=== PATIENT | female | born 1965 | race Caucasian/White ===

== ENCOUNTER 2016-10-05 15:28 | Inpatient (IN) | payer BC ==
[~2016-10-05] VITALS: Ht 162.6 cm; Wt 127.6 kg
[~2016-10-05 15:28] MED LIST: ALBUAER2 INH; ASPEC81 PO; CIPR-255 PO; CLON0.5T3 PO; CMD5 PO; CYM/30 PO; DEXTLIQ81 PO; FURO20TA PO; GABA-113 PO; LISI40TA PO; LMC25 PO; NRV5 PO; PRLSR20 PO; PROM25TA PO; TRAM-10 PO
[2016-10-05] MEDS ORDERED: ONDANSETRON 4MG OD TAB PO STA (15:53)
[2016-10-05] MEDS ORDERED: MoRPHine SULFATE 10 MG/ML CARP/VIAL IM STA (15:53)
--- NOTE | 2016-10-05 16:00 | EMERGENCY ROOM VISIT NOTE ---
History First contact with patient: 15:39 Chief Complaint: CHEST PAIN Stated Complaint: CHEST PAIN - MIGRAIN - SHORT OF BREATH Nursing Triage Summary: Pt presents with substernal cp. Pain and sob last night when walking a short distance. "It's not heartburn. It feels bad. I had a PE last year at this time. I also have a migraine. It's different, all the meds I usually take for them aren't helping." History of Present Illness The patient is a 51 year old female who presents to the Emergency Room via private vehicle accompanied by male with complaints of "chest pain, migraine, short of breath". The patient states that 2 days ago she began with chest pain in the substernal region, that is worse with movement. She states that she also began a headache which is throughout the head, she notes is constant and is worse today. She feels the headache is severe. She does have history of chronic migraines, but states this is different. She states that she did take her blood pressure medications, and her prescribed headache medications without relief. In addition to this headache, she notes that her lips feel numb, and the right side of her body also feels numb. She notes pain in the right upper arm, in the upper body. She states she has had this sensation before and believes it was related to the migraine. She also feels that the pelvic region is burning. She states she does have a history of fibromyalgia, and interstitial cystitis. She states that she had this numbness sensation one other time, and was told it was secondary to her migraines. At this time she feels the chest pain is worsening, and points to the substernal region as the location of the pain. She also feels short of breath. She has a history of pulmonary embolism, which was diagnosed last year she has been taking Coumadin for this. She denies any history of myocardial infarction or heart history. Review of Systems A complete 10-point Review of Systems was discussed with the patient, with pertinent positives and negatives listed in the History of Present Illness. All remaining Review of Systems questions can be considered negative unless otherwise specified. Past Medical/Surgical History Medical Problems: (1) Allergic rhinitis (2) Chest pain in adult (3) Endometriosis (4) Fibromyalgia (5) HTN (hypertension) (6) IBS (irritable bowel syndrome) (7) Interstitial cystitis (8) Migraine (9) Pulmonary embolism (10) Renal calculi Surgical Problems: (1) History of hysterectomy (2) S/P cholecystectomy (3) S/P tubal ligation Family History Cancer Diabetes mellitus Gallbladder disease Heart disease Hypertension Kidney disease Kidney stones Social History Smoking Status: Never Smoker Alcohol Use: none Drug Use: none Marital Status: Occupation Status: employed Current/Historical Medications Scheduled Aspirin (Aspir-81), 1 TAB PO DAILY Clonazepam (Klonopin), 0.5 MG PO HS Duloxetine Hcl (Cymbalta), 60 MG PO DAILY Furosemide (Lasix), 1 TAB PO BID Gabapentin (Neurontin), 300 MG PO UD Lamotrigine (Lamotrigine), 1 TAB PO BID Lisinopril (Prinivil), 40 MG PO DAILY Omeprazole (Prilosec), 40 MG PO BID Potassium Chloride (Potassium Chloride Er), 1 CAP PO DAILY Warfarin Sod (Coumadin), 5 MG PO DAILY Scheduled PRN Albuterol Hfa (Ventolin Hfa), 2 PUFFS INH Q6H PRN for SOB/Wheezing Clonazepam (Klonopin), 0.25 TAB PO QAM PRN for Anxiety Meclizine HCl (Meclizine HCl), 1 TAB PO TID PRN for dizziness Promethazine Hcl (Phenergan), 25 MG PO Q6H PRN for Nausea Tramadol (Ultram), 50 MG PO Q6 PRN for Pain Allergies Coded Allergies: Penicillins (Verified Allergy, Severe, SWELLING, 10/05/16) Sulfa Drugs (Verified Adverse Reaction, Mild, N/V, 10/05/16) Physical Exam Vital Signs Date Time Temp Pulse Resp B/P Pulse Ox O2 Delivery O2 Flow Rate FiO2 10/05/16 19:15 90 18 125/80 94 Room Air 10/05/16 19:11 87 10/05/16 16:30 95 Room Air 10/05/16 16:26 94 Room Air 10/05/16 16:02 98 10/05/16 15:34 36.9 101 18 160/86 95 Room Air Physical Exam VITAL SIGNS - Vital signs and nursing notes were reviewed. Patient is afebrile , hypertensive at 160/86, 70 tachycardic at a rate of 101 bpm, and is saturating well on room air 95%. GENERAL -51-year-old female appearing her stated age who is in no acute distress. Communicates well with provider and answers questions appropriately. SKIN - Without rashes. No petechial rashes. HEAD - NC/AT. EYES - PERRL with EOMI bilaterally. Sclera anicteric. Palpebral conjunctiva pink and moist with no injection noted. EARS - No deformities of external structures noted on gross examination bilaterally. No pain elicited with palpation of the tragus bilaterally. External auditory canals without discharge or otorrhea. Tympanic membranes pearly hernandez without retraction or bulging. No fluid or purulent material visualized behind the TM. Handle of malleus, umbo, cone of light, pars tensa/ flaccid all easily visualized. NOSE - Midline and without cyanosis. No epistaxis or purulent drainage noted. Septum midline without deviation or septal hematoma noted. MOUTH/OROPHARYNX - Without perioral cyanosis. Buccal mucosa pink and moist and without leukoplakia. Tongue midline with equal elevation of palate bilaterally. No tonsillar hypertrophy, erythema, or exudates noted. Fair dentition noted. NECK - Neck with FROM. Supple to palpation. No lymphadenopathy noted. No nuchal rigidity. LUNGS - Chest wall symmetric without accessory muscle use, intercostals retractions, or central cyanosis. Normal vesicular breath sounds CTA B/L. No wheezes, rales, or rhonchi appreciated. CARDIAC - RRR with S1/S2. No murmur, rubs, or gallops appreciated. ABDOMEN - Abdominal contour without pulsations or visible masses. BS normoactive all four quadrants. There is generalized abdominal tenderness of which the patient notes is chronic. No palpable masses, hepatosplenomegaly, or ascites noted. EXTREMITIES - No clubbing or peripheral cyanosis. No pretibial edema present. + 5/5 strength noted in UE/LE bilaterally. NEUROLOGIC - Cranial nerves II through XII grossly intact. Sensory intact to light touch throughout. No neurologic deficits appreciated upon exam. PSYCH - A&Ox3 and cooperates fully with examiner. Pt is very pleasant and interacts well with examiner. Medical Decision & Procedures ER Provider Diagnostic Interpretation: HEAD CT NONCONTRAST CT DOSE: HISTORY: Headache. Stroke TECHNIQUE: Multiaxial CT images of the head were performed without the use of intravenous contrast. Automated exposure control was utilized for this study. Comparison: Head CT 10/12/2015. Findings: The paranasal sinuses and mastoid air cells are clear. The calvarium and skull base are intact. There is no mass, hematoma, midline shift, acute infarct. White matter hypodensity is nonspecific but suggestive of microvascular ischemic change. The ventricles and sulci demonstrate mild age-related involutional changes. Stable slightly hyperdense appearance to the left MCA. Impression: No significant change compared to the prior study. No acute intracranial abnormality. Electronically signed by: Randy Alvarez M.D. 10/05/2016 6:25 PM SINGLE VIEW CHEST CLINICAL HISTORY: Dyspnea. Substernal chest pain. FINDINGS: An AP, portable, upright chest radiograph is compared to study dated 12/27/2015 and correlated with chest CT dated 10/12/2015. The examination is degraded by portable technique, large body habitus, and apical lordotic positioning. The heart is top normal for projection. The lungs and pleural spaces are clear. No pneumothorax is seen. The bony thorax is grossly intact. IMPRESSION: No active disease in the chest. Electronically signed by: Mark Harrison M.D. 10/05/2016 4:45 PM Dictated Date/Time: 10/05/2016 4:44 PM CHEST CTA for PULMONARY ARTERIES CT DOSE: 1640.82 mGy.cm HISTORY: Atypical chest pain. Dyspnea. TECHNIQUE: Multiaxial CT images of the chest were performed following the intravenous administration of contrast to evaluate the pulmonary arteries. Maximal intensity projection images were also obtained. COMPARISON STUDY: Chest CTA 10/12/2015. FINDINGS: Normal caliber thoracic aorta with no evidence for dissection. No pleural or pericardial effusions. Heterogeneous opacification of a single right upper lobe segmental pulmonary artery best seen on images 186 through 189 is likely due to the streak artifact from the adjacent SVC. There are no definite filling defects to suggest pulmonary embolus. Specifically, the right lower lobe pulmonary emboli seen on the prior study have resolved in the interval. No pneumothorax. The central airways are patent. Mild dependent changes seen at the lung bases. No focal lung consolidations to suggest pneumonia. Small peripheral groundglass density within the lingula on image 147 area this is of doubtful clinical significance. Cholecystectomy. Hepatic steatosis. The spleen and adrenal glands are unremarkable. No mediastinal or hilar lymphadenopathy. Subcentimeter right thyroid nodules. IMPRESSION: No evidence for pulmonary embolus. Electronically signed by: Randy Alvarez M.D. 10/05/2016 6:21 PM Dictated Date/Time: 10/05/2016 6:12 PM Laboratory Results 10/05/16 16:05 Red Blood Count 4.87, Mean Corpuscular Volume 92.2, Mean Corpuscular Hemoglobin 31.0, Mean Corpuscular Hemoglobin Concent 33.6, Mean Platelet Volume 10.9, Neutrophils (%) (Auto) 62.0, Lymphocytes (%) (Auto) 30.7, Monocytes (%) (Auto) 3.9, Eosinophils (%) (Auto) 2.8, Basophils (%) (Auto) 0.3, Neutrophils # (Auto) 5.33, Lymphocytes # (Auto) 2.65, Monocytes # (Auto) 0.34, Eosinophils # (Auto) 0.24, Basophils # (Auto) 0.03 10/05/16 16:05 Test 10/05/16 16:05 10/05/16 16:16 10/05/16 19:03 10/05/16 19:45 White Blood Count 8.62 K/uL (4.8-10.8) Red Blood Count 4.87 M/uL (4.2-5.4) Hemoglobin 15.1 g/dL (12.0-16.0) Hematocrit 44.9 % (37-47) Mean Corpuscular Volume 92.2 fL (80-100) Mean Corpuscular Hemoglobin 31.0 pg (25-34) Mean Corpuscular Hemoglobin Concent 33.6 g/dl (32-36) Platelet Count 221 K/uL (130-400) Mean Platelet Volume 10.9 fL (7.4-10.4) Neutrophils (%) (Auto) 62.0 % Lymphocytes (%) (Auto) 30.7 % Monocytes (%) (Auto) 3.9 % Eosinophils (%) (Auto) 2.8 % Basophils (%) (Auto) 0.3 % Neutrophils # (Auto) 5.33 K/uL (1.4-6.5) Lymphocytes # (Auto) 2.65 K/uL (1.2-3.4) Monocytes # (Auto) 0.34 K/uL (0.11-0.59) Eosinophils # (Auto) 0.24 K/uL (0-0.5) Basophils # (Auto) 0.03 K/uL (0-0.2) RDW Standard Deviation 46.3 fL (36.4-46.3) RDW Coefficient of Variation 13.8 % (11.5-14.5) Immature Granulocyte % (Auto) 0.3 % Immature Granulocyte # (Auto) 0.03 K/uL (0.00-0.02) Prothrombin Time 18.2 SECONDS (9.0-12.0) Prothromb Time International Ratio 1.7 (0.9-1.1) Activated Partial Thromboplast Time 37.4 SECONDS (21.0-31.0) Partial Thromboplastin Ratio 1.4 Anion Gap 8.0 mmol/L (3-11) Est Creatinine Clear Calc Drug Dose 61.3 ml/min Estimated GFR () 49.6 Estimated GFR (Non- 42.8 BUN/Creatinine Ratio 9.6 (10-20) Calcium Level 8.7 mg/dl (8.5-10.1) Total Bilirubin 0.8 mg/dl (0.2-1) Aspartate Amino Transf (AST/SGOT) 16 U/L (15-37) Alanine Aminotransferase (ALT/SGPT) 23 U/L (12-78) Alkaline Phosphatase 103 U/L (45-117) Total Creatine Kinase 65 U/L (26-192) Creatine Kinase MB 0.5 ng/ml (0.5-3.6) Creatine Kinase MB Ratio 0.8 (0-3.0) Total Protein 7.5 gm/dl (6.4-8.2) Albumin 3.3 gm/dl (3.4-5.0) Globulin 4.2 gm/dl (2.5-4.0) Albumin/Globulin Ratio 0.8 (0.9-2) Lipase 130 U/L (73-393) Chemistry Specimen Hemolysis UN-Ehr-M-Type Natriuretic Peptide 36 pg/ml (0-900) Bedside Troponin I 0.000 ng/ml (0-0.045) Urine Color YELLOW Urine Appearance CLEAR (CLEAR) Urine pH 5.0 (4.5-7.5) Urine Specific [place] > 1.045 (1.000-1.030) Urine Protein NEG (NEG) Urine Glucose (UA) NEG (NEG) Urine Ketones NEG (NEG) Urine Occult Blood NEG (NEG) Urine Nitrite NEG (NEG) Urine Bilirubin NEG (NEG) Urine Urobilinogen NEG (NEG) Urine Leukocyte Esterase MODERATE (NEG) Urine WBC (Auto) 10-30 /hpf (0-5) Urine RBC (Auto) 0-4 /hpf (0-4) Urine Hyaline Casts (Auto) 1-5 /lpf (0-5) Urine Epithelial Cells (Auto) >30 /lpf (0-5) Urine Bacteria (Auto) 1+ (NEG) Urine Opiates Screen POS (NEG) Urine Methadone, Qualitative NEG (NEG) Urine Barbiturates NEG (NEG) Urine Phencyclidine (PCP) Level NEG (NEG) Ur Amphetamine/Methamphetamine NEG (NEG) MDMA (Ecstasy) Screen NEG (NEG) Urine Benzodiazepines Screen POS (NEG) Urine Cocaine Metabolite NEG (NEG) Urine Marijuana (THC) NEG (NEG) Medications Administered Medications (Trade) Dose Ordered Sig/Joe Route Start Time Stop Time Status Last Admin Dose Admin Sodium Chloride (Nss 1000ml) 1,000 ml @ 50 mls/hr Q20H IV 10/05/16 16:00 10/05/16 21:55 DC 10/05/16 16:22 50 MLS/HR Morphine Sulfate (MoRPHine SULFATE INJ) 4 mg NOW STAT IV 10/05/16 16:02 10/05/16 16:04 DC 10/05/16 16:11 4 MG Ondansetron HCl (Zofran Inj) 4 mg NOW STAT IV 10/05/16 16:02 10/05/16 16:04 DC 10/05/16 16:11 4 MG Hydromorphone HCl (Dilaudid Inj) 0.5 mg NOW STAT IV 10/05/16 16:17 10/05/16 16:19 DC 10/05/16 16:25 0.5 MG Nitroglycerin (Nitroglycerin 2% Oint) 1 inch NOW STAT EXT 10/05/16 18:47 10/05/16 18:49 DC 10/05/16 19:16 1 INCH Diphenhydramine HCl (Benadryl Inj) 50 mg NOW STAT IV 10/05/16 18:47 10/05/16 18:49 DC 10/05/16 19:15 50 MG Prochlorperazine Edisylate (Compazine Inj) 10 mg NOW STAT IV 10/05/16 18:47 10/05/16 18:49 DC 10/05/16 19:15 10 MG Medical Decision Patient was seen and evaluated as above. After obtaining a thorough history and physical examination IV access was established, and the above workup was initiated. Emergent concern was over myocardial infarction. Initial point care troponin was negative, EKG performed does reveal normal sinus rhythm, nonspecific T-wave abnormality with a rate of 100 bpm, and when compared with EKG of 12/27/2015 there is now a nonspecific change in the ST segment in the inferior leads. At this time I do not suspect any ST segment elevation myocardial infarction. The patient also noted that the right side of her body felt numb therefore a stat CT of the head was performed. This did not reveal any acute process, however old ischemia was noted. The patient was initially given morphine for her pain, and noted this did not provide relief therefore was given Dilaudid. There was no relief of her chest pain or headache. She was given nitroglycerin with relief for chest pain. She was then given Benadryl and Compazine for the headache. She was reevaluated and noted to be feeling much better. Her NIH stroke scale was 0, and I was not able to appreciate any neurologic deficits on exam. I do not suspect any acute stroke at this time. Because the patient had relief of her pain with the nitroglycerin , does have subtle changes on EKG I do believe that further intervention the inpatient management is appropriate. Her CBC reveals no leukocytosis or anemia. INR is 1.7. This is subtherapeutic. Creatinine elevated at 1.4, random glucose elevated at 186. Point care troponin negative 2. Lipase within normal limits. CT scans did not reveal on her emboli. Given the patient 's chest pain I do believe that further intervention is necessary as noted above. I did discuss the case with my attending, and the hospitalist. I do believe that staying in the hospital for further management will be beneficial. I discussed the case at [address] Ward. Please refer to further documentation regarding her stay. Her urine does reveal questionable UTI however at this time I do believe that waiting for the culture is appropriate. In the evaluation and treatment of this patient the following differential diagnoses were entertained: Acute myocardial infarction, PE, subtherapeutic INR , fibromyalgia, anxiety, migraine, TIA, CVA, UTI, among others. Impression Primary Impression: Chest pain in adult Additional Impression: Migraine Departure Information Dispostion Admitted as an inpatient Condition FAIR Referrals Abraham Ryan M.D. (PCP) Patient Instructions [facility] Problem Qualifiers
[2016-10-05] MEDS ORDERED: ONDANSETRON INJ 2 MG/ML 2 ML VIAL IV STA (16:02)
[2016-10-05] MEDS ORDERED: MoRPHine SULFATE 4 MG/ML 1 ML CARP\\VIAL IV STA (16:02)
[2016-10-05] MEDS: SODIUM CHLORIDE 0.9% 1000ML 1,000 ML IV SCH ×2 (16:12→16:22)
[2016-10-05] MEDS ORDERED: HYDROmorphone INJ 0.5 MG/0.5 ML SYR IV STA (16:17)
[2016-10-05 16:34] LABS: BASO % 0.3 %; BASO ABS # 0.03 K/uL (0-0.2); COMPLETE YES; EOS % 2.8 %; HEMATOCRIT 44.9 % (37-47); IG% 0.3 %; LYMPH % 30.7 %; LYMPH ABS # 2.65 K/uL (1.2-3.4); MEAN CELL VOLUME 92.2 fL (80-100); MEAN CORPUSCULAR HGB CONC 33.6 g/dl (32-36); MEAN PLATELET VOLUME 10.9 fL (7.4-10.4); MONO % 3.9 %; PLATELET COUNT 221 K/uL (130-400); RED BLOOD COUNT 4.87 M/uL (4.2-5.4); WHITE BLOOD COUNT 8.62 K/uL (4.8-10.8)
[2016-10-05 16:41] LABS: INR 1.7 (0.9-1.1); PARTIAL THROMBOPLASTIN RATIO 1.4; PROTHROMBIN TIME (PATIENT) 18.2 SECONDS (9.0-12.0)
--- NOTE | 2016-10-05 16:46 | DIAGNOSTIC IMAGING REPORT ---
SINGLE VIEW CHEST CLINICAL HISTORY: Dyspnea. Substernal chest pain. FINDINGS: An AP, portable, upright chest radiograph is compared to study dated 12/27/2015 and correlated with chest CT dated 10/12/2015. The examination is degraded by portable technique, large body habitus, and apical lordotic positioning. The heart is top normal for projection. The lungs and pleural spaces are clear. No pneumothorax is seen. The bony thorax is grossly intact. IMPRESSION: No active disease in the chest. Electronically signed by: Mark Harrison M.D. 10/05/2016 4:45 PM Dictated Date/Time: 10/05/2016 4:44 PM
[2016-10-05 17:17] LABS: ALB/GLOB RATIO 0.8 (0.9-2); BUN/CREATININE RATIO 9.6 (10-20); CALCIUM 8.7 mg/dl (8.5-10.1); CKMB/CK RATIO 0.8 (0-3.0); CREATININE 1.4 mg/dl (0.60-1.20); POTASSIUM 3.5 mmol/L (3.5-5.1)
[2016-10-05] MEDS ORDERED: OMEP40CA41 PO (17:25)
[2016-10-05] MEDS ORDERED: VNTHFA/IN INH (17:25)
[2016-10-05] MEDS ORDERED: DULO60CA44 PO (17:25)
[2016-10-05] MEDS ORDERED: ASPI-232 PO (17:25)
[2016-10-05] MEDS ORDERED: PROM12.57 PO (17:25)
[2016-10-05] MEDS ORDERED: OPTIRAY 320 IV PRN (18:15)
--- NOTE | 2016-10-05 18:23 | DIAGNOSTIC IMAGING REPORT ---
CHEST CTA for PULMONARY ARTERIES CT DOSE: 1640.82 mGy.cm HISTORY: Atypical chest pain. Dyspnea. TECHNIQUE: Multiaxial CT images of the chest were performed following the intravenous administration of contrast to evaluate the pulmonary arteries. Maximal intensity projection images were also obtained. COMPARISON STUDY: Chest CTA 10/12/2015. FINDINGS: Normal caliber thoracic aorta with no evidence for dissection. No pleural or pericardial effusions. Heterogeneous opacification of a single right upper lobe segmental pulmonary artery best seen on images 186 through 189 is likely due to the streak artifact from the adjacent SVC. There are no definite filling defects to suggest pulmonary embolus. Specifically, the right lower lobe pulmonary emboli seen on the prior study have resolved in the interval. No pneumothorax. The central airways are patent. Mild dependent changes seen at the lung bases. No focal lung consolidations to suggest pneumonia. Small peripheral groundglass density within the lingula on image 147 area this is of doubtful clinical significance. Cholecystectomy. Hepatic steatosis. The spleen and adrenal glands are unremarkable. No mediastinal or hilar lymphadenopathy. Subcentimeter right thyroid nodules. IMPRESSION: No evidence for pulmonary embolus. Electronically signed by: Randy Alvarez M.D. 10/05/2016 6:21 PM Dictated Date/Time: 10/05/2016 6:12 PM
--- NOTE | 2016-10-05 18:26 | DIAGNOSTIC IMAGING REPORT ---
HEAD CT NONCONTRAST CT DOSE: HISTORY: Headache. Stroke TECHNIQUE: Multiaxial CT images of the head were performed without the use of intravenous contrast. Automated exposure control was utilized for this study. Comparison: Head CT 10/12/2015. Findings: The paranasal sinuses and mastoid air cells are clear. The calvarium and skull base are intact. There is no mass, hematoma, midline shift, acute infarct. White matter hypodensity is nonspecific but suggestive of microvascular ischemic change. The ventricles and sulci demonstrate mild age-related involutional changes. Stable slightly hyperdense appearance to the left MCA. Impression: No significant change compared to the prior study. No acute intracranial abnormality. Electronically signed by: Randy Alvarez M.D. 10/05/2016 6:25 PM Dictated Date/Time: 10/05/2016 6:21 PM
[2016-10-05] MEDS ORDERED: DiphenhydrAMINE HCL 50 MG/ML VIAL IV STA (18:47)
[2016-10-05] MEDS ORDERED: NITROGLYCERIN OINT 2% 1GM PACKET EXT STA (18:47)
[2016-10-05] MEDS ORDERED: PROCHLORPERAZINE 5 MG/ML 2 ML VIAL IV STA (18:47)
[2016-10-05] MEDS ORDERED: NITROGLYCERIN OINT 2% 1GM PACKET ONE (19:09)
[2016-10-05 20:05] LABS: URINE APPEARANCE CLEAR (CLEAR); URINE BILIRUBIN NEG (NEG); URINE COLOR YELLOW; URINE EPITHELIAL CELL AUTO >30 /lpf (0-5); URINE NITRITE NEG (NEG); URINE SPECIFIC GRAVITY > 1.045 (1.000-1.030); UROBILINOGEN NEG (NEG); ZZUR CULT IF INDIC CLEAN CATCH YES
[2016-10-05 20:09] LABS: MANUAL MICROSCOPIC REQUIRED? NO; REVIEW REQ? NO
[2016-10-05 20:31] LABS: BENZODIAZEPINE, URINE POS (NEG); COCAINE,URINE NEG (NEG); PHENCYCLIDINE, URINE NEG (NEG)
[2016-10-05] MEDS ORDERED: PROM25TA9 PO (20:42)
[2016-10-05] MEDS ORDERED: POTA1CAP2 PO (20:42)
[2016-10-05] MEDS ORDERED: ANT25 PO (20:42)
[2016-10-05] MEDS ORDERED: CLONAZEPAM 0.5 MG TAB PO PRN (20:45)
[2016-10-05] MEDS ORDERED: ALBUTEROL HFA 8 GM INHALER INH PRN (20:45)
[2016-10-05] MEDS ORDERED: ENOXAPARIN 1 MG/KG SQ SCH (20:45)
--- NOTE | 2016-10-05 21:22 | History and Physical ---
History & Physical Date & Time of Service: Oct 05, 2016 at 21:10 Chief Complaint: Chest Pain - Migrain - Short Of Breath Primary Care Physician: Abraham Ryan M.D. History of Present Illness Source: patient, spouse, clinic records, hospital records Patient is a 51 y/o female with a h/o fibromyalgia, migraines and HTN who presents for evaluation of chest pain, migraine and SOB. Patient notes intermittent episodes of substernal chest pain since the weekend. The pain does not radiate. It is associated with SOB. Today she developed a headache as well and so presented to the ED. Patient's notes that patient has been under significant stress for the past couple of weeks. In the ED, patient was given Nitro paste, Benadryl IV, Compazine IV, Dilaudid IV , Morphine IV and Zofran. She is sleepy, but notes complete resolution of headache and chest pain. Past Medical/Surgical History Medical Problems: (1) Allergic rhinitis Status: Chronic (2) Endometriosis Status: Chronic (3) Fibromyalgia Status: Chronic (4) HTN (hypertension) Status: Chronic (5) Interstitial cystitis Status: Chronic (6) Migraine Status: Chronic (7) Renal calculi Status: Chronic Surgical Problems: (1) History of hysterectomy Status: Chronic (2) S/P cholecystectomy Status: Chronic (3) S/P tubal ligation Status: Chronic Family History Cancer Diabetes mellitus Gallbladder disease Heart disease Hypertension Kidney disease Kidney stones Social History Smoking Status: Never Smoker Drug Use: none Marital Status: Housing status: lives with family Occupational Status: employed Immunizations History of Influenza Vaccine: Yes Influenza Vaccine Date: Mar 23, 2014 History of Tetanus Vaccine?: Yes Tetanus Immunization Date: Feb 13, 2008 History of Pneumococcal: No History of Hepatitis B Vaccine: Yes Multi-Drug Resistant Organisms History of MDRO: Yes Type of MDRO: MRSA Allergies Coded Allergies: Penicillins (Verified Allergy, Severe, SWELLING, 10/05/16) Sulfa Drugs (Verified Adverse Reaction, Mild, N/V, 10/05/16) Home Medications Scheduled Aspirin (Aspir-81), 1 TAB PO DAILY Clonazepam (Klonopin), 0.5 MG PO HS Duloxetine Hcl (Cymbalta), 60 MG PO DAILY Furosemide (Lasix), 1 TAB PO BID Gabapentin (Neurontin), 300 MG PO UD Lamotrigine (Lamotrigine), 1 TAB PO BID Lisinopril (Prinivil), 40 MG PO DAILY Omeprazole (Prilosec), 40 MG PO BID Potassium Chloride (Potassium Chloride Er), 1 CAP PO DAILY Warfarin Sod (Coumadin), 5 MG PO DAILY Scheduled PRN Albuterol Hfa (Ventolin Hfa), 2 PUFFS INH Q6H PRN for SOB/Wheezing Clonazepam (Klonopin), 0.25 TAB PO QAM PRN for Anxiety Meclizine HCl (Meclizine HCl), 1 TAB PO TID PRN for dizziness Promethazine Hcl (Phenergan), 25 MG PO Q6H PRN for Nausea Tramadol (Ultram), 50 MG PO Q6 PRN for Pain Review of Systems Constitutional- denies fevers or chills Eyes- denies sudden vision changes ENT- +sore throat; denies congestion Pulmonary- +SOB; denies cough Cardiac- +chest pain; denies palpitations GI- denies abdominal pain, nausea, vomiting, diarrhea - denies dysuria, hematuria Musculoskeletal- denies joint pain or swelling Dermatologic- denies rash or bruises Neuro- +chronic tingling of hands and feet; denies weakness Psych- +depression and anxiety . Physical Exam Vital Signs Date Time Temp Pulse Resp B/P Pulse Ox O2 Delivery O2 Flow Rate FiO2 10/05/16 21:09 89 16 107/61 88 Room Air 10/05/16 19:15 90 18 125/80 94 Room Air 10/05/16 19:11 87 10/05/16 16:30 95 Room Air 10/05/16 16:26 94 Room Air 10/05/16 16:02 98 10/05/16 15:34 36.9 101 18 160/86 95 Room Air General- drowsy; NAD Eyes- EOMI; no scleral icterus Neck- no stridor; trachea midline Lungs- CTA bilaterally; no wheezes/crackles Heart- RRR; no m/r/g Abdomen- soft; NTND; nBS Back- no gross abnormalities Extremities- no c/c/e; no deformity Neuro- no focal deficits Skin- no appreciable rash or bruise . Diagnostics Laboratory Results Results Past 24 Hours Test 10/05/16 16:00 10/05/16 16:05 10/05/16 16:16 10/05/16 19:03 Range/Units Creatine Kinase MB Ratio 0.8 0-3.0 White Blood Count 8.62 4.8-10.8 K/uL Red Blood Count 4.87 4.2-5.4 M/uL Hemoglobin 15.1 12.0-16.0 g/dL Hematocrit 44.9 37-47 % Mean Corpuscular Volume 92.2 80-100 fL Mean Corpuscular Hemoglobin 31.0 25-34 pg Mean Corpuscular Hemoglobin Concent 33.6 32-36 g/dl Platelet Count 221 130-400 K/uL Mean Platelet Volume 10.9 7.4-10.4 fL Neutrophils (%) (Auto) 62.0 % Lymphocytes (%) (Auto) 30.7 % Monocytes (%) (Auto) 3.9 % Eosinophils (%) (Auto) 2.8 % Basophils (%) (Auto) 0.3 % Neutrophils # (Auto) 5.33 1.4-6.5 K/uL Lymphocytes # (Auto) 2.65 1.2-3.4 K/uL Monocytes # (Auto) 0.34 0.11-0.59 K/uL Eosinophils # (Auto) 0.24 0-0.5 K/uL Basophils # (Auto) 0.03 0-0.2 K/uL RDW Standard Deviation 46.3 36.4-46.3 fL RDW Coefficient of Variation 13.8 11.5-14.5 % Immature Granulocyte % (Auto) 0.3 % Immature Granulocyte # (Auto) 0.03 0.00-0.02 K/uL Prothrombin Time 18.2 9.0-12.0 SECONDS Prothromb Time International Ratio 1.7 0.9-1.1 Activated Partial Thromboplast Time 37.4 21.0-31.0 SECONDS Partial Thromboplastin Ratio 1.4 Sodium Level 140 136-145 mmol/L Potassium Level 3.5 3.5-5.1 mmol/L Chloride Level 103 98-107 mmol/L Carbon Dioxide Level 29 21-32 mmol/L Anion Gap 8.0 3-11 mmol/L Blood Urea Nitrogen 13 7-18 mg/dl Creatinine 1.40 0.60-1.20 mg/dl Est Creatinine Clear Calc Drug Dose 61.3 ml/min Estimated GFR () 49.6 Estimated GFR (Non- 42.8 BUN/Creatinine Ratio 9.6 10-20 Random Glucose 186 70-99 mg/dl Calcium Level 8.7 8.5-10.1 mg/dl Total Bilirubin 0.8 0.2-1 mg/dl Aspartate Amino Transf (AST/SGOT) 16 15-37 U/L Alanine Aminotransferase (ALT/SGPT) 23 12-78 U/L Alkaline Phosphatase 103 45-117 U/L Total Creatine Kinase 65 26-192 U/L Creatine Kinase MB 0.5 0.5-3.6 ng/ml Total Protein 7.5 6.4-8.2 gm/dl Albumin 3.3 3.4-5.0 gm/dl Globulin 4.2 2.5-4.0 gm/dl Albumin/Globulin Ratio 0.8 0.9-2 Lipase 130 73-393 U/L Chemistry Specimen Hemolysis Bedside Troponin I 0.000 0.000 0-0.045 ng/ml [id number] Natriuretic Peptide 36 0-900 pg/ml Test 10/05/16 19:45 Range/Units Urine Color YELLOW Urine Appearance CLEAR CLEAR Urine pH 5.0 4.5-7.5 Urine Specific [place] > 1.045 1.000-1.030 Urine Protein NEG NEG Urine Glucose (UA) NEG NEG Urine Ketones NEG NEG Urine Occult Blood NEG NEG Urine Nitrite NEG NEG Urine Bilirubin NEG NEG Urine Urobilinogen NEG NEG Urine Leukocyte Esterase MODERATE NEG Urine WBC (Auto) 10-30 0-5 /hpf Urine RBC (Auto) 0-4 0-4 /hpf Urine Hyaline Casts (Auto) 1-5 0-5 /lpf Urine Epithelial Cells (Auto) >30 0-5 /lpf Urine Bacteria (Auto) 1+ NEG Urine Opiates Screen POS NEG Urine Methadone, Qualitative NEG NEG Urine Barbiturates NEG NEG Urine Phencyclidine (PCP) Level NEG NEG Ur Amphetamine/Methamphetamine NEG NEG MDMA (Ecstasy) Screen NEG NEG Urine Benzodiazepines Screen POS NEG Urine Cocaine Metabolite NEG NEG Urine Marijuana (THC) NEG NEG Microbiology Results 10/05/16 Urine Culture, Received Pending Diagnostic Radiology CT chest No evidence for pulmonary embolus. CT head No significant change compared to the prior study. No acute intracranial abnormality. EKG No acute ischemic changes Impression Assessment and Plan Patient is a 51 y/o female with a h/o fibromyalgia who presents with ~1 week h/ o intermittent chest pain. Atypical chest pain - lower clinical suspicion for cardiac etiology - patient's notes increased stressors over the past 1-2 weeks - ACS r/o - patient had a normal stress echo in 2006 Migraine - resolved with cocktail that patient received in ED - continue lamotrigine HTN - continue lisinopril and furosemide Fibromyalgia - continue duloxetine, gabapentin, clonazepam and tramadol h/o PE - INR subtherapeutic - bridge with enoxaparin - continue warfarin - CT chest negative for PE Anticipate possible discharge home tomorrow. VTE Prophylaxis VTE Risk Assessment Done? Y/N: Yes Risk Level: Moderate
[2016-10-05 21:56] VITALS: BP 110/63; PULSE 85; TEMP 36.6; O2SAT 95; Ht 162.6 cm; Wt 127.6 kg
[2016-10-05] MEDS: CLONAZEPAM 0.5 MG TAB PO SCH (22:33)
[2016-10-05] MEDS: ENOXAPARIN 150 MG/1ML SYR SQ SCH (22:34)
[2016-10-05] MEDS: PANTOprazole SOD 40 MG TAB PO SCH (22:35)
[2016-10-05] MEDS: GABAPENTIN 300 MG CAP PO SCH (22:36)
[2016-10-05] MEDS ORDERED: WARFARIN SOD 5 MG TAB PO SCH (23:00)
[2016-10-06] VITALS (8 sets, daily range): BP systolic 96–141; BP diastolic 61–92; PULSE 85–98; TEMP 36.4–36.8; O2SAT 87–97
[2016-10-06 03:04] LABS: MEAN CELL VOLUME 91.1 fL (80-100); MEAN CORPUSCULAR HEMOGLOBIN 30.2 pg (25-34); MEAN CORPUSCULAR HGB CONC 33.1 g/dl (32-36); MEAN PLATELET VOLUME 10.1 fL (7.4-10.4); PLATELET COUNT 226 K/uL (130-400); RED BLOOD COUNT 4.61 M/uL (4.2-5.4); WHITE BLOOD COUNT 8.98 K/uL (4.8-10.8)
[2016-10-06 03:12] LABS: INR 1.8 (0.9-1.1); PROTHROMBIN TIME (PATIENT) 19.4 SECONDS (9.0-12.0)
[2016-10-06 03:23] LABS: BLOOD UREA NITROGEN 18 mg/dl (7-18); CALCIUM 8.4 mg/dl (8.5-10.1); CARBON DIOXIDE 30 mmol/L (21-32); CHLORIDE 104 mmol/L (98-107); GLUCOSE 136 mg/dl (70-99); POTASSIUM 3.9 mmol/L (3.5-5.1); SODIUM 143 mmol/L (136-145)
[2016-10-06] MEDS: LISINOPRIL 40 MG TAB PO SCH (07:52)
[2016-10-06] MEDS: GABAPENTIN 300 MG CAP PO SCH ×3 (07:52→20:38)
[2016-10-06] MEDS: DULOXETINE HCL 60 MG CAP PO SCH (07:53)
[2016-10-06] MEDS: POTASSIUM CHLORIDE 10 MEQ TABCR PO SCH (07:53)
[2016-10-06] MEDS: PANTOprazole SOD 40 MG TAB PO SCH ×2 (07:53→20:37)
[2016-10-06] MEDS: FUROSEMIDE 20 MG TAB PO SCH (07:53)
[2016-10-06] MEDS: ASPIRIN 81 MG ECTAB PO SCH (07:53)
[2016-10-06] MEDS: ENOXAPARIN 150 MG/1ML SYR SQ SCH ×2 (07:54→22:19)
[2016-10-06] MEDS: SODIUM CHLORIDE 0.9% 1000ML 1,000 ML IV SCH ×2 (10:03→22:02)
[2016-10-06] MEDS: WARFARIN SOD 6 MG TAB PO SCH (17:05)
--- NOTE | 2016-10-06 17:41 | Progress Note ---
Internal Med Progress Note Date of Service: Oct 06, 2016. Provider Documentation: SUBJECTIVE: chest pain on and off no sob drowsy from medications afebrile hemodynamics stable OBJECTIVE: Vital Signs-as noted below Exam: General-alert and oriented. Not in distress ENT-normal hearing Neck-no neck masses Lungs-cta b/l no wheezing no crackles Heart-s1 and s2 heard, regular rate and rhythm no murmurs Abdomen-soft bowel sounds present non tender no distension Extremities-no edema no erythema Neuro-alert and awake moves extremities Lab data as noted below. ASSESSMENT & PLAN: Patient is a 51 y/o female with a h/o fibromyalgia who presents with ~1 week h/ o intermittent chest pain. Atypical chest pain increased stress at home ekg and serial ce unremarkable f/u echo Migraine resolved with cocktail that patient received in ED will continue lamotrigine HTN on lisinopril and furosemide which are on hold for arf clonidine prn ARF holding lisinopril and Lasix gentle fluids f/u labs in am Fibromyalgia on duloxetine, gabapentin, clonazepam and tramadol h/o PE INR subtherapeutic CT chest negative for PE bridging with Lovenox increased Coumadin dose to 6mg daily DVT PROPHYLAXIS Lovenox and Coumadin DISPOSITION monitor in tele to be determined Vital Signs: Date Time Temp Pulse Resp B/P Pulse Ox O2 Delivery O2 Flow Rate FiO2 10/06/16 16:00 Room Air 10/06/16 15:05 36.8 94 17 141/92 95 Room Air 10/06/16 12:00 Nasal Cannula 2.0 10/06/16 11:52 36.4 98 15 125/83 97 Nasal Cannula 2.0 10/06/16 11:40 87 Room Air 10/06/16 08:00 Nasal Cannula 2.0 10/06/16 07:48 36.8 86 14 120/69 92 Nasal Cannula 2.0 10/06/16 04:00 94 Nasal Cannula 2.0 10/06/16 03:50 36.7 85 16 97/67 95 Nasal Cannula 2.0 10/06/16 00:00 93 Nasal Cannula 2.0 10/06/16 00:00 36.7 91 15 96/61 93 Nasal Cannula 2.0 10/05/16 21:56 36.6 85 14 110/63 95 Nasal Cannula 2.0 10/05/16 21:38 36.9 89 16 107/61 93 10/05/16 21:10 93 Nasal Cannula 2.0 10/05/16 21:09 89 16 107/61 88 Room Air 10/05/16 19:15 90 18 125/80 94 Room Air 10/05/16 19:11 87 Lab Results: Results Past 24 Hours Test 10/05/16 19:03 10/05/16 19:45 10/06/16 02:50 Range/Units Bedside Troponin I 0.000 0-0.045 ng/ml Urine Color YELLOW Urine Appearance CLEAR CLEAR Urine pH 5.0 4.5-7.5 Urine Specific [place] > 1.045 1.000-1.030 Urine Protein NEG NEG Urine Glucose (UA) NEG NEG Urine Ketones NEG NEG Urine Occult Blood NEG NEG Urine Nitrite NEG NEG Urine Bilirubin NEG NEG Urine Urobilinogen NEG NEG Urine Leukocyte Esterase MODERATE NEG Urine WBC (Auto) 10-30 0-5 /hpf Urine RBC (Auto) 0-4 0-4 /hpf Urine Hyaline Casts (Auto) 1-5 0-5 /lpf Urine Epithelial Cells (Auto) >30 0-5 /lpf Urine Bacteria (Auto) 1+ NEG Urine Opiates Screen POS NEG Urine Methadone, Qualitative NEG NEG Urine Barbiturates NEG NEG Urine Phencyclidine (PCP) Level NEG NEG Ur Amphetamine/Methamphetamine NEG NEG MDMA (Ecstasy) Screen NEG NEG Urine Benzodiazepines Screen POS NEG Urine Cocaine Metabolite NEG NEG Urine Marijuana (THC) NEG NEG White Blood Count 8.98 4.8-10.8 K/uL Red Blood Count 4.61 4.2-5.4 M/uL Hemoglobin 13.9 12.0-16.0 g/dL Hematocrit 42.0 37-47 % Mean Corpuscular Volume 91.1 80-100 fL Mean Corpuscular Hemoglobin 30.2 25-34 pg Mean Corpuscular Hemoglobin Concent 33.1 32-36 g/dl RDW Standard Deviation 47.2 36.4-46.3 fL RDW Coefficient of Variation 14.1 11.5-14.5 % Platelet Count 226 130-400 K/uL Mean Platelet Volume 10.1 7.4-10.4 fL Prothrombin Time 19.4 9.0-12.0 SECONDS Prothromb Time International Ratio 1.8 0.9-1.1 Sodium Level 143 136-145 mmol/L Potassium Level 3.9 3.5-5.1 mmol/L Chloride Level 104 98-107 mmol/L Carbon Dioxide Level 30 21-32 mmol/L Anion Gap 9.0 3-11 mmol/L Blood Urea Nitrogen 18 7-18 mg/dl Creatinine 1.80 0.60-1.20 mg/dl Est Creatinine Clear Calc Drug Dose 47.7 ml/min Estimated GFR () 36.6 Estimated GFR (Non- 31.6 BUN/Creatinine Ratio 10.0 10-20 Random Glucose 136 70-99 mg/dl Calcium Level 8.4 8.5-10.1 mg/dl Troponin I < 0.015 0-0.045 ng/ml Hepatitis C Antibody Screen NEG NEG Microbiology Results 10/05/16 Urine Culture - Preliminary, Resulted PIN-POINT GROWTH PRESENT, REINCUBATING.
[2016-10-06] MEDS ORDERED: CLONIDINE HCL 0.1 MG TAB PO PRN (17:45)
[2016-10-06] MEDS: TRAMADOL HCL 50 MG TAB PO PRN (17:57)
[2016-10-06] MEDS: CLONAZEPAM 0.5 MG TAB PO SCH (20:37)
[2016-10-07] VITALS (11 sets, daily range): BP systolic 148–176; BP diastolic 77–106; PULSE 82–99; TEMP 36.6–37; O2SAT 93–97
[2016-10-07] MEDS: ONDANSETRON INJ 2 MG/ML 2 ML VIAL IV PRN ×2 (04:07→08:49)
[2016-10-07 06:37] LABS: INR 2.5 (0.9-1.1); PROTHROMBIN TIME (PATIENT) 27.6 SECONDS (9.0-12.0)
[2016-10-07] MEDS: GABAPENTIN 300 MG CAP PO SCH ×3 (07:54→21:10)
[2016-10-07] MEDS: PANTOprazole SOD 40 MG TAB PO SCH ×2 (07:55→21:09)
[2016-10-07] MEDS: ASPIRIN 81 MG ECTAB PO SCH (07:55)
[2016-10-07] MEDS: DULOXETINE HCL 60 MG CAP PO SCH (07:55)
[2016-10-07 07:56] LABS: BUN/CREATININE RATIO 11.9 (10-20); CALCIUM 8.6 mg/dl (8.5-10.1); CREATININE 1.1 mg/dl (0.60-1.20); POTASSIUM 4.1 mmol/L (3.5-5.1)
[2016-10-07] MEDS: POTASSIUM CHLORIDE 10 MEQ TABCR PO SCH (07:56)
--- NOTE | 2016-10-07 08:45 | ECHOCARDIOGRAM REPORT ---
*NOTICE TO RECEIVING REPUBLICAN AGENCY This information is strictly Confidential and protected under [place] law. [place] law prohibits you from making any further disclosure of this information unless further disclosure is expressly permitted by the written consent of the person to whom it pertains or is authorized by law. A general authorization for the release of medical or other information is not sufficient for this purpose. Hospital accepts no responsibility if the information is made available to any other person, INCLUDING THE PATIENT. Interpretation Summary * Name: ZOE BUCKLEY Study Date: 10/06/2016 02:31 PM BP: 125/83 mmHg * Patient Location: .MSICU\S\E112\S\1 HR: 98 * : 1965 (M/d/yyyy) Gender: Female Height: 64 in * Age: 51 yrs Ethnicity: CA Weight: 279 lb * Ordering Physician: Fitz Mendoza * Referring Physician: Abraham Ryan * Performed By: Alicia Nguyen [facility] * * Reason For Study: Chest Pain * BSA: 2.3 m2 * -- Conclusions -- * The left ventricle is normal in size. * Ejection Fraction = 65-70%. * The left ventricular wall motion is normal. * The right ventricular systolic function is normal. * The left atrial size is normal. * Right atrial size is normal. * No significant valular pathology. Procedure Details * A complete two-dimensional transthoracic echocardiogram was performed (2D, M-mode, Doppler and color flow Doppler). * There were technical limitations due to patient's body habitus and supine positioning for imagining Left Ventricle * The left ventricle is normal in size. * There is normal left ventricular wall thickness. * Ejection Fraction = 65-70%. * The left ventricular wall motion is normal. Right Ventricle * The right ventricle is normal in size and function. * There is normal right ventricular wall thickness. * The right ventricular systolic function is normal. Atria * The left atrial size is normal. * Right atrial size is normal. * The interatrial septum is intact with no evidence for an atrial septal defect. Mitral Valve * The mitral valve is normal in structure and function. * There is no mitral valve stenosis. * There is no mitral regurgitation noted. Tricuspid Valve * The tricuspid valve is normal in structure and function. * There is trace tricuspid regurgitation. Aortic Valve * The aortic valve is normal in structure and function. * No aortic regurgitation is present. Pulmonic Valve * The pulmonic valve is normal in structure and function. * There is no pulmonic valvular regurgitation. Great Vessels * The aortic root is normal size. * No obvious dissection could be visualized. * The pulmonary artery is normal size. Pericardium/Pleural * There is no pericardial effusion. MMode 2D Measurements and Calculations IVSd 10 cm IVSs 1.3 cm LVIDd 4.3 cm LVIDs 2.5 cm LVPWd 1.0 cm LVPWs 1.2 cm IVS/LVPW 0.96 FS 42.7 % EDV(Teich) 82.4 ml ESV(Teich) 21.4 ml EF(Teich) 74.0 % EDV(cubed) 78.7 ml ESV(cubed) 14.8 ml EF(cubed) 81.1 % % IVS thick 31.4 % % LVPW thick 18.2 % LV mass(C)d 145.1 grams LV mass(C)dI 64.4 grams/m\S\2 LV mass(C)s 91.8 grams LV mass(C)sI 40.7 grams/m\S\2 CO(Teich) 5.2 l/min CI(Teich) 2.3 l/min/m\S\2 SV(Teich) 61.0 ml SI(Teich) 27.1 ml/m\S\2 CO(cubed) 5.4 l/min CI(cubed) 2.4 l/min/m\S\2 SV(cubed) 63.9 ml SI(cubed) 28.3 ml/m\S\2 Ao root diam 3.3 cm Ao root area 8.3 cm\S\2 ACS 1.7 cm LA dimension 3.3 cm LA/Ao 1.0 LVAd ap4 30.2 cm\S\2 LVLd ap4 9.0 cm EDV(MOD-sp4) 84.0 ml LVAs ap4 14.2 cm\S\2 LVLs ap4 7.4 cm ESV(MOD-sp4) 23.0 ml EF(MOD-sp4) 72.6 % LVAd ap2 26.9 cm\S\2 LVLd ap2 8.8 cm EDV(MOD-sp2) 70.0 ml LVAs ap2 13.9 cm\S\2 LVLs ap2 6.9 cm ESV(MOD-sp2) 25.0 ml EF(MOD-sp2) 64.3 % CO(MOD-sp4) 5.2 l/min CI(MOD-sp4) 2.3 l/min/m\S\2 SV(MOD-sp4) 61.0 ml SI(MOD-sp4) 27.1 ml/m\S\2 CO(MOD-sp2) 3.8 l/min CI(MOD-sp2) 1.7 l/min/m\S\2 SV(MOD-sp2) 45.0 ml SI(MOD-sp2) 20.0 ml/m\S\2 Doppler Measurements and Calculations MV E max pieter 84.8 cm/sec MV A max pieter 82.9 cm/sec MV E/A 1.0 MV P1/2t max pieter 117.3 cm/sec MV P1/2t 46.6 msec MVA(P1/2t) 4.7 cm\S\2 MV dec slope 737.0 cm/sec\S\2 MV dec time 0.24 sec Ao V2 max 158.1 cm/sec Ao max PG 10.0 mmHg Ao max PG (full) 5.7 mmHg LV V1 max PG 4.3 mmHg LV V1 max 103.5 cm/sec PA V2 max 90.2 cm/sec PA max PG 3.3 mmHg
[2016-10-07] MEDS: TRAMADOL HCL 50 MG TAB PO PRN ×3 (09:55→22:09)
[2016-10-07] MEDS: ENOXAPARIN 150 MG/1ML SYR SQ SCH (09:56)
[2016-10-07] MEDS ORDERED: MoRPHine SULFATE 4 MG/ML 1 ML CARP\\VIAL IV PRN (10:15)
--- NOTE | 2016-10-07 11:03 | DIAGNOSTIC IMAGING REPORT ---
LUMBAR SPINE CT CT DOSE: 2137.58 mGy.cm HISTORY: Pain severe back pain TECHNIQUE: Multiaxial CT images of the lumbar spine were performed and reformatted in the sagittal and coronal plane without the use of contrast. COMPARISON: None. FINDINGS: No fractures. No subluxation. Paraspinal soft tissues are unremarkable. Transaxial images show no evidence for disc herniation or spinal stenosis. Neuroforamina are patent bilaterally. Mild degenerative changes of the posterior facets are noted. IMPRESSION: 1. Mild degenerative changes of posterior facets. 2. Otherwise negative CT of the lumbar spine. Electronically signed by: Feng Millan M.D. 10/07/2016 11:02 AM Dictated Date/Time: 10/07/2016 10:59 AM
[2016-10-07] MEDS: PROMETHAZINE HCL INJ 12.5 MG in SODIUM CHLORIDE 0.9% 50ML 50 ML IV PRN (11:38)
[2016-10-07] MEDS: OXYCODONE/ACETAMINOPHEN 5-325 TAB PO PRN (11:46)
--- NOTE | 2016-10-07 14:14 | Progress Note ---
Internal Med Progress Note Date of Service: Oct 07, 2016. Provider Documentation: SUBJECTIVE: complains of severe back pain radiating down her right leg in tears because of pain says has some sob afebrile ambulating ok in room OBJECTIVE: Vital Signs-as noted below Exam: General-alert and oriented. Not in distress ENT-normal hearing Neck-no neck masses Lungs-cta b/l no wheezing no crackles Heart-s1 and s2 heard, regular rate and rhythm no murmurs Abdomen-soft bowel sounds present non tender no distension Extremities-no edema no erythema Neuro-alert and awake moves extremities Lab data as noted below. ASSESSMENT & PLAN: Patient is a 51 y/o female with a h/o fibromyalgia who presents with ~1 week h/ o intermittent chest pain. Atypical chest pain increased stress at home ekg and serial ce unremarkable echo unremarkable Migraine resolved with cocktail that patient received in ED will continue lamotrigine HTN on lisinopril and furosemide which are on hold for arf restarted lisnopril clonidine prn ARF holding lisinopril and Lasix gentle fluids resolved stopped fluids back pain pain meds prn ct lumbar spine unremarkable will monitor pt/ot Fibromyalgia on duloxetine, gabapentin, clonazepam and tramadol h/o PE INR subtherapeutic CT chest negative for PE bridging with Lovenox increased Coumadin dose to 6mg daily inr 2.5 today stopped Lovenox DVT PROPHYLAXIS Coumadin DISPOSITION monitor in tele to be determined Vital Signs: Date Time Temp Pulse Resp B/P Pulse Ox O2 Delivery O2 Flow Rate FiO2 10/07/16 11:36 36.6 92 16 176/100 96 165/106 10/07/16 07:54 36.7 88 20 150/77 95 Room Air 10/07/16 04:00 Room Air 10/07/16 03:24 36.6 82 18 148/86 95 Room Air 10/07/16 00:06 36.7 88 20 155/88 96 Room Air 10/07/16 00:00 Room Air 10/06/16 20:00 Room Air 10/06/16 17:57 36.6 92 20 123/84 95 10/06/16 16:00 Room Air 10/06/16 15:05 36.8 94 17 141/92 95 Room Air Lab Results: Results Past 24 Hours Test 10/07/16 06:05 Range/Units Prothrombin Time 27.6 9.0-12.0 SECONDS Prothromb Time International Ratio 2.5 0.9-1.1 Sodium Level 145 136-145 mmol/L Potassium Level 4.1 3.5-5.1 mmol/L Chloride Level 108 98-107 mmol/L Carbon Dioxide Level 32 21-32 mmol/L Anion Gap 5.0 3-11 mmol/L Blood Urea Nitrogen 13 7-18 mg/dl Creatinine 1.10 0.60-1.20 mg/dl Est Creatinine Clear Calc Drug Dose 78.3 ml/min Estimated GFR () 66.4 Estimated GFR (Non- 57.3 BUN/Creatinine Ratio 11.9 10-20 Random Glucose 116 70-99 mg/dl Calcium Level 8.6 8.5-10.1 mg/dl
[2016-10-07] MEDS ORDERED: LACTULOSE SYRUP 30 GM/45 ML UDP PO ONE (15:00)
[2016-10-07] MEDS: CIPROFLOXACIN 500 MG TAB PO SCH ×2 (15:48→21:08)
[2016-10-07] MEDS: WARFARIN SOD 6 MG TAB PO SCH (16:33)
[2016-10-07] MEDS ORDERED: LISINOPRIL 20 MG TAB PO ONE (17:00)
[2016-10-07] MEDS ORDERED: FUROSEMIDE INJ 20 MG in SYRINGE 0 ML IV ONE (17:00)
[2016-10-07] MEDS: CLONAZEPAM 0.5 MG TAB PO SCH (21:07)
[2016-10-08 06:08] LABS: HEMATOCRIT 40.5 % (37-47); MEAN CELL VOLUME 93.3 fL (80-100); MEAN CORPUSCULAR HEMOGLOBIN 30.2 pg (25-34); MEAN CORPUSCULAR HGB CONC 32.3 g/dl (32-36); MEAN PLATELET VOLUME 10.1 fL (7.4-10.4); PLATELET COUNT 197 K/uL (130-400); RED BLOOD COUNT 4.34 M/uL (4.2-5.4); WHITE BLOOD COUNT 6.77 K/uL (4.8-10.8)
[2016-10-08 06:18] LABS: INR 3.2 (0.9-1.1); PROTHROMBIN TIME (PATIENT) 35.5 SECONDS (9.0-12.0)
[2016-10-08 06:45] LABS: CREATININE 1.1 mg/dl (0.60-1.20)
[2016-10-08 07:21] VITALS: BP 132/81; PULSE 87; TEMP 36.6; O2SAT 94
[2016-10-08] MEDS: ONDANSETRON INJ 2 MG/ML 2 ML VIAL IV PRN ×2 (08:03→14:09)
[2016-10-08] MEDS: DULOXETINE HCL 60 MG CAP PO SCH (08:16)
[2016-10-08] MEDS: CIPROFLOXACIN 500 MG TAB PO SCH ×2 (08:16→20:01)
[2016-10-08] MEDS: POTASSIUM CHLORIDE 10 MEQ TABCR PO SCH (08:17)
[2016-10-08] MEDS: ASPIRIN 81 MG ECTAB PO SCH (08:17)
[2016-10-08] MEDS: PANTOprazole SOD 40 MG TAB PO SCH ×2 (08:18→20:01)
[2016-10-08] MEDS: LISINOPRIL 40 MG TAB PO SCH (08:18)
[2016-10-08] MEDS: GABAPENTIN 300 MG CAP PO SCH ×3 (08:19→20:02)
[2016-10-08] MEDS: TRAMADOL HCL 50 MG TAB PO PRN ×2 (08:19→16:18)
[2016-10-08] MEDS: OXYCODONE/ACETAMINOPHEN 5-325 TAB PO PRN (11:20)
[2016-10-08] MEDS ORDERED: LACTULOSE SYRUP 20 GM/30 ML UDC PO STA (13:14)
[2016-10-08] MEDS ORDERED: FUROSEMIDE INJ 20 MG in SYRINGE 0 ML IV ONE (13:30)
[2016-10-08 15:28] VITALS: BP 131/86; PULSE 91; TEMP 36.3; O2SAT 92
[2016-10-08] MEDS: WARFARIN SOD 6 MG TAB PO SCH (16:08)
--- NOTE | 2016-10-08 19:14 | Progress Note ---
Internal Med Progress Note Date of Service: Oct 08, 2016. Provider Documentation: SUBJECTIVE: has some chest pain on and off soreness in legs afebrile no sob constipated OBJECTIVE: Vital Signs-as noted below Exam: General-alert and oriented. Not in distress ENT-normal hearing Neck-no neck masses Lungs-cta b/l no wheezing no crackles Heart-s1 and s2 heard, regular rate and rhythm no murmurs Abdomen-soft bowel sounds present non tender no distension Extremities-no edema no erythema Neuro-alert and awake moves extremities Lab data as noted below. ASSESSMENT & PLAN: Patient is a 51 y/o female with a h/o fibromyalgia who presents with ~1 week h/ o intermittent chest pain. Atypical chest pain increased stress at home ekg and serial ce unremarkable echo unremarkable plan for stress test in am Migraine resolved with cocktail that patient received in ED will continue lamotrigine HTN on lisinopril and furosemide which are on hold for arf restarted lisnopril and lasix clonidine prn ARF holding lisinopril and Lasix gentle fluids resolved stopped fluids back pain pain meds prn ct lumbar spine unremarkable will monitor pt/ot Fibromyalgia on duloxetine, gabapentin, clonazepam and tramadol h/o PE INR subtherapeutic CT chest negative for PE bridging with Lovenox increased Coumadin dose to 6mg daily stopped Lovenox inr 3.2 today DVT PROPHYLAXIS Coumadin DISPOSITION possible d/c in am Vital Signs: Date Time Temp Pulse Resp B/P Pulse Ox O2 Delivery O2 Flow Rate FiO2 10/08/16 16:00 Room Air 10/08/16 15:28 36.3 91 20 131/86 92 Room Air 10/08/16 08:00 Room Air 10/08/16 07:21 36.6 87 22 132/81 94 Room Air 10/08/16 00:00 Room Air 10/07/16 23:46 36.9 96 18 150/88 93 Room Air 10/07/16 20:00 Room Air Lab Results: Results Past 24 Hours Test 10/07/16 20:09 10/08/16 05:41 10/08/16 07:21 10/08/16 11:45 Range/Units Bedside Glucose 139 102 119 70-90 mg/dl White Blood Count 6.77 4.8-10.8 K/uL Red Blood Count 4.34 4.2-5.4 M/uL Hemoglobin 13.1 12.0-16.0 g/dL Hematocrit 40.5 37-47 % Mean Corpuscular Volume 93.3 80-100 fL Mean Corpuscular Hemoglobin 30.2 25-34 pg Mean Corpuscular Hemoglobin Concent 32.3 32-36 g/dl RDW Standard Deviation 47.1 36.4-46.3 fL RDW Coefficient of Variation 13.8 11.5-14.5 % Platelet Count 197 130-400 K/uL Mean Platelet Volume 10.1 7.4-10.4 fL Prothrombin Time 35.5 9.0-12.0 SECONDS Prothromb Time International Ratio 3.2 0.9-1.1 Creatinine 1.10 0.60-1.20 mg/dl Est Creatinine Clear Calc Drug Dose 78.3 ml/min Estimated GFR () 66.4 Estimated GFR (Non- 57.3
[2016-10-08] MEDS: CLONAZEPAM 0.5 MG TAB PO SCH (20:01)
[2016-10-08 23:43] VITALS: BP 138/83; PULSE 100; TEMP 36.7; O2SAT 93
[2016-10-09] MEDS: TRAMADOL HCL 50 MG TAB PO PRN ×3 (01:35→15:39)
[2016-10-09] MEDS: ONDANSETRON INJ 2 MG/ML 2 ML VIAL IV PRN ×3 (01:35→21:16)
[2016-10-09 05:59] LABS: INR 3.6 (0.9-1.1); PROTHROMBIN TIME (PATIENT) 40.3 SECONDS (9.0-12.0)
[2016-10-09 07:13] VITALS: BP 106/64; PULSE 79; TEMP 36.6; O2SAT 91
[2016-10-09] MEDS: LISINOPRIL 40 MG TAB PO SCH ×2 (07:37→16:47)
[2016-10-09] MEDS: GABAPENTIN 300 MG CAP PO SCH ×3 (07:39→21:15)
[2016-10-09] MEDS: PANTOprazole SOD 40 MG TAB PO SCH ×2 (07:39→19:54)
[2016-10-09] MEDS: FUROSEMIDE 20 MG TAB PO SCH ×2 (07:40→17:03)
[2016-10-09] MEDS: DULOXETINE HCL 60 MG CAP PO SCH (07:40)
[2016-10-09] MEDS: CIPROFLOXACIN 500 MG TAB PO SCH (07:40)
[2016-10-09] MEDS: POTASSIUM CHLORIDE 10 MEQ TABCR PO SCH (07:40)
[2016-10-09] MEDS: ASPIRIN 81 MG ECTAB PO SCH (07:40)
[2016-10-09 08:00] VITALS: O2SAT 92
[2016-10-09 09:16] LABS: COD UR NEGATIVE NG/ML (CUTOFF=50); HYDROCOD UR NEGATIVE NG/ML (CUTOFF=50); HYDROMOR UR 225 NG/ML (CUTOFF=50); HYDROXYETHYLFLURAZEPAM CONF NEGATIVE NG/ML (CUTOFF=50); HYDROXYMIDAZOLAM NEGATIVE NG/ML (CUTOFF=50); HYDROXYTRIAZOLAM CONF NEGATIVE NG/ML (CUTOFF=50); MORPHINE UR 1890 NG/ML (CUTOFF=50); NORHYDROCODONE CONF UR NEGATIVE NG/ML (CUTOFF=50); OXYMORPH UR NEGATIVE NG/ML (CUTOFF=50); TEMAZEPAM CONF 155 NG/ML (CUTOFF=50)
[2016-10-09 09:30] LABS: ISTAT CREATININE 1.1 mg/dl (0.6-1.3); ISTAT IONIZED CALCIUM 1.12 mmol/l (1.12-1.32)
[2016-10-09] MEDS ORDERED: SOAP SUDS ENEMA PR ONE (12:15)
[2016-10-09] MEDS ORDERED: SUMATRIPTAN SUCC TAB 100 MG TAB PO ONE (12:15)
[2016-10-09] MEDS: PROMETHAZINE HCL INJ 12.5 MG in SODIUM CHLORIDE 0.9% 50ML 50 ML IV PRN (12:34)
--- NOTE | 2016-10-09 12:45 | Progress Note ---
Internal Med Progress Note Date of Service: Oct 09, 2016. Provider Documentation: SUBJECTIVE: complaints of headache abdominal discomfort leg soreness afebrile hemodynamics stable 'ok for stress test today ok to go home if stress test negative and followup with family doctor OBJECTIVE: Vital Signs-as noted below Exam: General-alert and oriented. Not in distress ENT-normal hearing Neck-no neck masses Lungs-cta b/l no wheezing no crackles Heart-s1 and s2 heard, regular rate and rhythm no murmurs Abdomen-soft bowel sounds present no distension Extremities-no edema no erythema Neuro-alert and awake moves extremities Lab data as noted below. ASSESSMENT & PLAN: Patient is a 51 y/o female with a h/o fibromyalgia who presents with ~1 week h/ o intermittent chest pain. Atypical chest pain increased stress at home ekg and serial ce unremarkable echo unremarkable plan for stress test today and if negative will d/c home to followup with pcp Migraine resolved with cocktail that patient received in ED will continue lamotrigine dose of Imitrex today HTN on lisinopril and furosemide which are on hold for arf restarted lisnopril and lasix stable clonidine prn ARF holding lisinopril and Lasix gentle fluids resolved stopped fluids back pain pain meds prn ct lumbar spine unremarkable will monitor pt/ot f/u with pcp Fibromyalgia on duloxetine, gabapentin, clonazepam and tramadol h/o PE INR subtherapeutic CT chest negative for PE bridging with Lovenox increased Coumadin dose to 6mg daily stopped Lovenox inr 3.6 today will hold Coumadin today and resume from tomorrow constipation received stool softners enema today DVT PROPHYLAXIS Coumadin DISPOSITION possible d/c today Vital Signs: Date Time Temp Pulse Resp B/P Pulse Ox O2 Delivery O2 Flow Rate FiO2 10/09/16 08:00 92 Room Air 10/09/16 07:13 36.6 79 20 106/64 91 Room Air 10/09/16 00:00 Room Air 10/08/16 23:43 36.7 100 20 138/83 93 Room Air 10/08/16 16:00 Room Air 10/08/16 15:28 36.3 91 20 131/86 92 Room Air Lab Results: Results Past 24 Hours Test 10/09/16 05:27 Range/Units Prothrombin Time 40.3 9.0-12.0 SECONDS Prothromb Time International Ratio 3.6 0.9-1.1
--- NOTE | 2016-10-09 13:08 | Discharge Instructions ---
Discharge Instructions Date of Service Oct 09, 2016. Admission Reason for Admission: Chest Pain In Adult Discharge Discharge Diagnosis / Problem: chest pain Discharge Goals Goal(s): Decrease discomfort, Improve function Activity Recommendations Activity Limitations: resume your previous activity . Instructions / Follow-Up Instructions / Follow-Up FOLLOWUP WITH FAMILY DOCTOR Abraham Chavez ON September AT 11:10AM. HOLD COUMADIN TODAY AND RESUME FROM TOMORROW USUAL HOME DOSE. FOLLOWUP WITH COUMADIN CLINIC FOR COUMADIN DOSING. Current Hospital Diet Patient's current hospital diet: AHA Diet (Heart Healthy) Discharge Diet Recommended Diet: AHA Diet (Heart Healthy) Pending Studies Studies pending at discharge: no Medical Emergencies . Who to Call and When: Medical Emergencies: If at any time you feel your situation is an emergency, please call 911 immediately. . Non-Emergent Contact Non-Emergency issues call your: Primary Care Provider . . "Provider Documentation" section prepared by Fitz Mendoza. VTE Core Measure Inpt VTE Proph given/why not?: Warfarin (Coumadin)
[2016-10-09] MEDS ORDERED: METOPROLOL TARTRATE 1 MG/ML VIAL ONE (15:24)
[2016-10-09] MEDS ORDERED: DOBUTamine HCL 12.5 MG/ML 20 ML VIAL ONE (15:24)
[2016-10-09] MEDS ORDERED: ATROPINE SULFATE 0.1 MG/ML 5ML SYR ONE (15:24)
[2016-10-09] MEDS ORDERED: WARFARIN SOD 5 MG TAB PO SCH (16:00)
[2016-10-09] MEDS: METOCLOPRAMIDE HCL INJ 5 MG/ML 2 ML VIAL IV PRN (16:45)
[2016-10-09] MEDS: CLONAZEPAM 0.5 MG TAB PO SCH (21:15)
[2016-10-09] MEDS: OXYCODONE/ACETAMINOPHEN 5-325 TAB PO PRN (21:16)
[2016-10-10 00:29] VITALS: BP 130/80; PULSE 91; TEMP 36.6; O2SAT 96
[2016-10-10] MEDS: PROMETHAZINE HCL INJ 12.5 MG in SODIUM CHLORIDE 0.9% 50ML 50 ML IV PRN ×2 (00:38→09:59)
[2016-10-10] MEDS: METOCLOPRAMIDE HCL INJ 5 MG/ML 2 ML VIAL IV PRN (00:39)
[2016-10-10] MEDS: TRAMADOL HCL 50 MG TAB PO PRN (00:39)
[2016-10-10] MEDS ORDERED: NITROGLYCERIN 0.4 MG SL PER TAB CHARGE SL STA (00:55)
[2016-10-10] MEDS ORDERED: NITROGLYCERIN 0.4 MG SL PER TAB CHARGE SL PRN (01:00)
[2016-10-10 01:22] LABS: BASO % 0.2 %; BASO ABS # 0.02 K/uL (0-0.2); COMPLETE YES; EOS % 4.8 %; HEMATOCRIT 42.5 % (37-47); IG% 0.2 %; LYMPH % 28.6 %; LYMPH ABS # 2.36 K/uL (1.2-3.4); MEAN CELL VOLUME 95.5 fL (80-100); MEAN CORPUSCULAR HEMOGLOBIN 31.2 pg (25-34); MEAN CORPUSCULAR HGB CONC 32.7 g/dl (32-36); MEAN PLATELET VOLUME 10.6 fL (7.4-10.4); MONO % 5.8 %; NEUT % 60.4 %; PLATELET COUNT 223 K/uL (130-400); RED BLOOD COUNT 4.45 M/uL (4.2-5.4); WHITE BLOOD COUNT 8.25 K/uL (4.8-10.8)
[2016-10-10 01:29] LABS: INR 3.3 (0.9-1.1); PROTHROMBIN TIME (PATIENT) 37.2 SECONDS (9.0-12.0)
[2016-10-10 01:39] LABS: BLOOD UREA NITROGEN 12 mg/dl (7-18); CALCIUM 8.4 mg/dl (8.5-10.1); CARBON DIOXIDE 32 mmol/L (21-32); CHLORIDE 105 mmol/L (98-107); GLUCOSE 119 mg/dl (70-99); MAGNESIUM 2.3 mg/dl (1.8-2.4); POTASSIUM 4.4 mmol/L (3.5-5.1); SODIUM 142 mmol/L (136-145)
[2016-10-10 07:22] VITALS: BP 115/76; PULSE 83; TEMP 36.5; O2SAT 98
[2016-10-10] MEDS: GABAPENTIN 300 MG CAP PO SCH ×2 (07:34→13:50)
[2016-10-10] MEDS: ASPIRIN 81 MG ECTAB PO SCH (07:34)
[2016-10-10] MEDS: PANTOprazole SOD 40 MG TAB PO SCH (07:35)
[2016-10-10] MEDS: DULOXETINE HCL 60 MG CAP PO SCH (07:35)
[2016-10-10] MEDS: POTASSIUM CHLORIDE 10 MEQ TABCR PO SCH (07:36)
[2016-10-10] MEDS: FUROSEMIDE 20 MG TAB PO SCH ×2 (07:36→16:44)
[2016-10-10] MEDS: ONDANSETRON INJ 2 MG/ML 2 ML VIAL IV PRN ×2 (09:52→16:37)
[2016-10-10] MEDS ORDERED: PERFLUTREN LIPID MICROSPHERE (DEFINITY) IV ONE (10:58)
[2016-10-10] MEDS ORDERED: MILK AND MOLASSES ENEMA PR ONE (13:00)
[2016-10-10] MEDS ORDERED: NURSING VERBAL MED ORDER ONE (13:15)
[2016-10-10] MEDS ORDERED: POLYETHYLENE (MIRALAX) 17 GM PACK PO ONE (13:30)
--- NOTE | 2016-10-10 14:55 | DIAGNOSTIC IMAGING REPORT ---
ULTRASOUND BILATERAL LOWER EXTREMITY VENOUS CLINICAL HISTORY: Bilateral calf pain. Lower extremity swelling. COMPARISON STUDY: Bilateral lower extremity venous ultrasound dated 10/12/2015. TECHNIQUE: Real-time, grayscale, and color Doppler sonography of the deep veins of the right and left lower extremity was performed from the inguinal crease to the calf. Compression and augmentation were utilized. FINDINGS: There is no sonographic evidence of deep venous thrombosis identified in the right or left lower extremity. The common femoral, superficial femoral, and popliteal veins are patent and normally compressible bilaterally. The greater saphenous vein and the profunda femoris vein at the junction with the common femoral vein are clear on the right. Superficial venous thrombus is seen within the left greater saphenous vein adjacent to a venous valve. The left profunda femoris vein is clear at the junction with the common femoral vein. The visualized calf veins are patent bilaterally. IMPRESSION: 1. There is no sonographic evidence of deep venous thrombosis identified in the right or left lower extremity. 2. There is superficial venous thrombus identified within the left greater saphenous vein. Electronically signed by: Mark Harrison M.D. 10/10/2016 2:53 PM Dictated Date/Time: 10/10/2016 2:52 PM
[2016-10-10 15:27] VITALS: BP 140/80; PULSE 99; TEMP 36.6; O2SAT 95
[2016-10-10] MEDS ORDERED: SUMATRIPTAN SUCC TAB 100 MG TAB PO STA (16:13)
--- NOTE | 2016-10-10 21:24 | Discharge Summary ---
Discharge Summary Date of Service Oct 10, 2016. Discharge Summary Admission Date: Oct 05, 2016 at 20:36 Discharge Date: Oct 10, 2016 Discharge Disposition: Home Principal Diagnosis: Atypical Chest pain Migraines Superficial thrombophlebitis-L greater saphenous vein Lifelong coumadin therapy Procedures: Echocardiogram Vaccinations: None. Consultations: None. Medication Reconciliation Continued Medications: Albuterol Hfa (Ventolin Hfa) 200 Puffs/29696 Mcg Aers 2 PUFFS INH Q6H PRN for SOB/Wheezing, INHALER Aspirin (Aspir-81) 81 Mg Tab 1 TAB PO DAILY, TAB Clonazepam (Klonopin) 0.5 Mg Tab 0.5 MG PO HS Clonazepam (Klonopin) 0.5 Mg Tab 0.25 TAB PO QAM PRN for Anxiety, TAB Duloxetine Hcl (Cymbalta) 60 Mg Cap 60 MG PO DAILY, CAP Furosemide (Lasix) 20 Mg Tab 1 TAB PO BID Gabapentin (Neurontin) 300 Mg Cap 300 MG PO UD, CAP 1tab in am, 1tab in afternoon and 3tab at bedtime Lamotrigine (Lamotrigine) 25 Mg Tab 1 TAB PO BID Lisinopril (Prinivil) 40 Mg Tab 40 MG PO DAILY, TAB Meclizine HCl (Meclizine HCl) 25 Mg Tab 1 TAB PO TID PRN for dizziness Omeprazole (Prilosec) 40 Mg Cap 40 MG PO BID, CAP Potassium Chloride (Potassium Chloride Er) 10 Meq Cap 1 CAP PO DAILY, CAP Promethazine Hcl (Phenergan) 25 Mg Tab 25 MG PO Q6H PRN for Nausea, TAB Tramadol (Ultram) 50 Mg Tab 50 MG PO Q6 PRN for Pain Warfarin Sod (Coumadin) 5 Mg Tab 5 MG PO DAILY for 30 Days, #30 TABS 5 Refills Admission Information HPI (per Admitting provider): Patient is a 51 y/o female with a h/o fibromyalgia, migraines and HTN who presents for evaluation of chest pain, migraine and SOB. Patient notes intermittent episodes of substernal chest pain since the weekend. The pain does not radiate. It is associated with SOB. Today she developed a headache as well and so presented to the ED. Patient's notes that patient has been under significant stress for the past couple of weeks. In the ED, patient was given Nitro paste, Benadryl IV, Compazine IV, Dilaudid IV , Morphine IV and Zofran. She is sleepy, but notes complete resolution of headache and chest pain. Physical Exam (per Admitting): General- drowsy; NAD Eyes- EOMI; no scleral icterus Neck- no stridor; trachea midline Lungs- CTA bilaterally; no wheezes/crackles Heart- RRR; no m/r/g Abdomen- soft; NTND; nBS Back- no gross abnormalities Extremities- no c/c/e; no deformity Neuro- no focal deficits Skin- no appreciable rash or bruise . Hospital Course Patient is a 51 y/o female with a h/o fibromyalgia who presents with ~1 week h/ o intermittent chest pain. Atypical chest pain increased stress at home ekg and serial ce unremarkable echo unremarkable plan for stress test today and if negative will d/c home to followup with pcp Migraine resolved with cocktail that patient received in ED will continue lamotrigine dose of Imitrex today HTN on lisinopril and furosemide which are on hold for arf restarted lisnopril and lasix stable clonidine prn ARF holding lisinopril and Lasix gentle fluids resolved stopped fluids back pain pain meds prn ct lumbar spine unremarkable will monitor pt/ot f/u with pcp Fibromyalgia on duloxetine, gabapentin, clonazepam and tramadol h/o PE INR subtherapeutic CT chest negative for PE bridging with Lovenox increased Coumadin dose to 6mg daily stopped Lovenox inr 3.6 today will hold Coumadin today and resume from tomorrow constipation received stool softners enema today On day of discharge the patient was afebrile and hemodynamically stable and oxygenating well on room air. She was unable to tolerate the stress test because of her migraine which was treated with sumatriptan. There was no reported chest pain. Physical exam was unremarkable. She was discharged in stable condition with close follow-up by PCP in order to schedule outpatient stress test. Total time spent on discharge = 60 minutes This includes examination of the patient, discharge planning, medication reconciliation, and communication with other providers. Discharge Instructions Discharge Instructions Date of Service Oct 09, 2016. Admission Reason for Admission: Chest Pain In Adult Discharge Discharge Diagnosis / Problem: chest pain Discharge Goals Goal(s): Decrease discomfort, Improve function Activity Recommendations Activity Limitations: resume your previous activity . Instructions / Follow-Up Instructions / Follow-Up FOLLOWUP WITH FAMILY DOCTOR Abraham Chavez ON September AT 11:10AM. HOLD COUMADIN TODAY AND RESUME FROM TOMORROW USUAL HOME DOSE. FOLLOWUP WITH COUMADIN CLINIC FOR COUMADIN DOSING. Current Hospital Diet Patient's current hospital diet: AHA Diet (Heart Healthy) Discharge Diet Recommended Diet: AHA Diet (Heart Healthy) Pending Studies Studies pending at discharge: no Medical Emergencies . Who to Call and When: Medical Emergencies: If at any time you feel your situation is an emergency, please call 911 immediately. . Non-Emergent Contact Non-Emergency issues call your: Primary Care Provider . . "Provider Documentation" section prepared by Fitz Mendoza. VTE Core Measure Inpt VTE Proph given/why not?: Warfarin (Coumadin) <Electronically signed by Fitz Mendoza MD> Signed: 10/09/16 1308 Signed: The status of this report is Signed * If report status is Draft, the document has not been finalized by the responsible provider. Addendum: 10/10/16 9400 Addendum: Tiffanie Mcgovern DO on 10/10/16 @ 16:20 Discharge Inst - Addendum Addendum Notes: In addition to the instructions above, I recommend warm compresses to your left leg at the site of pain as you have a superficial blood clot there. I also recommend frequent ambulation (get up and walk around) as much as you can tolerate to keep any blod from pooling. NSAIDs such as Ibuprofen are relatively contraindicated while you are on the coumadin, however, you can work with your PCP for additional pain control as needed. It was a pleasure taking care of you! Call if you have any questions or problems. You can reach a [facility] hospitalist on duty at [facility] 24 hours a day by calling [phone]. Take care of yourself. Tiffanie Mcgovern DO [facility] Hospitalist Addendum Provider: Addendum Notes were documented by provider Tiffanie Mcgovern. (Tiffanie Mcgovern DO) Additional Copies To Abraham Ryan M.D.
== END 2016-10-10 17:13 | disposition home or self-care (01) | DRG 313 ==
LOC: ENRESERVDT → ENRESERVTM → C.EDB 15:31 → C.MSICU 20:36 → UNDOADMIN 20:36 → C.2T 10-06 17:20 → C.4E 10-07 15:33
PROVIDERS: ADMIT Internal Medicine; ATTEND Internal Medicine
DX: R07.89 Other chest pain (principal); N17.9 Acute kidney failure, unspecified; M79.7 Fibromyalgia; I10 Essential (primary) hypertension; G43.909 Migraine, unspecified, not intractable, without status migrainosus; I80.02 Phlebitis and thrombophlebitis of superficial vessels of left lower extremity; R06.02 Shortness of breath; M54.9 Dorsalgia, unspecified; K59.00 Constipation, unspecified; J30.89 Other allergic rhinitis; N30.10 Interstitial cystitis (chronic) without hematuria; K58.9 Irritable bowel syndrome, unspecified; Z79.82 Long term (current) use of aspirin; Z86.711 Personal history of pulmonary embolism; Z79.01 Long term (current) use of anticoagulants; Z79.899 Other long term (current) drug therapy; Z79.891 Long term (current) use of opiate analgesic

== ENCOUNTER 2016-11-09 21:42 | Observation (INO) | payer BC ==
[~2016-11-09] VITALS: Ht 162.6 cm; Wt 123.4 kg
[~2016-11-09 21:42] MED LIST changes: -ALBUAER2 INH; +ANT25 PO; -ASPEC81 PO; +ASPI-232 PO; -CIPR-255 PO; -CYM/30 PO; -DEXTLIQ81 PO; +DULO60CA44 PO; -NRV5 PO; +OMEP40CA41 PO; +POTA1CAP2 PO; -PRLSR20 PO; -PROM25TA PO; +PROM25TA9 PO; +VNTHFA/IN INH
--- NOTE | 2016-11-09 23:05 | DIAGNOSTIC IMAGING REPORT ---
CHEST ONE VIEW PORTABLE HISTORY: Atypical CHEST PAIN COMPARISON: Chest 10/05/2016. FINDINGS: The lungs are clear. Cardiac silhouette is normal in size. No pleural effusions. No pneumothorax. IMPRESSION: No acute process. Electronically signed by: Randy Alvarez M.D. 11/09/2016 11:02 PM Dictated Date/Time: 11/09/2016 11:01 PM
[2016-11-09] MEDS ORDERED: MoRPHine SULFATE 4 MG/ML 1 ML CARP\\VIAL IV STA (23:16)
[2016-11-09] MEDS ORDERED: ONDANSETRON INJ 2 MG/ML 2 ML VIAL IV STA (23:16)
[2016-11-09] MEDS ORDERED: SODIUM CHLORIDE 0.9% 1000ML 1,000 ML IV STA (23:16)
[2016-11-09 23:17] LABS: BASO % 0.2 %; BASO ABS # 0.02 K/uL (0-0.2); COMPLETE YES; EOS % 1.2 %; HEMATOCRIT 49.6 % (37-47); IG% 0.3 %; LYMPH % 15.7 %; LYMPH ABS # 1.82 K/uL (1.2-3.4); MEAN CELL VOLUME 93.2 fL (80-100); MEAN CORPUSCULAR HGB CONC 34.3 g/dl (32-36); MEAN PLATELET VOLUME 11.1 fL (7.4-10.4); MONO % 5.4 %; NEUT % 77.2 %; PLATELET COUNT 296 K/uL (130-400); RED BLOOD COUNT 5.32 M/uL (4.2-5.4); WHITE BLOOD COUNT 11.59 K/uL (4.8-10.8)
[2016-11-09 23:28] LABS: ALT/SGPT 26 U/L (12-78); AST/SGOT 16 U/L (15-37); BLOOD UREA NITROGEN 23 mg/dl (7-18); BUN/CREATININE RATIO 19.2 (10-20); CALCIUM 9.2 mg/dl (8.5-10.1); CARBON DIOXIDE 26 mmol/L (21-32); CHLORIDE 104 mmol/L (98-107); GLUCOSE 146 mg/dl (70-99); POTASSIUM 3.9 mmol/L (3.5-5.1); SODIUM 140 mmol/L (136-145)
[2016-11-09 23:34] LABS: ALKALINE PHOSPHATASE 140 U/L (45-117); CKMB/CK RATIO 1.2 (0-3.0)
[2016-11-09 23:52] LABS: INR 3.7 (0.9-1.1); PARTIAL THROMBOPLASTIN RATIO 1.9; PROTHROMBIN TIME (PATIENT) 41.6 SECONDS (9.0-12.0)
[2016-11-09] MEDS ORDERED: HYDROmorphone INJ 1 MG/ML SYR IV STA (23:59)
[2016-11-09] MEDS ORDERED: PROMETHAZINE HCL INJ 12.5 MG in SODIUM CHLORIDE 0.9% 50ML 50 ML IV STA (23:59)
[2016-11-10] MEDS ORDERED: HYDROmorphone INJ 0.5 MG/0.5 ML SYR ONE (00:22)
[2016-11-10] MEDS ORDERED: WARF5TAB90 PO ×2 (00:56→00:58)
[2016-11-10] MEDS ORDERED: CARV3.122 PO (00:59)
[2016-11-10] MEDS ORDERED: CLONAZEPAM 0.5 MG TAB PO PRN (01:30)
[2016-11-10 01:36] LABS: MAGNESIUM 2.1 mg/dl (1.8-2.4)
--- NOTE | 2016-11-10 01:57 | EMERGENCY ROOM VISIT NOTE ---
History Report prepared by Bon: Carole Medel Under the Supervision of: Dr. Gustavo Sultana M.D. First contact with patient: 23:10 Chief Complaint: CHEST PAIN Stated Complaint: CHEST AND ABD PAIN Nursing Triage Summary: chest pain began around 5pm while sitting at desk at work. states pain different than earlier in month when she had PE's. History of Present Illness The patient is a 51 year old female who presents to the Emergency Room with complaints of constant chest/abdominal pain for the past 6 hours. The patient developed sharp pain in the left side of her chest today while sitting at her desk at work. Her pain radiates into her back. She states that intermittently over the past couple of days she has had chest pain and shortness of breath. She is currently also experiencing neck pain and right leg pain. The patient rates her pain as a 10/10 in severity. Since arriving in the ED tonight the patient has developed nausea, vomiting, and diarrhea. She states that the nausea and vomiting are secondary to pain. The patient has a history of blood clots and is on Coumadin. She denies any sick contacts. She was taking antibiotics 2 weeks ago. Source of History: patient Onset: 6 hours ago Position: chest (left) Symptom Intensity: 10/10 Quality: sharp Timing: constant Associated Symptoms: + SOB, + abdominal pain, + back pain, + diarrhea, + nausea, + neck pain, + vomiting Note: The patient notes right leg pain. Review of Systems See HPI for pertinent positives & negatives. A total of 10 systems reviewed and were otherwise negative. Past Medical & Surgical Medical Problems: (1) Allergic rhinitis (2) Chest pain in adult (3) Endometriosis (4) Fibromyalgia (5) HTN (hypertension) (6) IBS (irritable bowel syndrome) (7) Interstitial cystitis (8) Migraine (9) Pulmonary embolism (10) Renal calculi Surgical Problems: (1) History of hysterectomy (2) S/P cholecystectomy (3) S/P tubal ligation Family History Cancer Diabetes mellitus Gallbladder disease Heart disease Hypertension Kidney disease Kidney stones Social History Smoking Status: Never Smoker Alcohol Use: none Drug Use: none Marital Status: Occupation Status: employed Current/Historical Medications Scheduled Aspirin (Aspir-81), 1 TAB PO DAILY Carvedilol (Coreg), 3.125 MG PO BID Clonazepam (Klonopin), 0.5 MG PO HS Duloxetine Hcl (Cymbalta), 60 MG PO DAILY Furosemide (Lasix), 1 TAB PO BID Gabapentin (Neurontin), 300 MG PO UD Lamotrigine (Lamotrigine), 1 TAB PO BID Lisinopril (Prinivil), 40 MG PO DAILY Omeprazole (Prilosec), 40 MG PO BID Potassium Chloride (Potassium Chloride Er), 1 CAP PO DAILY Warfarin Sodium (Coumadin), 5 MG PO 6XWK Warfarin Sodium (Coumadin), 2.5 MG PO TUES Scheduled PRN Albuterol Hfa (Ventolin Hfa), 2 PUFFS INH Q6H PRN for SOB/Wheezing Clonazepam (Klonopin), 0.25 TAB PO QAM PRN for Anxiety Meclizine HCl (Meclizine HCl), 1 TAB PO TID PRN for dizziness Promethazine Hcl (Phenergan), 25 MG PO Q6H PRN for Nausea Tramadol (Ultram), 50 MG PO Q6 PRN for Pain Allergies Coded Allergies: Penicillins (Verified Allergy, Severe, SWELLING, 10/05/16) Sulfa Antibiotics (Verified Adverse Reaction, Mild, N/V, 10/09/16) Physical Exam Vital Signs Date Time Temp Pulse Resp B/P Pulse Ox O2 Delivery O2 Flow Rate FiO2 11/10/16 00:44 99 25 97 Room Air 11/09/16 22:42 99 25 11/09/16 22:37 100 19 11/09/16 22:32 101 27 11/09/16 22:27 104 19 11/09/16 22:26 97 Room Air 11/09/16 22:22 102 25 11/09/16 22:17 100 22 11/09/16 22:13 102 11/09/16 22:08 96 Room Air 11/09/16 22:08 96 Room Air 11/09/16 21:54 103 19 147/83 97 Room Air Physical Exam Constitutional: Vital signs reviewed. Eyes: Pupils are equal round reactive to light. Conjunctiva are noninjected. ENT: Pharynx is clear without erythema or exudate. Mucous membranes are dry. Neck supple without meningeal signs. Respiratory: Clear to auscultation bilaterally. Breath sounds are equal bilaterally. Cardiovascular: Regular rate and rhythm. No rubs or gallops. GI: Soft, nondistended. Epigastric tenderness, no guarding. Bowel sounds are present. Musculoskeletal: No peripheral edema. No lower extremity tenderness. Integumentary: No cyanosis. Neurological: The patient is awake and alert. No focal deficits. Psychiatric: Normal affect. Medical Decision & Procedures ER Provider Diagnostic Interpretation: Radiology results as stated below per my review and the radiologist's interpretation: CHEST ONE VIEW PORTABLE HISTORY: Atypical CHEST PAIN COMPARISON: Chest 10/05/2016. FINDINGS: The lungs are clear. Cardiac silhouette is normal in size. No pleural effusions. No pneumothorax. IMPRESSION: No acute process. Electronically signed by: Randy Alvarez M.D. 11/09/2016 11:02 PM Dictated Date/Time: 11/09/2016 11:[address] ABDOMEN & PELVIS: Comparison: CT abdomen and pelvis dated 04/30/2014 Visualized lower thorax demonstrates dependent atelectasis. Decreased attenuation of the liver suggesting hepatic steatosis. The gallbladder is surgically absent. The spleen, pancreas, adrenal glands are unremarkable. Non-obstructing calculus within the left kidney. Otherwise, the kidneys, ureters and urinary bladder are unremarkable. The uterus is surgically absent. No adnexal masses. The appendix is within normal limits. The stomach, small bowel, and colon are unremarkable. No free fluid. No free air. No acute osseous abnormality. Radiologist: Tushar Grimaldo MD Laboratory Results 11/09/16 22:10 Red Blood Count 5.32, Mean Corpuscular Volume 93.2, Mean Corpuscular Hemoglobin 32.0, Mean Corpuscular Hemoglobin Concent 34.3, Mean Platelet Volume 11.1, Neutrophils (%) (Auto) 77.2, Lymphocytes (%) (Auto) 15.7, Monocytes (%) (Auto) 5.4, Eosinophils (%) (Auto) 1.2, Basophils (%) (Auto) 0.2, Neutrophils # (Auto) 8.94, Lymphocytes # (Auto) 1.82, Monocytes # (Auto) 0.63, Eosinophils # (Auto) 0.14, Basophils # (Auto) 0.02 11/09/16 22:10 Test 11/09/16 22:10 White Blood Count 11.59 K/uL (4.8-10.8) Red Blood Count 5.32 M/uL (4.2-5.4) Hemoglobin 17.0 g/dL (12.0-16.0) Hematocrit 49.6 % (37-47) Mean Corpuscular Volume 93.2 fL (80-100) Mean Corpuscular Hemoglobin 32.0 pg (25-34) Mean Corpuscular Hemoglobin Concent 34.3 g/dl (32-36) Platelet Count 296 K/uL (130-400) Mean Platelet Volume 11.1 fL (7.4-10.4) Neutrophils (%) (Auto) 77.2 % Lymphocytes (%) (Auto) 15.7 % Monocytes (%) (Auto) 5.4 % Eosinophils (%) (Auto) 1.2 % Basophils (%) (Auto) 0.2 % Neutrophils # (Auto) 8.94 K/uL (1.4-6.5) Lymphocytes # (Auto) 1.82 K/uL (1.2-3.4) Monocytes # (Auto) 0.63 K/uL (0.11-0.59) Eosinophils # (Auto) 0.14 K/uL (0-0.5) Basophils # (Auto) 0.02 K/uL (0-0.2) RDW Standard Deviation 46.2 fL (36.4-46.3) RDW Coefficient of Variation 13.5 % (11.5-14.5) Immature Granulocyte % (Auto) 0.3 % Immature Granulocyte # (Auto) 0.04 K/uL (0.00-0.02) Prothrombin Time 41.6 SECONDS (9.0-12.0) Prothromb Time International Ratio 3.7 (0.9-1.1) Activated Partial Thromboplast Time 49.8 SECONDS (21.0-31.0) Partial Thromboplastin Ratio 1.9 Anion Gap 10.0 mmol/L (3-11) Estimated GFR () 59.8 Estimated GFR (Non- 51.6 BUN/Creatinine Ratio 19.2 (10-20) Calcium Level 9.2 mg/dl (8.5-10.1) Magnesium Level 2.1 mg/dl (1.8-2.4) Total Bilirubin 0.7 mg/dl (0.2-1) Direct Bilirubin 0.1 mg/dl (0-0.2) Aspartate Amino Transf (AST/SGOT) 16 U/L (15-37) Alanine Aminotransferase (ALT/SGPT) 26 U/L (12-78) Alkaline Phosphatase 140 U/L (45-117) Total Creatine Kinase 65 U/L (26-192) Creatine Kinase MB 0.8 ng/ml (0.5-3.6) Creatine Kinase MB Ratio 1.2 (0-3.0) Troponin I < 0.015 ng/ml (0-0.045) Total Protein 8.6 gm/dl (6.4-8.2) Albumin 3.8 gm/dl (3.4-5.0) Lipase 342 U/L (73-393) Laboratory results as reviewed by me. Medications Administered Medications (Trade) Dose Ordered Sig/[facility] Route Start Time Stop Time Status Last Admin Dose Admin Morphine Sulfate (MoRPHine SULFATE INJ) 4 mg NOW STAT IV 11/09/16 23:16 11/09/16 23:17 DC 11/09/16 23:20 4 MG Ondansetron HCl 4 mg 4 mg NOW STAT IV 11/09/16 23:16 11/09/16 23:17 DC 11/09/16 23:20 4 MG Sodium Chloride 1,000 ml @ 999 mls/hr Q1H1M STAT IV 11/09/16 23:16 11/10/16 00:16 DC 11/09/16 23:20 999 MLS/HR Promethazine HCl/ Sodium Chloride (Phenergan Inj/ Nss 50ml) 50.5 ml @ 204 mls/hr NOW STAT IV 11/09/16 23:59 11/10/16 00:13 DC 11/10/16 00:30 204 MLS/HR Hydromorphone HCl (Dilaudid Inj) 0.5 mg STK-MED ONCE .ROUTE 11/10/16 00:22 11/10/16 00:23 DC 11/10/16 00:29 0.5 MG ECG Indication: chest pain Rate (beats per minute): 101 Rhythm: sinus tachycardia Findings: no acute ischemic change, no ectopy ED Course 2310: The patient was evaluated in room C12B. A complete history and physical exam was performed. 6: NSS 1000 ml @ 999 mls/hr IV, Zofran 4 mg IV, Morphine sulfate 4 mg IV 2358: I reassessed the patient and she is not feeling any better. 2359: Dilaudid 0.5 mg IV 0018: I talked about the results with the patient and planned for CT scan. 0115: I reassessed the patient at this time. She is still having pain and nausea. I discussed the results and treatment plan with the patient. I answered all pertaining questions that she had. She expressed understanding and verbalized agreement. 0119: I spoke with Dr. Alexander. We discussed the patient's results and treatment plan. The patient will be evaluated by the [facility] for further management. Medical Decision This is a 51-year-old female who presents with chest pain, abdominal pain, vomiting and diarrhea. Differential diagnosis includes gastritis, foodborne illness, C. difficile infection, pancreatitis, pulmonary embolism, AK. I did perform a limited focused review of portions of the patient's old chart on the electronic medical record. The patient was admitted on October 10 for chest pain and migraines. She is on life-long Coumadin and superficial thrombophlebitis in the left greater saphenous vein. I did evaluate the patient as noted above. The patient is vomiting and having diarrhea here. IV access was established. The patient was placed on a continuous hospital monitor. I did treat her with IV morphine and Zofran. She had continued pain and vomiting and was given IV Phenergan and Dilaudid. I did personally review the patient's 12-lead EKG and chest x-ray as described above. I did review the patient's blood work as noted in the electronic medical record. Her INR is 3.7. It seems unlikely that she would have a pulmonary embolism with an INR that high. I did order a CT of the abdomen and pelvis. I did review the images myself as well as the radiology report as described above. This did not show any acute process. On reassessment she is still very nauseated and not feeling well. I therefore discussed the case with the hospitalist and field case manager for further evaluation. Consults Time Called: 115 Consulting Physician: Dr. Alexander Returned Call: [phone] Alexander. We discussed the patient's results and treatment plan. The patient will be evaluated by the [facility] for further management. Impression Primary Impression: Upper abdominal pain Additional Impressions: Intractable vomiting Diarrhea Chest pain, precordial Anticoagulated on Coumadin Scribe Attestation The scribe's documentation has been prepared under my direct and personally reviewed by me in its entirety. I confirm that the note above accurately reflects all work, treatment, procedures, and medical decision making performed by me. Departure Information Dispostion Being Evaluated By Hospitalist Abraham Mckee M.D. (PCP) Patient Instructions [facility] Problem Qualifiers Additional Impressions: Intractable vomiting Vomiting type: unspecified Nausea presence: with nausea Qualified Codes: R11.2 - Nausea with vomiting, unspecified Diarrhea Diarrhea type: unspecified type Qualified Codes: R19.7 - Diarrhea, unspecified
[2016-11-10] MEDS ORDERED: KETOROLAC TROMETHAMINE 30 MG/ML VIAL IV STA (02:49)
[2016-11-10] MEDS ORDERED: GABAPENTIN 300 MG CAP PO ONE (02:49)
[2016-11-10] MEDS ORDERED: PROMETHAZINE HCL INJ 12.5 MG in SODIUM CHLORIDE 0.9% 50ML 50 ML IV PRN (03:00)
[2016-11-10] MEDS ORDERED: MoRPHine SULFATE 2 MG/ML CARP IV PRN ×3 (03:00→03:30)
[2016-11-10] MEDS ORDERED: ACETAMINOPHEN 325 MG TAB PO PRN (03:00)
[2016-11-10] MEDS ORDERED: TRAMADOL HCL 50 MG TAB PO PRN (03:00)
[2016-11-10] MEDS ORDERED: KETOROLAC TROMETHAMINE 30 MG/ML VIAL IV PRN (03:00)
[2016-11-10] MEDS ORDERED: ONDANSETRON INJ 2 MG/ML 2 ML VIAL IV PRN (03:00)
[2016-11-10] MEDS ORDERED: NITROGLYCERIN 0.4 MG SL PER TAB CHARGE SL PRN (03:00)
[2016-11-10] MEDS ORDERED: LIDODERM (LIDOCAINE) PATCH 5% TD STA (03:04)
[2016-11-10] MEDS ORDERED: OXYCODONE/ACETAMINOPHEN 5-325 TAB PO PRN (03:15)
[2016-11-10 03:50] VITALS: BP 143/94; PULSE 95; TEMP 36.9; O2SAT 93; Ht 162.6 cm; Wt 123.4 kg
[2016-11-10] MEDS ORDERED: LACTATED RINGER'S 1000ML 1,000 ML IV ONE (04:00)
--- NOTE | 2016-11-10 05:11 | HISTORY & PHYSICAL EXAMINATION ---
DATE OF ADMISSION: 11/10/2016 PRIMARY CARE DOCTOR: Dr. Ryan. CHIEF COMPLAINT: Abdominal pain, chest pain, shortness of breath. Hx obtained from px and records. HISTORY OF PRESENT ILLNESS: Medical history significant for fibromyalgia, history of a PE on anticoagulation , hypertension, endometriosis, migraine, chronic interstitial cystitis as per records. History of MRSA. Recent confinement last month for atypical chest pain. Attributed to increased stress at home. Px had a migraine attack as well. 2-D echo at that time showed EF 65%-70%, normal LV wall motion. Patient subsequently sent home. Yesterday, patient had upper abdominal pain, sharp, going to her L chest and some shortness of breath, pleuritic. PX also noted some neck pain going down to both arms, shoulder pain as well as low back, R LE pain worse w/ motion. Patient also headache and photophobia sx similar to migraine attack. Px subsequently had emesis and diarrhea sx at the ER. No recent antibiotics. Admits to a lot of stress the last few weeks from work and home. MEDICAL HISTORY: As above. SURGERIES: Urologic procedures, cholecystectomy, total abdominal hysterectomy. HOME MEDICATIONS: Include Percocet, Ultram, Coreg, furosemide, clonazepam, Coumadin, gabapentin, aspirin, promethazine, triamcinolone, meclizine, lamotrigine, omeprazole, potassium chloride, albuterol. ALLERGIES: PENICILLIN, SULFA. 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 REVIEW OF SYSTEMS: As per HPI, all other ROS negative. PHYSICAL EXAMINATION: VITAL SIGNS: Blood pressure was noted to be 147/83, pulse rate 99, RR 20, temperature to be obtained, O2 sats 98 on room air. GENERAL: Uncomfortable, obese, no respiratory distress. SKIN: Normal color. HEENT: [place] palpebral conjunctivae. Dry mucosa. NECK: Short neck. some limitation in neck motion LUNGS: Decreased breath sounds. Anterior chest wall tenderness HEART: Regular rate and rhythm. ABDOMEN: nonspecific tenderness to light palpation. BACK tenderness L low back, santiago SLR EXTREMITIES: Minimal LE edema. No tenderness. NEUROLOGIC: No gross focality except for back exam. LABS: Hemoglobin was 17, WBC 11 platelets 296. Sodium 140, potassium 4, chloride 104, CO2 of 26, creatinine 1, glucose 146. Alkaline phosphatase 140. Lipase was 342. INR was 3.6, troponin was normal. EKG showed sinus tachycardia, negative ischemia. Chest x-ray showed no acute process. CT head, no acute pathology. CT cervical spine, no acute pathology. CT of the abdomen and pelvis initial read hepatic steatosis, surgical absent gallbladder, uterus absent stool C. diff was negative. ASSESSMENT: 1. Atypical chest pain secondary to gastroenteritis anxiety/depression/personal stressors contributory to chest pain and multiple body aches hx fibromyalgia. 2. hypertension, slightly elevated 3. hx of pulmonary embolism on anticoagulation. INR is supratherapeutic. 4. back pain, sciatica sx 5. RLE pain ro dvt PLAN: Observation PCU. Analgesia, judicious narcotic use. Psych consult RE anxiety, depression. RLE venous dopplers ro dvt Lidoderm patch trial for back pain PT, OT eval. DVT prophylaxis, Coumadin INR 2-3 Full code. MTDD
--- NOTE | 2016-11-10 06:39 | DIAGNOSTIC IMAGING REPORT ---
ULTRASOUND RIGHT VENOUS DOPP LOWER EXT UNILAT CLINICAL HISTORY: Right leg pain COMPARISON STUDY: 10/10/2016 FINDINGS: Real-time and color flow Doppler imaging were performed. Flow was seen within the femoral, popliteal and calf veins with no intraluminal thrombus demonstrated. The saphenous vein is patent. IMPRESSION: No evidence of right lower extremity DVT. Electronically signed by: Bib Sandoval M.D. 11/10/2016 6:37 AM Dictated Date/Time: 11/10/2016 6:37 AM
--- NOTE | 2016-11-10 06:41 | DIAGNOSTIC IMAGING REPORT ---
CT HEAD WITHOUT CONTRAST (CT) CLINICAL HISTORY: Severe headache COMPARISON STUDY: 10/05/2016 TECHNIQUE: Axial CT of the brain is performed from the vertex to the skull base. IV contrast was not administered for this examination. CT DOSE: 537.48 mGy.cm FINDINGS: No intra or extra-axial mass lesions are visualized. There is no CT evidence of acute cortical infarction. There is no evidence of midline shift. There is no acute hemorrhage. No calvarial fractures are visualized. There are minimal white matter hypodensities likely on a small vessel basis. There is no evidence of pathologic ventricular dilatation. There is no evidence of acute sinusitis IMPRESSION: No acute intracranial findings Electronically signed by: Bib Sandoval M.D. 11/10/2016 6:39 AM Dictated Date/Time: 11/10/2016 6:38 AM
[2016-11-10] MEDS ORDERED: IV FLUIDS COMPLETED PRN (06:45)
--- NOTE | 2016-11-10 06:52 | DIAGNOSTIC IMAGING REPORT ---
CT SCAN OF THE ABDOMEN AND PELVIS WITHOUT CONTRAST CLINICAL HISTORY: Epigastric pain, nausea, vomiting. COMPARISON STUDY: 04/30/2014 TECHNIQUE: CT scan of the abdomen and pelvis was performed from the lung bases to the proximal femurs. Images are reviewed in the axial, sagittal, and coronal planes. IV contrast was not administered for this examination. CT DOSE: 1679.13 mGy.cm FINDINGS: Lower chest: There are bibasal atelectatic changes. Liver: There is hepatic steatosis. No focal masses are visualized. Gallbladder: Surgically absent Spleen: Normal in size and attenuation. Pancreas: Unremarkable. Adrenal glands: Unremarkable. Kidneys: There is a nonobstructing 3 mm lower pole left renal calculus. There is no hydronephrosis. No ureteral or bladder calculi are visualized. Bowel: There are no transition zones indicate bowel obstruction. The appendix appears normal. There is no acute diverticulitis. Peritoneum: There is no intraperitoneal free air or abdominal ascites. Vasculature: The abdominal aorta is normal in course and caliber. Adenopathy: None. Pelvic viscera: The uterus appears surgically absent. Skeletal structures: There is a 33 mm mass within the subcutaneous fat of the left anterior abdominal wall. This is nonspecific but could relate to fat necrosis from an injection site. Clinical correlation is advocated IMPRESSION: 1. Nonobstructing left renal calculus 2. No evidence of bowel obstruction. No evidence of free air 3. Normal appendix. No evidence of acute diverticulitis 4. Surgically absent gallbladder and uterus 5. 33 mm mass in the subcutaneous fat left anterior abdominal wall. This may represent fat necrosis from an injection site. Clinical correlation is advocated Electronically signed by: Bib Sandoval M.D. 11/10/2016 6:50 AM Dictated Date/Time: 11/10/2016 6:46 AM
[2016-11-10 06:57] LABS: BASO % 0.1 %; BASO ABS # 0.01 K/uL (0-0.2); COMPLETE YES; EOS % 0.3 %; HEMATOCRIT 49.8 % (37-47); IG% 0.2 %; LYMPH % 4.1 %; LYMPH ABS # 0.37 K/uL (1.2-3.4); MEAN CELL VOLUME 95.2 fL (80-100); MEAN CORPUSCULAR HEMOGLOBIN 32.7 pg (25-34); MEAN CORPUSCULAR HGB CONC 34.3 g/dl (32-36); MEAN PLATELET VOLUME 10.7 fL (7.4-10.4); MONO % 4.6 %; NEUT % 90.7 %; PLATELET COUNT 200 K/uL (130-400); RED BLOOD COUNT 5.23 M/uL (4.2-5.4); WHITE BLOOD COUNT 8.97 K/uL (4.8-10.8)
--- NOTE | 2016-11-10 07:12 | DIAGNOSTIC IMAGING REPORT ---
CT SCAN OF THE CERVICAL SPINE CLINICAL HISTORY: Neck pain. COMPARISON STUDY: MRI of cervical spine dated 10/12/2014. TECHNIQUE: CT scan of the cervical spine is performed from the skull base to the upper thoracic spine. Images are reviewed in the axial, sagittal, and coronal planes. IV contrast was not administered for this examination. The examination is degraded by large body habitus and streak artifact. CT DOSE: 340.77 mGy.cm FINDINGS: Skeletal structures: The skeletal structures are well mineralized. There is no evidence of fracture or subluxation involving the cervical spine. Vertebral body height and alignment are maintained. There is straightening of the cervical lordosis with mild reversal centered at C4-C5. The odontoid process and lateral masses are intact. The atlantoaxial articulation is preserved. The spinous processes appear intact. Tiny anterior osteophytes are seen in the lower cervical region. Intervertebral discs: Mild degenerative disc space narrowing is seen at C5-C6 and C6-C7. Central canal: A posterior disc osteophyte complex at C6-C7 may contribute to mild acquired compromise of the central canal. Soft tissues: The prevertebral and paraspinous soft tissues are within normal limits. Calvarium: The visualized calvarium at the skull base appears intact. Brain parenchyma: Partially visualized brain parenchyma the skull base is within normal limits. Sinuses and mastoids: The visualized paranasal sinuses are clear. The mastoid air cells are well pneumatized. Lung apices: Clear as visualized. IMPRESSION: There is no evidence of fracture or subluxation involving the cervical spine. Electronically signed by: Mark Harrison M.D. 11/10/2016 7:10 AM Dictated Date/Time: 11/10/2016 7:08 AM
[2016-11-10 07:13] LABS: INR 3.7 (0.9-1.1); PROTHROMBIN TIME (PATIENT) 41.5 SECONDS (9.0-12.0)
[2016-11-10 07:38] LABS: BLOOD UREA NITROGEN 30 mg/dl (7-18); CALCIUM 8.4 mg/dl (8.5-10.1); CARBON DIOXIDE 30 mmol/L (21-32); CHLORIDE 107 mmol/L (98-107); GLUCOSE 137 mg/dl (70-99); POTASSIUM 4.2 mmol/L (3.5-5.1); SODIUM 143 mmol/L (136-145)
[2016-11-10 07:42] VITALS: BP 120/78; PULSE 90; TEMP 36.9; O2SAT 93
[2016-11-10 08:00] VITALS: O2SAT 94
[2016-11-10] MEDS ORDERED: CARVEDILOL 3.125 MG TAB PO SCH (09:00)
[2016-11-10] MEDS ORDERED: PANTOprazole SOD 40 MG TAB PO SCH (09:00)
[2016-11-10] MEDS ORDERED: ASPIRIN 81 MG ECTAB PO SCH (09:00)
[2016-11-10] MEDS ORDERED: DULOXETINE HCL 60 MG CAP PO SCH (09:00)
[2016-11-10] MEDS ORDERED: LISINOPRIL 40 MG TAB PO SCH (09:00)
[2016-11-10 11:37] VITALS: BP 169/80; PULSE 109; TEMP 36.9; O2SAT 96
--- NOTE | 2016-11-10 12:16 | Psychiatric Consultation ---
Consultation Date of Consultation Nov 10, 2016. Identifying Data Georgina Jackman is a 51-year-old female who currently lives in [place] with her . Georgina Jackman was placed on obs from ED given c/o migraine and back pain. Consult is by Dr. Ward for ?anxiety and depression. Chief Complaint "Dr. Ryan is wonderful". History of Present Illness Ms. Jackman states that she has received medications for anxiety/some depression related to stressors for years under the direction of her PCP. She was quite tired having just received a phenergan infusion so had to be redirected a few times but overall was cooperative with the interview/clear when awake. 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 She has conflict with coworkers at work, says they gossip and basic distrust but she denied christophe paranoia. She states that she does worry about her chronic health issues, particularly her interstitial cystitis which is quite uncomfortable stating she was told by the specialist that she will have to deal with feeling "like I have my period the rest of my life". Her appetite varies as currently c/o N and physical complaints can impact sleep at times prior to admission. She denies ever feeling hopeless or helpless to the point of wanting to end her life. Past Psychiatric History Current OP Treatment: no current treatment Prior OP Treatment: no prior treatment Prior Psych Hospitalizations: none Suicide Attempts: No Past Medication Trials Prozac, perhaps others Past Medical/Surgical History (1) Anticoagulated on Coumadin (2) Allergic rhinitis (3) Fibromyalgia (4) HTN (hypertension) (5) Endometriosis (6) Renal calculi (7) Interstitial cystitis (8) Migraine (9) Pulmonary embolism (10) IBS (irritable bowel syndrome) (11) S/P cholecystectomy (12) History of hysterectomy (13) S/P tubal ligation Allergies Allergies: Coded Allergies: Penicillins (Verified Allergy, Severe, SWELLING, 10/05/16) Sulfa Antibiotics (Verified Adverse Reaction, Mild, N/V, 10/09/16) Home Medications Scheduled Aspirin (Aspir-81), 1 TAB PO DAILY Carvedilol (Coreg), 3.125 MG PO BID Clonazepam (Klonopin), 0.5 MG PO HS Duloxetine Hcl (Cymbalta), 60 MG PO DAILY Furosemide (Lasix), 1 TAB PO BID Gabapentin (Neurontin), 300 MG PO UD Lamotrigine (Lamotrigine), 1 TAB PO BID Lisinopril (Prinivil), 40 MG PO DAILY Omeprazole (Prilosec), 40 MG PO BID Potassium Chloride (Potassium Chloride Er), 1 CAP PO DAILY Warfarin Sodium (Coumadin), 5 MG PO 6XWK Warfarin Sodium (Coumadin), 2.5 MG PO TUES Scheduled PRN Albuterol Hfa (Ventolin Hfa), 2 PUFFS INH Q6H PRN for SOB/Wheezing Clonazepam (Klonopin), 0.25 TAB PO QAM PRN for Anxiety Meclizine HCl (Meclizine HCl), 1 TAB PO TID PRN for dizziness Promethazine Hcl (Phenergan), 25 MG PO Q6H PRN for Nausea Tramadol (Ultram), 50 MG PO Q6 PRN for Pain Family History Cancer Diabetes mellitus Gallbladder disease Heart disease Hypertension Kidney disease Kidney stones Alcohol Use Alcohol Use In Past 12 Months: No Smoking Use Smoking Status: Never Smoker Substance History denies Personal History Lives in: [place] 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 Examination Vital Signs Vital Signs Past 12 Hours Date Time Temp Pulse Resp B/P Pulse Ox O2 Delivery O2 Flow Rate FiO2 11/10/16 11:37 36.9 109 22 169/80 96 Room Air 11/10/16 08:00 94 Room Air 11/10/16 07:42 36.9 90 22 120/78 93 Room Air 11/10/16 03:50 36.9 95 18 143/94 93 Room Air 11/10/16 03:17 94 16 96 Room Air 11/10/16 03:12 95 18 11/10/16 03:07 98 24 11/10/16 03:02 96 19 11/10/16 02:57 95 17 11/10/16 02:52 93 18 11/10/16 02:47 95 19 11/10/16 02:42 94 19 11/10/16 02:37 98 17 11/10/16 02:32 101 22 11/10/16 02:27 93 14 11/10/16 02:22 94 14 11/10/16 02:02 96 19 11/10/16 01:57 97 16 11/10/16 01:52 96 17 11/10/16 01:47 97 16 11/10/16 01:42 96 17 11/10/16 01:37 96 15 11/10/16 01:32 100 22 11/10/16 01:27 96 19 11/10/16 01:22 96 19 11/10/16 01:17 99 18 11/10/16 01:12 96 17 11/10/16 01:07 98 17 11/10/16 01:02 97 16 11/10/16 00:57 95 16 11/10/16 00:52 97 27 11/10/16 00:44 99 25 97 Room Air Laboratory Results Last 24 Hours Test 11/09/16 22:10 11/10/16 06:40 White Blood Count 11.59 K/uL 8.97 K/uL Red Blood Count 5.32 M/uL 5.23 M/uL Hemoglobin 17.0 g/dL 17.1 g/dL Hematocrit 49.6 % 49.8 % Mean Corpuscular Volume 93.2 fL 95.2 fL Mean Corpuscular Hemoglobin 32.0 pg 32.7 pg Mean Corpuscular Hemoglobin Concent 34.3 g/dl 34.3 g/dl Platelet Count 296 K/uL 200 K/uL Mean Platelet Volume 11.1 fL 10.7 fL Neutrophils (%) (Auto) 77.2 % 90.7 % Lymphocytes (%) (Auto) 15.7 % 4.1 % Monocytes (%) (Auto) 5.4 % 4.6 % Eosinophils (%) (Auto) 1.2 % 0.3 % Basophils (%) (Auto) 0.2 % 0.1 % Neutrophils # (Auto) 8.94 K/uL 8.13 K/uL Lymphocytes # (Auto) 1.82 K/uL 0.37 K/uL Monocytes # (Auto) 0.63 K/uL 0.41 K/uL Eosinophils # (Auto) 0.14 K/uL 0.03 K/uL Basophils # (Auto) 0.02 K/uL 0.01 K/uL RDW Standard Deviation 46.2 fL 48.5 fL RDW Coefficient of Variation 13.5 % 13.7 % Immature Granulocyte % (Auto) 0.3 % 0.2 % Immature Granulocyte # (Auto) 0.04 K/uL 0.02 K/uL Prothrombin Time 41.6 SECONDS 41.5 SECONDS Prothromb Time International Ratio 3.7 3.7 Activated Partial Thromboplast Time 49.8 SECONDS Partial Thromboplastin Ratio 1.9 Sodium Level 140 mmol/L 143 mmol/L Potassium Level 3.9 mmol/L 4.2 mmol/L Chloride Level 104 mmol/L 107 mmol/L Carbon Dioxide Level 26 mmol/L 30 mmol/L Anion Gap 10.0 mmol/L 6.0 mmol/L Blood Urea Nitrogen 23 mg/dl 30 mg/dl Creatinine 1.20 mg/dl 1.20 mg/dl Estimated GFR () 59.8 59.8 Estimated GFR (Non- 51.6 51.6 BUN/Creatinine Ratio 19.2 25.0 Random Glucose 146 mg/dl 137 mg/dl Calcium Level 9.2 mg/dl 8.4 mg/dl Magnesium Level 2.1 mg/dl Total Bilirubin 0.7 mg/dl Direct Bilirubin 0.1 mg/dl Aspartate Amino Transf (AST/SGOT) 16 U/L Alanine Aminotransferase (ALT/SGPT) 26 U/L Alkaline Phosphatase 140 U/L Total Creatine Kinase 65 U/L Creatine Kinase MB 0.8 ng/ml Creatine Kinase MB Ratio 1.2 Troponin I < 0.015 ng/ml < 0.015 ng/ml Total Protein 8.6 gm/dl Albumin 3.8 gm/dl Lipase 342 U/L Est Creatinine Clear Calc Drug Dose 70.4 ml/min Mental Examination During interview pt is: other (very tired, ended interview before full social history) Appearance: disheveled Eye contact is: poor Motor behavior is: no abnormal motor movements Speech: other (soft, slowed) Affect: blunted Mood is: other ("fine") Thought process: circumstantial Thought content: reality based without delusions Suicidal thought are: denied Homicidal thoughts are: denied Hallucinations: denies auditory, denies visual Cognition: language grossly intact, other (decreased attention) Impression / Recommendations Impression 51 yo female with history of unspecified anxiety and depression under the care of Dr. Ryan. States that she takes her psych meds for medical indications --Klonopin for restless legs, Cymbalta for fibromyalgia, Lamictal for migraines. She denies a history of bipolar disorder or seizures. Recommendations I personally won't d/c Klonopin if in deed for restless legs but in general advise against combining benzos and opiates due to risk of dependence and respiratory depression. 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 no indication for inpatient psychiatric admission she desires follow up re: psychoactive meds with current prescriber. She is amenable to a therapy referral and liaison to stop back when more awake to complete DAVID, confirm weapons and any other aspects of social history patient would like addressed/to share.
[2016-11-10] MEDS ORDERED: GABAPENTIN 300 MG CAP PO SCH (14:00)
[2016-11-10] MEDS ORDERED: DICYCLOMINE HCL 10 MG CAP PO ONE (15:15)
[2016-11-10] MEDS ORDERED: DICY10CA12 PO (15:19)
--- NOTE | 2016-11-10 15:22 | Discharge Instructions ---
Discharge Instructions Date of Service Nov 10, 2016. Admission Reason for Admission: Chest Pain In Adult Discharge Discharge Diagnosis / Problem: Diffuse pain Discharge Goals Goal(s): Decrease discomfort Activity Recommendations Activity Limitations: resume your previous activity . Instructions / Follow-Up Instructions / Follow-Up Please follow up with Family Medicine Dr. Ryan on November 14 at 1:05pm. Current Hospital Diet Patient's current hospital diet: Clear Liquid Diet Discharge Diet Recommended Diet: AHA Diet (Heart Healthy) Pending Studies Studies pending at discharge: no Medical Emergencies . Who to Call and When: Medical Emergencies: If at any time you feel your situation is an emergency, please call 911 immediately. . Non-Emergent Contact Non-Emergency issues call your: Primary Care Provider . . "Provider Documentation" section prepared by Lara Mejia. . VTE Core Measure Inpt VTE Proph given/why not?: Warfarin (Coumadin)
[2016-11-10 15:48] VITALS: BP 149/80; PULSE 107; O2SAT 97
[2016-11-10 16:12] VITALS: BP 149/80; PULSE 107; TEMP 36.9; O2SAT 97
--- NOTE | 2016-11-10 16:18 | Progress Note ---
Progress Note Date of Service Nov 10, 2016. Progress Note Please excuse Ms. Jackman from work duties from 11/09/16 through 11/10/16 due to hospitalization. Ms. Jackman is able to return to work as of 11/13/16.
--- NOTE | 2016-11-10 18:18 | Discharge Summary ---
Discharge Summary Date of Service Nov 10, 2016. Discharge Summary Admission Date: Nov 10, 2016 at 02:48 Discharge Date: Nov 10, 2016 Discharge Disposition: Home Principal Diagnosis: Diffuse pain, likely psychosomatic Procedures: CXR No acute process. CT a/p 1. Nonobstructing left renal calculus 2. No evidence of bowel obstruction. No evidence of free air 3. Normal appendix. No evidence of acute diverticulitis 4. Surgically absent gallbladder and uterus 5. 33 mm mass in the subcutaneous fat left anterior abdominal wall. This may represent fat necrosis from an injection site. Clinical correlation is advocated CT head No acute intracranial findings. CT c-spine There is no evidence of fracture or subluxation involving the cervical spine. RLE Venous Doppler No evidence of right lower extremity DVT. Consultations: Psychiatry Medication Reconciliation New Medications: Dicyclomine Hcl (Dicyclomine Hcl) 10 Mg Cap 1 CAP PO Q6H PRN for abdominal pain for 10 Days, #40 CAP Continued Medications: Albuterol Hfa (Ventolin Hfa) 200 Puffs/08236 Mcg Aers 2 PUFFS INH Q6H PRN for SOB/Wheezing, INHALER Aspirin (Aspir-81) 81 Mg Tab 1 TAB PO DAILY, TAB Carvedilol (Coreg) 3.125 Mg Tab 3.125 MG PO BID, TAB Clonazepam (Klonopin) 0.5 Mg Tab 0.5 MG PO HS Clonazepam (Klonopin) 0.5 Mg Tab 0.25 TAB PO QAM PRN for Anxiety, TAB Duloxetine Hcl (Cymbalta) 60 Mg Cap 60 MG PO DAILY, CAP Furosemide (Lasix) 20 Mg Tab 1 TAB PO BID Gabapentin (Neurontin) 300 Mg Cap 300 MG PO UD, CAP 1tab in am, 1tab in afternoon and 3tab at bedtime Lamotrigine (Lamotrigine) 25 Mg Tab 1 TAB PO BID Lisinopril (Prinivil) 40 Mg Tab 40 MG PO DAILY, TAB Meclizine HCl (Meclizine HCl) 25 Mg Tab 1 TAB PO TID PRN for dizziness Omeprazole (Prilosec) 40 Mg Cap 40 MG PO BID, CAP Potassium Chloride (Potassium Chloride Er) 10 Meq Cap 1 CAP PO DAILY, CAP Promethazine Hcl (Phenergan) 25 Mg Tab 25 MG PO Q6H PRN for Nausea, TAB Tramadol (Ultram) 50 Mg Tab 50 MG PO Q6 PRN for Pain Warfarin Sodium (Coumadin) 5 Mg Tab 5 MG PO 6XWK, TAB TAKE 5 MG EVERY SUNDAY/SUNDAY/SUNDAY/SUNDAY/SUNDAY/SUNDAY. Warfarin Sodium (Coumadin) 5 Mg Tab 2.5 MG PO TUESDAYS, TAB TAKE 1/2 TABLET EVERY SUNDAY Admission Information HPI (per Admitting provider): Medical history significant for fibromyalgia, history of a PE on anticoagulation , hypertension, endometriosis, migraine, chronic interstitial cystitis as per records. History of MRSA. Recent confinement last month for atypical chest pain. Attributed to increased stress at home. Px had a migraine attack as well. 2-D echo at that time showed EF 65%-70%, normal LV wall motion. Patient subsequently sent home. Yesterday, patient had upper abdominal pain, sharp, going to her L chest and some shortness of breath, pleuritic. PX also noted some neck pain going down to both arms, shoulder pain as well as low back, R LE pain worse w/ motion. Patient also headache and photophobia sx similar to migraine attack. Px subsequently had emesis and diarrhea sx at the ER. No recent antibiotics. Admits to a lot of stress the last few weeks from work and home. Physical Exam (per Admitting): VITAL SIGNS: Blood pressure was noted to be 147/83, pulse rate 99, RR 20, temperature to be obtained, O2 sats 98 on room air. GENERAL: Uncomfortable, obese, no respiratory distress. SKIN: Normal color. HEENT: [place] palpebral conjunctivae. Dry mucosa. NECK: Short neck. some limitation in neck motion LUNGS: Decreased breath sounds. Anterior chest wall tenderness HEART: Regular rate and rhythm. ABDOMEN: nonspecific tenderness to light palpation. BACK tenderness L low back, santiago SLR EXTREMITIES: Minimal LE edema. No tenderness. NEUROLOGIC: No gross focality except for back exam. Hospital Course Patient was admitted for observation of diffuse pain. Vitals were stable. Labs and imaging were unremarkable. Patient spent the day sleeping off the narcotics and anti-emetics she received in the ED. Patient was given a dose of Bentyl for abdominal pain and was discharged home with this medication. No changes were made to patient's home medications. Despite complaining of abdominal pain, patient consumed 2 dinner trays prior to discharge. Patient's multiple complaints were felt most likely to be psychosomatic in origin. Psychiatry was consulted and recommended outpatient follow up. Patient deemed stable for discharge home with Family Medicine follow up. PE on discharge: General- sleeping but arousable Eyes- EOMI; no scleral icterus Neck- no stridor; trachea midline Lungs- CTA bilaterally; no wheezes/crackles Heart- RRR; no m/r/g Abdomen- soft; nontender to palpation with stethoscope during auscultation; nBS Back- no gross abnormalities Extremities- no c/c/e; no deformity Neuro- no focal deficits Skin- no appreciable rash . Total time spent on discharge = This includes examination of the patient, discharge planning, medication reconciliation, and communication with other providers. Discharge Instructions Discharge Instructions Date of Service Nov 10, 2016. Admission Reason for Admission: Chest Pain In Adult Discharge Discharge Diagnosis / Problem: Diffuse pain Discharge Goals Goal(s): Decrease discomfort Activity Recommendations Activity Limitations: resume your previous activity . Instructions / Follow-Up Instructions / Follow-Up Please follow up with Family Medicine Dr. Ryan on November 14 at 1:05pm. Current Hospital Diet Patient's current hospital diet: Clear Liquid Diet Discharge Diet Recommended Diet: AHA Diet (Heart Healthy) Pending Studies Studies pending at discharge: no Medical Emergencies . Who to Call and When: Medical Emergencies: If at any time you feel your situation is an emergency, please call 911 immediately. . Non-Emergent Contact Non-Emergency issues call your: Primary Care Provider . . "Provider Documentation" section prepared by Lara Mejia. . VTE Core Measure Inpt VTE Proph given/why not?: Warfarin (Coumadin) Additional Copies To Abraham Ryan M.D.
[2016-11-10] MEDS ORDERED: CLONAZEPAM 0.5 MG TAB PO SCH (21:00)
[2016-11-11] MEDS ORDERED: LIDODERM (LIDOCAINE) PATCH 5% TD SCH (09:00)
== END 2016-11-10 17:25 | disposition home or self-care (01) ==
LOC: ENRESERVTM → ENRESERVDT → C.EDB 21:42 → C.2T 11-10 02:48
PROVIDERS: ADMIT Internal Medicine; ATTEND Internal Medicine
DX: R07.9 Chest pain, unspecified (principal); I10 Essential (primary) hypertension; Z86.711 Personal history of pulmonary embolism; Z90.710 Acquired absence of both cervix and uterus; Z90.49 Acquired absence of other specified parts of digestive tract; Z98.51 Tubal ligation status; Z80.9 Family history of malignant neoplasm, unspecified; Z83.3 Family history of diabetes mellitus; Z82.49 Family history of ischemic heart disease and other diseases of the circulatory system; Z84.1 Family history of disorders of kidney and ureter; Z79.82 Long term (current) use of aspirin; Z79.01 Long term (current) use of anticoagulants; Z79.899 Other long term (current) drug therapy; Z88.0 Allergy status to penicillin; Z88.2 Allergy status to sulfonamides

== ENCOUNTER 2019-02-22 13:41 | Inpatient (IN) ==
[2019-02-22 14:33] LABS: Basophils # (auto) 0.02 K/uL (0-0.2); Basophils % (auto) 0.3 %; Eosinophils # (auto) 0.19 K/uL (0-0.5); Eosinophils % (auto) 2.7 %; Hematocrit (blood only) 43.7 % (37-47); Hemoglobin 14.5 g/dL (12.0-16.0); Immature Granulocytes # (auto) 0.03 K/uL (0.00-0.02); Immature Granulocytes % (auto) 0.4 %; Lymphocytes # (auto) 1.95 K/uL (1.2-3.4); Lymphocytes % (auto) 27.7 %; Mean Corpuscular Hemoglobin 31.2 pg (25-34); Mean Corpuscular Hgb Conc 33.2 g/dL (32-36); Mean Platelet Volume 10.4 fL (7.4-10.4); Monocytes # (auto) 0.47 K/uL (0.11-0.59); Monocytes % (auto) 6.7 %; Neutrophils # (auto) 4.39 K/uL (1.4-6.5); Neutrophils % (auto) 62.2 %; Platelet Count 197 K/uL (130-400); RDW Coefficient of Variation 13.5 % (11.5-14.5); RDW Standard Deviation 46.2 fL (36.4-46.3); Red Blood Count 4.65 M/uL (4.2-5.4); White Blood Count 7.05 K/uL (4.8-10.8)
--- NOTE | 2019-02-22 14:49 | CT Scan Report ---
HEAD CT NONCONTRAST CT DOSE: 537.48 mGy.cm HISTORY: Stroke symptoms. Stroke evaluation TECHNIQUE: Multiaxial CT images of the head were performed without the use of intravenous contrast. A utomated exposure control was utilized for this study. A dose lowering technique was utilized adheri ng to the principles of ALARA. Comparison: Head CT 02/21/2019. Findings: The paranasal sinuses and mastoid air cells are clear. The calvarium and skull base are int act. The ventricles and sulci are within normal limits. There is no mass, hematoma, midline shift, or acute infarct. Impression: No acute intracranial abnormality. Electronically signed by: Randy Alvarez M.D. 02/22/2019 2:48 PM
--- NOTE | 2019-02-22 14:52 | XRay Report ---
XR chest 1V portable HISTORY: Stroke symptoms. COMPARISON: Chest 02/21/2019. FINDINGS: The lungs are clear. Cardiac silhouette is normal in size. No pleural effusions. No pneumot horax. IMPRESSION: No acute process. Electronically signed by: Randy Alvarez M.D. 02/22/2019 2:51 PM
[2019-02-22] MEDS ORDERED: clonazePAM 0.5 MG TAB PO STA (15:10)
[2019-02-22 15:18] LABS: INR 1.5 (0.9-1.1); Partial Thromboplastin Ratio 1.2; Partial Thromboplastin Time 32.5 Seconds (21.0-31.0); Prothrombin Time 15.1 Seconds (9.0-12.0)
[2019-02-22 15:31] LABS: Alanine Aminotransferase 21 U/L (12-78); Albumin Level 3.1 gm/dl (3.4-5.0); Aspartate Aminotransferase 16 U/L (15-37); BUN Creatinine Ratio 11.9 (10-20); Blood Urea Nitrogen 12 mg/dl (7-18); Calcium 8.4 mg/dl (8.5-10.1); Carbon Dioxide 26 mmol/L (21-32); Chloride 114 mmol/L (98-107); Est GFR (African American) 73.8; Est GFR (Non-African American) 63.7; Glucose 97 mg/dl (70-99); Magnesium 2.2 mg/dl (1.8-2.4); Potassium 3.9 mmol/L (3.5-5.1); Sodium 144 mmol/L (136-145)
[2019-02-22 15:41] LABS: Albumin Globulin Ratio 0.8 (0.9-2); Alkaline Phosphatase 96 U/L (45-117); Bilirubin,Total 0.5 mg/dl (0.2-1); Globulin 3.7 gm/dl (2.5-4.0); Total Protein 6.8 gm/dl (6.4-8.2); Troponin I < 0.015 ng/ml (0-0.045)
--- NOTE | 2019-02-22 16:39 | History & Physical Report ---
Date of Service February 22, 2019 Assessment & Plan (1) Stroke-like symptom: Acute stroke symptoms which began approximately 5-6 days ago with paresthesias and malaise, returned two days ago prompting an ER visit, subsequent discharge and return for increased vertigo, persistent parethesias and RUE weakness, and difficulty speaking. She has a h/o complicated migraines and has had right sided paresthesias in the past related to headaches, which she has daily and which is ongoing recently. MRI pending. With third nerve palsy differential includes but not limited to stroke, brain lesion, complicated migraine, microvascular disease. Intracranial aneurysm was ruled out with negative CTA of head and neck. A1C in am. Tylenol 1000mg now for headache. Hold coumadin for now until imaging returns. Plavix was started per recommendation by Neurology, however, she is also taking fluoxetine. This drug decreases the effectiveness of Plavix. She is not in the right mind frame to discuss switching antidepressant therapy, so will defer this to primary team picking up in the morning. For now will add additional antiplatelet coverage with aspirin. 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 (3) Gait abnormality: Plan as above. PT/OT to assess her in am. (4) Chest pain: Constant chest pain. Uncertain ACS but risk factors for CAD are present including obesity and hypertension as well as early family history of CAD. Initial EKG reveals sinus rhythm without evidence of acute ischemia and troponin is negative. Trend troponin overnight. Cardiology consult. (5) Hypertension: Permissive hypertension to 220/120 allowed in setting of possible acute stroke. There are no signs of encephalopathy. Papilledema could not be ascertained despite attempted exam. BP came down to 172/94 without medical treatment. Cont to monitor closely overnight. Lisinopril held. (6) History of pulmonary embolism: Subtherapeutic INR, however, holding coumadin in setting of possible intracranial process where hemorrhagic conversion is a possibility. Await further imaging studies and clinical improvement. Although subtherapeutic, she is also being given ASA and Plavix, so would not give her Lovenox for DVT prophylaxis at this time because of increased bleeding risk. (7) DVT prophylaxis: SCDs Full Code Dispo-to telemetry Tiffanie Mcgovern DO [facility] History of Present Illness Chief Complaint: Strokelike symptoms Primary Care Provider: Abraham Ryan MD 54-year-old female presented to the ER today with her for persistent stroke-like symptoms. Specifically she is experiencing right arm and leg numbness, double vision, headache that is posterior and wraps around the front of her head and chest pain that is constant. She feels lightheaded and is unable to walk. She denies any nausea, vomiting, stool changes. She reports some slurred speech and tongue numbness since taking a GI cocktail 2 days ago. 2 days ago, she was in the ER for similar symptoms including headache, dizziness, weakness that started late that evening. She presented to the ER overnight. 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 She reports feeling like her blood pressure was high and she left the show, took her evening meds including gabapentin, Prozac, Klonopin, warfarin. This did not improve her symptoms and she reached for lisinopril and took it with food. She reports noncompliance with most medicati ons including lisinopril. She has a history of migraines and is been told she has a complicated migraine in the past as she has had right-sided numbness that is associated with headaches. She reports a history of TIA but is uncertain of this. She takes lamotrigine as an abortive pill for her headaches which occur daily. She denies taking Imitrex, Fioricet or other abortives. She does take Tylenol on occasion. She avoids NSAIDs as she is on Coumadin for history of PE in the past. She reported some shortness of breath 2 days ago but this has subsided. She reports a history that is chronic for chest pain and states she had a work-up including stress test approximate 3 to 4 years ago that was negative. She sees Cristobal Christianson from [facility] and Dr. Magdaleno from [facility]. PCP is Dr. Abraham Schreiber. She otherwise denies any fevers, chills, coughing. Allergies Allergy/AdvReac Type Severity Reaction Status Date / Time Penicillins Allergy Severe SWELLING Verified 02/22/19 14:24 Sulfa (Sulfonamide AdvReac Mild N/V Verified 02/22/19 14:24 Antibiotics) Home Medications Home Medications Medication Instructions Recorded Confirmed Type clonazepam 0.5 mg PO HS 02/21/19 02/22/19 History fluoxetine 40 mg PO HS 02/21/19 02/22/19 History gabapentin 600 mg PO HS 02/21/19 02/22/19 History lisinopril 40 mg PO DAILY 02/21/19 02/22/19 History promethazine 25 mg PO Q6H PRN #12 tab 02/21/19 02/22/19 Rx tramadol 50 mg PO Q6 PRN 02/21/19 02/22/19 History warfarin 2.5 mg PO TU@1600 02/21/19 02/22/19 History warfarin 5 mg PO 6XWK 02/21/19 02/22/19 History lamotrigine 25 mg PO BID PRN 02/22/19 02/22/19 History omeprazole 40 mg PO DAILY PRN 02/22/19 02/22/19 History Past Med/Surg History Medical History Fibromyalgia (Chronic) HTN (hypertension) (Chronic) Renal calculi (Chronic) Interstitial cystitis (Chronic) Migraine (Chronic) Pulmonary embolism (Resolved) IBS (irritable bowel syndrome) (Chronic) Chest pain in adult (Acute) Anticoagulated on Coumadin History of pulmonary embolism Migraine Morbid obesity with BMI of 40.0-44.9, adult Surgical History S/P cholecystectomy (Chronic) History of hysterectomy (Chronic) S/P tubal ligation (Chronic) Family History Other Diabetes Heart disease Hypertension Social History Preferred Language: Yi Communication Ability: Effective Beliefs That Will Affect Care: None marital status: Current Living Situation: Spouse Feels Safe at Home: Yes Safety Concerns: Feels Safe At This Time Smoking Status: Never smoker Hx Alcohol Use: Yes Alcohol type: wine Hx Substance Use: No Review of Systems Review of Systems: All systems reviewed & are unremarkable except as noted in HPI & below Physical Exam Physical Exam: CONSTITUTIONAL: obese, vitals as above, generally ill- appearing, eyes closed as if avoiding the light. Became dizzy with sitting up in bed and with extaocular movements. EYES: left eye cannot adduct beyond the midline (third nerve palsy), lateral gaze present in the right eye, other EOM appear to be intact (CNIV and ). Horizontal nystagmus noted when looking to the right in the right eye. PERRL, normal conjunctivae, no scleral icterus, no fundoscopic abnormality-however, this was difficult to ascertain as pupils were constricted and area of visualization was minimal. Unable to assess for papilledema for this reason. Could not make out clear vasculature in the fundus. ENT: external ear and nose normal, oropharynx clear, mucous membranes are dry RESPIRATORY: clear to auscultation bilaterally, no crackles, rales or wheezes, normal respiratory effort CARDIOVASCULAR: regular rate and rhythm, S1 and 2 heard without murmurs, gallops or rubs, no JVD, no peripheral edema GASTROINTESTINAL: normal bowel sounds, soft, nontender, nondistended MUSCULOSKELETAL: strength 3/5 on right upper extremity including tool carrier strength, 5/5 RLE and on left side, head is normocephalic and atraumatic SKIN: warm and dry NEUROLOGIC: patellar DTR 2+ bilat, brachioradialis reflex 2+ bilaterally. No facial palsy, no dysarthria. R sided hemiparesthesia, normal cognition, normal speech, no tremor PSYCHIATRIC: alert cooperative and oriented to person, place and time. Results & Data Vital Signs (Past 12 Hours) Vital Signs Temp Pulse Pulse Resp BP BP Pulse Ox 02/22/19 15:16 85 18 191/116 H 98 02/22/19 13:45 37.1 C 84 20 184/106 H 97 Laboratory Results Short CBC 02/22/19 Range/Units 14:22 WBC 7.05 (4.8-10.8) K/uL Hgb 14.5 (12.0-16.0) g/dL Hct 43.7 (37-47) % Plt Count 197 (130-400) K/uL BMP 02/22/19 02/22/19 14:22 14:56 Sodium Cancelled 144 Potassium Cancelled 3.9 Chloride Cancelled 114 H Carbon Dioxide Cancelled 26 BUN Cancelled 12 Creatinine Cancelled 0.99 Glucose Cancelled 97 Calcium Cancelled 8.4 L Cardiac Enzymes 02/22/19 02/22/19 Range/Units 14:22 14:56 Troponin I Cancelled < 0.015 Liver Function 02/22/19 02/22/19 Range/Units 14:22 14:56 Total Bilirubin Cancelled 0.5 D AST Cancelled 16 ALT Cancelled 21 Alkaline Phosphatase Cancelled 96 Albumin Cancelled 3.1 L Diagnostic Findings XR chest 1V portable HISTORY: Stroke symptoms. COMPARISON: Chest 02/21/2019. FINDINGS: The lungs are clear. Cardiac silhouette is normal in size. No pleural effusions. No pneumothorax. IMPRESSION: No acute process. HEAD CT NONCONTRAST CT DOSE: 537.48 mGy.cm HISTORY: Stroke symptoms. Stroke evaluation TECHNIQUE: Multiaxial CT images of the head were performed without the use of intravenous contrast. Automated exposure control was utilized for this study. A dose lowering technique was utilized adhering to the principles of ALARA. Comparison: Head CT 02/21/2019. Findings: The paranasal sinuses and mastoid air cells are clear. The calvarium and skull base are intact. The ventricles and sulci are within normal limits. There is no mass, hematoma, midline shift, or acute infarct. Impression: No acute intracranial abnormality. Medications Administered Clonazepam 0.5mg PO x1 in ER. ECG Rhythm: normal sinus Code Status & VTE Plan Code Status Full VTE Prophylaxis Plan VTE Prophylaxis will be ordered: Yes
[2019-02-22] MEDS ORDERED: ACETAMINOPHEN 500 MG TAB PO STA (16:40)
[2019-02-22] MEDS ORDERED: lamoTRIgine 25 MG TAB PO PRN (16:46)
[2019-02-22] MEDS ORDERED: TRAMADOL HCL 50 MG TABLET PO PRN (16:47)
[2019-02-22] MEDS ORDERED: PHARMACIST DISCHARGE MED REC CONSULT PRN (16:52)
[2019-02-22] MEDS ORDERED: ASPIRIN 81 MG ECTAB PO SCH (16:52)
[2019-02-22] MEDS ORDERED: WARFARIN SOD 5 MG TAB PO SCH (17:00)
[2019-02-22] MEDS ORDERED: CLOPIDOGREL BISULFATE 75 MG TAB PO ONE (17:45)
[2019-02-22] MEDS ORDERED: ACETAMINOPHEN 500 MG TAB PO PRN (17:58)
[2019-02-22] MEDS ORDERED: OPTIRAY 320 125ml IV PRN (18:03)
[2019-02-22] MEDS: ATORVASTATIN 40 MG TAB PO SCH (18:20)
--- NOTE | 2019-02-22 18:20 | Emergency Department Note ---
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 Negative nausea.), + weakness (right arm) and + other (right side numbness, righ side tingling, lightheadedness, dizziness); no chest pain and no shortness of breath The patient is a 54 year old female who presents to the Emergency Room with complaints of persistent visual disturbances starting yesterday in the medical billing manager. The patient states that she was in the ED at 3 AM yesterday. She reports that she came in because she was having chest pain, right sided numbness, right sided tingling, lightheadedness, dizziness, and vomiting. She reports that they did blood work and a CT before sending her home. She states that when she left she still had her symptoms. She reports that shortly after leaving she developed double vision. She reports that it is like two items are stacked on top of each other at a diagonal. She states that when she closes one eye, the double vision goes away, but she has blurry vision. She notes that she doesnt typically have blurry vision. The patient states that since it has been ongoing, she called the eye doctor who told her to come in for an MRI She notes that her right arm and right leg numbness is the entire way around her limb. She notes that her right hand also feels weak. The patient denies chest pain, shortness of breath, nausea, diarrhea, and dysuria. Home Medications Home Medications Medication Instructions Recorded Confirmed Type clonazepam 0.5 mg PO HS 02/21/19 02/22/19 History fluoxetine 40 mg PO HS 02/21/19 02/22/19 History gabapentin 600 mg PO HS 02/21/19 02/22/19 History lisinopril 40 mg PO DAILY 02/21/19 02/22/19 History promethazine 25 mg PO Q6H PRN #12 tab 02/21/19 02/22/19 Rx tramadol 50 mg PO Q6 PRN 02/21/19 02/22/19 History warfarin 2.5 mg PO TU@1600 02/21/19 02/22/19 History warfarin 5 mg PO 6XWK 02/21/19 02/22/19 History lamotrigine 25 mg PO BID PRN 02/22/19 02/22/19 History omeprazole 40 mg PO DAILY PRN 02/22/19 02/22/19 History Allergies Allergy/AdvReac Type Severity Reaction Status Date / Time Penicillins Allergy Severe SWELLING Verified 02/22/19 14:24 Sulfa (Sulfonamide AdvReac Mild N/V Verified 02/22/19 14:24 Antibiotics) Past Med/Surg History Medical History Fibromyalgia (Chronic) HTN (hypertension) (Chronic) Renal calculi (Chronic) Interstitial cystitis (Chronic) Migraine (Chronic) Pulmonary embolism (Resolved) IBS (irritable bowel syndrome) (Chronic) Chest pain in adult (Acute) Anticoagulated on Coumadin History of pulmonary embolism Migraine Morbid obesity with BMI of 40.0-44.9, adult Surgical History S/P cholecystectomy (Chronic) History of hysterectomy (Chronic) S/P tubal ligation (Chronic) Family History Other Diabetes Heart disease Hypertension Social History Preferred Language: Slovenian Communication Ability: Effective Beliefs That Will Affect Care: None marital status: Current Living Situation: Spouse Feels Safe at Home: Yes Safety Concerns: Feels Safe At This Time Smoking Status: Never smoker Hx Alcohol Use: Yes Alcohol type: wine Hx Substance Use: No Review of Systems See HPI for pertinent positives & negatives. and A total of 10 systems reviewed and were otherwise negative Physical Exam Vital Signs Vital Signs - 24 hr 02/22/19 13:45 02/22/19 15:16 Temperature 37.1 C Temperature Source Oral Sepsis Recent Fever Within 48 Hours No Sepsis Action Taken by Nursing No Action Required Pulse Rate 84 Pulse Rate [Right Finger] 85 Pulse Rhythm Regular Pulse Rhythm [Right Finger] Regular Pulse Strength Normal Pulse Strength [Right Finger] Normal Respiratory Rate 20 18 Respiratory Effort / Characteristics Non-Labored Spontaneous Non-Labored Respiratory Depth Normal Normal Respiratory Pattern Regular Blood Pressure 184/106 H Blood Pressure [Right Arm] 191/116 H Blood Pressure Mean 132 Blood Pressure Mean [Right Arm] 141 Blood Pressure Position Lying Blood Pressure Position [Right Arm] Sitting Pulse Oximetry 97 98 Oxygen Delivery Method Room Air Room Air GENERAL: Sitting up in bed, mildly ill appearing, disheveled. EYE EXAM: normal conjunctiva, PERRL and nystagmus with rightward gaze. Left eye does not go beyond midline. OROPHARYNX: no exudate, no erythema, lips, buccal mucosa, and tongue normal and mucous membranes are moist NECK: supple, no nuchal rigidity, no adenopathy, non-tender LUNGS: Clear to auscultation. Normal chest wall mechanics HEART: no murmurs, S1 normal and S2 normal ABDOMEN: abdomen soft, non-tender, normo-active bowel sounds, no masses, no rebound or guarding. BACK: Back is symmetrical on inspection and there is no deformity, no midline tenderness, no CVA tenderness. SKIN: no rashes and no bruising UPPER EXTREMITIES: upper extremities are grossly normal. LOWER EXTREMITIES: No pitting edema. NEURO EXAM: Normal sensorium, cranial nerves II-XII intact with the exception of the eyes as left eye will not deviate beyond midline with a nystagmus of the right eye, normal speech, right upper extremity weakness with grasp, flexion, and extension, no weakness of legs or left upper extremity. No pronator drift. Course ED COURSE: Vital signs were reviewed and showed hypertension. The patients medical record was reviewed The above diagnostic studies were performed and reviewed. ED treatments and interventions as stated above. 1358: The patient was evaluated in room B12B. A complete history and physical examination was performed. 1515: I discussed the patient's case with Dr. Armida Campoverde [facility]. She will evaluate the patient for further management. 1518: Upon reevaluation, the patient is resting comfortably. I discussed my findings with the patient and she understands and agrees with the treatment plan. Based on the patients age, coexisting illnesses, exam and lab findings the decision to treat as an inpatient was made. The patient remained stable while under my care. The patient will be evaluated for further management. Consultations Consultation #1: I discussed the patient's case with Dr. Armida Campoverde Hospitalist. She will evaluate the patient for further management. Time: 15:15 Administered Medications Ioversol (Optiray 320 125ml) 115 ml IV ONCE PRN PRN Reason: Interaction Checking Stop: 02/26/19 18:02 Last Admin: 02/22/19 18:03 Dose: 115 ml Documented by: [id number] Discontinued Medications Clonazepam (Klonopin) 0.5 mg PO NOW STA Stop: 02/22/19 15:11 Last Admin: 02/22/19 15:15 Dose: 0.5 mg Documented by: [id number] Medical Decision Making Differential Diagnosis Differential Diagnosis includes but is not limited to ischemic Stroke, hemorrhagic stroke, bells palsy, mass, neoplasm, migraine headache, seizure, subarachnoid hemorrhage, TIA, and transient global amnesia. Medical Records Attestation: I reviewed the patient's medical records. Home Medications Current Medication List: was personally reviewed by me Laboratory Data Attestation: I reviewed the patient's lab results. Result diagrams: 02/22/19 14:22 02/22/19 14:56 Lab Results 02/22/19 02/22/19 02/22/19 Range/Units 14:11 14:19 14:22 WBC 7.05 (4.8-10.8) K/uL RBC 4.65 (4.2-5.4) M/uL Hgb 14.5 (12.0-16.0) g/dL Hct 43.7 (37-47) % MCV 94.0 (80-100) fL MCH 31.2 (25-34) pg MCHC 33.2 (32-36) g/dL RDW Std Deviation 46.2 (36.4-46.3) fL RDW Coeff of Karen 13.5 (11.5-14.5) % Plt Count 197 (130-400) K/uL MPV 10.4 (7.4-10.4) fL Immature Gran % (Auto) 0.4 % Neut % (Auto) 62.2 % Lymph % (Auto) 27.7 % Charlton % (Auto) 6.7 % Eos % (Auto) 2.7 % Baso % (Auto) 0.3 % Immature Gran # (Auto) 0.03 H (0.00-0.02) K/uL Neut # (Auto) 4.39 (1.4-6.5) K/uL Lymph # (Auto) 1.95 (1.2-3.4) K/uL Charlton # (Auto) 0.47 (0.11-0.59) K/uL Eos # (Auto) 0.19 (0-0.5) K/uL Baso # (Auto) 0.02 (0-0.2) K/uL PT INR APTT PTT Ratio Sodium Potassium Chloride Carbon Dioxide Anion Gap BUN Creatinine Est Cr Clr Drug Dosing Est GFR ( Amer) Est GFR (Non-Af Amer) BUN/Creatinine Ratio Glucose POC Glucose 120 H (70-99) Calcium Magnesium Total Bilirubin AST ALT Alkaline Phosphatase Troponin I Total Protein Albumin Globulin Albumin/Globulin Ratio Blood Type O Positive Antibody Screen NEGATIVE 02/22/19 02/22/19 02/22/19 Range/Units 14:22 14:22 14:56 WBC (4.8-10.8) K/uL RBC (4.2-5.4) M/uL Hgb (12.0-16.0) g/dL Hct (37-47) % MCV (80-100) fL MCH (25-34) pg MCHC (32-36) g/dL RDW Std Deviation (36.4-46.3) fL RDW Coeff of Karen (11.5-14.5) % Plt Count (130-400) K/uL MPV (7.4-10.4) fL Immature Gran % (Auto) % Neut % (Auto) % Lymph % (Auto) % Charlton % (Auto) % Eos % (Auto) % Baso % (Auto) % Immature Gran # (Auto) (0.00-0.02) K/uL Neut # (Auto) (1.4-6.5) K/uL Lymph # (Auto) (1.2-3.4) K/uL Charlton # (Auto) (0.11-0.59) K/uL Eos # (Auto) (0-0.5) K/uL Baso # (Auto) (0-0.2) K/uL PT Cancelled INR Cancelled APTT Cancelled PTT Ratio Cancelled Sodium Cancelled 144 Potassium Cancelled 3.9 Chloride Cancelled 114 H Carbon Dioxide Cancelled 26 Anion Gap Cancelled 4.0 BUN Cancelled 12 Creatinine Cancelled 0.99 Est Cr Clr Drug Dosing Cancelled 81.0 Est GFR ( Amer) Cancelled 73.8 Est GFR (Non-Af Amer) Cancelled 63.7 BUN/Creatinine Ratio Cancelled 11.9 Glucose Cancelled 97 POC Glucose (70-99) Calcium Cancelled 8.4 L Magnesium Cancelled 2.2 Total Bilirubin Cancelled 0.5 D AST Cancelled 16 ALT Cancelled 21 Alkaline Phosphatase Cancelled 96 Troponin I Cancelled < 0.015 Total Protein Cancelled 6.8 Albumin Cancelled 3.1 L Globulin Cancelled 3.7 Albumin/Globulin Ratio Cancelled 0.8 L Blood Type Antibody Screen 02/22/19 Range/Units 14:56 WBC (4.8-10.8) K/uL RBC (4.2-5.4) M/uL Hgb (12.0-16.0) g/dL Hct (37-47) % MCV (80-100) fL MCH (25-34) pg MCHC (32-36) g/dL RDW Std Deviation (36.4-46.3) fL RDW Coeff of Karen (11.5-14.5) % Plt Count (130-400) K/uL MPV (7.4-10.4) fL Immature Gran % (Auto) % Neut % (Auto) % Lymph % (Auto) % Charlton % (Auto) % Eos % (Auto) % Baso % (Auto) % Immature Gran # (Auto) (0.00-0.02) K/uL Neut # (Auto) (1.4-6.5) K/uL Lymph # (Auto) (1.2-3.4) K/uL Charlton # (Auto) (0.11-0.59) K/uL Eos # (Auto) (0-0.5) K/uL Baso # (Auto) (0-0.2) K/uL PT 15.1 H INR 1.5 H APTT 32.5 H PTT Ratio 1.2 Sodium Potassium Chloride Carbon Dioxide Anion Gap BUN Creatinine Est Cr Clr Drug Dosing Est GFR ( Amer) Est GFR (Non-Af Amer) BUN/Creatinine Ratio Glucose POC Glucose (70-99) Calcium Magnesium Total Bilirubin AST ALT Alkaline Phosphatase Troponin I Total Protein Albumin Globulin Albumin/Globulin Ratio Blood Type Antibody Screen Imaging Data Radiologist's Impression: Radiology results as stated below per my review and the radiologist's interpretation: XR chest 1V portable HISTORY: Stroke symptoms. COMPARISON: Chest 02/21/2019. FINDINGS: The lungs are clear. Cardiac silhouette is normal in size. No pleural effusions. No pneumothorax. IMPRESSION: No acute process. Electronically signed by: Randy Alvarez M.D. 02/22/2019 2:[address] CT DOSE: 537.48 mGy.cm HISTORY: Stroke symptoms. Stroke evaluation TECHNIQUE: Multiaxial CT images of the head were performed without the use of intravenous contrast. Automated exposure control was utilized for this study. A dose lowering technique was utilized adhering to the principles of ALARA. Comparison: Head CT 02/21/2019. Findings: The paranasal sinuses and mastoid air cells are clear. The calvarium and skull base are intact. The ventricles and sulci are within normal limits. There is no mass, hematoma, midline shift, or acute infarct. Impression: No acute intracranial abnormality. Electronically signed by: Randy Alvarez M.D. 02/22/2019 2:48 PM ECG Data Attestation: I personally reviewed and interpreted this ECG as follows: Indication: weakness Rate (beats per minute): 80 Rhythm: sinus rhythm Findings: + other (normal axis); no PVC Blood Pressure Blood Pressure Findings: Elevated blood pressure Blood Pressure Disposition: further management by hospitalist JESIKA Narrative Patient is a 54-year-old female who presents the ER she was seen here yesterday in the ER for chest pain associated with dizziness and right upper extremity weakness. Patient notes that her weakness in the right upper extremity has not worsened but notes blurry vision has changed significantly since she left. IV was established blood work was obtained and showed no significant leukocytosis or anemia. INR was at 1.5. MP along with LFTs bilirubin and troponin was negative. CT of the head was again normal. At the result of the CT head to discuss with hospitalist for admission. Offered performing a CTA but they pref erred to defer to an MRI. Patient was updated bedside. With the obvious 3rd nerve palsy in combination with the right upper extremity weakness do favor that this is likely stroke. Discussed with the hospitalist for observation and patient will be further worked up as an inpatient. Impression & Plan CVA (cerebral vascular accident), Double vision, RUE weakness Discharge Plan Visit Data *Final* Discharge Date/Time: 02/22/19 16:32 Chief Complaint: Visual Disturbance Stated Complaint: RIGHT SIDED TINGLING, DOUBLE VISION, R SIDE IS NUM ED Provider: Tushar Pirce Discharge Problem: CVA (cerebral vascular accident), Double vision, RUE weakness Patient Disposition: Admitted As Inpatient Discharge Instructions Interventions: ED Discharge Assessment Last Done: 02/22/19 16:32 Discharge Problem: CVA (cerebral vascular accident) Qualifiers: CVA mechanism: unspecified Qualified Code(s): I63.9 - Cerebral infarction, unspecified The scribe's documentation has been prepared under my direction and personally reviewed by me in its entirety. I confirm that the note above accurately reflects all work, treatment, procedures, and medical decision making performed by me.
--- NOTE | 2019-02-22 18:27 | CT Scan Report ---
CT angio neck with con, CT angio head w con CLINICAL HISTORY: 54 years-old Female with stroke like symptoms, 3rd nerve palsy. Acute strokelike symptoms COMPARISON STUDY: CT head of same day TECHNIQUE: Following the IV administration of 115 mL of Optiray 320, CT angiogram of the head and nec k was performed from the aortic arch to the skull base. Images are reviewed in the axial, sagittal, a nd coronal planes. 3-D MIPS images are created and assessed. IV contrast was administered without com plication. All measurements were calculated based on NASCET criteria. A dose lowering technique was utilized adhering to the principles of ALARA. CT DOSE: 576.58 mGy.cm FINDINGS: Three-vessel aortic arch. Patency of the imaged bilateral subclavian arteries. Bilateral common carot id arteries are widely patent. The bilateral internal carotid arteries are also widely patent and wit hin normal limits. The middle and anterior cerebral arteries are patent. Dominant left vertebral srini ry. Bilateral vertebral arteries are patent. Basilar artery is diminutive. origin of the bilate ral posterior cerebral arteries. Bilateral posterior cerebral arteries appear patent. Cerebral venous sinuses are patent and unremarkable. There is no aneurysm, dissection, high-grade stenosis or proxim al branch occlusion identified. No abnormal intracranial enhancement. Extra-axial 1.2 cm calcificatio n adjacent to left frontal lobe redemonstrated. Imaged lung apices are clear without pneumothorax. 1. 3 cm right thyroid nodule. Soft tissues appear unremarkable. Degenerative changes are seen about the spine. Mild nonspecific prominence of the left lacrimal gland compared to the right. IMPRESSION:Unremarkable CTA of the head and neck without aneurysm, dissection, high-grade stenosis or proximal branch occlusion. The above report was generated using voice recognition software. It may contain grammatical, syntax o r spelling errors. Electronically signed by: Samm Villela M.D. 02/22/2019 6:24 PM
[2019-02-22] MEDS: PROMETHAZINE HCL 25 MG TAB PO PRN (18:32)
[2019-02-22] MEDS ORDERED: ASPIRIN 81 MG ECTAB PO STA (19:32)
[2019-02-22] MEDS: FLUOXETINE HCL 20 MG CAP PO SCH (20:13)
[2019-02-22] MEDS: clonazePAM 0.5 MG TAB PO SCH (20:13)
[2019-02-22] MEDS: GABAPENTIN 300 MG CAP PO SCH (20:13)
[2019-02-22] MEDS: MoRPHine SULFATE 2 MG/ML CARP IV PRN (21:25)
[2019-02-23] MEDS: MoRPHine SULFATE 2 MG/ML CARP IV PRN (01:35)
[2019-02-23 03:50] LABS: Basophils # (auto) 0.03 K/uL (0-0.2); Basophils % (auto) 0.4 %; Eosinophils # (auto) 0.24 K/uL (0-0.5); Eosinophils % (auto) 3.1 %; Hematocrit (blood only) 43.7 % (37-47); Hemoglobin 14.5 g/dL (12.0-16.0); Immature Granulocytes # (auto) 0.02 K/uL (0.00-0.02); Immature Granulocytes % (auto) 0.3 %; Lymphocytes # (auto) 2.93 K/uL (1.2-3.4); Lymphocytes % (auto) 37.7 %; Mean Corpuscular Hemoglobin 31.3 pg (25-34); Mean Corpuscular Hgb Conc 33.2 g/dL (32-36); Mean Corpuscular Volume 94.4 fL (80-100); Mean Platelet Volume 10.5 fL (7.4-10.4); Monocytes # (auto) 0.47 K/uL (0.11-0.59); Neutrophils # (auto) 4.08 K/uL (1.4-6.5); Neutrophils % (auto) 52.5 %; Platelet Count 213 K/uL (130-400); RDW Coefficient of Variation 13.3 % (11.5-14.5); RDW Standard Deviation 45.9 fL (36.4-46.3); Red Blood Count 4.63 M/uL (4.2-5.4); White Blood Count 7.77 K/uL (4.8-10.8)
[2019-02-23 03:58] LABS: INR 1.4 (0.9-1.1)
[2019-02-23 04:07] LABS: BUN Creatinine Ratio 12.8 (10-20); Calcium 8.4 mg/dl (8.5-10.1); Creatinine Clr Calc Pharmacy 79.1 ml/min; Est GFR (African American) 69.6; Potassium 3.9 mmol/L (3.5-5.1)
--- NOTE | 2019-02-23 08:00 | Neurology Consultation ---
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 This is consistent with internuclear ophthalmoparesis which typically results from a lesion in the medial longitudinal fasciculus in the dorsomedial brainstem tegmentum of either the mily or the midbrain. The most likely cause is hypertensive small vessel ischemic disease. A brainstem lesion like this could also explain her left facial weakness at the corner of the mouth, dysarthria, right upper extremity weakness, and contralateral sensory deficits/dysesthesias. Therefore, I suspect the hypertension as causing the headache and clinical syndrome. Complicated migraines (combination of vasospasm and vasodilation), such as she has experienced over the years, especially combined with hypertension, can lead to stroke. Interestingly, this patient has a longstanding history of complicated migraines which involved episodes of right-sided numbness, lightheadedness, dizziness, blurry vision (never double) and headache. Extensive evaluations have been done in the past including multiple MRIs, EEGs, LPs, laboratory studies, and other which did not reveal any other neurologic diseases. MRIs have shown mild old small vessel ischemic disease in the past (most recent MRI to my knowledge is in 2015). This would be secondary to her history of hypertension. She does not have any other significant risk factors for stroke such as heart disease or cardiac dysrhythmia, cigarette smoking, diabetes, or significant dyslipidemia. Patient does have a history of pulmonary embolus in September of 2015. She has remained on Coumadin ever since (and I am not sure why this is as I do not believe she has any underlying coagulopathy that would put her at risk for recurrent clotting). She has a history of anxiety and depression helped with medication. Recommendations: 1. MRI of the brain with attention to the brainstem. 2. We will consider medication treatment after the MRI. I suspect I will recommend 81 milligram aspirin tablet daily. Apparently, clopidogrel and fluoxetine are contraindicated together due to an interaction. 3. Control blood pressure as you are doing aiming for a mean arterial pressure of approximately 100. 4. Physical, occupational, and speech therapy consult. 5. Echocardiogram is pending. 6. Verapamil is still my drug of choice to prevent vasospasm and complicated migraines. I am not sure why she stopped this medication. 7. I am uncertain why she is still on Coumadin and with this needs to be continued. 8. I am uncertain as to the purpose of Lamictal and whether she still needs this. 9. Keep fluoxetine and clonazepam the same for now. 10. Additional recommendations will be made depending on her clinical course and the above tests. Overall, I spent a total of 140 minutes with this case including review of records, review of old MRI films, direct evaluation the patient at bedside, and discussion of the case with the patient at bedside, nursing staff, and Dr. Cohen, including differential diagnosis and treatment options. History of Present Illness Reason for Consultation: Patient is a 54-year-old, who I was asked to see the request of Dr. Mcgovern, for neurologic consultation regarding new onset diplopia, right-sided numbness, headache, other issues (stroke versus complicated migraine). Requesting Physician: Dr. Mcgovern Attending Physician: Wade Cohen MD History of Present Illness This patient has a somewhat complicated neurologic history. She has a longstanding history of hypertension and fibromyalgia. About 4-5 years ago she started getting headaches. These were migraine like events associated with numbness in her tongue and right side of her body including face arm and leg. The numbness and the headache went together. Dr. Thompson evaluated her in 2013. I 1st saw her in September of 2014 when she had continued episodes as noted above along with some blurry vision. MRI of the brain showed some mild nonspecific old small vessel ischemic change and an LP was unremarkable. MRI of the cervical spine showed diffuse spondylitic changes but no significant spinal stenosis or surgical lesion. There was concern of multiple sclerosis but the ultimate diagnosis was complicated migraines. At the time we saw her she was already on Lamictal 25 milligrams twice a day (possibly for psychiatric reasons). We last saw her in September of 2015. Around that time she was getting multiple episodes of right-sided weakness and numbness accompanied by a migrainous headache each month. She came into the hospital with vertigo, hypertension, and blurry vision and repeat MRI of the brain again showed old small vessel ischemic change with no changes. An EEG was normal as well. Laboratory studies were unremarkable. Verapamil had been initiated 180 milligram SR daily. We lost her to follow-up and did not see her in clinic again. She continues to have headaches over the last year. She has a pounding pain almost daily bi occipitally to bifrontally unaccompanied by significant photophobia, sonophobia, nausea or vomiting. She tends to work through these headaches and take Tylenol only. She does not like to take medicine much. Approximately once a month she will get a more severe headache with increased photophobia and sonophobia. These will be accompanied by some right-sided numbness and lightheadedness. She may take a tramadol for these. At some point she stop the verapamil but is not sure why. She has never tried topiramate. She takes 600 milligrams of gabapentin at night to help her restless leg syndrome. She has anxiety and depression and fluoxetine 40 milligrams a day plus 0.5 milligrams of clonazepam at bedtime help this. She is on the lamotrigine 25 milligrams twice a day as needed. She does not take anything specifically for the fibromyalgia other than tramadol as needed. Apparently she had a renal stone about 3 years ago and has interstitial cystitis. In September of 2015 she was diagnosed with a pulmonary embolus and has been on Coumadin since. She is not certain why this has been continued, as she has not had any additional issues or history of clotting problems. Patient has been very stressed physically and mentally recently. 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 She also works at the [employer] [place] and [employer]. The home business is enjoyable but very stressful and she has not been getting sleep recently. Starting February 17 she was having tingling and numbness bilaterally as well as severe fatigue. By February 18 she was having a bifrontal headache as well. The symptoms continued waxing and waning along with some lightheadedness. On February 20 around 30 in the morning she noted a severe bifrontal headache with dizziness and lightheadedness. She pushed to work that she had to do but ended up coming to the emergency room February 21 at 0200. Blood pressure was 149/86 she was having chest pain difficulty breathing, dizziness, abdominal pain, nausea, neck pain, numbness and tingling in her right upper extremity, and back pain. Neurologic examination was unremarkable at that time and treatment with Benadryl, Compazine, and acetaminophen helped her headache. CBC, Chem profile, TSH, and chest x-ray were unremarkable. A CT scan of the cervical spine showed mild degenerative changes and a CT scan of the head was unremarkable. She was discharged home around 1030 February 21. She was still having some headache but was having some blurry vision and mild double vision as well. This actually started in the emergency room earlier that day. She went to sleep and ended up waking around 0900 on February 22. She noted significant double vision which was worse (closing 1 eye or the other resolve the double vision) some blurry vision, right sided numbness and tingling in the face arm and leg and right hand weakness. She arrived at the emergency room February 22 at 1345 with a blood pressure of 184/106, temperature 37.1, pulse 84 and regular, respiratory rate 20, and O2 saturation 97 percent. Neurologic examination revealed the inability of the left eye to abduct past midline and the right eye head nystagmus. There was decreased information services consultant in the right arm. She had a posterior headache. CBC and Chem profile were unremarkable. Chest x-ray was unremarkable. CT scan of the head was unremarkable. CT angiography of the head and neck showed no significant stenoses or vessel anomalies. There were no aneurysms. Hemoglobin A1c is pending. Total cholesterol is 172, triglycerides 142, LDL 102, HDL 42. Patient has remained about the same over night although her headache is less. Currently it is a 3/10 and bifrontal in nature. She still has weakness in achiness in her legs, slurred speech, numbness and tingling on the right face arm and leg, and dizziness when she tries to stand and walk. She denies incontinence of urine, spine or limb pain, confusion, or chest pain. Blood pressure this morning was 155/96. Allergies Allergy/AdvReac Type Severity Reaction Status Date / Time Penicillins Allergy Severe SWELLING Verified 02/22/19 14:24 Sulfa (Sulfonamide AdvReac Mild N/V Verified 02/22/19 14:24 Antibiotics) Home Medications Home Medications Medication Instructions Recorded Confirmed Type clonazepam 0.5 mg PO HS 02/21/19 02/22/19 History fluoxetine 40 mg PO HS 02/21/19 02/22/19 History gabapentin 600 mg PO HS 02/21/19 02/22/19 History lisinopril 40 mg PO DAILY 02/21/19 02/22/19 History promethazine 25 mg PO Q6H PRN #12 tab 02/21/19 02/22/19 Rx tramadol 50 mg PO Q6 PRN 02/21/19 02/22/19 History warfarin 2.5 mg PO TU@1600 02/21/19 02/22/19 History warfarin 5 mg PO 6XWK 02/21/19 02/22/19 History lamotrigine 25 mg PO BID PRN 02/22/19 02/22/19 History omeprazole 40 mg PO DAILY PRN 02/22/19 02/22/19 History Patient History Medical History Fibromyalgia (Chronic) HTN (hypertension) (Chronic) Renal calculi (Chronic) Interstitial cystitis (Chronic) Migraine (Chronic) Pulmonary embolism (Resolved) IBS (irritable bowel syndrome) (Chronic) Chest pain in adult (Acute) Anticoagulated on Coumadin History of pulmonary embolism Migraine Morbid obesity with BMI of 40.0-44.9, adult Surgical History S/P cholecystectomy (Chronic) History of hysterectomy (Chronic) S/P tubal ligation (Chronic) Family History Mother , age 63 of cerebral aneurysm. Cerebral aneurysm Father , age 63 of an [place] Myocardial infarction Other Diabetes Heart disease Hypertension Social History Preferred Language: Thai Communication Ability: Effective Beliefs That Will Affect Care: None marital status: Current Living Situation: Spouse current occupational status: employed current occupation: Works at the [employer]. 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 Hx Substance Use: No Review of Systems Constitutional: + fatigue, + malaise and + weakness; no fever Eyes: + diplopia and + worsening vision; no eye pain Ear, Nose, Mouth, Throat: + dizziness; no ear pain, no tinnitus, no hearing loss, no snoring, no hoarseness and no dysphagia Respiratory: no cough and no dyspnea Cardiovascular: no chest pain, no palpitations and no lightheadedness Gastrointestinal: no abdominal pain, no nausea and no vomiting Genitourinary: no dysuria, no urinary frequency and no urinary incontinence Musculoskeletal: + neck pain; no back pain, no radicular pain, no joint pain and no myalgia Integumentary: no rash and no lesions Neurologic: + localized weakness, + tingling, + numbness, + paresthesia and + abnormal speech; no gait abnormality, no tremor(s), no abnormal movements, no headache(s), no confusion and no memory loss Psychiatric: + anxiety; no depression, no irritability, no difficulty concentrating, no confusion and no hallucinations Endocrine: + fatigue; no flushing Hematologic / Lymphatic: + easy bleeding and + easy bruising Allergy / Immunological: no urticaria and no problem reported Physical Exam Physical Exam: The patient is right-handed. The patient is awake, alert, and attentive. Speech is normal without any aphasia but she does have some very mild dysarthria dysarthria. Mentation and thought processes are intact, with full orientation and normal fund of knowledge. Attention and concentration are normal. Mood and affect are normal and appropriate. General appearance and grooming are normal. Short and long-term memory are intact. The discs are sharp with positive venous pulsations bilaterally. There are no exudates, hemorrhages, or blood vessel changes seen. Pupils are 4 mm bilaterally and reactive to light. Extraocular eye muscles are abnormal. The left eye will not a doctor past midline to the right with right gaze. With this attempt the right eye will abduct and have significant nystagmus in the direction of the gaze. Otherwise there is good movement of both eyes in other directions. There is some resting state nystagmus in the right eye. Visual acuity and visual mtz seem normal grossly to confrontation. There right side of the face has some decreased sensation to pin and touch compared to the left particularly in the cheek and jaw. The forehead seem spared. Corneal reflexes are positive bilaterally. There is a mild weakness at the corner of the mouth on the left (not the right). Hearing seems intact grossly to voice and finger rub bilaterally. Palate moves well without asymmetry. There is normal sternocleidomastoid and trapezius (shoulder shrug) strength bilaterally. Tongue is midline with good strength bilaterally. Neck has a full range of motion without discomfort. There are no cervical bruits bilaterally. There are no cranial or ocular bruits. Heart is without murmur. There is a regular rhythm and rate. Cervical, thoracic, and lumbar spine are nontender to palpation. Gait is slightly wide-based and she limps favoring the right leg. She is very unstable and feels he is falling to the right. She needs the assistance of 1 at least. With outstretched arms there is no drift. There are no resting, postural, or action tremors. There is no ataxia with finger to nose testing. There is good facility in the left hand reasonable facility on the right. No other abnormal involuntary movements are noted. Motor strength is 5/5 diffusely in the left upper extremity including deltoids, biceps, triceps, brachioradialis, wrist flexors and extensors, information services consultant, and intrinsic hand muscles. Right upper extremities 5/5 proximally but distally is 4+/5. Motor strength is 5/5 diffusely in the legs bilaterally including hip flexors, quadriceps, hamstrings, gastrocnemius, tibialis anterior, tibialis posterior, and Peroneii muscles bilaterally. Toe extensors are normal and there is good bulk in the extensor digitorum brevis muscles bilaterally. The limbs have good tone without rigidity or spasticity. There is no atrophy noted in the muscles. Muscle bulk is normal, there is no tenderness to palpation, no myotonia to percussion, and no fasciculations seen. Sensory examination reveals decreased sensation to pin and touch diffusely in the right arm and leg compared to the left. The trunk is spared. Reflexes are 2/4 in the biceps, triceps, brachioradialis, quadriceps, and Achilles tendons bilaterally. Toes are downgoing with plantar stimulation bilaterally. Peripheral pulses are present and of normal quality distally in all 4 limbs. There is no peripheral edema noted in the limbs. Results & Data Vital Signs (Past 12 Hours) Vital Signs Temp Pulse Resp BP Pulse Ox 02/23/19 06:56 36.5 C 66 16 155/96 H 96 02/23/19 03:22 36.4 C L 70 18 158/90 H 96 02/22/19 23:28 36.7 C 71 18 167/90 H 95 PG Care Time/CCT Total # of Minutes Spent Total Time Spent with Patient: Total of 140 minutes as noted above. (1) Headache Headache chronicity pattern: acute headache Headache type: unspecified Intractability: not intractable Qualified Code(s): R51 - Headache
[2019-02-23] MEDS: ATORVASTATIN 40 MG TAB PO SCH (08:07)
[2019-02-23] MEDS ORDERED: CLOPIDOGREL BISULFATE 75 MG TAB PO SCH (09:00)
[2019-02-23] MEDS ORDERED: LORazepam 1 MG/2 ML VIAL IV ONE (09:23)
--- NOTE | 2019-02-23 10:46 | Magnetic Resonance Report ---
MR brain wo con HISTORY: 54 years-old Female rule out stroke acute strokelike symptoms COMPARISON: CTA had and neck 02/22/2019, brain MRI 10/12/2015 TECHNIQUE: Multiplanar multisequence MRI of the brain was obtained without the use of IV contrast. FINDINGS: Large falig-jd-axyg veneer joiner localizer images demonstrate no gross extracranial abnormality. There are 2 foci of increased signal on the diffusion-weighted series with slightly decreased signal on the ADC map noted involving the left ventral and dorsal mily measuring 6 and 4 mm respectively (image 7 serie s 4). No significant T2/FLAIR signal abnormality identified within this region. No evidence of acute or subacute territorial infarct. The midline structures including the corpus callosum, brainstem, opt ic chiasm, pituitary gland appear unremarkable on the sagittal T1 series. There are a few benign-appe aring cysts of the pineal gland noted measuring up to 4 mm. No cerebellar tonsillar herniation. Degen erative changes noted about the imaged cervical spine. No acute intracranial hemorrhage, midline shift, abnormal extra axial collection, hydrocephalus or in tracranial mass. Moderate to extensive T2/FLAIR signal abnormalities about the white matter involving the subcortical, deep and periventricular distributions has progressed from 2016. Major flow voids a t the level the skull base appear patent. Mastoid air cells are clear. Mild mucosal thickening of the nasal turbinates. Orbits, skull and soft tissues are unremarkable. IMPRESSION: 1. Mildly motion degraded exam. 2. Two subcentimeter foci of restricted diffusion about the left mily are suggestive of acute or suba cute lacunar infarctions. 3. No acute territorial infarct, intracranial hemorrhage or midline shift. 4. Progressive T2/FLAIR signal abnormalities about the white matter suggestive of probable chronic mi crovascular ischemic changes. Correlate clinically. The above report was generated using voice recognition software. It may contain grammatical, syntax o r spelling errors. Electronically signed by: Samm Villela M.D. 02/23/2019 10:44 AM
[2019-02-23] MEDS: hydroCHLOROthiazide 25 MG TAB PO SCH (13:11)
--- NOTE | 2019-02-23 14:04 | Consultation Report ---
DATE OF CONSULTATION: 02/23/2019 REQUESTING: Tiffanie Mcgovern DO CUBE CUTTER: Simeon Calvillo DO, [facility] for Cristobal Christianson PA-C, who is the patient's primary cardiac provider. REASON FOR CONSULTATION: Chest discomfort. HISTORY OF PRESENT ILLNESS: Georgina was admitted to the hospital complaining of double vision and nystagmus along with left-sided facial weakness in the corner of her mouth, dysarthria and right upper extremity weakness. MRI is consistent with lacunar infarcts. She also has a history of complicated migraines. We were consulted due to the fact that she actually has chest tightness with activity. If she climbs a flight of stairs, she has central chest tightness. She describes it more as a stabbing sensation rather than a pressure sensation. It does not radiate into her shoulders or her throat, but it does radiate into her neck. She does have shortness of breath if she climbs a flight of stairs. She often needs to stop half way, she also gets chest tightness when she climbs a flight of stairs, it is about 50 feet to the mailbox, which is flat that she can do, but if she has to do more activity than that she gets tightness in her chest. She denies any presyncope or syncope. She is unaware of any palpitations or fluttering or feeling her heart racing. She does have lower extremity edema which is worse at the end of the day and better in the morning. It is not completely resolved. She has a history of pulmonary embolism and DVT and is unaware of any recurrent episodes and remains on chronic Coumadin anticoagulation. The rest of review of systems is otherwise negative. PAST MEDICAL HISTORY: 1. Complex migraine. 2. Hypertension. 3. Obesity. 4. Fibromyalgia. 5. Ongoing chest pain and shortness of breath. 6. Lacunar infarcts involving the left mily with chronic microvascular ischemic changes in the white matter. 7. History of pulmonary embolism. 8. Gait instability. 9. Interstitial cystitis. 10. Renal calculi. 11. Fibromyalgia. 12. Irritable bowel syndrome. SOCIAL HISTORY: She occasionally drinks alcohol. She is a lifetime nonsmoker. She is . FAMILY HISTORY: Positive for diabetes, hypertension and heart disease. ALLERGIES: PENICILLIN AND SULFA. MEDICATIONS: Reviewed in electronic medical record. PHYSICAL EXAMINATION: GENERAL: She is awake, alert, oriented x3. She is still having visual issues today. VITAL SIGNS: Her heart rate is 75, blood pressure 164/101, respirations 22. HEENT: 2+ carotid upstrokes, no evidence of carotid bruits. Jugular venous pressure appeared normal. Sclerae is anicteric. Hearing is normal. LUNGS: Clear to auscultation bilaterally. No rales, rhonchi or wheezing. HEART: Regular rate and rhythm. No appreciable murmurs, rubs or gallops. ABDOMEN: Soft, nontender, nondistended. Positive bowel sounds, obese. EXTREMITIES: No clubbing or cyanosis. Mild bilateral lower extremity edema. PSYCHIATRIC: Affect appeared appropriate. LABORATORY STUDIES: EKG: Normal sinus rhythm, normal ECG. Troponins are negative. MRI of her brain, head and neck CTA were reviewed. Hemoglobin 14.5, platelet count of 213, LDL 102, HDL 42. Her complete metabolic profile was normal. IMPRESSION: 1. Chest pain and shortness of breath. I cannot rule out obstructive coronary artery disease. In addition, it is possible, it is related to hypertensive response to exercise. 2. Acute stroke seen on her MRI, lacunar in etiology. 3. Longstanding hypertension. 4. History of pulmonary embolism, on Coumadin. 5. Hyperlipidemia. I made the following recommendations: 1. She is already on warfarin. Plavix has been added to her medical regimen. She was started on Lipitor which she was not on at home, she is on lisinopril. She will need additional blood pressure control and I would consider a thiazide diuretic which will help her lower extremity edema. I would avoid calcium channel blockers as it likely will only make her lower extremity edema worse. She needs aggressive risk factor modification for cardiovascular future cardiovascular events. In addition, I would recommend a stress echo before she is discharged to rule out obstructive coronary artery disease as a potential cause for her chest pain and shortness of breath. I would discuss this with the neurology service when they feel it is safe from a neurologic standpoint one can proceed. Cristobal Christianson will be returning tomorrow. Thank you for allowing me to participate in her care.
[2019-02-23] MEDS ORDERED: PERFLUTREN LIPID MICROSPHERE (DEFINITY) IV ONE (14:08)
--- NOTE | 2019-02-23 19:38 | Hospitalist Progress Note ---
Date of Service February 23, 2019 Assessment & Plan (1) CVA (cerebral vascular accident): Patient presented with headache, diplopia, right-sided paresthesiae. History of migraine headaches. Admission examination notable for left CN III palsy and unsteady gait. Patient admitted for further evaluation and treatment per stroke protocol. CT head without contrast was negative. CTA brain and cervical vessels were unremarkable. MRI demonstrated lesions in the left mily consistent with small lacunar strokes. Cardiac rhythm normal sinus rhythm. Echocardiogram performed, results pending. Management discussed with Neurology. Antiplatelet therapy with aspirin recommended. LDL-C = 102; start atorvastatin. Treat hypertension with gradual lowering of MAP to around 100. PT / OT / [employer] DEAN. VTE prophylaxis as noted below. (2) Migraine: Management per Neurology. (3) Chest pain: Patient experiencing exertional chest pressure and dyspnea over the past week. Troponins negative. EKG at time of admission demonstrated normal sinus rhythm at 75/minute, no acute ST or T wave abnormalities. Echocardiogram performed, results pending. Patient seen in consultation by Cardiology. Further evaluation/management per Cardiology. (4) Hypertension: Blood pressure is elevated. Lacunar pontine strokes may been secondary to hypertension. Neurology recommends gradually lowering blood pressures to mean arterial pressure around 100. (5) History of pulmonary embolism: History of pulmonary embolism in 2016. Records reviewed. CTA of chest demonstrated segmental and subsegmental pulmonary emboli of right lower lobe. Venous duplex of lower extremities negative. This was the patient's first and only episode of VTE. It occurred after a long bus trip. Records state that patient was taking conjugated estrogen at that time, but patient thinks that estrogen have been stopped prior to that event. Patient reports that her mother had a history of DVT. Underwent testing for hypercoagulable conditions. Antithrombin III level was somewhat low at 67%. Protein C activity, protein S activity, factor V Leiden mutation, lupus anticoagulant, anticardiolipin antibodies, prothrombin gene mutation testing all unrevealing. Given the available data, it appears that patient may have had a single provoked VTE and no obvious hypercoagulable condition. May be reasonable and prudent to discontinue anticoagulation with warfarin at this time unless stroke evaluation demonstrates an indication (atrial fibrillation, PFO, etc). (6) DVT prophylaxis: Warfarin being held. SCD's. Ambulate. (7) Discharge planning issues: Anticipate need for rehab services after discharge; setting for rehab to be determined. Family Medicine follow-up with Dr. Ryan. Subjective Recheck for multiple problems. Patient seen in their room around 14:50. visiting. Persistent headache, mostly posterior. Persistent diplopia. Persistent paresthesiae and possible weakness of right upper extremity. No chest pain at rest, but experiencing intermittent chest pressure and dyspnea on exertion over past week. Review of Systems: Constitutional- no fever. Cardiac- as noted above. Pulmonary- no cough. GI- no nausea, vomiting, diarrhea, melena, hematochezia. - no urinary symptoms. Otherwise, as noted above. Physical Exam Constitutional: no acute distress Respiratory: no respiratory distress Auscultation: lungs clear to auscultation bilaterally Cardiovascular: Rate/Rhythm: regular rate and regular rhythm Heart Sounds: no gallop, no murmur and no cardiac rub Vessels: no JVD Extremities: no calf tenderness and no edema Gastrointestinal (Abdomen): normal bowel sounds, soft, nontender, no hepatosplenomegaly Skin: no rashes, warm and dry Neurologic: alert, oriented pupils 3 mm, reactive left CN III palsy left facial palsy ? mild dysarthria no aphasia ? 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; strength extremities otherwise 5/5 plantar reflexes downgoing Psychiatric: Orientation: alert and oriented x 3 Results & Data Vital Signs (Past 12 Hours) Vital Signs Temp Pulse Resp BP Pulse Ox 02/23/19 19:29 36.9 C 85 18 156/96 H 97 02/23/19 15:22 36.6 C 76 20 156/93 H 94 02/23/19 11:42 36.8 C 75 22 164/101 H 96 Laboratory Results Laboratory Results - last 24 hr 02/22/19 02/22/19 02/23/19 18:45 20:52 03:33 WBC 7.77 RBC 4.63 Hgb 14.5 Hct 43.7 MCV 94.4 MCH 31.3 MCHC 33.2 RDW Std Deviation 45.9 RDW Coeff of Karen 13.3 Plt Count 213 MPV 10.5 H Immature Gran % (Auto) 0.3 Neut % (Auto) 52.5 Lymph % (Auto) 37.7 Iron % (Auto) 6.0 Eos % (Auto) 3.1 Baso % (Auto) 0.4 Immature Gran # (Auto) 0.02 Neut # (Auto) 4.08 Lymph # (Auto) 2.93 Iron # (Auto) 0.47 Eos # (Auto) 0.24 Baso # (Auto) 0.03 PT INR Sodium Potassium Chloride Carbon Dioxide Anion Gap BUN Creatinine Est Cr Clr Drug Dosing Est GFR ( Amer) Est GFR (Non-Af Amer) BUN/Creatinine Ratio Glucose Calcium Troponin I < 0.015 Triglycerides Cholesterol LDL Cholesterol, Calc VLDL Cholesterol, Calc HDL Cholesterol Cholesterol/HDL Ratio Nasal Screen MRSA (PCR) Positive A 02/23/19 02/23/19 02/23/19 03:33 03:33 03:33 WBC RBC Hgb Hct MCV MCH MCHC RDW Std Deviation RDW Coeff of Karen Plt Count MPV Immature Gran % (Auto) Neut % (Auto) Lymph % (Auto) Iron % (Auto) Eos % (Auto) Baso % (Auto) Immature Gran # (Auto) Neut # (Auto) Lymph # (Auto) Iron # (Auto) Eos # (Auto) Baso # (Auto) PT 14.0 H INR 1.4 H Sodium 142 Potassium 3.9 Chloride 109 H Carbon Dioxide 28 Anion Gap 5.0 BUN 13 Creatinine 1.04 Est Cr Clr Drug Dosing 79.1 Est GFR ( Amer) 69.6 Est GFR (Non-Af Amer) 60.0 BUN/Creatinine Ratio 12.8 Glucose 101 H Calcium 8.4 L Troponin I < 0.015 Triglycerides 142 Cholesterol 172 LDL Cholesterol, Calc 102 VLDL Cholesterol, Calc 28 HDL Cholesterol 42 Cholesterol/HDL Ratio 4 Nasal Screen MRSA (PCR) (1) CVA (cerebral vascular accident) CVA mechanism: unspecified Qualified Code(s): I63.9 - Cerebral infarction, unspecified
[2019-02-23] MEDS: GABAPENTIN 300 MG CAP PO SCH (20:43)
[2019-02-23] MEDS: FLUOXETINE HCL 20 MG CAP PO SCH (20:44)
[2019-02-23] MEDS: clonazePAM 0.5 MG TAB PO SCH (20:47)
[2019-02-23] MEDS: PROMETHAZINE HCL 25 MG TAB PO PRN (23:11)
[2019-02-24] MEDS: MoRPHine SULFATE 2 MG/ML CARP IV PRN ×3 (03:46→19:57)
[2019-02-24 06:12] LABS: Estimated Average Glucose 117 mg/dl; Hemoglobin A1C 5.7 % (4.5-5.6)
[2019-02-24] MEDS: PROMETHAZINE HCL 25 MG TAB PO PRN (06:30)
[2019-02-24 06:59] LABS: Basophils # (auto) 0.01 K/uL (0-0.2); Basophils % (auto) 0.1 %; Eosinophils # (auto) 0.27 K/uL (0-0.5); Hematocrit (blood only) 43.2 % (37-47); Hemoglobin 14.7 g/dL (12.0-16.0); Immature Granulocytes # (auto) 0.01 K/uL (0.00-0.02); Immature Granulocytes % (auto) 0.1 %; Lymphocytes # (auto) 2.11 K/uL (1.2-3.4); Lymphocytes % (auto) 31.1 %; Mean Corpuscular Hemoglobin 31.5 pg (25-34); Mean Corpuscular Volume 92.5 fL (80-100); Mean Platelet Volume 10.5 fL (7.4-10.4); Monocytes # (auto) 0.43 K/uL (0.11-0.59); Monocytes % (auto) 6.3 %; Neutrophils # (auto) 3.95 K/uL (1.4-6.5); Neutrophils % (auto) 58.4 %; Platelet Count 180 K/uL (130-400); RDW Standard Deviation 43.4 fL (36.4-46.3); Red Blood Count 4.67 M/uL (4.2-5.4); White Blood Count 6.78 K/uL (4.8-10.8)
[2019-02-24 07:11] LABS: INR 1.2 (0.9-1.1); Prothrombin Time 12.1 Seconds (9.0-12.0)
[2019-02-24 07:28] LABS: BUN Creatinine Ratio 15.2 (10-20); Calcium 8.7 mg/dl (8.5-10.1); Creatinine Clr Calc Pharmacy 80.2 ml/min; Est GFR (African American) 71.2; Est GFR (Non-African American) 61.4; Potassium 3.7 mmol/L (3.5-5.1)
[2019-02-24] MEDS: ATORVASTATIN 40 MG TAB PO SCH (08:00)
[2019-02-24] MEDS: hydroCHLOROthiazide 25 MG TAB PO SCH (08:00)
[2019-02-24] MEDS: ASPIRIN 81 MG ECTAB PO SCH (08:00)
[2019-02-24] MEDS ORDERED: ATORVASTATIN 40 MG TAB PO SCH (09:00)
--- NOTE | 2019-02-24 09:19 | Cardiology Progress Note ---
Date of Service February 24, 2019 Assessment & Plan (1) Chest pain: Mrs. Jackman is a 54 year old female with a history of Hypertension, Obesity, Asthma, Chronic Interstitial Cystitis, Migraine Headaches, Atypical Chest Pain Syndrome, Prior DVT, and Nephrolithiasis who was admitted to [facility] on 02/22/2019 with an Acute or Subacute Lacunar Infarcts of the Left Marciano. She describes Chest Pain over the past year -- which has both typical and atypical features -- but it is different than her previous atypical chest pain syndrome. At times she experiences sharp chest pain that comes and goes at random, does not radiate, and is without associated symptoms. Of more concern she also describes an Exertional Chest Tightness which radiates to her neck with associated dyspnea. This most often occurs when she climbs a flight of stairs in her home and she sometimes needs to stop about nursing home up the stairs to catch her breath. She denies any associated nausea, vomiting, or diaphoresis. Thus far -- her Cardiac work-up is unremarkable -- including negative cardiac enzymes, serial EKG's show no acute or dynamic ST changes. Echocardiogram has been completed but is not read yet. Plan on performing Dobutamine Stress Echocardiogram in the future -- but need to get BP under control first. Recommend the following: -- Continue Lisinopril 40 mg daily. -- Continue Hydrochlorothiazide 25 mg daily. -- Add Metoprolol Succinate ER 50 mg daily. -- Continue Atorvastatin 40 mg daily. -- Continue Warfarin with a goal INR of 2.0 to 3.0. -- Reschedule DSE for tomorrow 02/25/2019. We will continue to follow her closely. (2) Hypertension: As outlined above: -- Add Metoprolol Succinate ER 50 mg daily. -- Maintain a low sodium, heart healthy diet. Present on Admission?: Yes (3) CVA (cerebral vascular accident): Continue management as per Neurology and Hospitalist. Present on Admission?: Yes Supervising Physician Co-Signing Physician Notes John Dale MD Subjective Mrs. Jackman is a 54 year old female with a history of Hypertension, Obesity, Asthma, Chronic Interstitial Cystitis, Migraine Headaches, Atypical Chest Pain Syndrome, Prior DVT, and Nephrolithiasis who was admitted to [facility] on 02/22/2019 with Left Facial Droop, CN III Palsy, and Right Sided Weakness with evidence of Acute or Subacute Lacunar Infarcts of the Left Marciano. She admitted to Chest Pain over the past year -- which has both typical and atypical features. At times she experiences sharp chest pain that comes and goes at random, does not radiate, and is without associated symptoms. She also describes an Exertional Chest Tightness which radiates to her neck with associated dyspnea. This most often occurs when she climbs a flight of stairs in her home and she sometimes needs to stop about nursing home up the stairs to catch her breath. She denies any associated nausea, vomiting, or diaphoresis. At the present time she denies any chest discomfort or dyspnea. Her hypertension remains elevated -- and is being addressed through medication adjustments. Her neurologic symptoms have not improved since being hospitalized and she is working with PT and OT. Patient had her last Stress Echocardiogram in August 2013 showed No Evidence of Myocardial Ischemia at 87% MPHR. Baseline Echocardiogram showed Normal Cardiac Structure and Biventricular Systolic Function. Physical Exam Physical Exam: GENERAL: Patient is in no acute distress. HEENT: Head is atraumatic, normocephalic. Left facial and mouth droop. No perioral cyanosis. NECK: No JVD. Carotid upstrokes + 2 bilaterally without bruits. JVP is at the level of the clavicle sitting upright. CHEST and LUNGS: Clear to auscultation throughout all lung mtz. No wheezes, rales, or rhonchi. CVS: S1 and S2 are regular without obvious murmurs, gallops, or rubs. PMI is nonpalpable. No lifts, heaves, or thrills. No abdominal aortic or renal bruits. ABDOMINAL EXAM: Bowel sounds are present. No masses, organomegaly, or tenderness. EXTREMITIES: No clubbing or cyanosis. No edema. Intact posterior tibial and radial pulses. NEUROLOGIC EXAM: Patient is awake, alert, and oriented. Patient is cooperative. Answers questions appropriately. Speech is thick at times. Telemetry: -- NSR. EKG 02/24/2019: -- NSR with voltage criteria for LVH. Results & Data Vital Signs (Past 12 Hours) Vital Signs Temp Pulse Resp BP Pulse Ox 02/24/19 07:13 36.6 C 79 20 163/99 H 94 02/24/19 03:32 36.8 C 77 18 180/107 H 94 08/04/19 23:07 36.7 C 80 20 168/101 H 97 Laboratory Results Laboratory Results - last 24 hr 02/22/19 02/24/19 02/24/19 14:22 06:52 06:52 WBC 6.78 RBC 4.67 Hgb 14.7 Hct 43.2 MCV 92.5 MCH 31.5 MCHC 34.0 RDW Std Deviation 43.4 RDW Coeff of Karen 13.0 Plt Count 180 MPV 10.5 H Immature Gran % (Auto) 0.1 Neut % (Auto) 58.4 Lymph % (Auto) 31.1 Tate % (Auto) 6.3 Eos % (Auto) 4.0 Baso % (Auto) 0.1 Immature Gran # (Auto) 0.01 Neut # (Auto) 3.95 Lymph # (Auto) 2.11 Tate # (Auto) 0.43 Eos # (Auto) 0.27 Baso # (Auto) 0.01 PT 12.1 H INR 1.2 H Sodium Potassium Chloride Carbon Dioxide Anion Gap BUN Creatinine Est Cr Clr Drug Dosing Est GFR ( Amer) Est GFR (Non-Af Amer) BUN/Creatinine Ratio Glucose Estimat Average Glucose 117 Hemoglobin A1c 5.7 H Calcium 02/24/19 06:52 WBC RBC Hgb Hct MCV MCH MCHC RDW Std Deviation RDW Coeff of Karen Plt Count MPV Immature Gran % (Auto) Neut % (Auto) Lymph % (Auto) Tate % (Auto) Eos % (Auto) Baso % (Auto) Immature Gran # (Auto) Neut # (Auto) Lymph # (Auto) Tate # (Auto) Eos # (Auto) Baso # (Auto) PT INR Sodium 140 Potassium 3.7 Chloride 106 Carbon Dioxide 28 Anion Gap 6.0 BUN 15 Creatinine 1.02 Est Cr Clr Drug Dosing 80.2 Est GFR ( Amer) 71.2 Est GFR (Non-Af Amer) 61.4 BUN/Creatinine Ratio 15.2 Glucose 123 H Estimat Average Glucose Hemoglobin A1c Calcium 8.7 Medications Administered Active Medications Generic Name Dose Route Start Last Admin Trade Name Freq PRN Reason Stop Dose Admin Acetaminophen 1,000 mg 02/22/19 17:58 Tylenol PO 03/24/19 17:57 Q8H PRN Pain or Fever Aspirin 81 mg 02/24/19 09:00 02/24/19 08:00 Ecotrin Ectab PO 03/26/19 08:59 81 mg DAILY JUAN CARLOS Administration Atorvastatin Calcium 40 mg 02/22/19 16:52 02/24/19 08:00 Lipitor PO 03/24/19 16:51 40 mg QAM JUAN CARLOS Administration Clonazepam 0.5 mg 02/22/19 21:00 02/23/19 20:47 Klonopin PO 03/24/19 20:59 0.5 mg HS JUAN CARLOS Administration Fluoxetine HCl 40 mg 02/22/19 21:00 02/23/19 20:44 Prozac PO 03/24/19 20:59 40 mg HS JUAN CARLOS Administration Gabapentin 600 mg 02/22/19 21:00 02/23/19 20:43 Neurontin PO 03/24/19 20:59 600 mg HS JUAN CARLOS Administration Hydrochlorothiazide 25 mg 02/23/19 12:30 02/24/19 08:00 Hctz PO 03/25/19 12:29 25 mg QAM JUAN CARLOS Administration Ioversol 115 ml 02/22/19 18:03 02/22/19 18:03 Optiray 320 125ml IV 02/26/19 18:02 115 ml ONCE PRN Administration Interaction Checking Lamotrigine 25 mg 02/22/19 16:46 Lamictal PO 03/24/19 16:45 BID PRN Headache Lisinopril 40 mg 02/23/19 09:00 Zestril PO 03/25/19 08:59 DAILY JUAN CARLOS Miscellaneous Information 1 ea 02/22/19 16:52 Pharmacist Discharge Med Rec Consult N/A 03/24/19 16:51 UD PRN Consult Morphine Sulfate 2 mg 02/22/19 17:58 02/24/19 07:48 Morphine Sulfate IV 03/08/19 17:57 2 mg Q4H PRN Administration Severe Pain Pantoprazole Sodium 40 mg 02/22/19 16:47 Protonix PO 03/24/19 16:46 DAILY PRN Heartburn Promethazine HCl 25 mg 02/22/19 16:47 02/24/19 06:30 Phenergan PO 03/24/19 16:46 25 mg Q6H PRN Administration nausea and vomiting Tramadol HCl 50 mg 02/22/19 17:58 Ultram PO 03/24/19 17:57 Q4H PRN Moderate Pain Warfarin Sodium 5 mg 02/22/19 17:00 02/22/19 18:22 Coumadin PO 03/24/19 16:59 Not Given DAILY@1600 [facility] PG Care Time/CCT Total # of Minutes Spent Total Time Spent with Patient: Total time spent is greater than 50% in coordination of care (as documented) at patient's floor/unit and/or counseling patient: (1) CVA (cerebral vascular accident) CVA mechanism: unspecified Qualified Code(s): I63.9 - Cerebral infarction, unspecified
--- NOTE | 2019-02-24 09:42 | Neurology Progress Note ---
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 This is consistent with internuclear ophthalmoparesis which typically results from a lesion in the medial longitudinal fasciculus in the dorsomedial brainstem tegmentum of either the mily or the midbrain. The most likely cause is hypertensive small vessel ischemic disease. A brainstem lesion like this could also explain her left facial weakness at the corner of the mouth, dysarthria, right upper extremity weakness, and contralateral sensory deficits/dysesthesias. Today, she is improved with her eye movements but her left facial and right-s ided weakness are about the same. I suspect the hypertension as causing the headache and the small pontine strokes. Complicated migraines (combination of vasospasm and vasodilation), such as she has experienced over the years, especially combined with hypertension, can lead to stroke, but I believe this event is more directly related to her hypertension. The patient has a longstanding history of complicated migraines which involved episodes of right-sided numbness, lightheadedness, dizziness, blurry vision (never double) and headache. Extensive evaluations have been done in the past including multiple MRIs, EEGs, LPs, laboratory studies, and other which did not reveal any other neurologic diseases. MRIs have shown mild old small vessel ischemic disease in the past and the current MRI shows some mild progression of this old small vessel ischemic disease. This would be secondary to her history of hypertension. She does not have any other significant risk factors for stroke such as heart disease or cardiac dysrhythmia, cigarette smoking, diabetes, or significant dyslipidemia. Patient does have a history of pulmonary embolus in September of 2015. She has remained on Coumadin ever since (and I am not sure why this is as I do not believe she has any underlying coagulopathy that would put her at risk for recurrent clotting). She has a history of anxiety and depression helped with medication. Recommendations: 1. Continue 81 milligram aspirin tablet daily. Apparently, clopidogrel and fluoxetine are contraindicated together due to an interaction. 2. Control blood pressure as you are doing aiming for a mean arterial pressure of approximately 100. 3. Physical, occupational, and speech therapy consults. She would be an excellent rehabilitation hospital candidate. 4. Echocardiogram is pending. 5. Verapamil is still my drug of choice to prevent vasospasm and complicated migraines, but other medication to control blood pressure is acceptable. 6. I am uncertain why she is still on Coumadin. Could this be discontinued? 7. I am uncertain as to the purpose of Lamictal (she apparently takes it p.r.n.). Do not believe she needs this either. 8. Keep fluoxetine and clonazepam the same for now. 9. I do not have any additional neurologic testing or treatment recommendations to make at this time. I would be happy to follow this patient as an outpatient. Overall, I spent a total of 35 minutes with this case including review of records, review of MRI films, direct evaluation the patient at bedside, and discussion of the case with the patient at bedside, nursing staff, and Dr. Mcgovern, including differential diagnosis and treatment options. Subjective Patient still has double vision and right-sided weakness but is stable compared to yesterday. She is a little down because of her issues but is determined to work hard and is willing to do the therapy to help get better. MRI of the brain showed 2 left pontine tiny acute strokes. In addition, there was some mild to moderate old small vessel ischemic disease, mildly progressed from the previous study of 2016. CBC and Chem profile today were unremarkable although glucose was 123. Blood pressure was 163/99 earlier today. She was getting occupational therapy this morning and doing well. She still has some balance issues and cannot ambulate well on her own. She does a little better with a walker. Physical Exam Physical Exam: She is awake and alert. Speech is without aphasia and I do not detect dysarthria this morning. Mood is reasonable and affect is appropriate. Thought processes are intact conversation. The left I can come medially pass midline abducting to at least 3[address] The right eye still has nystagmus with abduction. There is some slight nystagmus of the left eye with left gaze. There is a left facial droop present at the corner of the mouth. With outstretched arms are some drift on the right and the right arm is 4/5 compared to the left which is 5/5. Right lower extremity is 4+/5 diffusely. Coordination is normal in the arms without tremor. 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 COMPARISON STUDY: PET CT 02/10/2019. Head CT 02/22/2019. FINDINGS: Moderate mucosal thickening within the right sphenoid sinus. The orbits are unremarkable. The mastoid air cells are clear. The major vascular flow-voids at the skull base are well-maintained. The ventricles are normal in size. No large mass on this noncontrast study. No hematoma or midline shift. Scattered punctate foci restricted diffusion seen within the right posterior frontal lobe, right parietal lobe, and right occipital lobe consistent with acute infarcts. Additional scattered foci of T2 hyperintensity within the white matter of the supratentorial brain likely represent mild microvascular ischemic change. IMPRESSION: Multiple scattered punctate foci of restricted diffusion within the right posterior frontal lobe, right parietal lobe, and right occipital lobe consistent with acute infarcts. Electronically signed by: Randy Benito PG Care Time/CCT Total # of Minutes Spent Total Time Spent with Patient: 35 min (1) Headache Headache chronicity pattern: acute headache Headache type: unspecified Intractability: not intractable Qualified Code(s): R51 - Headache
[2019-02-24] MEDS: LISINOPRIL 40 MG TAB PO SCH (10:52)
[2019-02-24] MEDS: METOPROLOL SUCC 50MG EXT REL TAB PO SCH (10:52)
--- NOTE | 2019-02-24 11:25 | Hospitalist Progress Note ---
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 She is requesting a more regular diet, which is fine. Gait appears to be improved and she is moving around more easily. She feels the eye patch has helped and there has been interval resolution of the third nerve palsy with worsened L facial droop since admission. Continue ASA, statin, BP control and supportive measures including PT, OT and Speech therapy. Will need rehab as a transition to home. Pt is OK with this. Appreciate CM assistance with authorization. (2) Migraine: Cont abortive measures as needed. (3) Chest pain: ACS rule out with serial negative troponins. Echo read pending that was performed yesterday. Persistent pain managed with stress reduction and morphine PRN. Cardiology to perform inpatient stress test. (4) Hypertension: Uncontrolled. Lisinopril restarted this morning. HCTZ 25mg daily started yesterday. Low sodium diet. (5) History of pulmonary embolism: Pt with single likely provoked PE >6 months ago. Unrevealing hypercoagulable workup. Was possibly on estrogen at the time. Coumadin was stopped in the current setting. May consider restarting if PFO or atrial fibrillation or other issue arises this hospitalization. (6) Anxiety: continues on Fluoxetine 40mg HS and clonazepam 0.5mg HS (7) DVT prophylaxis: warfarin stopped, started Lovenox Full Code Dispo- can go home as early as tomorrow when stress test completed and auth in place for rehab center. Tiffanie Mcgovern DO [facility] Hospitalist Subjective 54-year-old female admitted for stroke. This morning she reports slight improvement in her vision and persistent weakness in her right arm and right leg with persistent numbness. Her tongue is numb and she has developed a left-sided facial droop since I saw her on admission 2 days ago. She is wearing the eye patch to her left eye and feels this is giving her some rest. She is concerned about urinary tract infection as she has interstitial cystitis and is prone to frequent urinary tract infections. She is requesting a urinalysis. She is upset about the diet being soft and bite sized. Despite the fact that she has facial droop and a numb tongue, she would like regular consistency to her food. She feels that she can handle this without aspirating. She still is reporting chest pain that comes on frequently and is been seen by cardiology who she reports would like to do a stress test on her in the hospital. We discussed disability and Social Security as this is a concern for her, and she will be going to rehab as a transition to home. Case management has been contacted to help us initiate the authorization. She takes Phenergan in the evenings for nausea at home and has been continuing to do this here, and is able to tolerate food at this point. She is been using morphine for chest pain which is been helpful. Review of Systems Review of Systems: All systems reviewed & are unremarkable except as noted in HPI & below Physical Exam Physical Exam: CONSTITUTIONAL: obese, vitals as above, generally ill-a ppearing. Eye patch in place on left. EYES: EOMI, improved horizontal nystagmus in R eye when looking to the right. Pupils are equal and round bilaterally. normal conjunctivae, no scleral icteru s. ENT: Left-sided facial droop. 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 R sided hemiparesthesia, normal cognition, normal speech, no tremor PSYCHIATRIC: alert cooperative and oriented to person, place and time. Results & Data Vital Signs (Past 12 Hours) Vital Signs Temp Pulse Pulse Resp BP Pulse Ox 02/24/19 10:37 36.4 C L 75 24 145/97 H 97 02/24/19 08:00 82 02/24/19 07:13 36.6 C 79 20 163/99 H 94 02/24/19 03:32 36.8 C 77 18 180/107 H 94 Laboratory Results Short CBC 02/24/19 Range/Units 06:52 WBC 6.78 (4.8-10.8) K/uL Hgb 14.7 (12.0-16.0) g/dL Hct 43.2 (37-47) % Plt Count 180 (130-400) K/uL [facility] 02/24/19 06:52 Sodium 140 Potassium 3.7 Chloride 106 Carbon Dioxide 28 BUN 15 Creatinine 1.02 Glucose 123 H Calcium 8.7 Medications Administered Current Inpatient Medications Acetaminophen (Tylenol) 1,000 mg PO Q8H PRN PRN Reason: Pain or Fever Stop: 03/24/19 17:57 Aspirin (Ecotrin Ectab) 81 mg PO DAILY [facility] Stop: 03/26/19 08:59 Last Admin: 02/24/19 08:00 Dose: 81 mg Documented by: Atorvastatin Calcium (Lipitor) [facility] [place] Stop: 03/24/19 16:51 Last Admin: 02/24/19 08:00 Dose: 40 mg Documented by: Clonazepam (Klonopin) 0.5 mg PO [facility] Stop: 03/24/19 20:59 Last Admin: 02/23/19 20:47 Dose: 0.5 mg Documented by: Fluoxetine HCl (Prozac) 40 mg PO [facility] Stop: 03/24/19 20:59 Last Admin: 02/23/19 20:44 Dose: 40 mg Documented by: Gabapentin (Neurontin) 600 mg PO [facility] Stop: 03/24/19 20:59 Last Admin: 02/23/19 20:43 Dose: 600 mg Documented by: Hydrochlorothiazide (Hctz) [facility] [place] Stop: 03/25/19 12:29 Last Admin: 02/24/19 08:00 Dose: 25 mg Documented by: Ioversol (Optiray 320 125ml) 115 ml IV ONCE PRN PRN Reason: Interaction Checking Stop: 02/26/19 18:02 Last Admin: 02/22/19 18:03 Dose: 115 ml Documented by: Lamotrigine (Lamictal) 25 mg PO BID PRN PRN Reason: Headache Stop: 03/24/19 16:45 Lisinopril (Zestril) 40 mg PO DAILY [facility] Stop: 03/25/19 08:59 Last Admin: 02/24/19 10:52 Dose: 40 mg Documented by: Metoprolol Succinate (Toprol Xl) 50 mg PO QAM [facility] Stop: 03/26/19 10:59 Last Admin: 02/24/19 10:52 Dose: 50 mg Documented by: Miscellaneous Information (Pharmacist Discharge Med Rec Consult) 1 ea N/A UD PRN PRN Reason: Consult Stop: 03/24/19 16:51 Morphine Sulfate (Morphine Sulfate) 2 mg IV Q4H PRN PRN Reason: Severe Pain Stop: 03/08/19 17:57 Last Admin: 02/24/19 07:48 Dose: 2 mg Documented by: Pantoprazole Sodium (Protonix) 40 mg PO DAILY PRN PRN Reason: Heartburn Stop: 03/24/19 16:46 Promethazine HCl (Phenergan) 25 mg PO Q6H PRN PRN Reason: nausea and vomiting Stop: 03/24/19 16:46 Last Admin: 02/24/19 06:30 Dose: 25 mg Documented by: Tramadol HCl (Ultram) 50 mg PO Q4H PRN PRN Reason: Moderate Pain Stop: 03/24/19 17:57 Warfarin Sodium (Coumadin) 5 mg PO DAILY@1600 [facility] Stop: 03/24/19 16:59 Last Admin: 02/22/19 18:22 Dose: Not Given Documented by: (1) CVA (cerebral vascular accident) CVA mechanism: unspecified Qualified Code(s): I63.9 - Cerebral infarction, unspecified
[2019-02-24 12:06] LABS: Appearance Urine Clear (Clear); Bacteria Urine Automated Negative (Negative); Bilirubin Urine Negative (Negative); Blood Urine Negative (Negative); Color Urine Yellow; Epithelial Cell Urine Auto >30 /lpf (0-5); Glucose Urine UA Negative (Negative); Ketones Urine Negative (Negative); Leukocyte Esterase Urine Trace (Negative); Nitrite Urine Negative (Negative); Protein Urine Negative (Negative); RBC Urine Automated 0-4 /hpf (0-4); Specific Gravity Urine 1.012 (1.000-1.030); Urobilinogen Urine Negative (Negative)
[2019-02-24] MEDS: ENOXAPARIN INJ 40 MG/0.4 ML SYR SQ SCH (13:12)
[2019-02-24] MEDS: SIMETHICONE 80 MG CHEW PO PRN (13:17)
[2019-02-24] MEDS: FLUOXETINE HCL 20 MG CAP PO SCH (19:55)
[2019-02-24] MEDS: clonazePAM 0.5 MG TAB PO SCH (19:55)
[2019-02-24] MEDS: GABAPENTIN 300 MG CAP PO SCH (19:56)
[2019-02-25 07:36] LABS: Basophils # (auto) 0.02 K/uL (0-0.2); Basophils % (auto) 0.3 %; Hematocrit (blood only) 42.6 % (37-47); Hemoglobin 14.3 g/dL (12.0-16.0); Immature Granulocytes # (auto) 0.01 K/uL (0.00-0.02); Immature Granulocytes % (auto) 0.1 %; Lymphocytes # (auto) 2.34 K/uL (1.2-3.4); Mean Corpuscular Hemoglobin 31.2 pg (25-34); Mean Corpuscular Hgb Conc 33.6 g/dL (32-36); Mean Corpuscular Volume 92.8 fL (80-100); Mean Platelet Volume 10.7 fL (7.4-10.4); Monocytes # (auto) 0.55 K/uL (0.11-0.59); Monocytes % (auto) 8.2 %; Neutrophils # (auto) 3.36 K/uL (1.4-6.5); Neutrophils % (auto) 50.4 %; Platelet Count 197 K/uL (130-400); RDW Coefficient of Variation 13.1 % (11.5-14.5); RDW Standard Deviation 44.3 fL (36.4-46.3); Red Blood Count 4.59 M/uL (4.2-5.4); White Blood Count 6.68 K/uL (4.8-10.8)
--- NOTE | 2019-02-25 07:49 | Neurology Progress Note ---
Date of Service February 25, 2019 Assessment & Plan (1) Third nerve palsy of left eye: (2) RUE weakness: (3) Paresthesia of right arm: (4) Headache: (5) Hypertension: (6) History of pulmonary embolism: Patient had the onset of double vision 02-22-19 with a left eye adduction problem associated with the right eye having abduction nystagmus. This is consistent with internuclear ophthalmoparesis which typically results from a lesion in the medial longitudinal fasciculus in the dorsomedial brainstem tegmentum of either the mily or the midbrain. The most likely cause is hypertensive small vessel ischemic disease. A brainstem lesion like this also explains her left facial weakness, dysarthria, right upper extremity weakness, and contralateral sensory deficits/dysesthesias. Today, she is stable with her eye movements and her left facial and right-sided weakness are about the same as yesterday. I suspect hypertension as causing the headache and the small pontine strokes. Complicated migraines (combination of vasospasm and vasodilation), such as she has experienced over the years, especially combined with hypertension, can lead to stroke, but I believe this event is more directly related to her hypertension. Echocardiogram did not reveal any source of emboli. The patient has a longstanding history of complicated migraines which involved episodes of right-sided numbness, lightheadedness, dizziness, blurry vision (never double) and headache. Extensive evaluations have been done in the past including multiple MRIs, EEGs, LPs, laboratory studies, and other which did not reveal any other neurologic diseases. MRIs have shown mild old small vessel ischemic disease in the past and the current MRI shows some mild progression of this old small vessel ischemic disease. This would be secondary to her history of hypertension. She does not have any other significant risk factors for stroke such as heart disease or cardiac dysrhythmia, cigarette smoking, diabetes, or significant dyslipidemia. Patient does have a history of pulmonary embolus in September of 2015. She has remained on Coumadin ever since (and I am not sure why this is as I do not believe she has any underlying coagulopathy that would put her at risk for recurrent clotting). Coumadin was discontinued this hospitalization. She has a history of anxiety and depression helped some with medication, but her mood is much worse since this stroke.. Recommendations: 1. Continue 81 milligram aspirin tablet daily. Apparently, clopidogrel and fluoxetine are contraindicated together due to an interaction. 2. Control blood pressure as you are doing aiming for a mean arterial pressure of approximately 100. 3. Physical, occupational, and speech therapy consults. She would be an excellent rehabilitation hospital candidate. 4. Verapamil is still my drug of choice to prevent vasospasm and complicated migraines, but lisinopril and metoprolol are working well. 5. Agree with keeping off Coumadin. 6. I am uncertain as to the purpose of Lamictal (she apparently takes it p.r.n.). Do not believe she needs this either. I could address this as an outpatient. 7. Keep fluoxetine and clonazepam the same for now, but her mood will have to be watched as it seems a little worse since the stroke.. 8. I do not have any additional neurologic testing or treatment recommendations to make at this time. I would be happy to follow this patient as an outpatient. Overall, I spent a total of 40 minutes with this case including review of records, direct evaluation the patient at bedside, and discussion of the case with the patient at bedside, nursing staff, and Dr. Mcgovern, including ally waters diagnosis and treatment options. Subjective Patient feels dizzy and lightheaded this morning. She has a bifrontal headache of a dull nature (and occasional sharp pains). She tends to drool some when she tries to eat and swallow but she is not choking. She has the same double vision and blurry vision before. The right-sided weakness is the same as before and she has trouble ambulating. Although she has occasional twinges in her chest she does not shortness of breath or significant chest pain. She has no abdominal symptoms. Echocardiogram was largely unremarkable although there was some mild left atrial dilation. Blood pressure this morning is 113/70. Coumadin was discontinued. She remains on aspirin. Physical Exam Physical Exam: She is awake and alert. Speech is without significant aphasia or dysarthria. Mood is mildly down and affect is mildly flat but otherwise she is pleasant and cooperative. Cognition seems intact with good long and short-term memory. With right gaze she has some adduction of the left eye past midline towards the nose (about 50 percent adduction). While doing this the right eye has nystagmus. With left gaze there is some nystagmus the left eye. She has a dense facial droop at the corner of the mouth on the. Right moves well. Tongue is midline. She has no ptosis and pupils are equal and reactive. There is no significant drift with outstretched arms. There is no resting, postural, or action tremor. There is decreased facility in the right hand and right foot compared to the left which are normal. Right upper extremity has 4/5 strength diffusely and right leg has 4+/5 strength diffusely compared to the left which are both 5/5 diffusely Results & Data Vital Signs (Past 12 Hours) Vital Signs Temp Pulse Resp BP Pulse Ox 02/25/19 07:20 36.6 C 66 22 147/84 H 99 02/25/19 04:21 36.5 C 64 18 113/79 95 02/24/19 23:15 36.9 C 65 17 136/83 94 PG Care Time/CCT Total # of Minutes Spent Total Time Spent with Patient: 40 min (1) Headache Headache chronicity pattern: acute headache Headache type: unspecified Intractability: not intractable Qualified Code(s): R51 - Headache
[2019-02-25 08:14] LABS: BUN Creatinine Ratio 17.4 (10-20); Calcium 8.9 mg/dl (8.5-10.1); Creatinine Clr Calc Pharmacy 81.4 ml/min; Est GFR (African American) 70.4; Est GFR (Non-African American) 60.7; Potassium 3.6 mmol/L (3.5-5.1)
[2019-02-25] MEDS: ENOXAPARIN INJ 40 MG/0.4 ML SYR SQ SCH (08:15)
[2019-02-25] MEDS: ATORVASTATIN 40 MG TAB PO SCH (08:15)
[2019-02-25] MEDS: LISINOPRIL 40 MG TAB PO SCH (08:15)
[2019-02-25] MEDS: ASPIRIN 81 MG ECTAB PO SCH (08:15)
[2019-02-25] MEDS: TRAMADOL HCL 50 MG TABLET PO PRN ×2 (08:23→14:09)
--- NOTE | 2019-02-25 09:57 | Cardiology Progress Note ---
Date of Service February 25, 2019 Assessment & Plan (1) Chest pain: Mrs. Jackman is a 54 year old female with a history of Hypertension, Obesity, Asthma, Chronic Interstitial Cystitis, Migraine Headaches, Fibromyalgia, Atypical Chest Pain Syndrome, Prior DVT, and Nephrolithiasis who was admitted to [facility] on 02/22/2019 with an Acute or Subacute Lacunar Infarcts of the Left Marciano. She describes Chest Pain over the past year -- which has both typical and atypical features -- but it is different than her previous atypical chest pain syndrome. At times she experiences sharp chest pain that comes and goes at random, does not radiate, and is without associated symptoms. Of more concern she also describes an Exertional Chest Tightness which radiates to her neck with associated dyspnea. This most often occurs when she climbs a flight of stairs in her home. She denies any associated nausea, vomiting, or diaphoresis. Because of these symptoms she underwent a Dobutamine Stress Echocardiogram 02/25/2019 which showed: -- Markedly hypertensive BP response to dobutamine infusion. -- Initial BP 140/77. -- Peak BP 240/115. -- Test ended due to hypertensive BP response and headache. -- Patient had chest pain throughout the entire test. -- Sensation of dyspnea at peak HR and peak BP. -- No EKG changes. -- No evidence of myocardial ischemia by Echo or EKG criteria at 125 bpm (76% MPHR). -- Ending BP was 140/82 following IV Lopressor 5 mg injection x 2. Dentist Attendant's interpretation is pending. Recommend the following: -- Continue Lisinopril 40 mg daily. -- Continue Hydrochlorothiazide 25 mg daily. -- Continue Metoprolol Succinate ER 50 mg daily. -- Continue Atorvastatin 40 mg daily. -- Continue Lovenox until converted to Coumadin and INR > 1.8. Patient is stable from a cardiac standpoint for transfer to Rehabilitation Facility. We will plan on seeing her for hospital follow up after her discharge from the rehab facility. Present on Admission?: Yes (2) Hypertension: -- Continue Lisinopril 40 mg daily. -- Continue Hydrochlorothiazide 25 mg daily. -- Continue Metoprolol Succinate ER 50 mg daily. Present on Admission?: Yes (3) CVA (cerebral vascular accident): -- Continue management as per Neurology and Hospitalist. Present on Admission?: Yes Subjective Mrs. Jackman is a 54 year old female with a history of Hypertension, Obesity, Asthma, Chronic Interstitial Cystitis, Migraine Headaches, Atypical Chest Pain Syndrome, Prior DVT, and Nephrolithiasis who was admitted to [facility] on 02/22/2019 with an Acute or Subacute Lacunar Infarcts of the Left Marciano. Patient's neurologic symptoms have not improved nor have they worsened since yesterday. She continues to experience her atypical chest pain from time to time. She denies any associated symptoms with her atypical chest pain -- specifically denying any associated nausea, vomiting, or diaphoresis. Her breathing is at baseline. Patient offers no other complaints. Her BP on the average has improved. Physical Exam Physical Exam: GENERAL: Patient is in no acute distress. HEENT: Head is atraumatic, normocephalic. Left facial and mouth droop. No perioral cyanosis. NECK: No JVD. Carotid upstrokes + 2 bilaterally without bruits. JVP is at the level of the clavicle sitting upright. CHEST and LUNGS: Clear to auscultation throughout all lung mtz. No wheezes, rales, or rhonchi. CVS: S1 and S2 are regular without obvious murmurs, gallops, or rubs. PMI is nonpalpable. No lifts, heaves, or thrills. No abdominal aortic or renal bruits. ABDOMINAL EXAM: Bowel sounds are present. No masses, organomegaly, or tenderness. EXTREMITIES: No clubbing or cyanosis. No edema. Intact posterior tibial and radial pulses. NEUROLOGIC EXAM: Patient is awake, alert, and oriented. Patient is cooperative. Answers questions appropriately. Speech is thick at times. Telemetry: -- NSR to sinus tachycardia. Results & Data Vital Signs (Past 12 Hours) Vital Signs Temp Pulse Resp BP Pulse Ox 02/25/19 07:20 36.6 C 66 22 147/84 H 99 02/25/19 04:21 36.5 C 64 18 113/79 95 02/24/19 23:15 36.9 C 65 17 136/83 94 Laboratory Results Laboratory Results - last 24 hr 02/24/19 02/25/19 02/25/19 11:30 07:07 07:07 WBC 6.68 RBC 4.59 Hgb 14.3 Hct 42.6 MCV 92.8 MCH 31.2 MCHC 33.6 RDW Std Deviation 44.3 RDW Coeff of Karen 13.1 Plt Count 197 MPV 10.7 H Immature Gran % (Auto) 0.1 Neut % (Auto) 50.4 Lymph % (Auto) 35.0 [place] % (Auto) 8.2 Eos % (Auto) 6.0 Baso % (Auto) 0.3 Immature Gran # (Auto) 0.01 Neut # (Auto) 3.36 Lymph # (Auto) 2.34 [place] # (Auto) 0.55 Eos # (Auto) 0.40 Baso # (Auto) 0.02 Sodium 141 Potassium 3.6 Chloride 106 Carbon Dioxide 29 Anion Gap 6.0 BUN 18 Creatinine 1.03 Est Cr Clr Drug Dosing 81.4 Est GFR ( Amer) 70.4 Est GFR (Non-Af Amer) 60.7 BUN/Creatinine Ratio 17.4 Glucose 91 Calcium 8.9 Urine Color Yellow Urine Appearance Clear Urine pH 5.0 Ur Specific [place] 1.012 Urine Protein Negative Urine Glucose (UA) Negative Urine Ketones Negative Urine Blood Negative Urine Nitrite Negative Urine Bilirubin Negative Urine Urobilinogen Negative Ur Leukocyte Esterase Trace H Urine WBC (Auto) 1-5 Urine RBC (Auto) 0-4 U Hyaline Cast (Auto) 1-5 U Epithel Cells (Auto) >30 H Urine Bacteria (Auto) Negative Medications Administered Active Medications Generic Name Dose Route Start Last Admin Trade Name Freq PRN Reason Stop Dose Admin Acetaminophen 1,000 mg 02/22/19 17:58 02/24/19 22:09 Tylenol PO 03/24/19 17:57 1,000 mg Q8H PRN Administration Pain or Fever Aspirin 81 mg 02/24/19 09:00 02/25/19 08:15 Ecotrin Ectab PO 03/26/19 08:59 81 mg DAILY JUAN CARLOS Administration Atorvastatin Calcium 40 mg 02/22/19 16:52 02/25/19 08:15 Lipitor PO 03/24/19 16:51 40 mg QAM JUAN CARLOS Administration Clonazepam 0.5 mg 02/22/19 21:00 02/24/19 19:55 Klonopin PO 03/24/19 20:59 0.5 mg HS JUAN CARLOS Administration Enoxaparin Sodium 40 mg 02/24/19 12:30 02/25/19 08:15 Lovenox SQ 03/26/19 08:59 40 mg QAM JUAN CARLOS Administration Fluoxetine HCl 40 mg 02/22/19 21:00 02/24/19 19:55 Prozac PO 03/24/19 20:59 40 mg HS JUAN CARLOS Administration Gabapentin 600 mg 02/22/19 21:00 02/24/19 19:56 Neurontin PO 03/24/19 20:59 600 mg HS JUAN CARLOS Administration Hydrochlorothiazide 25 mg 02/23/19 12:30 02/25/19 10:55 Hctz PO 03/25/19 12:29 25 mg QAM JUAN CARLOS Administration Ioversol 115 ml 02/22/19 18:03 02/22/19 18:03 Optiray 320 125ml IV 02/26/19 18:02 115 ml ONCE PRN Administration Interaction Checking Lamotrigine 25 mg 02/22/19 16:46 Lamictal PO 03/24/19 16:45 BID PRN Headache Lisinopril 40 mg 02/23/19 09:00 02/25/19 08:15 Zestril PO 03/25/19 08:59 40 mg DAILY JUAN CARLOS Administration Metoprolol Succinate 50 mg 02/24/19 11:00 02/25/19 10:55 Toprol Xl PO 03/26/19 10:59 50 mg QAM JUAN CARLOS Administration Miscellaneous Information 1 ea 02/22/19 16:52 Pharmacist Discharge Med Rec Consult N/A 03/24/19 16:51 UD PRN Consult Morphine Sulfate 2 mg 02/22/19 17:58 02/25/19 10:59 Morphine Sulfate IV 03/08/19 17:57 2 mg Q4H PRN Administration Severe Pain Pantoprazole Sodium 40 mg 02/22/19 16:47 Protonix PO 03/24/19 16:46 DAILY PRN Heartburn Promethazine HCl 25 mg 02/22/19 16:47 02/24/19 06:30 Phenergan PO 03/24/19 16:46 25 mg Q6H PRN Administration nausea and vomiting Simethicone 80 mg 02/24/19 12:29 02/24/19 13:17 Mylicon PO 03/26/19 12:28 80 mg Q6H PRN Administration Gas or Constipation Tramadol HCl 50 mg 02/22/19 17:58 02/25/19 08:23 Ultram PO 03/24/19 17:57 50 mg Q4H PRN Administration Moderate Pain PG Care Time/CCT Total # of Minutes Spent Total Time Spent with Patient: Total time spent is greater than 50% in coordination of care (as documented) at patient's floor/unit and/or counseling patient: (1) CVA (cerebral vascular accident) CVA mechanism: unspecified Qualified Code(s): I63.9 - Cerebral infarction, unspecified
[2019-02-25] MEDS ORDERED: ATROPINE SULFATE 0.1 MG/ML 10ML SYR IV ONE (09:58)
[2019-02-25] MEDS ORDERED: DOBUTamine HCL 12.5 MG/ML 20 ML VIAL IV ONE (09:58)
[2019-02-25] MEDS ORDERED: METOPROLOL TARTRATE 1 MG/ML VIAL IV ONE ×2 (09:58→09:59)
[2019-02-25] MEDS ORDERED: PERFLUTREN LIPID MICROSPHERE (DEFINITY) IV ONE (10:29)
[2019-02-25] MEDS: METOPROLOL SUCC 50MG EXT REL TAB PO SCH (10:55)
[2019-02-25] MEDS: hydroCHLOROthiazide 25 MG TAB PO SCH (10:55)
[2019-02-25] MEDS: MoRPHine SULFATE 2 MG/ML CARP IV PRN ×2 (10:59→16:12)
[2019-02-25] MEDS ORDERED: clonazePAM 0.5 MG TAB PO PRN (15:15)
--- NOTE | 2019-02-25 16:05 | Hospitalist Progress Note ---
Date of Service February 25, 2019 Assessment & Plan (1) CVA (cerebral vascular accident): Left pontine infarction with residual deficits including RUE weakness, R- sided paresthesia, L facial droop and numbness in her tongue. Continue ASA, statin, BP control and supportive measures including PT, OT and Speech therapy. Will need rehab as a transition to home. (2) Migraine: Cont abortive measures as needed. (3) Chest pain: ACS rule out with serial negative troponins. Echo read pending that was performed yesterday. Persistent pain managed with stress reduction and morphine PRN. [place] scheduled for tonight. (4) Hypertension: Lisinopril and HCTZ, Cards added Toprol XL 50mg daily. (5) History of pulmonary embolism: Pt with single likely provoked PE >6 months ago. Unrevealing hypercoagulable workup. Was possibly on estrogen at the time. Coumadin was stopped in the current setting. May consider restarting if PFO or atrial fibrillation or other issue arises this hospitalization. (6) Anxiety: continues on Fluoxetine 40mg HS and clonazepam 0.5mg HS (7) DVT prophylaxis: Lovenox Full Code Dispo- can go home as early as tomorrow when stress test completed and auth in place for rehab center. Tiffanie Mcgovern DO [facility] Hospitalist Subjective Persistent chest pain requiring morphine as needed Right-sided numbness and right upper extremity weakness persist. Visual deficits and changes persist. She has nausea. Stress test caused a headache. Review of Systems Review of Systems: All systems reviewed & are unremarkable except as noted in HPI & below Physical Exam Physical Exam: CONSTITUTIONAL: obese, vitals as above, generally ill- appearing. EYES: EOMI, PERRL. no nystagmus, normal conjunctivae, no scleral icterus. ENT: Left-sided facial droop. MMM RESPIRATORY: clear to auscultation bilaterally, no crackles, rales or wheezes, normal respiratory effort CARDIOVASCULAR: regular rate and rhythm, S1 and 2 heard without murmurs, gallops or rubs, no JVD, no peripheral edema GASTROINTESTINAL: normal bowel sounds, soft, nontender, nondistended MUSCULOSKELETAL: strength 3/5 on right upper extremity including workforce development vice president strength, 5/5 RLE and on left side SKIN: warm and dry NEUROLOGIC: L facial palsy, 3/5 weakness in RUE, No dysarthria. R sided hemiparesthesia, normal cognition, normal speech, no tremor PSYCHIATRIC: alert cooperative and oriented to person, place and time Results & Data Vital Signs (Past 12 Hours) Vital Signs Temp Pulse Resp BP Pulse Ox 02/25/19 15:17 36.7 C 67 20 121/61 96 02/25/19 11:30 36.6 C 72 18 142/84 H 95 02/25/19 07:20 36.6 C 66 22 147/84 H 99 02/25/19 04:21 36.5 C 64 18 113/79 95 Laboratory Results Short CBC 02/25/19 Range/Units 07:07 WBC 6.68 (4.8-10.8) K/uL Hgb 14.3 (12.0-16.0) g/dL Hct 42.6 (37-47) % Plt Count 197 (130-400) K/uL BMP 02/25/19 07:07 Sodium 141 Potassium 3.6 Chloride 106 Carbon Dioxide 29 BUN 18 Creatinine 1.03 Glucose 91 Calcium 8.9 Medications Administered Current Inpatient Medications Acetaminophen (Tylenol) 1,000 mg PO Q8H PRN PRN Reason: Pain or Fever Stop: 03/24/19 17:57 Last Admin: 02/24/19 22:09 Dose: 1,000 mg Documented by: Hydrocodone Bitart/Acetaminophen ([place] 5/325) 1 tab PO DAILY@2200 [facility] Stop: 03/11/19 21:59 Aspirin (Ecotrin Ectab) 81 mg PO DAILY [facility] Stop: 03/26/19 08:59 Last Admin: 02/25/19 08:15 Dose: 81 mg Documented by: Atorvastatin Calcium (Lipitor) 40 mg PO QAM [facility] Stop: 03/24/19 16:51 Last Admin: 02/25/19 08:15 Dose: 40 mg Documented by: Clonazepam (Klonopin) 0.5 mg PO DAILY@1999 [facility] Stop: 03/27/19 19:59 Clonazepam (Klonopin) 0.5 mg PO Q12H PRN PRN Reason: anxiety Stop: 03/27/19 15:14 Enoxaparin Sodium (Lovenox) 40 mg SQ QAM [facility] Stop: 03/26/19 08:59 Last Admin: 02/25/19 08:15 Dose: 40 mg Documented by: Fluoxetine HCl (Prozac) 40 mg PO [facility] Stop: 03/24/19 20:59 Last Admin: 02/24/19 19:55 Dose: 40 mg Documented by: Gabapentin (Neurontin) 600 mg PO [facility] Stop: 03/24/19 20:59 Last Admin: 02/24/19 19:56 Dose: 600 mg Documented by: Hydrochlorothiazide (Hctz) 25 mg PO [facility] Stop: 03/25/19 12:29 Last Admin: 02/25/19 10:55 Dose: 25 mg Documented by: Ioversol (Optiray 320 125ml) 115 ml IV ONCE PRN PRN Reason: Interaction Checking Stop: 02/26/19 18:02 Last Admin: 02/22/19 18:03 Dose: 115 ml Documented by: Lamotrigine (Lamictal) 25 mg PO BID PRN PRN Reason: Headache Stop: 03/24/19 16:45 Lisinopril (Zestril) 40 mg PO DAILY [facility] Stop: 03/25/19 08:59 Last Admin: 02/25/19 08:15 Dose: 40 mg Documented by: Metoprolol Succinate (Toprol Xl) 50 mg PO [facility] Stop: 03/26/19 10:59 Last Admin: 02/25/19 10:55 Dose: 50 mg Documented by: Miscellaneous Information (Pharmacist Discharge Med Rec Consult) 1 ea N/A UD PRN PRN Reason: Consult Stop: 03/24/19 16:51 Morphine Sulfate (Morphine Sulfate) 2 mg IV Q4H PRN PRN Reason: Severe Pain Stop: 03/08/19 17:57 Last Admin: 02/25/19 10:59 Dose: 2 mg Documented by: Pantoprazole Sodium (Protonix) 40 mg PO DAILY PRN PRN Reason: Heartburn Stop: 03/24/19 16:46 Promethazine HCl (Phenergan) 25 mg PO Q6H PRN PRN Reason: nausea and vomiting Stop: 03/24/19 16:46 Last Admin: 02/24/19 06:30 Dose: 25 mg Documented by: Simethicone (Mylicon) 80 mg PO Q6H PRN PRN Reason: Gas or Constipation Stop: 03/26/19 12:28 Last Admin: 02/24/19 13:17 Dose: 80 mg Documented by: Tramadol HCl (Ultram) 50 mg PO Q4H PRN PRN Reason: Moderate Pain Stop: 03/24/19 17:57 Last Admin: 02/25/19 14:09 Dose: 50 mg Documented by: (1) CVA (cerebral vascular accident) CVA mechanism: unspecified Qualified Code(s): I63.9 - Cerebral infarction, unspecified
[2019-02-25] MEDS: FLUOXETINE HCL 20 MG CAP PO SCH (20:12)
[2019-02-25] MEDS: GABAPENTIN 300 MG CAP PO SCH (20:12)
[2019-02-25] MEDS: clonazePAM 0.5 MG TAB PO SCH (20:12)
[2019-02-25] MEDS: HYDROCODONE/ACETAMOPHEN 5/325MG TAB PO SCH (22:17)
[2019-02-26] MEDS: TRAMADOL HCL 50 MG TABLET PO PRN (00:41)
[2019-02-26] MEDS: ATORVASTATIN 40 MG TAB PO SCH (08:19)
[2019-02-26] MEDS: hydroCHLOROthiazide 25 MG TAB PO SCH (08:19)
[2019-02-26] MEDS: ASPIRIN 81 MG ECTAB PO SCH (08:19)
[2019-02-26] MEDS: LISINOPRIL 40 MG TAB PO SCH (08:19)
[2019-02-26] MEDS: ENOXAPARIN INJ 40 MG/0.4 ML SYR SQ SCH (08:19)
[2019-02-26] MEDS: METOPROLOL SUCC 50MG EXT REL TAB PO SCH (08:19)
[2019-02-26] MEDS: PROMETHAZINE HCL 25 MG TAB PO PRN (09:46)
--- NOTE | 2019-02-26 11:05 | Hospitalist Progress Note ---
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 She is requesting a more regular diet, which is fine. Gait appears to be improved and she is moving around more easily. She feels the eye patch has helped and there has been interval resolution of the third nerve palsy with worsened L facial droop since admission. Continue ASA, statin, BP control and supportive measures including PT, OT and Speech therapy. Will need rehab as a transition to home. Authorized when medically stable . (2) Migraine: Cont abortive measures as needed. (3) Chest pain: ACS rule out with serial negative troponins. Echo read pending that was performed which was nonischemic. Persistent chest pain managed with stress reduction and morphine PRN. In an effort to avoid IV morphine, started [place] 5/325. Cardiology started Toprol XL. (4) Hypertension: Controlled, cont Toprol XL at 50% of starting dose in setting of bradycardia. Cont Lis and HCTZ (5) History of pulmonary embolism: Pt with single likely provoked PE >6 months ago. Unrevealing hypercoagulable workup. Was possibly on estrogen at the time. Coumadin was stopped in the current setting. May consider restarting if PFO or atrial fibrillation or other issue arises this hospitalization. (6) Anxiety: continues on Fluoxetine 40mg HS and clonazepam 0.5mg HS (7) DVT prophylaxis: Lovenox Full Code Dispo- to [facility] when medically stable. Tiffanie Mcgovern DO [facility] Hospitalist Subjective 54 yo female with acute lacunar stroke and residual visual changes, left sided facial droop and R sided hemianesthesia with RUE weakness. She is very nautious this morning she reports secondary to nerves. She still is having chest pain that was not controlled with the [place] given last night. We discussed trying a higher dose tonight. Just had some phenergan for nausea. Will re-evaluate her this afternoon. DC unlikely until she is feeling better and is stable. I re-evaluated her three hours later and nausea was persistent. Review of Systems Review of Systems: All systems reviewed & are unremarkable except as noted in HPI & below nausea, persistent slanted vision, unable to read/watch TV, denies pain Physical Exam Physical Exam: CONSTITUTIONAL: obese, vitals as above, generally ill- appearing. EYES: EOMI, PERRL. no nystagmus, normal conjunctivae, no scleral icterus. ENT: Left-sided facial droop. MMM RESPIRATORY: clear to auscultation bilaterally, no crackles, rales or wheezes, normal respiratory effort CARDIOVASCULAR: regular rate and rhythm, S1 and 2 heard without murmurs, gallops or rubs, no JVD, no peripheral edema GASTROINTESTINAL: normal bowel sounds, soft, nontender, nondistended MUSCULOSKELETAL: strength 3/5 on right upper extremity including sampler first strength, 5/5 RLE and on left side SKIN: warm and dry NEUROLOGIC: L facial palsy, 3/5 weakness in RUE, No dysarthria. R sided hemiparesthesia, normal cognition, normal speech, no tremor PSYCHIATRIC: alert cooperative and oriented to person, place and time Results & Data Vital Signs (Past 12 Hours) Vital Signs Temp Pulse Pulse Resp BP Pulse Ox 02/26/19 08:00 54 L 02/26/19 07:26 36.8 C 54 L 16 111/63 98 02/26/19 02:45 36.5 C 57 L 18 109/69 93 02/25/19 23:40 36.4 C L 63 19 143/82 H 94 Medications Administered Current Inpatient Medications Acetaminophen (Tylenol) 1,000 mg PO Q8H PRN PRN Reason: Pain or Fever Stop: 03/24/19 17:57 Last Admin: 02/24/19 22:09 Dose: 1,000 mg Documented by: Hydrocodone Bitart/Acetaminophen ([place] 5/325) 1 tab PO DAILY@2200 [facility] Stop: 03/11/19 21:59 Last Admin: 02/25/19 22:17 Dose: 1 tab Documented by: Aspirin (Ecotrin Ectab) 81 mg PO DAILY [facility] Stop: 03/26/19 08:59 Last Admin: 02/26/19 08:19 Dose: 81 mg Documented by: Atorvastatin Calcium (Lipitor) 40 mg PO QAM [facility] Stop: 03/24/19 16:51 Last Admin: 02/26/19 08:19 Dose: 40 mg Documented by: Clonazepam (Klonopin) 0.5 mg PO DAILY@2000 [facility] Stop: 03/27/19 19:59 Last Admin: 02/25/19 20:12 Dose: 0.5 mg Documented by: Clonazepam (Klonopin) 0.5 mg PO Q12H PRN PRN Reason: anxiety Stop: 03/27/19 15:14 Enoxaparin Sodium (Lovenox) 40 mg SQ QAM [facility] Stop: 03/26/19 08:59 Last Admin: 02/26/19 08:19 Dose: 40 mg Documented by: Fluoxetine HCl (Prozac) 40 mg PO [facility] Stop: 03/24/19 20:59 Last Admin: 02/25/19 20:12 Dose: 40 mg Documented by: Gabapentin (Neurontin) 600 mg PO [facility] Stop: 03/24/19 20:59 Last Admin: 02/25/19 20:12 Dose: 600 mg Documented by: [facility] ([facility]z) [facility] Stop: 03/25/19 12:29 Last Admin: 02/26/19 08:19 Dose: 25 mg Documented by: Lamotrigine (Lamictal) 25 mg PO BID PRN PRN Reason: Headache Stop: 03/24/19 16:45 Lisinopril (Zestril) 40 mg PO DAILY [facility] Stop: 03/25/19 08:59 Last Admin: 02/26/19 08:19 Dose: 40 mg Documented by: Metoprolol Succinate (Toprol Xl) 25 mg PO [facility] Stop: 03/29/19 08:59 Morphine Sulfate (Morphine Sulfate) 2 mg IV Q4H PRN PRN Reason: Severe Pain Stop: 03/08/19 17:57 Last Admin: 02/25/19 16:12 Dose: 2 mg Documented by: Ondansetron HCl (Zofran) 4 mg IV Q8H PRN PRN Reason: Nausea Stop: 03/28/19 14:48 Pantoprazole Sodium (Protonix) 40 mg PO DAILY PRN PRN Reason: Heartburn Stop: 03/24/19 16:46 Promethazine HCl (Phenergan) 25 mg PO Q6H PRN PRN Reason: nausea and vomiting Stop: 03/24/19 16:46 Last Admin: 02/26/19 09:46 Dose: 25 mg Documented by: Simethicone (Mylicon) 80 mg PO Q6H PRN PRN Reason: Gas or Constipation Stop: 03/26/19 12:28 Last Admin: 02/24/19 13:17 Dose: 80 mg Documented by: Tramadol HCl (Ultram) 50 mg PO Q4H PRN PRN Reason: Moderate Pain Stop: 03/24/19 17:57 Last Admin: 02/26/19 00:41 Dose: 50 mg Documented by: (1) CVA (cerebral vascular accident) CVA mechanism: unspecified Qualified Code(s): I63.9 - Cerebral infarction, unspecified
[2019-02-26] MEDS ORDERED: ONDANSETRON INJ 2 MG/ML 2 ML VIAL IV STA (14:49)
[2019-02-26] MEDS: GABAPENTIN 300 MG CAP PO SCH (20:02)
[2019-02-26] MEDS: clonazePAM 0.5 MG TAB PO SCH (20:02)
[2019-02-26] MEDS: FLUOXETINE HCL 20 MG CAP PO SCH (20:03)
[2019-02-26] MEDS: ONDANSETRON INJ 2 MG/ML 2 ML VIAL IV PRN (21:41)
[2019-02-26] MEDS: POLYETHYLENE (MIRALAX) 17 GM PACK PO PRN (22:26)
[2019-02-26] MEDS: SIMETHICONE 80 MG CHEW PO PRN (22:26)
[2019-02-26] MEDS: PANTOprazole 40 MG TAB PO PRN (22:26)
[2019-02-26] MEDS: HYDROCODONE/ACETAMOPHEN 5/325MG TAB PO SCH (23:27)
[2019-02-26] MEDS: MoRPHine SULFATE 2 MG/ML CARP IV PRN (23:33)
[2019-02-27] MEDS: MoRPHine SULFATE 2 MG/ML CARP IV PRN (04:26)
[2019-02-27 07:32] LABS: Hematocrit (blood only) 42.9 % (37-47); Hemoglobin 14.2 g/dL (12.0-16.0); Mean Corpuscular Hemoglobin 31.3 pg (25-34); Mean Corpuscular Hgb Conc 33.1 g/dL (32-36); Mean Corpuscular Volume 94.5 fL (80-100); Mean Platelet Volume 10.9 fL (7.4-10.4); Platelet Count 191 K/uL (130-400); RDW Coefficient of Variation 13.2 % (11.5-14.5); RDW Standard Deviation 45.7 fL (36.4-46.3); Red Blood Count 4.54 M/uL (4.2-5.4); White Blood Count 6.67 K/uL (4.8-10.8)
[2019-02-27 08:11] LABS: BUN Creatinine Ratio 15.7 (10-20); Calcium 8.9 mg/dl (8.5-10.1); Creatinine Clr Calc Pharmacy 59.7 ml/min; Est GFR (African American) 49.4; Est GFR (Non-African American) 42.6; Magnesium 2.1 mg/dl (1.8-2.4); Potassium 4.2 mmol/L (3.5-5.1)
[2019-02-27] MEDS: ATORVASTATIN 40 MG TAB PO SCH (09:22)
[2019-02-27] MEDS: ONDANSETRON INJ 2 MG/ML 2 ML VIAL IV PRN (09:22)
[2019-02-27] MEDS: ASPIRIN 81 MG ECTAB PO SCH (09:22)
[2019-02-27] MEDS: hydroCHLOROthiazide 25 MG TAB PO SCH (09:22)
[2019-02-27] MEDS: METOPROLOL SUCC 25MG EXT REL TAB PO SCH (09:23)
[2019-02-27] MEDS: LISINOPRIL 40 MG TAB PO SCH (09:23)
[2019-02-27] MEDS: ENOXAPARIN INJ 40 MG/0.4 ML SYR SQ SCH (09:23)
[2019-02-27] MEDS ORDERED: SODIUM CHLORIDE 0.9% 1000ML 1,000 ML IV ONE (10:07)
[2019-02-27] MEDS: PANTOprazole 40 MG TAB PO PRN (10:15)
[2019-02-27] MEDS: SODIUM CHLORIDE 0.9% 1000ML 1,000 ML IV SCH ×2 (12:48→21:05)
--- NOTE | 2019-02-27 14:36 | Hospitalist Progress Note ---
Date of Service February 27, 2019 Assessment & Plan (1) LILLI (acute kidney injury): ?dehydration. IVF today and repeat BMP in am. (2) Bilateral shoulder pain: Possible rotator cuff injuries bilaterally vs osteoarthritis. Acute injuries to both in the past couple of weeks. She has good ROM on exam but has pain with it. We discussed that the necessary PT and OT to rehab from her stroke may exacerbate the situation somewhat. Baseline xrays reveal osteophytes and degenerative joint changes, likely contributing. Fibro also likely contributing to pain. Starting scheduled APAP 1mg q8 to help with this and chest pain. (3) Chest pain: ACS ruled out with serial negative troponins. Nonischemic dobutamine stress echo. Persistent pain managed with stress reduction. Uses tramadol at home, so will increase this to 100mg q6h and stop scheduled [place]. Added scheduled APAP. Cont clonazepam as needed to help with stress and anxiety related to this new disability. (4) CVA (cerebral vascular accident): Left pontine infarction with residual deficits including RUE weakness, R- sided paresthesia, L facial droop and numbness in her tongue. Continue ASA, statin, BP control and supportive measures including PT, OT and Speech therapy. Will need rehab as a transition to home. (5) Migraine: h/o migraines, but not reporting headaches in the last couple of days. Cont abortive measures as needed. (6) Hypertension: Lisinopril and HCTZ, Cards added Toprol XL 50mg daily. (7) History of pulmonary embolism: Pt with single likely provoked PE >6 months ago. Unrevealing hypercoagulable workup. Was on estrogen at the time. Coumadin was stopped in the current setting. May consider restarting if PFO or atrial fibrillation or other issue arises this hospitalization. (8) Anxiety: continues on Fluoxetine 40mg HS and clonazepam 0.5mg HS (9) Fibromyalgia: Cont Fluoxetine (10) DVT prophylaxis: Lovenox Full Code Dispo- plan for [facility] in am. Tiffanie Mcgovern DO [facility] Hospitalist Subjective Multiple concerns today including bilaterally shoulder pain. R shoulder has hurt for the past 3 weeks. L shoulder became injured during this hospitalization when she tweaked it while repositioning in her bed. Pain is amplified in the setting of fibromyalgia. Some ear pain on the left, likely related to her shoulder injury. TM is normal and external auditory canal is clear of debris. Vision is still off but eye patch is helping. Facial droop still prominent and results in difficulties eating and drinking. She is talking more, and noticing increased comfort with this. Still having the chest pain which is reproducible on exam. We discussed the need for morphine and trying to rely on something other than this in order to control the pain at discharge. She reports lightheadedness and dizziness with ambulation, which is still a chor e from the stroke. She tends to lean toward the right. She is concerned about Speech therapy not working with her every day. She also reported some heartburn and we discussed that she takes omeprazole PRN. suggested taking this daily which I agree with. Review of Systems Review of Systems: All systems reviewed & are unremarkable except as noted in HPI & below Physical Exam Physical Exam: CONSTITUTIONAL: obese, vitals as above, generally well- appearing. EYES: pupil are equal and round bilaterally, normal conjunctivae, no scleral icterus. ENT: Left-sided facial droop. MMM, TM pearly on both sides without evidence of erythema or fluid present, external auditory canals are clear bilaterally. RESPIRATORY: clear to auscultation bilaterally, no crackles, rales or wheezes, normal respiratory effort CARDIOVASCULAR: regular rate and rhythm, S1 and 2 heard without murmurs, gallops or rubs, no JVD, no peripheral edema GASTROINTESTINAL: normal bowel sounds, soft, nontender, nondistended MUSCULOSKELETAL: strength 3/5 on right upper extremity including mold breaker strength, 5/5 RLE and on left side. R/L SHOULDER: pain with external and internal rotation. Normal ROM. Pain to palpation of glenohumeral joint. Multiple tenderpoints including trapezius and biceps tendons bilaterally. Neg drop arm test. Rotator cuff testing performed and no weakness in these muscles, but pain present with each test. Testing results were similar bilaterally. SKIN: warm and dry NEUROLOGIC: L facial palsy, 3/5 weakness in RUE, No dysarthria. R sided hemiparesthesia, normal cognition PSYCHIATRIC: alert cooperative and oriented to person, place and time Results & Data Vital Signs (Past 12 Hours) Vital Signs Temp Pulse Pulse Resp BP Pulse Ox 02/27/19 11:35 36.8 C 72 16 132/69 99 02/27/19 07:35 36.5 C 64 16 122/75 99 02/27/19 07:28 60 02/27/19 04:09 36.6 C 61 18 114/72 95 Laboratory Results Short CBC 02/27/19 Range/Units 07:08 WBC 6.67 (4.8-10.8) K/uL Hgb 14.2 (12.0-16.0) g/dL Hct 42.9 (37-47) % Plt Count 191 (130-400) K/uL BMP 02/27/19 07:08 Sodium 141 Potassium 4.2 Chloride 106 Carbon Dioxide 32 BUN 22 H Creatinine 1.38 H Glucose 96 Calcium 8.9 Medications Administered Current Inpatient Medications Acetaminophen (Tylenol) 1,000 mg PO Q8H [facility] Stop: 03/29/19 14:29 Aspirin (Ecotrin Ectab) 81 mg PO DAILY [facility] Stop: 03/26/19 08:59 Last Admin: 02/27/19 09:22 Dose: 81 mg Documented by: Atorvastatin [facility] ([facility]) [facility] Stop: 03/24/19 16:51 Last Admin: 02/27/19 09:22 Dose: 40 mg Documented by: Clonazepam (Klonopin) 0.5 mg PO DAILY@2000 [facility] Stop: 03/27/19 19:59 Last Admin: 02/26/19 20:02 Dose: 0.5 mg Documented by: Clonazepam (Klonopin) 0.5 mg PO Q12H PRN PRN Reason: anxiety Stop: 03/27/19 15:14 Enoxaparin Sodium (Lovenox) [facility] Stop: 03/26/19 08:59 Last Admin: 02/27/19 09:23 Dose: 40 mg Documented by: Fluoxetine HCl (Prozac) 40 mg PO [facility] Stop: 03/24/19 20:59 Last Admin: 02/26/19 20:03 Dose: 40 mg Documented by: Gabapentin (Neurontin) 600 mg PO [facility] Stop: 03/24/19 20:59 Last Admin: 02/26/19 20:02 Dose: 600 mg Documented by: Hydrochlorothiazide (Hctz) [facility] Stop: 03/25/19 12:29 Last Admin: 02/27/19 09:22 Dose: 25 mg Documented by: Sodium Chloride (Nss 1000ml) 1,000 mls @ 125 mls/hr IV .Q8H [facility] Stop: 03/29/19 12:44 Last Admin: 02/27/19 12:48 Dose: 125 mls/hr Documented by: Lamotrigine (Lamictal) 25 mg PO BID PRN PRN Reason: Headache Stop: 03/24/19 16:45 Lisinopril (Zestril) 40 mg PO DAILY [facility] Stop: 03/25/19 08:59 Last Admin: 02/27/19 09:23 Dose: 40 mg Documented by: Metoprolol Succinate (Toprol Xl) 25 mg PO QAM [facility] Stop: 03/29/19 08:59 Last Admin: 02/27/19 09:23 Dose: 25 mg Documented by: Morphine Sulfate (Morphine Sulfate) 2 mg IV Q4H PRN PRN Reason: Severe Pain Stop: 03/08/19 17:57 Last Admin: 02/27/19 04:26 Dose: 2 mg Documented by: Ondansetron HCl (Zofran) 4 mg IV Q8H PRN PRN Reason: Nausea Stop: 03/28/19 14:48 Last Admin: 02/27/19 09:22 Dose: 4 mg Documented by: Pantoprazole Sodium (Protonix) 40 mg PO QDD [facility] Stop: 03/29/19 16:29 Polyethylene Glycol (Miralax Powder Packet) 17 gm PO DAILY PRN PRN Reason: Constipation Stop: 03/28/19 21:33 Last Admin: 02/26/19 22:26 Dose: 17 gm Documented by: Promethazine HCl (Phenergan) 25 mg PO Q6H PRN PRN Reason: nausea and vomiting Stop: 03/24/19 16:46 Last Admin: 02/26/19 09:46 Dose: 25 mg Documented by: Simethicone (Mylicon) 80 mg PO Q6H PRN PRN Reason: Gas or Constipation Stop: 03/26/19 12:28 Last Admin: 02/26/19 22:26 Dose: 80 mg Documented by: Tramadol HCl (Ultram) 50 - 100 mg PO Q6H PRN PRN Reason: Moderate Pain Stop: 03/24/19 17:57 (1) CVA (cerebral vascular accident) CVA mechanism: unspecified Qualified Code(s): I63.9 - Cerebral infarction, unspecified
--- NOTE | 2019-02-27 15:41 | XRay Report ---
XR shoulder RT min 2V routine CLINICAL HISTORY: Bilateral shoulder pain. COMPARISON STUDY: None. FINDINGS: No fracture or dislocation within the right shoulder. The right clavicle is intact. Mild AC joint arthrosis. Soft tissues are unremarkable. Small osteophyte at the humeral head. This also sugg ests minimal degenerative change. IMPRESSION: 1. No fracture or dislocation within the right shoulder. 2. Mild degenerative changes as described above. Electronically signed by: Randy Alvarez M.D. 02/27/2019 3:40 PM
--- NOTE | 2019-02-27 15:42 | XRay Report ---
XR shoulder LT min 2V routine CLINICAL HISTORY: 54 years-old Female presenting with shoulder pain. TECHNIQUE: Internal rotation, external rotation, Grashey views of the left shoulder were obtained. COMPARISON: None. FINDINGS: Glenohumeral and acromioclavicular joints congruent. Mild osteophytosis of the humeral head. No acute fracture or malalignment. No radiographic soft tissue abnormality. IMPRESSION: 1. No acute osseous injury. 2. Mild degenerative changes of the glenohumeral joint. Electronically signed by: Sheldon Handy M.D. 02/27/2019 3:40 PM
[2019-02-27] MEDS: ACETAMINOPHEN 500 MG TAB PO SCH ×2 (15:54→21:05)
[2019-02-27] MEDS: PANTOprazole 40 MG TAB PO SCH (15:54)
[2019-02-27] MEDS: POLYETHYLENE (MIRALAX) 17 GM PACK PO PRN (19:54)
[2019-02-27] MEDS: clonazePAM 0.5 MG TAB PO SCH (19:54)
[2019-02-27] MEDS: FLUOXETINE HCL 20 MG CAP PO SCH (21:04)
[2019-02-27] MEDS: GABAPENTIN 300 MG CAP PO SCH (21:04)
[2019-02-27] MEDS: TRAMADOL HCL 50 MG TABLET PO PRN (23:06)
[2019-02-28] MEDS: ACETAMINOPHEN 500 MG TAB PO SCH ×3 (05:23→22:59)
[2019-02-28] MEDS: SODIUM CHLORIDE 0.9% 1000ML 1,000 ML IV SCH (05:24)
[2019-02-28] MEDS: TRAMADOL HCL 50 MG TABLET PO PRN (07:54)
[2019-02-28] MEDS: ATORVASTATIN 40 MG TAB PO SCH (08:00)
[2019-02-28] MEDS: ASPIRIN 81 MG ECTAB PO SCH (08:00)
[2019-02-28] MEDS: ENOXAPARIN INJ 40 MG/0.4 ML SYR SQ SCH (08:01)
[2019-02-28] MEDS: hydroCHLOROthiazide 25 MG TAB PO SCH ×2 (08:01→09:30)
[2019-02-28] MEDS: LISINOPRIL 40 MG TAB PO SCH (08:01)
[2019-02-28 08:14] LABS: BUN Creatinine Ratio 14.5 (10-20); Calcium 8.3 mg/dl (8.5-10.1); Est GFR (African American) 57.4; Est GFR (Non-African American) 49.5; Potassium 4.1 mmol/L (3.5-5.1)
[2019-02-28] MEDS: METOPROLOL SUCC 25MG EXT REL TAB PO SCH (09:30)
[2019-02-28] MEDS ORDERED: POLYETHYLENE (MIRALAX) 17 GM PACK PO PRN (09:53)
[2019-02-28] MEDS ORDERED: MoRPHine SULFATE 2 MG/ML CARP IV ONE (10:00)
[2019-02-28] MEDS: POLYETHYLENE (MIRALAX) 17 GM PACK PO SCH (10:11)
[2019-02-28] MEDS: PANTOprazole 40 MG TAB PO SCH (15:11)
--- NOTE | 2019-02-28 15:41 | Hospitalist Progress Note ---
Date of Service February 28, 2019 Assessment & Plan (1) LILLI (acute kidney injury): Improved creatinine to 1.22 from 1.4 yesterday, this is likely a response to the addition of HCTZ 25 mg to her lisinopril 40 mg daily. HCTZ was decreased to 12.5, however, the 25 mg dose was Chris given this morning. Repeat BMP in a.m. (2) Bilateral shoulder pain: Possible rotator cuff injuries bilaterally vs osteoarthritis. Acute injuries to both in the past couple of weeks. Pain with range of motion. Multiple tender points. We discussed that the necessary PT and OT to rehab from her stroke may exacerbate the situation somewhat. Baseline xrays reveal oste ophytes and degenerative joint changes, likely contributing. Fibro also likely contributing to pain. Continue scheduled Tylenol. (3) Chest pain: ACS ruled out with serial negative troponins. Nonischemic dobutamine stress echo. Persistent pain managed with stress reduction. Uses tramadol at home, but this is not been effective here. She is only getting relief with morphine IV. Widen was unhelpful. Continue scheduled APAP. Cont clonazepam as needed to help with stress and anxiety related to this new disability. (4) CVA (cerebral vascular accident): Acute left pontine infarction with residual deficits including RUE weakness, R-sided paresthesia, L facial droop and numbness in her tongue. Continue ASA, statin, BP control and supportive measures including PT, OT and Speech therapy. Will need rehab as a transition to home. (5) Migraine: h/o migraines, but not reporting headaches in the last couple of days. Cont abortive measures as needed. (6) Hypertension: Lisinopril and HCTZ, Cards added Toprol XL 50mg daily, but this was reduced after bradycardia resulted. (7) History of pulmonary embolism: Pt with single likely provoked PE >6 months ago. Unrevealing h ypercoagulable workup. Was on estrogen at the time. Coumadin was stopped in the current setting. May consider restarting if PFO or atrial fibrillation or other issue arises this hospitalization. (8) Anxiety: continues on Fluoxetine 40mg HS and clonazepam 0.5mg HS (9) Fibromyalgia: Cont Fluoxetine (10) DVT prophylaxis: Lovenox Full Code Dispo- plan for [facility] in am. Tiffanie Mcgovern DO [facility] Hospitalist Subjective Persistent pain in her left ear, improved with morphine overnight. Tramadol has not been effective for her at 100 mg. Feels like this is becoming a headache and is connected to her left shoulder pain. She denies chest pain. Persistent visual changes, lightheadedness, dizziness. Review of Systems Review of Systems: All systems reviewed & are unremarkable except as noted in HPI & below Physical Exam Physical Exam: CONSTITUTIONAL: obese, vitals as above, generally well- appearing. EYES: pupil are equal and round bilaterally, normal conjunctivae, no scleral icterus. ENT: Left-sided facial droop. MMM RESPIRATORY: clear to auscultation bilaterally, no crackles, rales or wheezes, normal respiratory effort CARDIOVASCULAR: regular rate and rhythm, S1 and 2 heard without murmurs, gallops or rubs, no JVD, no peripheral edema GASTROINTESTINAL: normal bowel sounds, soft, nontender, nondistended MUSCULOSKELETAL: strength 3/5 on right upper extremity including associate director of nursing strength, 5/5 RLE and on left side. SKIN: warm and dry NEUROLOGIC: L facial palsy, EOMI, No dysarthria. R sided hemiparesthesia, normal cognition PSYCHIATRIC: alert cooperative and oriented to person, place and time Results & Data Vital Signs (Past 12 Hours) Vital Signs Temp Pulse Resp BP Pulse Ox 02/28/19 11:51 36.8 C 64 16 141/69 H 98 02/28/19 08:08 36.5 C 60 18 132/68 96 02/28/19 05:18 36.4 C L 57 L 19 138/82 99 Laboratory Results [facility] 02/28/19 07:10 Sodium 144 Potassium 4.1 Chloride 111 H Carbon Dioxide 30 BUN 18 Creatinine 1.22 H Glucose 85 Calcium 8.3 L Medications Administered Current Inpatient Medications Acetaminophen (Tylenol) 1,000 mg PO Q8 JUAN CARLOS Stop: 03/29/19 14:59 Last Admin: 02/28/19 15:10 Dose: 1,000 mg Documented by: Aspirin (Ecotrin Ectab) 81 mg PO DAILY JUAN CARLOS Stop: 03/26/19 08:59 Last Admin: 02/28/19 08:00 Dose: 81 mg Documented by: Atorvastatin Calcium (Lipitor) 40 mg PO QAM JUAN CARLOS Stop: 03/24/19 16:51 Last Admin: 02/28/19 08:00 Dose: 40 mg Documented by: Clonazepam (Klonopin) 0.5 mg PO DAILY@1999 [facility] Stop: 03/27/19 19:59 Last Admin: 02/27/19 19:54 Dose: 0.5 mg Documented by: Clonazepam (Klonopin) 0.5 mg PO Q12H PRN PRN Reason: anxiety Stop: 03/27/19 15:14 Docusate Sodium (Colace) 100 mg PO BID [facility] Stop: 03/30/19 20:59 Enoxaparin Sodium (Lovenox) 40 mg SQ QAM [facility] Stop: 03/26/19 08:59 Last Admin: 02/28/19 08:01 Dose: 40 mg Documented by: Fluoxetine HCl (Prozac) 40 mg PO [facility] Stop: 03/24/19 20:59 Last Admin: 02/27/19 21:04 Dose: 40 mg Documented by: Gabapentin (Neurontin) 600 mg PO [facility] Stop: 03/24/19 20:59 Last Admin: 02/27/19 21:04 Dose: 600 mg Documented by: Hydrochlorothiazide (Hctz) 12.5 mg PO QAM [facility] Stop: 03/30/19 08:59 Last Admin: 02/28/19 09:30 Dose: 12.5 mg Documented by: Lamotrigine (Lamictal) 25 mg PO BID PRN PRN Reason: Headache Stop: 03/24/19 16:45 Last Admin: 02/27/19 23:07 Dose: 25 mg Documented by: Lisinopril (Zestril) 40 mg PO DAILY [facility] Stop: 03/25/19 08:59 Last Admin: 02/28/19 08:01 Dose: 40 mg Documented by: Metoprolol Succinate (Toprol Xl) 25 mg PO QAM [facility] Stop: 03/29/19 08:59 Last Admin: 02/28/19 09:30 Dose: 25 mg Documented by: Ondansetron HCl (Zofran) 4 mg IV Q8H PRN PRN Reason: Nausea Stop: 03/28/19 14:48 Last Admin: 02/27/19 09:22 Dose: 4 mg Documented by: Pantoprazole Sodium (Protonix) 40 mg PO QDD [facility] Stop: 03/29/19 16:29 Last Admin: 02/28/19 15:11 Dose: 40 mg Documented by: Polyethylene Glycol (Miralax Powder Packet) 17 gm PO DAILY PRN PRN Reason: Constipation Stop: 03/28/19 21:33 Last Admin: 02/27/19 19:54 Dose: 17 gm Documented by: Polyethylene Glycol (Miralax Powder Packet) 17 gm PO DAILY JUAN CARLOS Stop: 03/30/19 10:10 Last Admin: 02/28/19 10:11 Dose: 17 gm Documented by: Polyethylene Glycol (Miralax Powder Packet) 17 gm PO DAILY PRN PRN Reason: Constipation Stop: 03/30/19 09:52 Promethazine HCl (Phenergan) 25 mg PO Q6H PRN PRN Reason: nausea and vomiting Stop: 03/24/19 16:46 Last Admin: 02/26/19 09:46 Dose: 25 mg Documented by: Simethicone (Mylicon) 80 mg PO Q6H PRN PRN Reason: Gas or Constipation Stop: 03/26/19 12:28 Last Admin: 02/26/19 22:26 Dose: 80 mg Documented by: Tramadol HCl (Ultram) 50 - 100 mg PO Q6H PRN PRN Reason: Moderate Pain Stop: 03/24/19 17:57 Last Admin: 02/28/19 07:54 Dose: 100 mg Documented by: (1) CVA (cerebral vascular accident) CVA mechanism: unspecified Qualified Code(s): I63.9 - Cerebral infarction, unspecified
[2019-02-28] MEDS: ONDANSETRON INJ 2 MG/ML 2 ML VIAL IV PRN (20:10)
[2019-02-28] MEDS: SIMETHICONE 80 MG CHEW PO PRN (20:10)
[2019-02-28] MEDS: clonazePAM 0.5 MG TAB PO SCH (20:11)
[2019-02-28] MEDS: DOCUSATE SODIUM 100 MG CAP PO SCH (20:11)
[2019-02-28] MEDS: FLUOXETINE HCL 20 MG CAP PO SCH (20:12)
[2019-02-28] MEDS: GABAPENTIN 300 MG CAP PO SCH (20:12)
[2019-03-01] MEDS: TRAMADOL HCL 50 MG TABLET PO PRN (05:18)
[2019-03-01] MEDS: ACETAMINOPHEN 500 MG TAB PO SCH ×2 (05:55→10:57)
[2019-03-01] MEDS: LISINOPRIL 40 MG TAB PO SCH (08:52)
[2019-03-01] MEDS: hydroCHLOROthiazide 25 MG TAB PO SCH (08:52)
[2019-03-01] MEDS: ATORVASTATIN 40 MG TAB PO SCH (08:52)
[2019-03-01] MEDS: ASPIRIN 81 MG ECTAB PO SCH (08:52)
[2019-03-01] MEDS: DOCUSATE SODIUM 100 MG CAP PO SCH (08:52)
[2019-03-01] MEDS: METOPROLOL SUCC 25MG EXT REL TAB PO SCH (08:52)
[2019-03-01] MEDS: ENOXAPARIN INJ 40 MG/0.4 ML SYR SQ SCH (08:53)
[2019-03-01] MEDS: POLYETHYLENE (MIRALAX) 17 GM PACK PO SCH (08:53)
--- NOTE | 2019-03-01 15:49 | Discharge Summary ---
Date of Service March 01, 2019 Admission HPI Per Admitting Provider 54-year-old female presented to the ER today with her for persistent stroke-like symptoms. Specifically she is experiencing right arm and leg numbness, double vision, headache that is posterior and wraps around the front of her head and chest pain that is constant. She feels lightheaded and is unable to walk. She denies any nausea, vomiting, stool changes. She reports some slurred speech and tongue numbness since taking a GI cocktail 2 days ago. 2 days ago, she was in the ER for similar symptoms including headache, dizziness, weakness that started late that evening. She presented to the ER overnight. 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 She reports feeling like her blood pressure was high and she left the show, took her evening meds including gabapentin, Prozac, Klonopin, warfarin. This did not improve her symptoms and she reached for lisinopril and took it with food. She reports noncompliance with most medications including lisinopril. She has a history of migraines and is been told she has a complicated migraine in the past as she has had right-sided numbness that is associated with headaches. She reports a history of TIA but is uncertain of this. She takes lamotrigine as an abortive pill for her headaches which occur daily. She denies taking Imitrex, Fioricet or other abortives. She does take Tylenol on occasion. She avoids NSAIDs as she is on Coumadin for history of PE in the past. She reported some shortness of breath 2 days ago but this has subsided. She reports a history that is chronic for chest pain and states she had a work-up including stress test approximate 3 to 4 years ago that was negative. She sees Cristobal Christianson from [facility] and Dr. Magdaleno from [facility]. PCP is Dr. Abraham Schreiber. She otherwise denies any fevers, chills, coughing. Admission Exam Per Admitting Provider CONSTITUTIONAL: obese, vitals as above, generally ill-appearing, eyes closed as if avoiding the light. Became dizzy with sitting up in bed and with extaocular movements. EYES: left eye cannot adduct beyond the midline (third nerve palsy), lateral gaze present in the right eye, other EOM appear to be intact (CNIV and ). Horizontal nystagmus noted when looking to the right in the right eye. PERRL, normal conjunctivae, no scleral icterus, no fundoscopic abnormality-however, this was difficult to ascertain as pupils were constricted and area of visualization was minimal. Unable to assess for papilledema for this reason. Could not make out clear vasculature in the fundus. ENT: external ear and nose normal, oropharynx clear, mucous membranes are dry RESPIRATORY: clear to auscultation bilaterally, no crackles, rales or wheezes, normal respiratory effort CARDIOVASCULAR: regular rate and rhythm, S1 and 2 heard without murmurs, gallops or rubs, no JVD, no peripheral edema GASTROINTESTINAL: normal bowel sounds, soft, nontender, nondistended MUSCULOSKELETAL: strength 3/5 on right upper extremity including diabetes specialist strength, 5/5 RLE and on left side, head is normocephalic and atraumatic SKIN: warm and dry NEUROLOGIC: patellar DTR 2+ bilat, brachioradialis reflex 2+ bilaterally. No facial palsy, no dysarthria. R sided hemiparesthesia, normal cognition, normal speech, no tremor PSYCHIATRIC: alert cooperative and oriented to person, place and time. Principal Diagnosis Acute lacunar stroke Discharge Data Allergies Allergy/AdvReac Type Severity Reaction Status Date / Time Penicillins Allergy Severe SWELLING Verified 02/22/19 14:24 Sulfa (Sulfonamide AdvReac Mild N/V Verified 02/22/19 14:24 Antibiotics) Consultations 02/22/19 15:14 ED Decision to Admit Stat 02/22/19 16:52 Consult Case Management - Discharge Planning Routine 02/22/19 17:44 Consult Neurology Routine 02/22/19 17:53 Consult Cardiology Routine Ordered Studies 02/22/19 14:04 CT head/brain wo con Stat 02/22/19 17:34 CT angio head w con Urgent CT angio neck with con Urgent 02/23/19 09:00 MR brain wo con Routine Hospital Course (1) CVA (cerebral vascular accident): (2) LILLI (acute kidney injury): (3) Bilateral shoulder pain: (4) Chest pain: (5) Migraine: (6) Hypertension: (7) History of pulmonary embolism: (8) Anxiety: (9) Fibromyalgia: She was admitted to telemetry on the hospitalist service. An MRI of the brain revealed an acute left pontine infarction with residual deficits including right upper extremity weakness right-sided paresthesia left facial droop and numbness in her tongue. 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 Her diet was advanced and she was evaluated by physical and Occupational Therapy. She had significant lightheadedness and dizziness and inpatient rehab was recommended. Neurology was consulted. Neurology noted that MRIs in the past have shown mild old small vessel ischemic disease and the current MRI showed some progression of this. This was thought secondary to her history of hypertension. She is notably noncompliant with medications. She did have a history of pulmonary embolus in September 2015 and had remained on Coumadin since then. Review of the notes revealed that she was on Premarin at the time and hypercoagulable work-up was negative. With a single episode PE that was provoked, Coumadin was discontinued this hospitalization. She was continued on aspirin 81 mg daily. Plavix was considered, however there was an interaction with this and fluoxetine and with her history of anxiety and depression fluoxetine was considered a difficult thing to discontinue. So Plavix was not given. Blood pressure control efforts were started after a period permissive hypertension. She was restarted on her lisinopril and also given hydrochlorothiazide 25 mg p.o. daily. As a result her creatinine juli to 1.4. She was given some IV fluids and HCTZ was cut to 12.5 mg p.o. daily. She will require a basic metabolic panel in 1 to 2 weeks. With her significant anxiety and the acute significant disability she was reporting persistent chest pain. Ischemic work-up was negative and cardiology was consulted. They recommended a dobutamine stress echocardiogram which was performed on 02/27. She had a markedly hypertensive blood pressure response to dobutamine infusion. Initial blood pressure was 140/77 and peak blood pressure and that during the test was 240/115. The test ended due to hypertensive blood pressure response and a headache. She had chest pain throughout the entire test with a sensation of dyspnea at peak heart rate and peak blood pressure. There were no EKG changes seen and no evidence of myocardial ischemia by echo or EKG criteria was noted. She was given Lopressor 5 mg with no further work-up recommended from a cardiac standpoint. Toprol-XL 50 mg was started. However this was cut by 50% after noted bradycardia on telemetry. She continued to improve from a stroke standpoint with noted deficits after several days to include persistent right upper extremity weakness, improved from admission, ambulatory dysfunction secondary to double vision, right-sided paresthesias, left-sided facial droop with difficulties eating and swallowing. She also rep orted some left shoulder pain which radiated up into her neck and ear. She has a history of fibromyalgia, and therefore, a magnified pain interpretation. This pain was thought secondary to her stroke and residual muscle weakness on the left side of the face. Creatinine improved to 1.22. Bilateral shoulder pain was investigated with x-rays revealing some chronic changes. Scheduled Tylenol was continued. Chest pain continued and IV morphine was helpful. Clonazepam was used as needed to help with stress and anxiety related to new disability. At time of discharge she was hemodynamically stable and afebrile and tolerating p.o. She had a persistent ambulatory dysfunction secondary to the stroke and was being sent to an inpatient rehabilitation program for this. She was oxygenating well on room air. She was mentating at baseline. Telemetry was reviewed every day during the hospitalization with no evidence of arrhythmia, however, to complete the work-up and outpatient event monitor is recommended to ensure no underlying arrhythmia was present contributing to the stroke. At time of discharge a face to face examination was performed revealing the residual neurologic deficits mentioned above. Heart and lung exam were normal and physical exam was otherwise unremarkable. She was sent to rehab in stable condition with close primary care follow-up recommended at time of discharge. Total Time Total Time Spent Total Time Spent (In Minutes): 60 Total Time Includes: Examination of the Patient, Discharge Planning, Medication Reconciliation and Communication With Other Providers Discharge Plan Discharge Items Patient Disposition: Transfer Inpatient Rehab Fac Reason For Visit: STROKE SYMPTOMS Discharge Diagnosis: Acute lacunar stroke Discharge Goals: Decrease discomfort, Improve disease control and Increase independence Activity: Per 'Additional Instructions' section Activity Comment: per rehabilitation goals Lifting: Gradually increase as tolerated Driving/Machine Use Comment: no driving Non-emergency contact: Primary Care Provider Call non-emergency contact if: you have any medication questions, your symptoms worsen, your pain is not controlled, your pain is worsening, your pain is unusual for you, your pain is concerning for you and you have a fever Follow-up/Referrals: Abraham Ryan MD [Primary Care Provider] - Diet: Low Sodium (2gm) Addtl Provider Instructions: Please take all medications as instructed on discharge list below. Please follow-up with your primary care doctor (PCP) within 1 week of discharge from rehabilitation. This appointment will be to ensure your blood pressure is doing well after addition of blood pressure medications. You will also need a basic metabolic panel (nonfasting blood work) in 2 weeks time. If you are still at [facility] they can draw the blood work and send results to Dr. Ryan. The PCP will also follow-up how you are doing with respect to your chest pain, shoulder pain, and how you are managing with all the new medications. Additionally, the PCP will help with disability placards or other disability paperwork. It is recommended to undergo an event monitor for 14 days that can evaluate you for any underlying arrhythmia in your heart post-stroke. This can be ordered through your PCP. It was a pleasure taking care of you! Please call if you have any questions or problems. You can reach a [facility] hospitalist on duty at [facility] 24 hours a day by calling [phone]. Take care of yourself. Tiffanie Mcgovern, DO [facility] Prescriptions: New atorvastatin 40 mg Tablet 40 mg PO QAM Qty: 30 RF: 0 metoprolol succinate 25 mg Tablet Extended Release 24 Hr 25 mg PO QAM Qty: 30 RF: 0 tramadol 50 mg tablet 50 - 100 mg PO Q6H PRN (Reason: pain) Qty: 20 RF: 0 clonazepam 0.5 mg Tablet 0.5 mg PO BID Qty: 10 RF: 0 acetaminophen [Tylenol Extra Strength] 500 mg Tablet 1,000 mg PO Q8 5 Days Qty: 30 RF: 0 aspirin [Ecotrin Low Strength] 81 mg Tablet,Delayed Release (Dr/Ec) 81 mg PO DAILY Qty: 30 RF: 0 hydrochlorothiazide 25 mg Tablet 12.5 mg PO QAM Qty: 30 RF: 0 docusate sodium 100 mg Capsule 100 mg PO BID Qty: 60 RF: 0 Continued gabapentin 300 mg capsule 600 mg PO HS RF: 0 fluoxetine 40 mg capsule 40 mg PO HS RF: 0 lisinopril 40 mg tablet 40 mg PO DAILY RF: 0 promethazine 25 mg tablet 25 mg PO Q6H PRN (Reason: nausea and vomiting) Qty: 12 RF: 0 omeprazole 40 mg Capsule,Delayed Release(Dr/Ec) 40 mg PO DAILY RF: 0 Discontinued clonazepam 0.5 mg tablet 0.5 mg PO HS RF: 0 warfarin 5 mg tablet 5 mg PO [id number] RF: 0 tramadol 50 mg tablet 50 mg PO Q6 PRN (Reason: Pain) RF: 0 warfarin 5 mg tablet 2.5 mg PO TU@1600 RF: 0 lamotrigine 25 mg tablet 25 mg PO BID PRN (Reason: Headache) RF: 0 Stand-Alone Forms: [facility] Discharge Orders: Discharge Order (Routine); Ordered 03/01/19 Ordered By: Tiffanie Mcgovern Skilled Items Patient informed of condition?: Yes DNR: No Discharge Level of Care: Skilled Communicable Disease: No Discharge Prognosis: Stable Admission Data Admit Date/Time: 02/22/19 15:50 Attending Provider: Tiffanie Mcgovern Admit Provider: Tiffanie Mcgovern Primary Care Provider: Abraham Ryan Other Providers: Tiffanie Mcgovern ; Leonel Magdaleno III ; Simeon Calvillo Service: Telemetry Other Interventions: Discharge Summary Assessment (RN) Last Done: 03/01/19 16:09 Pending Studies at Discharge: No DC Date/Time DO NOT enter until pt leaves facility: 03/01/19 17:00
== END 2019-03-01 17:00 | DRG 65 ==
LOC: ED 13:41 → 2S 15:50 → SUATTDRO 15:50 → 2S 16:32

== ENCOUNTER 2021-11-06 21:55 | Observation (INO) ==
[2021-11-06 22:41] LABS: Basophils # (auto) 0.01 K/uL (0-0.2); Basophils % (auto) 0.1 %; Eosinophils # (auto) 0.07 K/uL (0-0.5); Eosinophils % (auto) 0.6 %; Hematocrit (blood only) 42.7 % (37-47); Hemoglobin 14.4 g/dL (12.0-16.0); Immature Granulocytes # (auto) 0.03 K/uL (0.00-0.02); Immature Granulocytes % (auto) 0.3 %; Lymphocytes # (auto) 0.79 K/uL (1.2-3.4); Lymphocytes % (auto) 7.1 %; Mean Corpuscular Hemoglobin 32.2 pg (25-34); Mean Corpuscular Hgb Conc 33.7 g/dL (32-36); Mean Corpuscular Volume 95.5 fL (80-100); Mean Platelet Volume 10.8 fL (7.4-10.4); Monocytes # (auto) 0.71 K/uL (0.11-0.59); Monocytes % (auto) 6.4 %; Neutrophils # (auto) 9.46 K/uL (1.4-6.5); Neutrophils % (auto) 85.5 %; Platelet Count 254 K/uL (130-400); RDW Coefficient of Variation 12.9 % (11.5-14.5); RDW Standard Deviation 44.7 fL (36.4-46.3); Red Blood Count 4.47 M/uL (4.2-5.4); White Blood Count 11.07 K/uL (4.8-10.8)
[2021-11-06 23:00] LABS: Alanine Aminotransferase 34 U/L (7-52); Albumin Globulin Ratio 1.1 (0.9-2); Albumin Level 3.8 gm/dl (3.4-5.0); Alkaline Phosphatase 85 U/L (34-104); Anion Gap 9 (3-11); BUN Creatinine Ratio 25.2 (10-20); Bilirubin,Total 0.9 mg/dl (0.2-1.0); Blood Urea Nitrogen 58 mg/dl (6-23); Calcium 9.5 mg/dl (8.5-10.1); Carbon Dioxide 24 mmol/L (21-32); Chloride 103 mmol/L (98-107); Est GFR (African American) 26.3 ml/min; Est GFR (Non-African American) 22.7 ml/min; Globulin 3.6 gm/dl (2.5-4.0); Glucose 101 mg/dl (70-99(Fasting)); Sodium 136 mmol/L (136-145); Total Protein 7.4 gm/dl (6.0-8.3)
[2021-11-06] MEDS ORDERED: SODIUM CHLORIDE 0.9% 1000ML 1,000 ML IV ONE (23:08)
[2021-11-06 23:56] LABS: INR 1.1 (0.9-1.1); Partial Thromboplastin Time 27.3 Seconds (21.0-31.0); Prothrombin Time 11.5 Seconds (9.0-12.0)
[2021-11-07] MEDS ORDERED: PROMETHAZINE 12.5 MG/50.5 ML BAG IV STA (00:02)
[2021-11-07] MEDS ORDERED: LIDOCAINE 2% JELLY 5 ML TUBE EXT ONE (00:47)
--- NOTE | 2021-11-07 04:15 | Emergency Department Note ---
History of Present Illness General Chief complaint: Syncope (Near Syncope) Stated complaint: FAINTING & BLEEDING HEMORRHOIDS Time Seen by Provider: 11/06/21 22:04 Source: patient Mode of arrival: ambulatory Limitations: no limitations History of Present Illness Patient is a 56-year-old female who presents to the emergency department for ev aluation of rectal bleeding, weakness and lightheadedness. Patient reports that she has been constipated for over a week and has developed significant hemorrhoids. She notes that every time she tries to have a bowel movement, she fills the toilet bowl with blood. She states that throughout the day today, she has felt shaky and lightheaded. She feels like she is going to pass out at times. She does report some abdominal discomfort. Patient denies a history of GI bleeding, but does note a history of hemorrhoids. She does not take any anticoagulants. Home Medications Medication Instructions Recorded Confirmed Type Aspirating [place] 11/07/21 11/07/21 History albuterol sulfate 90 mcg/actuation 2 puff INHALATION QID PRN 11/07/21 11/07/21 History aerosol inhaler aspirin 81 mg chewable tablet 81 mg PO DAILY 11/07/21 11/07/21 History (Aspirin Childrens) atorvastatin 40 mg tablet 40 mg PO DAILY 11/07/21 11/07/21 History clonazepam 0.5 mg tablet 0.5 mg PO TID 11/07/21 11/07/21 History fluoxetine 40 mg capsule 80 mg PO DAILY 11/07/21 11/07/21 History gabapentin 800 mg tablet 800 mg PO HS 11/07/21 11/07/21 History hydrochlorothiazide 25 mg tablet 25 mg PO DAILY 11/07/21 11/07/21 History lamotrigine 25 mg tablet 25 mg PO BID 11/07/21 11/07/21 History lisinopril 40 mg tablet 40 mg PO DAILY 11/07/21 11/07/21 History metoprolol succinate 25 mg 25 mg PO DAILY 11/07/21 11/07/21 History tablet,extended release 24 hr metronidazole 1 % topical gel 1 applic TOPICAL BID 11/07/21 11/07/21 History (Metrogel) omeprazole 40 mg capsule,delayed 40 mg PO BID 11/07/21 11/07/21 History release promethazine 25 mg tablet 25 mg PO Q6 PRN 11/07/21 11/07/21 History semaglutide (Ozempic) 2.5 mg SUBCUT WK 11/07/21 11/07/21 History sumatriptan succinate 50 mg tablet 100 mg PO DIRECTED PRN 11/07/21 11/07/21 History tramadol 50 mg tablet 50 mg PO Q6 PRN 11/07/21 11/07/21 History Allergies Allergy/AdvReac Type Severity Reaction Status Date / Time Penicillins Allergy Unknown REACTION Verified 11/07/21 02:16 UNKNOWN- CHILDHOOD ALLERGY Sulfa (Sulfonamide AdvReac Intermediate N/V Verified 11/07/21 02:16 Antibiotics) Past Med/Surg History Medical History Arthritis CVA (cerebral vascular accident) 2018 (STILL HAS SLURRED SPEECH/GENERAL WEAKNESS/MEMORY PROBLEMS)- PT FALL RISK Depression with anxiety Fibromyalgia ALWAYS HAS ISSUES GERD (gastroesophageal reflux disease) OCCURS MOSTLY AT NIGHT - RELIEVED WITH TUMS; TAKES OMEPRAZOLE BID History of pulmonary embolism 2017 "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" ON COUMADIN X MONTHS- D/C'ED AND PUT ON ASA- NO ISSUES SINCE HTN (hypertension) Hyperlipidemia PT DENIES - ON STATIN SECONDARY TO STROKE IBS (irritable bowel syndrome) DIARRHEA AND CONSTIPATION COMBINATION Interstitial cystitis Meniere disease Chronic lightheadedness and dizziness Migraine Nausea and vomiting after administration of anesthetic agent Neuropathy RIGHT LE AND BILATERAL FEET Restless leg syndrome STABLE WITH MED 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 Cerebral aneurysm Father , age 63 of an [place] Myocardial infarction Other Diabetes Heart disease Hypertension No family history of adverse response to anesthesia Social History Smoking Status: Never smoker Second Hand Exposure: Yes ( A CHILD); Hx Alcohol Use: Yes Alcohol type: wine Alcohol Intake Frequency Comment: Once a month. Hx Substance Use: No Preferred Language: Wolof Communication Ability: Effective Company Marker Required: No Beliefs That Will Affect Care: None marital status: Current Living Situation: Spouse current occupational status: employed current occupation: Works at the [employer]. 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 Feels Safe at Home: Yes Assistive Devices: Glasses and Walker Review of Systems A total of 10 systems reviewed and were otherwise negative Physical Exam Vital Signs Vital Signs - 24 hr 11/06/21 21:57 11/06/21 23:03 11/06/21 23:06 Temperature 36.9 C Temperature Source Temporal Artery Scan Pulse Rate - Lying Pulse Rate - Sitting Pulse Rate - Standing Pulse Rate 81 72 71 Pulse Rate from SpO2 Sensor 72 71 Respiratory Rate 16 22 20 Respiratory Effort / Characteristics Respiratory Depth Respiratory Pattern Blood Pressure - Lying Blood Pressure - Sitting Blood Pressure- Standing Blood Pressure 117/79 129/85 Blood Pressure [Left Arm] Blood Pressure Mean 91 99 Blood Pressure Mean [Left Arm] Blood Pressure Position [Left Arm] Pulse Oximetry 98 97 99 Oxygen Delivery Method Room Air Sepsis Recent Fever Within 48 Hours No Sepsis New/Unexplained Change in Mental Status N/A Sepsis Action Taken by Nursing No Action Required 11/06/21 23:10 11/06/21 23:11 11/06/21 23:12 Temperature Temperature Source Pulse Rate - Lying Pulse Rate - Sitting Pulse Rate - Standing Pulse Rate 76 78 88 Pulse Rate from SpO2 Sensor 77 80 88 Respiratory Rate 19 20 18 Respiratory Effort / Characteristics Respiratory Depth Respiratory Pattern Blood Pressure - Lying Blood Pressure - Sitting Blood Pressure- Standing Blood Pressure 126/77 87/55 L Blood Pressure [Left Arm] Blood Pressure Mean 91 93 65 Blood Pressure Mean [Left Arm] Blood Pressure Position [Left Arm] Pulse Oximetry 100 100 100 Oxygen Delivery Method Sepsis Recent Fever Within 48 Hours Sepsis New/Unexplained Change in Mental Status Sepsis Action Taken by Nursing 11/06/21 23:20 11/06/21 23:23 11/06/21 23:24 Temperature Temperature Source Pulse Rate - Lying 71 Pulse Rate - Sitting 78 Pulse Rate - Standing 93 H Pulse Rate 70 Pulse Rate from SpO2 Sensor 69 Respiratory Rate 17 Respiratory Effort / Characteristics Respiratory Depth Respiratory Pattern Blood Pressure - Lying 129/85 Blood Pressure - Sitting 126/77 Blood Pressure- Standing 87/55 L Blood Pressure Blood Pressure [Left Arm] Blood Pressure Mean Blood Pressure Mean [Left Arm] Blood Pressure Position [Left Arm] Pulse Oximetry 98 99 Oxygen Delivery Method Room Air Sepsis Recent Fever Within 48 Hours Sepsis New/Unexplained Change in Mental Status Sepsis Action Taken by Nursing 11/06/21 23:30 11/06/21 23:31 11/06/21 23:32 Temperature Temperature Source Pulse Rate - Lying Pulse Rate - Sitting Pulse Rate - Standing Pulse Rate 74 70 Pulse Rate from SpO2 Sensor 72 70 Respiratory Rate 17 19 20 Respiratory Effort / Characteristics Non-Labored Respiratory Depth Normal Respiratory Pattern Regular Blood Pressure - Lying Blood Pressure - Sitting Blood Pressure- Standing Blood Pressure 110/81 Blood Pressure [Left Arm] 110/81 Blood Pressure Mean 90 Blood Pressure Mean [Left Arm] 90 Blood Pressure Position [Left Arm] Lying Pulse Oximetry 93 100 94 Oxygen Delivery Method Room Air Sepsis Recent Fever Within 48 Hours Sepsis New/Unexplained Change in Mental Status Sepsis Action Taken by Nursing 11/06/21 23:40 11/06/21 23:50 11/07/21 00:00 Temperature Temperature Source Pulse Rate - Lying Pulse Rate - Sitting Pulse Rate - Standing Pulse Rate 70 71 68 Pulse Rate from SpO2 Sensor 70 70 69 Respiratory Rate 15 22 13 Respiratory Effort / Characteristics Respiratory Depth Respiratory Pattern Blood Pressure - Lying Blood Pressure - Sitting Blood Pressure- Standing Blood Pressure Blood Pressure [Left Arm] Blood Pressure Mean Blood Pressure Mean [Left Arm] Blood Pressure Position [Left Arm] Pulse Oximetry 98 97 100 Oxygen Delivery Method Sepsis Recent Fever Within 48 Hours Sepsis New/Unexplained Change in Mental Status Sepsis Action Taken by Nursing 11/07/21 00:10 11/07/21 00:20 11/07/21 00:30 Temperature Temperature Source Pulse Rate - Lying Pulse Rate - Sitting Pulse Rate - Standing Pulse Rate 72 71 72 Pulse Rate from SpO2 Sensor 71 71 72 Respiratory Rate 21 22 21 Respiratory Effort / Characteristics Respiratory Depth Respiratory Pattern Blood Pressure - Lying Blood Pressure - Sitting Blood Pressure- Standing Blood Pressure Blood Pressure [Left Arm] Blood Pressure Mean Blood Pressure Mean [Left Arm] Blood Pressure Position [Left Arm] Pulse Oximetry 100 100 100 Oxygen Delivery Method Sepsis Recent Fever Within 48 Hours Sepsis New/Unexplained Change in Mental Status Sepsis Action Taken by Nursing VITALS: Vitals are noted on the nurse's note and reviewed by myself. GENERAL: This is a 56-year-old female, in no acute distress, well-developed well-nourished. SKIN: The skin was without rashes. EARS: External auditory canals clear, tympanic membranes pearly hernandez without erythema or effusion bilaterally. EYES: Pupils equal round and reactive to light and accommodation. NOSE: Patent, turbinates without inflammation or discharge. MOUTH: Mucous membranes moist. Tonsils are not enlarged. Pharynx without erythema or exudate. NECK: Supple without nuchal rigidity. No lymphadenopathy. HEART: Regular rate and rhythm without murmurs gallops or rubs. LUNGS: Clear to auscultation bilaterally without wheezes, rales or rhonchi. ABDOMEN: Positive bowel sounds x 4. Soft, tenderness to palpation throughout the mid abdomen bilaterally. No guarding or rebound tenderness. RECTAL: Large external hemorrhoids noted. No thrombosis. Digital exam reveals light brown stool streaked with red blood. NEURO: Patient was alert and oriented to person place and time. Course Administered Medications Sodium Chloride (Nss 1000ml) 1,000 mls @ 125 mls/hr IV .Q8H JUAN CARLOS Stop: 12/07/21 04:28 Last Admin: 11/07/21 05:13 Dose: 125 mls/hr Documented by: [id number] Ondansetron HCl (Ondansetron Inj 2 Mg/Ml 2 Ml Vial) 4 mg IV Q6H PRN PRN Reason: Nausea Stop: 12/07/21 04:28 Last Admin: 11/07/21 05:08 Dose: 4 mg Documented by: [id number] Discontinued Medications Sodium Chloride (Nss 1000ml) 1,000 mls @ 999 mls/hr IV .Q1H1M ONE Stop: 11/07/21 00:08 Last Infusion: 11/07/21 01:03 Dose: 0 mls/hr Documented by: [id number] Admin: 11/07/21 00:18 Dose: 999 mls/hr Documented by: [id number] Promethazine HCl (Phenergan) 12.5 mg in 50.5 mls @ 202 mls/hr IV NOW STA Stop: 11/07/21 00:16 Last Infusion: 11/07/21 01:03 Dose: 0 mls/hr Documented by: [id number] Admin: 11/07/21 00:29 Dose: 202 mls/hr Documented by: [id number] Lidocaine HCl (Lidocaine 2% Jelly 5 Ml Tube) 10 ml EXT NOW ONE Stop: 11/07/21 00:48 Last Admin: 11/07/21 01:07 Dose: 10 ml Documented by: [id number] Medical Decision Making Differential Diagnosis Diverticulosis, AVM, coagulopathy, colitis, inflammatory bowel disease, malignan cy, Erin-Sage tear, esophagitis, peptic ulcer disease, variceal bleed, gastritis, epistaxis, fissure, hemorrhoids, as well as other pathologies. Home Medications Current Medication List: was personally reviewed by me Laboratory Data Attestation: I reviewed the patient's lab results. Result diagrams: 11/06/21 22:25 11/06/21 23:22 Lab Results 11/06/21 11/06/21 11/06/21 Range/Units 22:25 22:25 22:25 WBC 11.07 H (4.8-10.8) K/uL RBC 4.47 (4.2-5.4) M/uL Hgb 14.4 (12.0-16.0) g/dL Hct 42.7 (37-47) % MCV 95.5 (80-100) fL MCH 32.2 (25-34) pg MCHC 33.7 (32-36) g/dL RDW Std Deviation 44.7 (36.4-46.3) fL RDW Coeff of Karen 12.9 (11.5-14.5) % Plt Count 254 (130-400) K/uL MPV 10.8 H (7.4-10.4) fL Immature Gran % (Auto) 0.3 % Neut % (Auto) 85.5 % Lymph % (Auto) 7.1 % Perry % (Auto) 6.4 % Eos % (Auto) 0.6 % Baso % (Auto) 0.1 % Neut # (Auto) 9.46 H (1.4-6.5) K/uL Lymph # (Auto) 0.79 L (1.2-3.4) K/uL Perry # (Auto) 0.71 H (0.11-0.59) K/uL Eos # (Auto) 0.07 (0-0.5) K/uL Baso # (Auto) 0.01 (0-0.2) K/uL Immature Gran # (Auto) 0.03 H (0.00-0.02) K/uL PT Cancelled INR Cancelled APTT Cancelled PTT Ratio Cancelled Sodium 136 (136-145) mmol/L Potassium TNP Chloride 103 (98-107) mmol/L Carbon Dioxide 24 (21-32) mmol/L Anion Gap 9 (3-11) BUN 58 H (6-23) mg/dl Creatinine 2.30 H (0.6-1.2) mg/dl Est Cr Clr Drug Dosing Not Reportable Est GFR ( Amer) 26.3 ml/min Est GFR (Non-Af Amer) 22.7 ml/min BUN/Creatinine Ratio 25.2 H (10-20) Glucose 101 H (70-99(Fasting)) mg/dl Calcium 9.5 (8.5-10.1) mg/dl Total Bilirubin 0.9 (0.2-1.0) mg/dl AST TNP ALT 34 (7-52) U/L Alkaline Phosphatase 85 (34-104) U/L Total Protein 7.4 (6.0-8.3) gm/dl Albumin 3.8 (3.4-5.0) gm/dl Globulin 3.6 (2.5-4.0) gm/dl Albumin/Globulin Ratio 1.1 (0.9-2) SARS-CoV-2, RNA, NAAT (NEGATIVE) Blood Type Antibody Screen 11/06/21 11/06/21 11/06/21 Range/Units 22:50 23:22 23:22 WBC (4.8-10.8) K/uL RBC (4.2-5.4) M/uL Hgb (12.0-16.0) g/dL Hct (37-47) % MCV (80-100) fL MCH (25-34) pg MCHC (32-36) g/dL RDW Std Deviation (36.4-46.3) fL RDW Coeff of Karen (11.5-14.5) % Plt Count (130-400) K/uL MPV (7.4-10.4) fL Immature Gran % (Auto) % Neut % (Auto) % Lymph % (Auto) % Perry % (Auto) % Eos % (Auto) % Baso % (Auto) % Neut # (Auto) (1.4-6.5) K/uL Lymph # (Auto) (1.2-3.4) K/uL Perry # (Auto) (0.11-0.59) K/uL Eos # (Auto) (0-0.5) K/uL Baso # (Auto) (0-0.2) K/uL Immature Gran # (Auto) (0.00-0.02) K/uL PT 11.5 INR 1.1 APTT 27.3 PTT Ratio 1.0 Sodium (136-145) mmol/L Potassium 4.0 Chloride (98-107) mmol/L Carbon Dioxide (21-32) mmol/L Anion Gap (3-11) BUN (6-23) mg/dl Creatinine (0.6-1.2) mg/dl Est Cr Clr Drug Dosing Est GFR ( Amer) ml/min Est GFR (Non-Af Amer) ml/min BUN/Creatinine Ratio (10-20) Glucose (70-99(Fasting)) mg/dl Calcium (8.5-10.1) mg/dl Total Bilirubin (0.2-1.0) mg/dl AST 35 ALT (7-52) U/L Alkaline Phosphatase (34-104) U/L Total Protein (6.0-8.3) gm/dl Albumin (3.4-5.0) gm/dl Globulin (2.5-4.0) gm/dl Albumin/Globulin Ratio (0.9-2) SARS-CoV-2, RNA, NAAT (NEGATIVE) Blood Type Cancelled Antibody Screen Cancelled 11/06/21 11/07/21 Range/Units 23:22 01:09 WBC (4.8-10.8) K/uL RBC (4.2-5.4) M/uL Hgb (12.0-16.0) g/dL Hct (37-47) % MCV (80-100) fL MCH (25-34) pg MCHC (32-36) g/dL RDW Std Deviation (36.4-46.3) fL RDW Coeff of Karen (11.5-14.5) % Plt Count (130-400) K/uL MPV (7.4-10.4) fL Immature Gran % (Auto) % Neut % (Auto) % Lymph % (Auto) % Perry % (Auto) % Eos % (Auto) % Baso % (Auto) % Neut # (Auto) (1.4-6.5) K/uL Lymph # (Auto) (1.2-3.4) K/uL Perry # (Auto) (0.11-0.59) K/uL Eos # (Auto) (0-0.5) K/uL Baso # (Auto) (0-0.2) K/uL Immature Gran # (Auto) (0.00-0.02) K/uL PT INR APTT PTT Ratio Sodium (136-145) mmol/L Potassium Chloride (98-107) mmol/L Carbon Dioxide (21-32) mmol/L Anion Gap (3-11) BUN (6-23) mg/dl Creatinine (0.6-1.2) mg/dl Est Cr Clr Drug Dosing Est GFR ( Amer) ml/min Est GFR (Non-Af Amer) ml/min BUN/Creatinine Ratio (10-20) Glucose (70-99(Fasting)) mg/dl Calcium (8.5-10.1) mg/dl Total Bilirubin (0.2-1.0) mg/dl AST ALT (7-52) U/L Alkaline Phosphatase (34-104) U/L Total Protein (6.0-8.3) gm/dl Albumin (3.4-5.0) gm/dl Globulin (2.5-4.0) gm/dl Albumin/Globulin Ratio (0.9-2) SARS-CoV-2, RNA, NAAT NEGATIVE (NEGATIVE) Blood Type O Positive Antibody Screen NEGATIVE Imaging Data Attestation: I personally reviewed and interpreted this imaging study as fol lows: Radiologist's Impression: CT ABDOMEN & PELVIS Without Contrast: Comparison: 10/31/2013. Mild posterior dependent atelectasis. Normal cardiac size. Status post cholecystectomy otherwise unremarkable biliary system. Normal liver, spleen, pancreas and bilateral adrenal glands. Normal right kidney. Tiny stones within the lower pole of the left kidney measuring 4 mm. Otherwise normal left kidney. Minor atherosclerosis of aorta otherwise normal aorta. Normal stomach. No hiatal hernia. Normal small bowel. Normal appendix. Mild thickening of the wall throughout the colon more severe through the transverse colon consistent with colitis. Degenerative disease of the spine with Schmorl nodes at L2-L3. Mild degenerative disease of bilateral SI joints and hips. Radiologist:Noni Hannah MD MDM Narrative Continuous phototypesetting equipment monitor: Order was placed for continuous phototypesetting equipment monitor. Patient was placed on the phototypesetting equipment monitor. Patient was noted to be in normal sinus rhythm at an initial rate of 75 bpm. The patient is a 56-year-old female who presents today complaining of rectal bleeding and weakness/lightheadedness. Labs revealed no leukocytosis or anemia. Patient is noted to have an acute kidney injury with creatinine of 2.30. Coags are within normal limits. Patient was noted to have orthostatic hypotension. CT of the abdomen/pelvis was performed due to her abdominal discomfort and was negative. Patient was treated with Phenergan for upset stomach and topical li docaine jelly for her hemorrhoids. Due to her LILLI and GI bleed with orthostatic hypotension, I do feel patient will require further evaluation in the hospital. The [facility] was consulted and agreed to evaluate the patient for further care. Impression & Plan Rectal bleeding, Acute kidney injury, Hemorrhoids, Orthostatic hypotension Discharge Plan Visit Data Chief Complaint: Syncope (Near Syncope) Stated Complaint: FAINTING & BLEEDING HEMORRHOIDS ED Provider: Isak Orozco ED Midlevel Provider: Radha Weller Discharge Problem: Rectal bleeding, Acute kidney injury, Hemorrhoids, Orthostatic hypotension Patient Disposition: Admitted As Inpatient Discharge Instructions Interventions: ED Discharge Assessment Last Done: 11/07/21 04:09 Discharge Problem: Hemorrhoids Qualifiers: Hemorrhoid type: unspecified Qualified Code(s): K64.9 - Unspecified hemorrhoids
[2021-11-07] MEDS ORDERED: HYDROmorphone INJ 0.5 MG/0.5 ML SYR IV PRN (04:29)
[2021-11-07] MEDS ORDERED: NITROGLYCERIN SL 0.4 MG/TAB TAB SL PRN (04:29)
[2021-11-07] MEDS ORDERED: HYDROCORTISONE HC 2.5% CRM 30GM TUBE EXT PRN (04:29)
[2021-11-07] MEDS ORDERED: ALBUTEROL HFA 8 GM INHALER INH PRN (04:29)
[2021-11-07] MEDS ORDERED: ACETAMINOPHEN 325 MG TAB PO PRN (04:29)
[2021-11-07] MEDS ORDERED: SUMAtriptan succinate 100 MG TAB PO PRN (04:29)
[2021-11-07] MEDS ORDERED: POLYETHYLENE (MIRALAX) 17 GM PACK PO PRN (04:29)
[2021-11-07] MEDS ORDERED: GLUCOSE 40% GEL 15 GM TUBE PO PRN (05:00)
[2021-11-07] MEDS ORDERED: GLUCOSE 10 TABS/TUBE PO PRN (05:00)
[2021-11-07] MEDS ORDERED: DEXTROSE 50% 50 ML SYRINGE IV PRN (05:00)
[2021-11-07] MEDS ORDERED: CARBOHYDRATES FOR HYPOGLYCEMIA PO PRN (05:00)
[2021-11-07] MEDS ORDERED: GLUCAGON FOR INJ 1 MG VIAL IM PRN (05:00)
[2021-11-07] MEDS: ONDANSETRON INJ 2 MG/ML 2 ML VIAL IV PRN ×2 (05:08→12:25)
[2021-11-07] MEDS: SODIUM CHLORIDE 0.9% 1000ML 1,000 ML IV SCH ×3 (05:13→23:20)
[2021-11-07] MEDS: PROMETHAZINE HCL 25 MG TAB PO PRN ×2 (06:22→20:56)
--- NOTE | 2021-11-07 07:04 | History and Physical Report ---
DATE OF ADMISSION: 11/07/2021. CHIEF COMPLAINT: Near syncope and abdominal pain, rectal bleeding. HISTORY OF PRESENT ILLNESS: A 56-year-old female with past medical history significant for allergic rhinitis, hypertension, morbid obesity, irritable bowel syndrome, chronic interstitial cystitis, chronic kidney disease stage III, fibromyalgia, migraines, history of angioneurotic edema, history of pulmonary embolism, anxiety, mood disorder, history of CVA, history of hemorrhoids, presents with near syncope. The patient says since last 3-4 days, she is having blood in the stools and she attributes it to her hemorrhoids acting up and a lot of rectal pain and she also developed some abdominal pain and some nausea, but otherwise she is eating and drinking okay. Recently in September, her HbA1c was 6.5 and she was prescribed Ozempic, but she did diet control and not eating sugars and recheck of HbA1c in October first week was 6.1. But she thought of taking Ozempic because it also helps with the weight loss. She took one dose. Since stroke IN 2017, she has some left-sided weakness and left leg weakness and she ambulates with holding to things and while she was ambulating today, her legs gave up and she fell down. She did not hit her head. She was lying on the floor for some time until her came and helped her. She says she did not pass out during the episode. Because of these symptoms, she came to the ER and in the ER orthostatics were positive and her creatinine bumped up to 2.3. CAT scan of the pelvis on the preliminary report, colitis seen. Currently, resting comfortably, hemodynamically stable. Denies any headache. Has some blurred visions. No earache, no runny nose, no sore throat, no cough. Sometimes has abdominal pain radiates to chest, but otherwise no chest pain. No shortness of breath. Constipated. Normal bladder movements. No swelling in the legs. ALLERGIES: PENICILLIN, SULFA ANTIBIOTICS. PAST MEDICAL HISTORY: As mentioned above. PAST SURGICAL HISTORY: Colonoscopy, EGDs, laparoscopic cholecystectomy, total abdominal hysterectomy with removal of tubes. MEDICATIONS: The patient is on albuterol 2 puffs inhalation q.i.d. p.r.n., aspirin 81 mg p.o. daily, atorvastatin 40 mg p.o. daily, clonazepam 0.5 mg p.o. t.i.d., fluoxetine 80 mg p.o. daily, gabapentin 800 mg p.o. at bedtime, hydrochlorothiazide 25 mg p.o. daily, Lamictal 25 mg p.o. b.i.d., lisinopril 40 mg p.o. daily, metoprolol succinate 25 mg p.o. daily, MetroGel application topical b.i.d., omeprazole 40 mg p.o. b.i.d., promethazine 25 mg p.o. q. 6 hours p.r.n., Ozempic 0.25 mg subcutaneous weekly, sumatriptan 100 mg p.o. p.r.n., tramadol 50 mg p.o. q. 6 hours p.r.n. FAMILY HISTORY: Significant for brother has prostate cancer, mother has hearing loss. SOCIAL HISTORY: , no smoking. Alcohol occasional. No drug use. REVIEW OF SYSTEMS: As per HPI. Rest of review of systems is negative. PHYSICAL EXAMINATION: GENERAL: The patient is morbidly obese, not in acute distress. VITAL SIGNS: Temperature 36.9, pulse 81, respiratory rate 20, blood pressure 110/81, oxygen 94% on room air. HEENT: Pupils equal, round and reactive to right. Left facial droop present. Oral mucosa dry. NECK: No JVD. No neck masses. CARDIOVASCULAR: S1 and S2 heard. Regular rate and rhythm. No murmur, no gallop. RESPIRATORY SYSTEM: Normal AP diameter. No accessory muscle use. No wheezing, no crackles. ABDOMEN: Soft, bowel sounds present, nontender, no distention. CENTRAL NERVOUS SYSTEM: Cranial nerves II through XII are grossly intact, left leg weakness?. EXTREMITIES: No edema, no erythema. LABORATORY DATA: WBC 11.07, hemoglobin 14.4, hematocrit 42.7, platelets 254. PT 11.5, INR 1.1, APTT 27.3. Sodium 136, potassium 4, chloride 103, bicarbonate 24, BUN 58, creatinine of 2.3, serum glucose 101, calcium 9.8, total bilirubin 0.9, AST 35, ALT 34, alkaline phosphatase 85. SARS-CoV-2 rapid test done, negative. IMAGING DATA: CT of abdomen and pelvis without contrast, preliminary report, colitis seen. ASSESSMENT AND PLAN: This is a 56-year-old female who presents with abdominal pain, rectal pain, rectal bleeding, and near syncope. 1. Near syncope, orthostatic hypotension in ER. Getting gentle fluids, continue IV fluids. Check orthostatics q. shift. Follow echocardiogram. Monitor in the med tele. 2. Abdominal pain, rectal pain, rectal bleeding, possibly from hemorrhoids: Hemoglobin stable. CAT scan is showing severe colitis. We will check the stool for C diff. Currently n.p.o. IV antiemetics, IV fluids. Consult GI in the a.m. for further recommendations.Will follow final report of ct scan. 3. Acute kidney injury: Baseline creatinine around 1.1-1.2, currently creatinine of 2.3. Holding hydrochlorothiazide, holding lisinopril. Avoid nephrotoxic agents. Getting fluids. Monitor the blood pressure. 4. Diabetes, prediabetes: Recently in September, HbA1c was 6.5, repeat after diet control in first week of october was 6.1, but the patient is still taking Ozempic because it helps with weight loss. Ozempic also has side effect profile of abdominal pain, constipation, or diarrhea and acute kidney injury. Her symptoms could be side effects from the Ozempic, will hold the Ozempic. Ozempic can also cause pancreatitis, will check the lipase levels. Follow the final report of the CAT scan. ISS while in hospital. Will follow hba1c levels. 5. Morbid obesity: Needs counseling. Needs sleep study as outpatient. 6. Hyperlipidemia: Continue statin. 7. History of cerebrovascular accident with left leg weakness?: Continue atorvastatin. Holding the aspirin for GI bleed. 8. Hypertension: Continue metoprolol. Holding lisinopril/hydrochlorothiazide. Will monitor the blood pressure. 8. Gastroesophageal reflux disease: Continue omeprazole for now. 9. History of chronic interstitial cystitis. 10. History of irritable bowel syndrome. 11. History of migraine: On sumatriptan p.r.n. 12. Deep venous thrombosis prophylaxis: Sequential compression devices for now. DISPOSITION: Closely monitor in the med tele. PT/OT prior to discharge. Social service to help with discharge planning. Job ID: [id number]
[2021-11-07] MEDS: INSULIN ASPART PER UNIT SC SCH ×3 (07:34→18:52)
--- NOTE | 2021-11-07 07:36 | CT Scan Report ---
ABDOMEN AND PELVIS CT WITHOUT CONTRAST CT DOSE: 3.41 mGy.cm HISTORY: Generalized abdominal pain TECHNIQUE: Multiaxial CT images of the abdomen and pelvis were performed without contrast. A dose lo wering technique was utilized adhering to the principles of ALARA. COMPARISON STUDY: Abdomen and pelvis CT 01/03/2021. FINDINGS: The lung bases are essentially clear. No pneumoperitoneum. No pneumatosis. Focal endplate i ndentations of the left side of L2 and L3 superior endplates remain unchanged. This could be due to S chmorl's nodes are old compression deformities. Cholecystectomy. The unenhanced liver, spleen, adrena l glands, and pancreas are unremarkable. There is a 4 mm stone within the lower pole the left kidney, unchanged. Stable hypodense lesions within the left kidney which are incompletely characterized on t his noncontrast study but statistically represent cysts. No retroperitoneal lymphadenopathy. Normal c aliber abdominal aorta. No pelvic free fluid. Hysterectomy. No evidence for bowel obstruction. Normal appendix. Mild thickening at the splenic flexure of the colon with minimal pericolonic fat stranding . This is consistent with a mild nonspecific colitis. IMPRESSION: 1. Mild nonspecific colitis at the splenic flexure of the colon. 2. No evidence for bowel obstruction. 3. Left-sided nephrolithiasis. No hydronephrosis. 4. Cholecystectomy and hysterectomy. ACT 112: Negative or not required by law. Electronically signed by: Randy Alvarez M.D. 11/07/2021 7:35 AM
[2021-11-07 07:48] LABS: Basophils # (auto) 0.01 K/uL (0-0.2); Basophils % (auto) 0.1 %; Eosinophils # (auto) 0.15 K/uL (0-0.5); Eosinophils % (auto) 1.4 %; Hematocrit (blood only) 39.3 % (37-47); Immature Granulocytes # (auto) 0.01 K/uL (0.00-0.02); Immature Granulocytes % (auto) 0.1 %; Lymphocytes # (auto) 1.34 K/uL (1.2-3.4); Lymphocytes % (auto) 12.8 %; Mean Corpuscular Hgb Conc 33.1 g/dL (32-36); Mean Corpuscular Volume 96.8 fL (80-100); Monocytes # (auto) 0.78 K/uL (0.11-0.59); Monocytes % (auto) 7.4 %; Neutrophils # (auto) 8.19 K/uL (1.4-6.5); Neutrophils % (auto) 78.2 %; Platelet Count 230 K/uL (130-400); RDW Coefficient of Variation 13.1 % (11.5-14.5); RDW Standard Deviation 46.5 fL (36.4-46.3); Red Blood Count 4.06 M/uL (4.2-5.4); White Blood Count 10.48 K/uL (4.8-10.8)
[2021-11-07 08:11] LABS: BUN Creatinine Ratio 26.7 (10-20); Calcium 9.1 mg/dl (8.5-10.1); Creatinine Clr Calc Pharmacy 38.8 ml/min; Est GFR (African American) 32.9 ml/min; Est GFR (Non-African American) 28.4 ml/min; Magnesium 1.9 mg/dl (1.7-2.4); Potassium 5.1 mmol/L (3.5-5.1); Troponin I High Sensitivity 3.9 pg/ml (0-14)
[2021-11-07] MEDS: lamoTRIgine 25 MG TAB PO SCH ×2 (09:28→20:41)
[2021-11-07] MEDS: FLUoxetine HCL 20 MG CAP PO SCH (09:28)
[2021-11-07] MEDS: PANTOprazole 40 MG TAB PO SCH ×2 (09:28→20:40)
[2021-11-07] MEDS: METOPROLOL SUCC 25MG EXT REL TAB PO SCH (09:29)
[2021-11-07] MEDS: ATORVASTATIN 40 MG TAB PO SCH (09:29)
[2021-11-07] MEDS: clonazePAM 0.5 MG TAB PO SCH ×3 (09:32→20:39)
[2021-11-07] MEDS ORDERED: ANUSOL SUPP 1 EA PR SCH (10:00)
--- NOTE | 2021-11-07 10:35 | Gastrointestinal Consultation ---
Date of Consultation November 07, 2021 Assessment & Plan (1) Rectal bleedin56 year old female with syncopal event, who notes severe abd pain before and after reported event, associated with change in bowel habits and hematochezia. imaging reviewed, presenting and testing concerning for ischemic colitis check stool studies conservative measures liquid diet as tolerated can advance if tolerating will need op colonosocpy within the 4-6 weeks Supervising Physician Co-Signing Physician Notes Pt with syncope now with abdominal pain, bleeding. Took homemade soapsuds enema on Sunday. At present, passing gas, abd soft and mildly diffusely tender, not hungry. Labs show mild lukocytosis, renal insuff. CT shows focal colitis splenic flexure. A/P: Presentation c/w ischemic colitis. She had recent soapsuds enema, but caustic injury seems less likely due to distribution of colitis. Diet as tolerated. OK to defer abx given lack of sig leukocytosis and relatively benign abd exam. WIll need outpt cscopy 4-6 weeks. Will sign off. Please reconsult as needed. History of Present Illness Reason for Consultation: abd pain Requesting Physician: jorge luis Attending Physician: Cooper Avila MD History of Present Illness 56 year old female with history of covid infection, endometriosis, fibromyalgia, asthma others below admitted w/ syncopal episode. Gi asked to evaluate for abno rmal imaging and abd pain. She notes for the last 3 days she has had generalized abd pain. SEvere at time. Sharp and cramping. Associated with change in bowel habits, constipation followed by loose stools. Has had intermittent hematochezia but notes this happens frequent given her hemorrhoids. There has been nausea, no vomiting. CTAP 2021:Mild nonspecific colitis at the splenic flexure of the colon. 2. No evidence for bowel obstruction. 3. Left-sided nephrolithiasis. No hydronephrosis. 4. Cholecystectomy and hysterectomy. Colonoscopy 2013: Preparation of the colon was poor. - The entire examined colon is normal. - The examined portion of the ileum was normal. Allergies Allergy/AdvReac Type Severity Reaction Status Date / Time Penicillins Allergy Unknown REACTION Verified 11/07/21 02:16 UNKNOWN- CHILDHOOD ALLERGY Sulfa (Sulfonamide AdvReac Intermediate N/V Verified 11/07/21 02:16 Antibiotics) Home Medications Medication Instructions Recorded Confirmed Type Aspirating Ewing 11/07/21 11/07/21 History albuterol sulfate 90 mcg/actuation 2 puff INHALATION QID PRN 11/07/21 11/07/21 History aerosol inhaler aspirin 81 mg chewable tablet 81 mg PO DAILY 11/07/21 11/07/21 History (Aspirin Childrens) atorvastatin 40 mg tablet 40 mg PO DAILY 11/07/21 11/07/21 History clonazepam 0.5 mg tablet 0.5 mg PO TID 11/07/21 11/07/21 History fluoxetine 40 mg capsule 80 mg PO DAILY 11/07/21 11/07/21 History gabapentin 800 mg tablet 800 mg PO HS 11/07/21 11/07/21 History hydrochlorothiazide 25 mg tablet 25 mg PO DAILY 11/07/21 11/07/21 History lamotrigine 25 mg tablet 25 mg PO BID 11/07/21 11/07/21 History lisinopril 40 mg tablet 40 mg PO DAILY 11/07/21 11/07/21 History metoprolol succinate 25 mg 25 mg PO DAILY 11/07/21 11/07/21 History tablet,extended release 24 hr metronidazole 1 % topical gel 1 applic TOPICAL BID 11/07/21 11/07/21 History (Metrogel) omeprazole 40 mg capsule,delayed 40 mg PO BID 11/07/21 11/07/21 History release promethazine 25 mg tablet 25 mg PO Q6 PRN 11/07/21 11/07/21 History semaglutide (Ozempic) 2.5 mg SUBCUT WK 11/07/21 11/07/21 History sumatriptan succinate 50 mg tablet 100 mg PO DIRECTED PRN 11/07/21 11/07/21 History tramadol 50 mg tablet 50 mg PO Q6 PRN 11/07/21 11/07/21 History Patient History Medical History Arthritis CVA (cerebral vascular accident) 2018 (STILL HAS SLURRED SPEECH/GENERAL WEAKNESS/MEMORY PROBLEMS)- PT FALL RISK Depression with anxiety Fibromyalgia ALWAYS HAS ISSUES GERD (gastroesophageal reflux disease) OCCURS MOSTLY AT NIGHT - RELIEVED WITH TUMS; TAKES OMEPRAZOLE BID History of pulmonary embolism 2017 "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" ON COUMADIN X MONTHS- D/C'ED AND PUT ON ASA- NO ISSUES SINCE HTN (hypertension) Hyperlipidemia PT DENIES - ON STATIN SECONDARY TO STROKE IBS (irritable bowel syndrome) DIARRHEA AND CONSTIPATION COMBINATION Interstitial cystitis Meniere disease Chronic lightheadedness and dizziness Migraine Nausea and vomiting after administration of anesthetic agent Neuropathy RIGHT LE AND BILATERAL FEET Restless leg syndrome STABLE WITH MED 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 Cerebral aneurysm Father , age 63 of an [place] Myocardial infarction Other Diabetes Heart disease Hypertension No family history of adverse response to anesthesia Social History Smoking Status: Never smoker Second Hand Exposure: Yes ( A CHILD); Hx Alcohol Use: Yes Alcohol type: wine Alcohol Intake Frequency Comment: Once a month. Hx Substance Use: No Preferred Language: Niuean Communication Ability: Effective Soft Shoe Dancer Required: No Beliefs That Will Affect Care: None marital status: Current Living Situation: Spouse current occupational status: employed current occupation: Works at the [employer]. 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 Feels Safe at Home: Yes Safety Concerns: Feels Safe At This Time Assistive Devices: Glasses and Walker Review of Systems Review of Systems: All systems reviewed & are unremarkable except as noted in HPI & below Physical Exam Constitutional: WD/WN, vitals as above Neck: trachea midline, no thyromegaly Respiratory: normal respiratory effort, lungs clear to auscultation Cardiovascular: RRR, no murmur, no edema Gastrointestinal (Abdomen): + pain with palpation, BS x 4 Results & Data ([facility]) Vital Signs (Past 12 Hours) Vital Signs Temp Pulse Pulse Resp BP BP Pulse Ox 11/07/21 08:20 36.5 C 76 18 100/67 97 11/07/21 07:38 75 11/07/21 04:35 72 11/07/21 04:31 36.5 C 73 18 99/63 L 99 11/07/21 04:30 36.5 C 73 18 99/63 L 99 11/07/21 03:37 36.4 C L 20 113/59 L 96 11/07/21 00:30 72 21 100 11/07/21 00:20 71 22 100 11/07/21 00:10 72 21 100 11/07/21 00:00 68 13 100 11/06/21 23:50 71 22 97 11/06/21 23:40 70 15 98 11/06/21 23:32 20 110/81 94 11/06/21 23:31 70 19 110/81 100 11/06/21 23:30 74 17 93 11/06/21 23:24 99 11/06/21 23:20 70 17 98 11/06/21 23:12 88 18 87/55 L 100 11/06/21 23:11 78 20 126/77 100 11/06/21 23:10 76 19 100 11/06/21 23:06 71 20 129/85 99 11/06/21 23:03 72 22 97 Laboratory Results 11/07/21 11/07/21 11/07/21 Range/Units 07:00 07:00 07:00 WBC 10.48 (4.8-10.8) K/uL RBC 4.06 L (4.2-5.4) M/uL Hgb 13.0 (12.0-16.0) g/dL Hct 39.3 (37-47) % MCV 96.8 (80-100) fL MCH 32.0 (25-34) pg MCHC 33.1 (32-36) g/dL RDW Std Deviation 46.5 H (36.4-46.3) fL RDW Coeff of Karen 13.1 (11.5-14.5) % Plt Count 230 (130-400) K/uL MPV 11.0 H (7.4-10.4) fL Immature Gran % (Auto) 0.1 % Neut % (Auto) 78.2 % Lymph % (Auto) 12.8 % Grundy % (Auto) 7.4 % Eos % (Auto) 1.4 % Baso % (Auto) 0.1 % Neut # (Auto) 8.19 H (1.4-6.5) K/uL Lymph # (Auto) 1.34 (1.2-3.4) K/uL Grundy # (Auto) 0.78 H (0.11-0.59) K/uL Eos # (Auto) 0.15 (0-0.5) K/uL Baso # (Auto) 0.01 (0-0.2) K/uL Immature Gran # (Auto) 0.01 (0.00-0.02) K/uL PT INR APTT PTT Ratio Sodium (136-145) mmol/L Potassium Chloride (98-107) mmol/L Carbon Dioxide (21-32) mmol/L Anion Gap (3-11) BUN (6-23) mg/dl Creatinine (0.6-1.2) mg/dl Est Cr Clr Drug Dosing Est GFR ( Amer) ml/min Est GFR (Non-Af Amer) ml/min BUN/Creatinine Ratio (10-20) Glucose (70-99(Fasting)) mg/dl POC Glucose (70-99) mg/dl Estimat Average Glucose Pending Hemoglobin A1c Pending Calcium (8.5-10.1) mg/dl Magnesium (1.7-2.4) mg/dl Total Bilirubin (0.2-1.0) mg/dl AST ALT (7-52) U/L Alkaline Phosphatase (34-104) U/L Troponin I High Sens (0-14) pg/ml Total Protein (6.0-8.3) gm/dl Albumin (3.4-5.0) gm/dl Globulin (2.5-4.0) gm/dl Albumin/Globulin Ratio (0.9-2) Lipase (11-82) U/L Hepatitis C Ab (EIA) Pending Hep C Ab Signal/Cutoff Pending SARS-CoV-2, RNA, NAAT (NEGATIVE) Blood Type Antibody Screen 11/07/21 11/07/21 11/07/21 Range/Units 07:00 06:27 01:09 WBC (4.8-10.8) K/uL RBC (4.2-5.4) M/uL Hgb (12.0-16.0) g/dL Hct (37-47) % MCV (80-100) fL MCH (25-34) pg MCHC (32-36) g/dL RDW Std Deviation (36.4-46.3) fL RDW Coeff of Karen (11.5-14.5) % Plt Count (130-400) K/uL MPV (7.4-10.4) fL Immature Gran % (Auto) % Neut % (Auto) % Lymph % (Auto) % Grundy % (Auto) % Eos % (Auto) % Baso % (Auto) % Neut # (Auto) (1.4-6.5) K/uL Lymph # (Auto) (1.2-3.4) K/uL Grundy # (Auto) (0.11-0.59) K/uL Eos # (Auto) (0-0.5) K/uL Baso # (Auto) (0-0.2) K/uL Immature Gran # (Auto) (0.00-0.02) K/uL PT INR APTT PTT Ratio Sodium 139 (136-145) mmol/L Potassium 5.1 D Chloride 106 (98-107) mmol/L Carbon Dioxide 27 (21-32) mmol/L Anion Gap 6 (3-11) BUN 51 H (6-23) mg/dl Creatinine 1.91 H D (0.6-1.2) mg/dl Est Cr Clr Drug Dosing 38.8 Est GFR ( Amer) 32.9 ml/min Est GFR (Non-Af Amer) 28.4 ml/min BUN/Creatinine Ratio 26.7 H (10-20) Glucose 103 H (70-99(Fasting)) mg/dl POC Glucose 94 (70-99) mg/dl Estimat Average Glucose Hemoglobin A1c Calcium 9.1 (8.5-10.1) mg/dl Magnesium 1.9 (1.7-2.4) mg/dl Total Bilirubin (0.2-1.0) mg/dl AST ALT (7-52) U/L Alkaline Phosphatase (34-104) U/L Troponin I High Sens 3.9 (0-14) pg/ml Total Protein (6.0-8.3) gm/dl Albumin (3.4-5.0) gm/dl Globulin (2.5-4.0) gm/dl Albumin/Globulin Ratio (0.9-2) Lipase 37 (11-82) U/L Hepatitis C Ab (EIA) Hep C Ab Signal/Cutoff SARS-CoV-2, RNA, NAAT NEGATIVE (NEGATIVE) Blood Type Antibody Screen 11/06/21 11/06/21 11/06/21 Range/Units 23:22 23:22 23:22 WBC (4.8-10.8) K/uL RBC (4.2-5.4) M/uL Hgb (12.0-16.0) g/dL Hct (37-47) % MCV (80-100) fL MCH (25-34) pg MCHC (32-36) g/dL RDW Std Deviation (36.4-46.3) fL RDW Coeff of Karen (11.5-14.5) % Plt Count (130-400) K/uL MPV (7.4-10.4) fL Immature Gran % (Auto) % Neut % (Auto) % Lymph % (Auto) % Grundy % (Auto) % Eos % (Auto) % Baso % (Auto) % Neut # (Auto) (1.4-6.5) K/uL Lymph # (Auto) (1.2-3.4) K/uL Grundy # (Auto) (0.11-0.59) K/uL Eos # (Auto) (0-0.5) K/uL Baso # (Auto) (0-0.2) K/uL Immature Gran # (Auto) (0.00-0.02) K/uL PT 11.5 INR 1.1 APTT 27.3 PTT Ratio 1.0 Sodium (136-145) mmol/L Potassium 4.0 Chloride (98-107) mmol/L Carbon Dioxide (21-32) mmol/L Anion Gap (3-11) BUN (6-23) mg/dl Creatinine (0.6-1.2) mg/dl Est Cr Clr Drug Dosing Est GFR ( Amer) ml/min Est GFR (Non-Af Amer) ml/min BUN/Creatinine Ratio (10-20) Glucose (70-99(Fasting)) mg/dl POC Glucose (70-99) mg/dl Estimat Average Glucose Hemoglobin A1c Calcium (8.5-10.1) mg/dl Magnesium (1.7-2.4) mg/dl Total Bilirubin (0.2-1.0) mg/dl AST 35 ALT (7-52) U/L Alkaline Phosphatase (34-104) U/L Troponin I High Sens (0-14) pg/ml Total Protein (6.0-8.3) gm/dl Albumin (3.4-5.0) gm/dl Globulin (2.5-4.0) gm/dl Albumin/Globulin Ratio (0.9-2) Lipase (11-82) U/L Hepatitis C Ab (EIA) Hep C Ab Signal/Cutoff SARS-CoV-2, RNA, NAAT (NEGATIVE) Blood Type O Positive Antibody Screen NEGATIVE 11/06/21 11/06/21 11/06/21 Range/Units 22:50 22:25 22:25 WBC (4.8-10.8) K/uL RBC (4.2-5.4) M/uL Hgb (12.0-16.0) g/dL Hct (37-47) % MCV (80-100) fL MCH (25-34) pg MCHC (32-36) g/dL RDW Std Deviation (36.4-46.3) fL RDW Coeff of Karen (11.5-14.5) % Plt Count (130-400) K/uL MPV (7.4-10.4) fL Immature Gran % (Auto) % Neut % (Auto) % Lymph % (Auto) % Grundy % (Auto) % Eos % (Auto) % Baso % (Auto) % Neut # (Auto) (1.4-6.5) K/uL Lymph # (Auto) (1.2-3.4) K/uL Grundy # (Auto) (0.11-0.59) K/uL Eos # (Auto) (0-0.5) K/uL Baso # (Auto) (0-0.2) K/uL Immature Gran # (Auto) (0.00-0.02) K/uL PT Cancelled INR Cancelled APTT Cancelled PTT Ratio Cancelled Sodium 136 (136-145) mmol/L Potassium TNP Chloride 103 (98-107) mmol/L Carbon Dioxide 24 (21-32) mmol/L Anion Gap 9 (3-11) BUN 58 H (6-23) mg/dl Creatinine 2.30 H (0.6-1.2) mg/dl Est Cr Clr Drug Dosing Not Reportable Est GFR ( Amer) 26.3 ml/min Est GFR (Non-Af Amer) 22.7 ml/min BUN/Creatinine Ratio 25.2 H (10-20) Glucose 101 H (70-99(Fasting)) mg/dl POC Glucose (70-99) mg/dl Estimat Average Glucose Hemoglobin A1c Calcium 9.5 (8.5-10.1) mg/dl Magnesium (1.7-2.4) mg/dl Total Bilirubin 0.9 (0.2-1.0) mg/dl AST TNP ALT 34 (7-52) U/L Alkaline Phosphatase 85 (34-104) U/L Troponin I High Sens (0-14) pg/ml Total Protein 7.4 (6.0-8.3) gm/dl Albumin 3.8 (3.4-5.0) gm/dl Globulin 3.6 (2.5-4.0) gm/dl Albumin/Globulin Ratio 1.1 (0.9-2) Lipase (11-82) U/L Hepatitis C Ab (EIA) Hep C Ab Signal/Cutoff SARS-CoV-2, RNA, NAAT (NEGATIVE) Blood Type Cancelled Antibody Screen Cancelled 11/06/21 Range/Units 22:25 WBC 11.07 H (4.8-10.8) K/uL RBC 4.47 (4.2-5.4) M/uL Hgb 14.4 (12.0-16.0) g/dL Hct 42.7 (37-47) % MCV 95.5 (80-100) fL MCH 32.2 (25-34) pg MCHC 33.7 (32-36) g/dL RDW Std Deviation 44.7 (36.4-46.3) fL RDW Coeff of Karen 12.9 (11.5-14.5) % Plt Count 254 (130-400) K/uL MPV 10.8 H (7.4-10.4) fL Immature Gran % (Auto) 0.3 % Neut % (Auto) 85.5 % Lymph % (Auto) 7.1 % Grundy % (Auto) 6.4 % Eos % (Auto) 0.6 % Baso % (Auto) 0.1 % Neut # (Auto) 9.46 H (1.4-6.5) K/uL Lymph # (Auto) 0.79 L (1.2-3.4) K/uL Grundy # (Auto) 0.71 H (0.11-0.59) K/uL Eos # (Auto) 0.07 (0-0.5) K/uL Baso # (Auto) 0.01 (0-0.2) K/uL Immature Gran # (Auto) 0.03 H (0.00-0.02) K/uL PT INR APTT PTT Ratio Sodium (136-145) mmol/L Potassium Chloride (98-107) mmol/L Carbon Dioxide (21-32) mmol/L Anion Gap (3-11) BUN (6-23) mg/dl Creatinine (0.6-1.2) mg/dl Est Cr Clr Drug Dosing Est GFR ( Amer) ml/min Est GFR (Non-Af Amer) ml/min BUN/Creatinine Ratio (10-20) Glucose (70-99(Fasting)) mg/dl POC Glucose (70-99) mg/dl Estimat Average Glucose Hemoglobin A1c Calcium (8.5-10.1) mg/dl Magnesium (1.7-2.4) mg/dl Total Bilirubin (0.2-1.0) mg/dl AST ALT (7-52) U/L Alkaline Phosphatase (34-104) U/L Troponin I High Sens (0-14) pg/ml Total Protein (6.0-8.3) gm/dl Albumin (3.4-5.0) gm/dl Globulin (2.5-4.0) gm/dl Albumin/Globulin Ratio (0.9-2) Lipase (11-82) U/L Hepatitis C Ab (EIA) Hep C Ab Signal/Cutoff SARS-CoV-2, RNA, NAAT (NEGATIVE) Blood Type Antibody Screen
[2021-11-07] MEDS: GABAPENTIN 800 MG TAB PO SCH (10:38)
--- NOTE | 2021-11-07 11:27 | Hospitalist Progress Note ---
Date of Service November 07, 2021 Assessment & Plan (1) Rectal bleeding: Plan: Per 's notes with addendum: Next ASSESSMENT AND PLAN: This is a 56-year-old female who presents with abdominal pain, rectal pain, rectal bleeding, and near syncope. 1. Near syncope, secondary to orthostatic hypotension, dehydration Positive orthostatic hypotension at the ER Creatinine elevated at 2.3 Creatinine improving to 1.9 Blood pressure still on the lower side Continue IV NSS Hold lisinopril, HCTZ Echocardiogram pending Monitor in telemetry unit PT/OT evaluation once BP stable 2. Abdominal pain, rectal pain, rectal bleeding, possibly from hemorrhoids: Hemoglobin stable. CAT scan is showing colitis at the splenic flexure Stool studies pending Anusol suppositories ordered GI consulted GI symptoms from Ozempic contributing question 3. Acute kidney injury: Baseline creatinine around 1.1-1.2 Management per #1 4. Diabetes, prediabetes: Recently in September, HbA1c was 6.5, repeat after diet control in first week of october was 6.1, but the patient is still taking Ozempic because it helps with weight loss. Ozempic also has side effect profile of abdominal pain, constipation, or diarrhea and acute kidney injury. Her symptoms could be side effects from the Ozempic, will hold the Ozempic. Ozempic can also cause pancreatitis Insulin sliding scale Check A1c Recommend discontinuation of Ozempic 5. Morbid obesity: Needs counseling. Needs sleep study as outpatient. 6. Hyperlipidemia: Continue statin. 7. History of cerebrovascular accident with left leg weakness?: Continue atorvastatin. Holding the aspirin for GI bleed. 8. Hypertension: Continue metoprolol. Holding lisinopril/hydrochlorothiazide. Monitor blood pressure closely 8. Gastroesophageal reflux disease: Continue omeprazole for now. 9. History of chronic interstitial cystitis. 10. History of irritable bowel syndrome. 11. History of migraine: On sumatriptan p.r.n. 12. Deep venous thrombosis prophylaxis: Sequential compression devices for now. Disposition Lives at home We will consult physical therapy and Occupational Therapy once blood pressure is stable plan of care discussed with patient in detail and at length all questions answered she is understanding, agreeable, comfortable with the plan of care (2) Acute kidney injury: Admission and Anticipated Discharge Date Admission Date: November 07, 2021 Subjective Follow-up for hemorrhoids, lower GI bleed, acute renal failure, etc. Seen resting in bed, not in distress Appears somewhat anxious, states she does not feel good Main complaint is diffuse abdominal discomfort, pain from hemorrhoids, weakness No chest pain, shortness of breath, dizziness, nausea Reports having some bright red blood from her hemorrhoids this morning Also requesting for her Prozac, gabapentin, Klonopin No other symptom Review of Systems Review of Systems: all noted and negative except for above Physical Exam Physical Exam: General- oriented x 3, not in distress, speaks in sentences with no effort or accessory muscle use Head- atraumatic Eyes- PERRL, EOMI, anicteric ENT- oropharynx clear Neck- supple, no JVD, no adenopathy, no thyromegaly; carotids +2/2, no bruits appreciated Lungs- clear to auscultation bilaterally, no rales/wheezes Heart- normal rate, regular rhythm; no murmur, no gallop, no rub appreciated Abdomen- normal bowel sounds, nondistended, soft, nontender, no masses or hepatosplenomegaly Extremities- no pretibial edema, no calf tenderness; peripheral pulses intact Neuro- alert, oriented x 3; CN 2-12 grossly intact; motor 5/5 bilaterally except for left-sided weakness 100% on all extremities; no other gross focal neurologic deficits Skin- warm & dry Results & Data Results & [facility] ([facility]) Vital Signs (Past 12 Hours) Vital Signs Temp Pulse Pulse Resp BP BP Pulse Ox 11/07/21 08:20 36.5 C 76 18 100/67 97 11/07/21 07:38 75 11/07/21 04:35 72 11/07/21 04:31 36.5 C 73 18 99/63 L 99 11/07/21 04:30 36.5 C 73 18 99/63 L 99 11/07/21 03:37 36.4 C L 20 113/59 L 96 11/07/21 00:30 72 21 100 11/07/21 00:20 71 22 100 11/07/21 00:10 72 21 100 11/07/21 00:00 68 13 100 11/06/21 23:50 71 22 97 11/06/21 23:40 70 15 98 11/06/21 23:32 20 110/81 94 11/06/21 23:31 70 19 110/81 100 11/06/21 23:30 74 17 93 11/06/21 23:24 99 all noted and reviewed including below
[2021-11-07] MEDS: traMADol HCL 50 MG TABLET PO PRN ×2 (12:23→23:23)
[2021-11-07 12:36] LABS: Estimated Average Glucose 123 mg/dl; Hemoglobin A1C 5.9 % (4.5-5.6)
--- NOTE | 2021-11-07 14:12 | Electrocardiogram Report ---
Test Reason : Blood Pressure : / mmHG Vent. Rate : 073 BPM Atrial Rate : 073 BPM P-R Int : 198 ms QRS Dur : 076 ms QT Int : 436 ms P-R-T Axes : 043 027 027 degrees QTc Int : 480 ms Normal sinus rhythm Low voltage QRS Prolonged QT Abnormal ECG When compared with ECG of 06-NOV-2021 22:25, (unconfirmed) No significant change was found Confirmed by Ephraim Katz ([id number]) on 11/07/2021 2:12:42 PM Referred By: REFERRED SELF Confirmed By:Patrick Katz
[2021-11-07 15:14] LABS: Hematocrit (blood only) 38.1 % (37-47); Hemoglobin 12.6 g/dL (12.0-16.0)
--- NOTE | 2021-11-07 18:53 | Surgery Consultation ---
Date of Consultation November 07, 2021 Assessment & Plan (1) Hemorrhoids: This is certainly not an urgent or emergent situation She does not appear to have significant bleeding from her hemorrhoids I do feel she could be treated in the future however there is no plan for surgical intervention by me I would defer to have her colonoscopy prior to any surgery I do feel her best treatment would be follow-up with the colorectal specialist I feel she can be seen by [facility] colorectal surgery at [facility] or [place] colorectal surgery at the [facility] I do not feel that this would be straightforward by any means History of Present Illness Attending Physician: Cooper Avila MD History of Present Illness 56-year-old female apparently admitted with syncope and possible colitis involving her splenic flexure She also describes painful hemorrhoids with intermittent bleeding internal and external She has been evaluated by Dr. Amaya in the distant past and had a colonoscopy in 2013 GI saw the patient today and plans for outpatient colonoscopy in the near future but has signed off her case Allergies Allergy/AdvReac Type Severity Reaction Status Date / Time Penicillins Allergy Unknown REACTION Verified 11/07/21 02:16 UNKNOWN- CHILDHOOD ALLERGY Sulfa (Sulfonamide AdvReac Intermediate N/V Verified 11/07/21 02:16 Antibiotics) Home Medications Medication Instructions Recorded Confirmed Type Aspirating [place] 11/07/21 11/07/21 History albuterol sulfate 90 mcg/actuation 2 puff INHALATION QID PRN 11/07/21 11/07/21 History aerosol inhaler aspirin 81 mg chewable tablet 81 mg PO DAILY 11/07/21 11/07/21 History (Aspirin Childrens) atorvastatin 40 mg tablet 40 mg PO DAILY 11/07/21 11/07/21 History clonazepam 0.5 mg tablet 0.5 mg PO TID 11/07/21 11/07/21 History fluoxetine 40 mg capsule 80 mg PO DAILY 11/07/21 11/07/21 History gabapentin 800 mg tablet 800 mg PO HS 11/07/21 11/07/21 History hydrochlorothiazide 25 mg tablet 25 mg PO DAILY 11/07/21 11/07/21 History lamotrigine 25 mg tablet 25 mg PO BID 11/07/21 11/07/21 History lisinopril 40 mg tablet 40 mg PO DAILY 11/07/21 11/07/21 History metoprolol succinate 25 mg 25 mg PO DAILY 11/07/21 11/07/21 History tablet,extended release 24 hr metronidazole 1 % topical gel 1 applic TOPICAL BID 11/07/21 11/07/21 History (Metrogel) omeprazole 40 mg capsule,delayed 40 mg PO BID 11/07/21 11/07/21 History release promethazine 25 mg tablet 25 mg PO Q6 PRN 11/07/21 11/07/21 History semaglutide (Ozempic) 2.5 mg SUBCUT WK 11/07/21 11/07/21 History sumatriptan succinate 50 mg tablet 100 mg PO DIRECTED PRN 11/07/21 11/07/21 History tramadol 50 mg tablet 50 mg PO Q6 PRN 11/07/21 11/07/21 History Patient History Medical History Arthritis CVA (cerebral vascular accident) 2018 (STILL HAS SLURRED SPEECH/GENERAL WEAKNESS/MEMORY PROBLEMS)- PT FALL RISK Depression with anxiety Fibromyalgia ALWAYS HAS ISSUES GERD (gastroesophageal reflux disease) OCCURS MOSTLY AT NIGHT - RELIEVED WITH TUMS; TAKES OMEPRAZOLE BID History of pulmonary embolism 2017 "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" ON COUMADIN X MONTHS- D/C'ED AND PUT ON ASA- NO ISSUES SINCE HTN (hypertension) Hyperlipidemia PT DENIES - ON STATIN SECONDARY TO STROKE IBS (irritable bowel syndrome) DIARRHEA AND CONSTIPATION COMBINATION Interstitial cystitis Meniere disease Chronic lightheadedness and dizziness Migraine Nausea and vomiting after administration of anesthetic agent Neuropathy RIGHT LE AND BILATERAL FEET Restless leg syndrome STABLE WITH MED 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 Cerebral aneurysm Father , age 63 of an [place] Myocardial infarction Other Diabetes Heart disease Hypertension No family history of adverse response to anesthesia Social History Smoking Status: Never smoker Second Hand Exposure: Yes ( A CHILD); Hx Alcohol Use: Yes Alcohol type: wine Alcohol Intake Frequency Comment: Once a month. Hx Substance Use: No Preferred Language: Niuean Communication Ability: Effective Traveling Secretary Required: No Beliefs That Will Affect Care: None marital status: Current Living Situation: Spouse current occupational status: employed current occupation: Works at the [employer]. 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 Safe at Home: Yes Safety Concerns: Feels Safe At This Time Assistive Devices: Glasses and Walker Review of Systems Review of Systems: All systems reviewed & are unremarkable except as noted in HPI & below Physical Exam Physical Exam: I was able to examine the patient externally with the nurse She does have some external hemorrhoids with no evidence of thrombosis or bleeding I suspect she has some internal hemorrhoids No evidence of any blood near the anal area Constitutional: well nourished; no acute distress Eyes: + anicteric sclerae Respiratory: normal respiratory effort; no respiratory distress Cardiovascular: Rate/Rhythm: regular rate Gastrointestinal (Abdomen): Inspection/Auscultation: abdomen not distended Musculoskeletal: Head/Neck/Chest: head atraumatic Skin: no rashes, warm and dry Neurologic: awake Psychiatric: Orientation: alert Results & Data ([facility]) Vital Signs (Past 12 Hours) Vital Signs Temp Pulse Pulse Resp BP Pulse Ox 11/07/21 15:19 73 11/07/21 14:56 36.4 C L 74 20 120/70 97 11/07/21 12:36 36.9 C 76 18 101/64 95 11/07/21 08:20 36.5 C 76 18 100/67 97 11/07/21 07:38 75 PG Care Time/CCT Total # of Minutes Spent Total Time Spent with Patient: Total time spent is greater than 50% in coordination of care (as documented) at patient's floor/unit and/or counseling patient: Coding Level of Care Code 41174 Inpt Consult Level 3 Diagnoses Hemorrhoids K64.9 Hemorrhoid type: unspecified (1) Hemorrhoids Hemorrhoid type: unspecified Qualified Code(s): K64.9 - Unspecified hemorrhoi ds
[2021-11-07] MEDS: cefTRIAXone SODIUM 2,000 MG in DEXTROSE 5% 50 ML IV SCH (19:41)
[2021-11-07] MEDS: HYDROCORTISONE HC 2.5% CRM 30GM TUBE EXT SCH (20:39)
[2021-11-07] MEDS: metroNIDAZOLE 500 MG TAB PO SCH (20:41)
[2021-11-07] MEDS: HYDROmorphone INJ 0.5 MG/0.5 ML SYR IV PRN (20:43)
[2021-11-07] MEDS ORDERED: GABAPENTIN 800 MG TAB PO SCH (21:00)
[2021-11-08] MEDS ORDERED: MINERAL OIL 30 ML UDC PO ONE (05:19)
[2021-11-08] MEDS ORDERED: POLYETHYLENE (MIRALAX) 17 GM PACK PO PRN (05:21)
--- NOTE | 2021-11-08 06:17 | Surgery Progress Note ---
Date of Service November 08, 2021 Assessment & Plan (1) Hemorrhoids: Plan: Please see prior note No plan for hemorrhoid surgery unless this were a significant life-threatening situation She requires a colorectal surgery evaluation as an outpatient Her constipation is a problem-I have increased her MiraLAX to twice daily and 34 gms Added some mineral oil as a single dose-she could try this 2-3 times per week 1 ounce p.o. Metamucil powder 1-2 times per day is also helpful along with fluid intake Admission and Anticipated Discharge Date Admission Date: November 07, 2021 Results & Data ([facility]) Vital Signs (Past 12 Hours) Vital Signs Temp Pulse Pulse Resp BP Pulse Ox 11/08/21 03:06 36.7 C 91 H 16 104/71 93 11/07/21 23:40 85 11/07/21 22:14 36.6 C 87 20 108/69 96 11/07/21 19:15 36.4 C L 78 18 115/72 99 PG Care Time/CCT Total # of Minutes Spent Total Time Spent with Patient: Total time spent is greater than 50% in coordination of care (as documented) at patient's floor/unit and/or counseling patient: Coding Level of Care Code None Diagnoses Hemorrhoids K64.9 Hemorrhoid type: unspecified (1) Hemorrhoids Hemorrhoid type: unspecified Qualified Code(s): K64.9 - Unspecified hemorrhoids
--- NOTE | 2021-11-08 06:34 | Electrocardiogram Report ---
Test Reason : Blood Pressure : / mmHG Vent. Rate : 076 BPM Atrial Rate : 076 BPM P-R Int : 198 ms QRS Dur : 068 ms QT Int : 428 ms P-R-T Axes : 061 030 023 degrees QTc Int : 481 ms Normal sinus rhythm Prolonged QT Abnormal ECG When compared with ECG of 29-DEC-2020 15:39, No significant change was found Confirmed by Ephraim Katz ([id number]) on 11/07/2021 2:07:06 PM Also confirmed by Ephraim Katz ([id number]), purchase request editor MELONIE DAILEY ([id number]) on 11/08/2021 6:33:27 AM Referred By: REFERRED SELF Confirmed By:Patrick Katz
[2021-11-08] MEDS: SODIUM CHLORIDE 0.9% 1000ML 1,000 ML IV SCH ×2 (07:39→14:30)
[2021-11-08] MEDS: traMADol HCL 50 MG TABLET PO PRN ×2 (07:45→18:38)
[2021-11-08] MEDS: clonazePAM 0.5 MG TAB PO SCH ×3 (07:45→21:41)
[2021-11-08] MEDS: METOPROLOL SUCC 25MG EXT REL TAB PO SCH (07:46)
[2021-11-08] MEDS: lamoTRIgine 25 MG TAB PO SCH ×2 (07:46→21:37)
[2021-11-08] MEDS: metroNIDAZOLE 500 MG TAB PO SCH ×3 (07:46→21:36)
[2021-11-08] MEDS: FLUoxetine HCL 20 MG CAP PO SCH (07:47)
[2021-11-08] MEDS: PANTOprazole 40 MG TAB PO SCH ×2 (07:47→21:36)
[2021-11-08] MEDS: GABAPENTIN 800 MG TAB PO SCH (07:47)
[2021-11-08] MEDS: HYDROCORTISONE HC 2.5% CRM 30GM TUBE EXT SCH ×2 (07:48→21:37)
[2021-11-08] MEDS ORDERED: SODIUM CHLORIDE 0.9% 1000ML 500 ML IV ONE (08:18)
[2021-11-08 10:17] LABS: Eosinophils # (auto) 0.11 K/uL (0-0.5); Eosinophils % (auto) 1.1 %; Hematocrit (blood only) 37.5 % (37-47); Hemoglobin 12.2 g/dL (12.0-16.0); Immature Granulocytes % (auto) 0.1 %; Lymphocytes # (auto) 1.19 K/uL (1.2-3.4); Lymphocytes % (auto) 12.2 %; Mean Corpuscular Hemoglobin 31.9 pg (25-34); Mean Corpuscular Hgb Conc 32.5 g/dL (32-36); Mean Corpuscular Volume 97.9 fL (80-100); Mean Platelet Volume 10.7 fL (7.4-10.4); Monocytes # (auto) 0.64 K/uL (0.11-0.59); Monocytes % (auto) 6.6 %; Neutrophils # (auto) 7.77 K/uL (1.4-6.5); Platelet Count 166 K/uL (130-400); RDW Coefficient of Variation 13.4 % (11.5-14.5); RDW Standard Deviation 47.9 fL (36.4-46.3); Red Blood Count 3.83 M/uL (4.2-5.4); White Blood Count 9.72 K/uL (4.8-10.8)
[2021-11-08 10:18] LABS: Immature Granulocytes # (auto) 0.01 K/uL (0.00-0.02)
[2021-11-08 10:41] LABS: Creatinine Clr Calc Pharmacy 58.3 ml/min; Est GFR (African American) 53.9 ml/min; Est GFR (Non-African American) 46.5 ml/min; Potassium 4.2 mmol/L (3.5-5.1)
--- NOTE | 2021-11-08 10:48 | Surgery Consultation ---
Date of Consultation November 08, 2021 Assessment & Plan (1) Rectal bleeding: (2) Hemorrhoids: 56 year-old female with multiple medical comorbidities who presented to ED with near syncope, abdominal pain and rectal pain with rectal bleeding for 4-5 days. Longstanding history of hemorrhoidal disease. CT can showing nonspecific colitis of the sigmoid colon. No leukocytosis and hemoglobin stable. External examination showing external hemorrhoids , large, no active bleeding, and not thrombosed. No anal fissure. Plan: No emergent or urgent indication for hemorrhoid procedure given her current active sigmoid colitis. Discussed with patient that she needs outpatient colonoscopy in 6-8 weeks as recommended by GI and Dr. Carreno for further evaluation especially since her last attempted coloscopy in 2013 was not completed (per patient report). Given longstanding history of hemorrhoids and large hemorrhoids she will need outpatient colorectal follow-up. She needs to avoid constipation or straining so bowel regimen will be pertinent. Continue current medical management Discussed recommendations with Dr. Avila I have discussed examination findigns and history with Dr. Mccracken who agrees with above. History of Present Illness Reason for Consultation: Rectal pain, hemorrhoids, second opinion Requesting Physician: Cooper Avila MD Attending Physician: Cooper Avila MD History of Present Illness Georgina is a 56 year-old female with multiple medical comorbidities who presented to emergency room on 11/06/2021 with abdominal pain, rectal pain and near syncope. She was having blood in stools for 3-4 days prior to arrival and felt it was secondary to her hemorrhoids. Bright red blood and some dark blood was present. She states she has had long standing history of large hemorrhoids dating back to 2013 when she was having a colonoscopy and said it was not able to be completed due to large hemorrhoids. States her first colonoscopy was when she was 47 for screening purposes down in [place]. Polyps were found and removed. She states she has not had a complete colonoscopy since. She states she has been taking stool softeners and Miralax daily for the past 2.5 weeks at home. States she will eat something and then develop abdominal pain and try to go to bathroom with a lot of straining and then causes her hemorrhoids to flare and causes rectal pain. She had a CT scan of abdomen and pelvis without contrast in emergency room which showed nonspecific colitis of the sigmoid colon. She was started on IV fluids and IV antibiotics. Patient was seen by GI who recommend outpatient colonoscopy in 6-8 weeks. Patient was also seen by Dr. Carreno who recommended medical management now for hemorrhoids with outpatient colonoscopy and colorectal follow-up. Our services have been consulted for a second opinion in regards to hemorrhoids and rectal pain. Georgina states her abdominal pain and rectal pain is better compared to prior admission. She states she is not having active bleeding or continuous bleeding from hemorrhoids. Per nurse, they have to apply hemorrhoid cream as patient is unable to "find the area". States she is still having some abdominal pain when trying clear liquids so did not eat much today. No vomiting. Allergies Allergy/AdvReac Type Severity Reaction Status Date / Time Penicillins Allergy Unknown REACTION Verified 11/07/21 02:16 UNKNOWN- CHILDHOOD ALLERGY Sulfa (Sulfonamide AdvReac Intermediate N/V Verified 11/07/21 02:16 Antibiotics) Home Medications Medication Instructions Recorded Confirmed Type Aspirating [place] 11/07/21 11/07/21 History albuterol sulfate 90 mcg/actuation 2 puff INHALATION QID PRN 11/07/21 11/07/21 History aerosol inhaler aspirin 81 mg chewable tablet 81 mg PO DAILY 11/07/21 11/07/21 History (Aspirin Childrens) atorvastatin 40 mg tablet 40 mg PO DAILY 11/07/21 11/07/21 History clonazepam 0.5 mg tablet 0.5 mg PO TID 11/07/21 11/07/21 History fluoxetine 40 mg capsule 80 mg PO DAILY 11/07/21 11/07/21 History gabapentin 800 mg tablet 800 mg PO HS 11/07/21 11/07/21 History hydrochlorothiazide 25 mg tablet 25 mg PO DAILY 11/07/21 11/07/21 History lamotrigine 25 mg tablet 25 mg PO BID 11/07/21 11/07/21 History lisinopril 40 mg tablet 40 mg PO DAILY 11/07/21 11/07/21 History metoprolol succinate 25 mg 25 mg PO DAILY 11/07/21 11/07/21 History tablet,extended release 24 hr metronidazole 1 % topical gel 1 applic TOPICAL BID 11/07/21 11/07/21 History (Metrogel) omeprazole 40 mg capsule,delayed 40 mg PO BID 11/07/21 11/07/21 History release promethazine 25 mg tablet 25 mg PO Q6 PRN 11/07/21 11/07/21 History semaglutide (Ozempic) 2.5 mg SUBCUT WK 11/07/21 11/07/21 History sumatriptan succinate 50 mg tablet 100 mg PO DIRECTED PRN 11/07/21 11/07/21 History tramadol 50 mg tablet 50 mg PO Q6 PRN 11/07/21 11/07/21 History Patient History Medical History Arthritis CVA (cerebral vascular accident) 2018 (STILL HAS SLURRED SPEECH/GENERAL WEAKNESS/MEMORY PROBLEMS)- PT FALL RISK Depression with anxiety Fibromyalgia ALWAYS HAS ISSUES GERD (gastroesophageal reflux disease) OCCURS MOSTLY AT NIGHT - RELIEVED WITH TUMS; TAKES OMEPRAZOLE BID History of pulmonary embolism 2016 "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" ON COUMADIN X MONTHS- D/C'ED AND PUT ON ASA- NO ISSUES SINCE HTN (hypertension) Hyperlipidemia PT DENIES - ON STATIN SECONDARY TO STROKE IBS (irritable bowel syndrome) DIARRHEA AND CONSTIPATION COMBINATION Interstitial cystitis Meniere disease Chronic lightheadedness and dizziness Migraine Nausea and vomiting after administration of anesthetic agent Neuropathy RIGHT LE AND BILATERAL FEET Restless leg syndrome STABLE WITH MED 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 Cerebral aneurysm Father , age 63 of an [place] Myocardial infarction Other Diabetes Heart disease Hypertension No family history of adverse response to anesthesia Social History Smoking Status: Never smoker Second Hand Exposure: Yes ( A CHILD); Hx Alcohol Use: Yes Alcohol type: wine Alcohol Intake Frequency Comment: Once a month. Hx Substance Use: No Preferred Language: Libyan Communication Ability: Effective Waterproofing Mixer Required: No Beliefs That Will Affect Care: None marital status: Current Living Situation: Spouse current occupational status: employed current occupation: Works at the [employer] 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 Feels Safe at Home: Yes Safety Concerns: Feels Safe At This Time Assistive Devices: None Review of Systems Review of Systems: All systems reviewed & are unremarkable except as noted in HPI & below Physical Exam Constitutional: WD/WN, vitals as above + morbidly obese Neck: normal visual inspection and trachea midline Respiratory: normal respiratory effort, lungs clear to auscultation Cardiovascular: RRR, no murmur, no edema Gastrointestinal (Abdomen): Inspection/Auscultation: abdomen normal to inspection; abdomen not distended Percussion/Palpation: + abdomen tender (LUQ and bilateral lower quadrants) and abdomen soft; no guarding, abdomen not rigid and abdomen not firm Rectal Exam: + hemorrhoids and normal visual inspection of rectum; no rectal fissure and no rectal laceration External hemorrhoids present without evidence of thrombosis. No anal fissure seen. Did not perform internal examination as patient was very tender and could not relax. No active bleeding. Skin: no rashes, warm and dry Psychiatric: Orientation: alert and oriented x 3 Results & Data ([facility]) Vital Signs (Past 12 Hours) Vital Signs Temp Pulse Pulse Resp BP Pulse Ox 11/08/21 07:21 36.5 C 82 19 95/61 L 98 11/08/21 03:06 36.7 C 91 H 16 104/71 93 11/07/21 23:40 85 Laboratory Results 11/08/21 11/08/21 11/08/21 Range/Units 09:53 09:53 07:38 WBC 9.72 (4.8-10.8) K/uL RBC 3.83 L (4.2-5.4) M/uL Hgb 12.2 (12.0-16.0) g/dL Hct 37.5 (37-47) % MCV 97.9 (80-100) fL MCH 31.9 (25-34) pg MCHC 32.5 (32-36) g/dL RDW Std Deviation 47.9 H (36.4-46.3) fL RDW Coeff of Karen 13.4 (11.5-14.5) % Plt Count 166 (130-400) K/uL MPV 10.7 H (7.4-10.4) fL Immature Gran % (Auto) 0.1 % Neut % (Auto) 80.0 % Lymph % (Auto) 12.2 % Henry % (Auto) 6.6 % Eos % (Auto) 1.1 % Baso % (Auto) 0.0 % Neut # (Auto) 7.77 H (1.4-6.5) K/uL Lymph # (Auto) 1.19 L (1.2-3.4) K/uL Henry # (Auto) 0.64 H (0.11-0.59) K/uL Eos # (Auto) 0.11 (0-0.5) K/uL Baso # (Auto) 0.00 (0-0.2) K/uL Immature Gran # (Auto) 0.01 (0.00-0.02) K/uL Sodium 141 (136-145) mmol/L Potassium 4.2 (3.5-5.1) mmol/L Chloride 112 H (98-107) mmol/L Carbon Dioxide 23 (21-32) mmol/L Anion Gap 6 (3-11) BUN 28 H D (6-23) mg/dl Creatinine 1.27 H D (0.6-1.2) mg/dl Est Cr Clr Drug Dosing 58.3 ml/min Est GFR ( Amer) 53.9 ml/min Est GFR (Non-Af Amer) 46.5 ml/min BUN/Creatinine Ratio 22.0 H (10-20) Glucose 82 (70-99(Fasting)) mg/dl POC Glucose 98 (70-99) mg/dl Estimat Average Glucose mg/dl Hemoglobin A1c (4.5-5.6) % Calcium 8.0 L (8.5-10.1) mg/dl 11/08/21 11/07/21 11/07/21 Range/Units 00:08 20:01 16:37 WBC (4.8-10.8) K/uL RBC (4.2-5.4) M/uL Hgb (12.0-16.0) g/dL Hct (37-47) % MCV (80-100) fL MCH (25-34) pg MCHC (32-36) g/dL RDW Std Deviation (36.4-46.3) fL RDW Coeff of Karen (11.5-14.5) % Plt Count (130-400) K/uL MPV (7.4-10.4) fL Immature Gran % (Auto) % Neut % (Auto) % Lymph % (Auto) % Henry % (Auto) % Eos % (Auto) % Baso % (Auto) % Neut # (Auto) (1.4-6.5) K/uL Lymph # (Auto) (1.2-3.4) K/uL Henry # (Auto) (0.11-0.59) K/uL Eos # (Auto) (0-0.5) K/uL Baso # (Auto) (0-0.2) K/uL Immature Gran # (Auto) (0.00-0.02) K/uL Sodium (136-145) mmol/L Potassium (3.5-5.1) mmol/L Chloride (98-107) mmol/L Carbon Dioxide (21-32) mmol/L Anion Gap (3-11) BUN (6-23) mg/dl Creatinine (0.6-1.2) mg/dl Est Cr Clr Drug Dosing ml/min Est GFR ( Amer) ml/min Est GFR (Non-Af Amer) ml/min BUN/Creatinine Ratio (10-20) Glucose (70-99(Fasting)) mg/dl POC Glucose 90 76 123 H (70-99) mg/dl Estimat Average Glucose mg/dl Hemoglobin A1c (4.5-5.6) % Calcium (8.5-10.1) mg/dl 11/07/21 11/07/21 11/07/21 Range/Units 15:05 11:51 07:00 WBC (4.8-10.8) K/uL RBC (4.2-5.4) M/uL Hgb 12.6 (12.0-16.0) g/dL Hct 38.1 (37-47) % MCV (80-100) fL MCH (25-34) pg MCHC (32-36) g/dL RDW Std Deviation (36.4-46.3) fL RDW Coeff of Karen (11.5-14.5) % Plt Count (130-400) K/uL MPV (7.4-10.4) fL Immature Gran % (Auto) % Neut % (Auto) % Lymph % (Auto) % Henry % (Auto) % Eos % (Auto) % Baso % (Auto) % Neut # (Auto) (1.4-6.5) K/uL Lymph # (Auto) (1.2-3.4) K/uL Henry # (Auto) (0.11-0.59) K/uL Eos # (Auto) (0-0.5) K/uL Baso # (Auto) (0-0.2) K/uL Immature Gran # (Auto) (0.00-0.02) K/uL Sodium (136-145) mmol/L Potassium (3.5-5.1) mmol/L Chloride (98-107) mmol/L Carbon Dioxide (21-32) mmol/L Anion Gap (3-11) BUN (6-23) mg/dl Creatinine (0.6-1.2) mg/dl Est Cr Clr Drug Dosing ml/min Est GFR ( Amer) ml/min Est GFR (Non-Af Amer) ml/min BUN/Creatinine Ratio (10-20) Glucose (70-99(Fasting)) mg/dl POC Glucose 95 (70-99) mg/dl Estimat Average Glucose 123 mg/dl Hemoglobin A1c 5.9 H (4.5-5.6) % Calcium (8.5-10.1) mg/dl Diagnostic Findings ABDOMEN AND PELVIS CT WITHOUT CONTRAST CT DOSE: 2033.41 mGy.cm HISTORY: Generalized abdominal pain TECHNIQUE: Multiaxial CT images of the abdomen and pelvis were performed without contrast. A dose lowering technique was utilized adhering to the principles of ALARA. COMPARISON STUDY: Abdomen and pelvis CT 01/03/2021. FINDINGS: The lung bases are essentially clear. No pneumoperitoneum. No pneumatosis. Focal endplate indentations of the left side of L2 and L3 superior endplates remain unchanged. This could be due to Schmorl's nodes are old compression deformities. Cholecystectomy. The unenhanced liver, spleen, adrenal glands, and pancreas are unremarkable. There is a 4 mm stone within the lower pole the left kidney, unchanged. Stable hypodense lesions within the left kidney which are incompletely characterized on this noncontrast study but statistically represent cysts. No retroperitoneal lymphadenopathy. Normal caliber abdominal aorta. No pelvic free fluid. Hysterectomy. No evidence for bowel obstruction. Normal appendix. Mild thickening at the splenic flexure of the colon with minimal pericolonic fat stranding. This is consistent with a mild nonspecific colitis. IMPRESSION: 1. Mild nonspecific colitis at the splenic flexure of the colon. 2. No evidence for bowel obstruction. 3. Left-sided nephrolithiasis. No hydronephrosis. 4. Cholecystectomy and hysterectomy. (1) Hemorrhoids Hemorrhoid type: unspecified Qualified Code(s): K64.9 - Unspecified hemorrhoids
--- NOTE | 2021-11-08 14:20 | Electrocardiogram Report ---
Test Reason : Blood Pressure : / mmHG Vent. Rate : 089 BPM Atrial Rate : 089 BPM P-R Int : 186 ms QRS Dur : 072 ms QT Int : 390 ms P-R-T Axes : 066 056 053 degrees QTc Int : 474 ms Normal sinus rhythm Normal ECG When compared with ECG of 07-NOV-2021 06:16, No significant change was found Confirmed by Ephraim Katz ([id number]) on 11/08/2021 2:20:02 PM Referred By: REFERRED SELF Confirmed By:Patrick Katz
[2021-11-08] MEDS: ASPIRIN 81 MG ECTAB PO SCH (14:27)
--- NOTE | 2021-11-08 17:24 | Hospitalist Progress Note ---
Date of Service November 08, 2021 Assessment & Plan (1) Rectal bleeding: Plan: Per 's notes with addendum: Next ASSESSMENT AND PLAN: This is a 56-year-old female who presents with abdominal pain, rectal pain, rectal bleeding, and near syncope. 1. Near syncope, secondary to orthostatic hypotension, dehydration Positive orthostatic hypotension at the ER Creatinine elevated at 2.3 Creatinine improving to 1.2 (baseline 1.1) Blood pressure still on the lower side Continue IV NSS Hold lisinopril, HCTZ Echocardiogram :Left ventricular systolic function normal, EF 50-55%, grade 1 diastolic dysfunction Monitor in telemetry unit PT/OT evaluation once BP stable 2. Abdominal pain, colitis CT abdomen: 1. Mild nonspecific colitis at the splenic flexure of the colon. 2. No evidence for bowel obstruction. 3. Left-sided nephrolithiasis. No hydronephrosis. 4. Cholecystectomy and hysterectomy. -- Ceftriaxone plus Flagyl day #2 Diarrhea improved Stool studies pending --GI consulted, recommend outpatient colonoscopy prior to possible hemorrhoidectomy rectal pain, rectal bleeding, secondary to hemorrhoids: Hemoglobin stable. Anusol suppository ordered-relieving pain at this time General surgery consulted-Dr. Carreno and second opinion from Dr. Mccracken, both recommending outpatient colorectal surgery referral Patient should be on bowel regimen once colitis/diarrhea resolves 3. Acute kidney injury: Baseline creatinine around 1.1-1.2 Management per #1 4. Diabetes, prediabetes: Recently in September, HbA1c was 6.5, repeat after diet control in first week of october was 6.1, but the patient is still taking Ozempic because it helps with weight loss. Ozempic also has side effect profile of abdominal pain, constipation, or diarrhea and acute kidney injury. Her symptoms could be side effects from the Ozempic, will hold the Ozempic. A1c-5.9 Insulin sliding scale Recommend discontinuation of Ozempic, continue diet control 5. Morbid obesity: Needs counseling. Needs sleep study as outpatient. 6. Hyperlipidemia: Continue statin. 7. History of cerebrovascular accident with left leg weakness?: Continue atorvastatin -Resume baby aspirin as hemoglobin is stable 8. Hypertension: Continue metoprolol but reduce the dose to 12.5 mg from 25 mg due to marginal blood pressure Holding lisinopril/hydrochlorothiazide. Monitor blood pressure closely 8. Gastroesophageal reflux disease: Continue omeprazole for now. 9. History of chronic interstitial cystitis. 10. History of irritable bowel syndrome. 11. History of migraine: On sumatriptan p.r.n. 12. Deep venous thrombosis prophylaxis: Sequential compression devices for n ow. Disposition Lives at home We will consult physical therapy and Occupational Therapy once blood pressure is stable plan of care discussed with patient in detail and at length all questions answered she is understanding, agreeable, comfortable with the plan of care (2) Acute kidney injury: Admission and Anticipated Discharge Date Admission Date: November 07, 2021 Subjective Follow-up for colitis, hemorrhoids, acute renal failure, etc. Seen sitting up in bed, not in distress, comfortable States abdominal pain is improving today, no diarrhea Pain from hemorrhoids improved compared to yesterday with Anusol cream No chest pain, shortness of breath, dizziness, palpitations, new focal weakness or numbness No other symptoms Review of Systems Review of Systems: all noted and negative except for above Physical Exam Physical Exam: General- oriented x 3, not in distress, speaks in sentences with no effort or accessory muscle use Eyes- anicteric Neck- no JVD Lungs- clear breath sounds bilaterally, no rales/wheezes Heart- normal rate, regular rhythm; no murmurs Abdomen- normal bowel sounds, nondistended, soft, nontender Extremities- no pretibial edema, no calf tenderness Neuro- alert, oriented x 3; mild left facial droop-chronic as per patient and her , no gross focal neurologic deficits Skin- warm & dry Results & Data Results & Data ([facility]) Vital Signs (Past 12 Hours) Vital Signs Temp Pulse Pulse Resp BP BP Pulse Ox 11/08/21 15:41 83 11/08/21 15:13 36.7 C 77 19 99/57 L 96 11/08/21 11:27 36.2 C L 81 18 102/67 94 11/08/21 08:00 83 11/08/21 07:21 36.5 C 82 19 95/61 L 98 all noted and reviewed including below
[2021-11-08] MEDS: cefTRIAXone SODIUM 2,000 MG in DEXTROSE 5% 50 ML IV SCH (18:25)
[2021-11-08] MEDS: D5W AND NSS 1,000 ML IV SCH (20:44)
[2021-11-08] MEDS: HYDROmorphone INJ 0.5 MG/0.5 ML SYR IV PRN (21:41)
[2021-11-09] MEDS: D5W AND NSS 1,000 ML IV SCH ×2 (05:46→12:43)
[2021-11-09 07:35] LABS: Basophils # (auto) 0.01 K/uL (0-0.2); Basophils % (auto) 0.1 %; Eosinophils # (auto) 0.17 K/uL (0-0.5); Eosinophils % (auto) 2.2 %; Hematocrit (blood only) 34.8 % (37-47); Hemoglobin 11.3 g/dL (12.0-16.0); Immature Granulocytes # (auto) 0.01 K/uL (0.00-0.02); Immature Granulocytes % (auto) 0.1 %; Lymphocytes # (auto) 1.27 K/uL (1.2-3.4); Lymphocytes % (auto) 16.4 %; Mean Corpuscular Hemoglobin 31.9 pg (25-34); Mean Corpuscular Hgb Conc 32.5 g/dL (32-36); Mean Corpuscular Volume 98.3 fL (80-100); Mean Platelet Volume 10.6 fL (7.4-10.4); Monocytes % (auto) 6.5 %; Neutrophils # (auto) 5.78 K/uL (1.4-6.5); Neutrophils % (auto) 74.7 %; Platelet Count 162 K/uL (130-400); RDW Coefficient of Variation 13.2 % (11.5-14.5); RDW Standard Deviation 47.8 fL (36.4-46.3); Red Blood Count 3.54 M/uL (4.2-5.4); White Blood Count 7.74 K/uL (4.8-10.8)
[2021-11-09 07:57] LABS: BUN Creatinine Ratio 14.2 (10-20); Calcium 7.8 mg/dl (8.5-10.1); Creatinine Clr Calc Pharmacy 65.5 ml/min; Est GFR (Non-African American) 53.5 ml/min; Potassium 4.2 mmol/L (3.5-5.1)
[2021-11-09] MEDS: FLUoxetine HCL 20 MG CAP PO SCH (09:03)
[2021-11-09] MEDS: PANTOprazole 40 MG TAB PO SCH ×2 (09:03→19:41)
[2021-11-09] MEDS: GABAPENTIN 800 MG TAB PO SCH (09:03)
[2021-11-09] MEDS: metroNIDAZOLE 500 MG TAB PO SCH ×3 (09:03→19:42)
[2021-11-09] MEDS: METOPROLOL SUCC 25MG EXT REL TAB PO SCH (09:03)
[2021-11-09] MEDS: lamoTRIgine 25 MG TAB PO SCH ×2 (09:03→19:41)
[2021-11-09] MEDS: HYDROmorphone INJ 0.5 MG/0.5 ML SYR IV PRN (09:04)
[2021-11-09] MEDS: HYDROCORTISONE HC 2.5% CRM 30GM TUBE EXT SCH ×2 (09:04→19:38)
[2021-11-09] MEDS: ASPIRIN 81 MG ECTAB PO SCH (09:04)
[2021-11-09] MEDS: clonazePAM 0.5 MG TAB PO SCH ×3 (09:09→19:58)
[2021-11-09] MEDS: traMADol HCL 50 MG TABLET PO PRN (12:45)
--- NOTE | 2021-11-09 15:38 | Electrocardiogram Report ---
Test Reason : Blood Pressure : / mmHG Vent. Rate : 074 BPM Atrial Rate : 074 BPM P-R Int : 208 ms QRS Dur : 072 ms QT Int : 414 ms P-R-T Axes : 057 037 034 degrees QTc Int : 459 ms Normal sinus rhythm Low voltage QRS Borderline ECG When compared with ECG of 08-NOV-2021 05:49, No significant change was found Confirmed by Ephraim Katz ([id number]) on 11/09/2021 3:37:52 PM Referred By: REFERRED SELF Confirmed By:Patrick Katz
--- NOTE | 2021-11-09 17:13 | Hospitalist Progress Note ---
Date of Service November 09, 2021 Assessment & Plan (1) Rectal bleeding: Plan: 56-year-old female who presents with abdominal pain, rectal pain, rectal bleeding, and near syncope on 11/07 is being managed for the following: #. Near syncope #. Orthostatic hypotension #. LILLI/CKD 3 Likely secondary to dehydration Orthostatic vitals positive initially, improving Creatinine elevated at 2.3 at presentation, baseline 1.1, LILLI resolved back to baseline. 11/07 echo: EF 50 to 55%, grade 1 diastolic dysfunction Continue with IV fluids for today, DC tomorrow. Consider resuming lisinopril tomorrow, continue to hold HCTZ for now. #. Abdominal pain #. Colitis #. Rectal pain/hemorrhoids - Hb stable Admitting CT AP: Nonspecific colitis at the splenic flexure, no evidence of bowel obstruction. Left nephrolithiasis, no hydronephrosis. Patient reports improving diarrhea, stool studies pending. Patient reports improving rectal pain with Anusol. Patient with mild abdominal pain, tolerating liquid diet, advance as tolerated. Continue with Rocephin 11/07 and metronidazole 11/07. Continue with Anusol. GI evaluated, recommends outpatient colonoscopy prior to possible hemorrhoidectomy General surgery evaluated, recommends outpatient colorectal surgery referral. Patient should be on bowel regimen once colitis/diarrhea resolves. #. Other chronic medical conditions: Prediabetes [A1c 5.9], morbid obesity, HLD, history of CVA with left leg weakness, GERD, chronic interstitial cystitis history, irritable bowel syndrome history, migraine history Patient taking Ozempic because it helps with weight loss but it does have side effect profile of abdominal pain/constipation or diarrhea and LILLI. Given her presentation, will hold Ozempic and DC at discharge. Continue with sliding scale, continue diet control upon discharge. Sleep study as an outpatient, continue statin/baby aspirin/other home meds. #. DVT prophylaxis: SCDs #. Disposition: Lives at home, PT/OT, CM to assist with DC planning. PT recommending inpatient rehab. (2) Acute kidney injury: Admission and Anticipated Discharge Date Admission Date: November 07, 2021 Subjective Patient seen and examined at bedside as a follow-up of near syncope, hemorrhoids, LILLI, colitis. Patient was lying in bed, on room air, NAD, no new acute events overnight. Patient reports rectal pain under control/improving. Patient does have some belly pain. Patient is eating liquid diet, advance as tolerated. Patient had a scant mucousy bowel movement x1 in the morning. Patient denies any headache/dizziness/nausea/vomiting/chest pain/sore throat/cough/palpitations/other review of symptoms. Physical Exam Physical Exam: GENERAL: Alert and oriented x3. NAD, on RA. HEENT: No pallor, no icterus. Pupils equal, round and reactive to light. Oral mucosa moist. NECK: No JVD, no neck masses. HEART: S1 and S2 heard. Regular rate and rhythm. No murmur, no gallop. RESPIRATORY SYSTEM: Normal AP diameter. No accessory muscle use. No wheezing, no crackles. ABDOMEN: Soft, bowel sounds present, mild tender mostly on left, no distention. CENTRAL NERVOUS SYSTEM: No facial droop. Speech is clear. Obeys simple commands. Moves extremities. EXTREMITIES: No edema, no erythema seen. Results & Data Results & Data ([facility]) Vital Signs (Past 12 Hours) Vital Signs Temp Pulse Pulse Resp BP Pulse Ox 11/09/21 14:58 78 11/09/21 14:54 36.5 C 77 16 120/78 98 11/09/21 13:26 36.6 C 78 16 98/65 L 97 11/09/21 08:16 75 11/09/21 08:05 36.5 C 76 14 98
[2021-11-09] MEDS: cefTRIAXone SODIUM 2,000 MG in DEXTROSE 5% 50 ML IV SCH (17:50)
[2021-11-09] MEDS ORDERED: LIDOCAINE 5% 1 PATCH TD SCH (18:00)
[2021-11-10] MEDS: D5W AND NSS 1,000 ML IV SCH (01:43)
[2021-11-10] MEDS: PROMETHAZINE HCL 25 MG TAB PO PRN ×2 (04:10→19:28)
[2021-11-10] MEDS: traMADol HCL 50 MG TABLET PO PRN (06:35)
[2021-11-10] MEDS ORDERED: Nursing to Pharmacy Communication SCH (07:30)
[2021-11-10 07:45] LABS: Basophils # (auto) 0.01 K/uL (0-0.2); Basophils % (auto) 0.2 %; Eosinophils # (auto) 0.15 K/uL (0-0.5); Eosinophils % (auto) 2.9 %; Hematocrit (blood only) 35.3 % (37-47); Hemoglobin 11.4 g/dL (12.0-16.0); Immature Granulocytes # (auto) 0.01 K/uL (0.00-0.02); Immature Granulocytes % (auto) 0.2 %; Lymphocytes # (auto) 1.05 K/uL (1.2-3.4); Mean Corpuscular Hemoglobin 31.7 pg (25-34); Mean Corpuscular Hgb Conc 32.3 g/dL (32-36); Mean Corpuscular Volume 98.1 fL (80-100); Mean Platelet Volume 10.8 fL (7.4-10.4); Monocytes # (auto) 0.31 K/uL (0.11-0.59); Monocytes % (auto) 5.9 %; Neutrophils # (auto) 3.71 K/uL (1.4-6.5); Neutrophils % (auto) 70.8 %; Platelet Count 173 K/uL (130-400); RDW Coefficient of Variation 13.3 % (11.5-14.5); RDW Standard Deviation 47.9 fL (36.4-46.3); White Blood Count 5.24 K/uL (4.8-10.8)
[2021-11-10] MEDS: FLUoxetine HCL 20 MG CAP PO SCH (07:50)
[2021-11-10] MEDS: clonazePAM 0.5 MG TAB PO SCH ×3 (07:50→20:13)
[2021-11-10] MEDS: HYDROCORTISONE HC 2.5% CRM 30GM TUBE EXT SCH ×2 (07:51→20:14)
[2021-11-10] MEDS: ASPIRIN 81 MG ECTAB PO SCH (07:51)
[2021-11-10] MEDS: metroNIDAZOLE 500 MG TAB PO SCH ×3 (07:51→20:17)
[2021-11-10] MEDS: lamoTRIgine 25 MG TAB PO SCH ×2 (07:51→20:17)
[2021-11-10] MEDS: PANTOprazole 40 MG TAB PO SCH ×2 (07:51→20:16)
[2021-11-10] MEDS: METOPROLOL SUCC 25MG EXT REL TAB PO SCH (07:52)
[2021-11-10] MEDS: lisinopril 40 MG TAB PO SCH (07:53)
[2021-11-10] MEDS: GABAPENTIN 800 MG TAB PO SCH (07:53)
[2021-11-10 08:36] LABS: BUN Creatinine Ratio 10.3 (10-20); Calcium 7.8 mg/dl (8.5-10.1); Creatinine Clr Calc Pharmacy 79.3 ml/min; Est GFR (African American) 74.6 ml/min; Est GFR (Non-African American) 64.4 ml/min; Magnesium 1.4 mg/dl (1.7-2.4); Potassium 3.7 mmol/L (3.5-5.1)
[2021-11-10] MEDS: ATORVASTATIN 40 MG TAB PO SCH (08:55)
--- NOTE | 2021-11-10 17:27 | Hospitalist Progress Note ---
Date of Service November 10, 2021 Assessment & Plan (1) Rectal bleeding: Plan: 56-year-old female who presents with abdominal pain, rectal pain, rectal bleeding, and near syncope on 11/07 is being managed for the following: #. Near syncope #. Orthostatic hypotension #. LILLI/CKD 3 Likely secondary to dehydration Orthostatic vitals positive initially, improving Creatinine elevated at 2.3 at presentation, baseline 1.1, LILLI resolved back to baseline. 11/07 echo: EF 50 to 55%, grade 1 diastolic dysfunction DC IVF Resumed lisinopril, continue to hold HCTZ for now --> resume once pt is eating better. #. Abdominal pain #. Colitis #. Rectal pain/hemorrhoids - Hb stable Admitting CT AP: Nonspecific colitis at the splenic flexure, no evidence of bowel obstruction. Left nephrolithiasis, no hydronephrosis. Patient reports improving diarrhea, stool studies pending. Patient reports improving rectal pain with Anusol. Patient with mild abdominal pain, tolerating liquid diet, advance as tolerated. Continue with Rocephin 11/07 and metronidazole 11/07. Continue with Anusol. GI evaluated, recommends outpatient colonoscopy prior to possible hemorrhoidectomy General surgery evaluated, recommends outpatient colorectal surgery referral. Patient should be on bowel regimen once colitis/diarrhea resolves. #. Other chronic medical conditions: Prediabetes [A1c 5.9], morbid obesity, HLD, history of CVA with left leg weakness, GERD, chronic interstitial cystitis history, irritable bowel syndrome history, migraine history Patient taking Ozempic because it helps with weight loss but it does have side effect profile of abdominal pain/constipation or diarrhea and LILLI. Given her presentation, will hold Ozempic and DC at discharge. continue to monitor, continue diet control upon discharge. Sleep study as an outpatient, continue statin/baby aspirin/other home meds. #. DVT prophylaxis: SCDs #. Disposition: Lives at home, PT/OT, CM to assist with DC planning. PT recommending inpatient rehab. (2) Acute kidney injury: Admission and Anticipated Discharge Date Admission Date: November 07, 2021 Subjective Patient seen and examined at bedside as a follow-up of near syncope, hemorrhoids, LILLI, colitis. Patient was lying in bed, on room air, NAD, no new acute events overnight. P atient reports rectal pain under control/improving. Patient does have some belly pain mostly on left side. Patient is eating full diet, advance as tolerated. Patient denies any headache/dizziness/nausea/vomiting/chest pain/sore throat/cough/palpitations/other review of symptoms. Physical Exam Physical Exam: GENERAL: Alert and oriented x3. NAD, on RA. HEENT: No pallor, no icterus. Pupils equal, round and reactive to light. Oral mucosa moist. NECK: No JVD, no neck masses. HEART: S1 and S2 heard. Regular rate and rhythm. No murmur, no gallop. RESPIRATORY SYSTEM: Normal AP diameter. No accessory muscle use. No wheezing, no crackles. ABDOMEN: Soft, bowel sounds present, mild tender mostly on left, no distention. CENTRAL NERVOUS SYSTEM: No facial droop. Speech is clear. Obeys simple commands. Moves extremities. EXTREMITIES: No edema, no erythema seen. Results & Data Results & Data ([facility]) Vital Signs (Past 12 Hours) Vital Signs Temp Pulse Pulse Resp BP BP Pulse Ox 11/10/21 16:18 77 11/10/21 15:01 36.7 C 72 19 124/82 96 11/10/21 10:58 36.4 C L 82 19 122/76 94 11/10/21 07:14 36.8 C 76 21 130/83 98
[2021-11-10] MEDS: cefTRIAXone SODIUM 2,000 MG in DEXTROSE 5% 50 ML IV SCH (17:49)
[2021-11-10] MEDS: MAGNESIUM SULFATE / D5W 1 GM/100 ML BAG IV SCH ×3 (18:36→22:00)
[2021-11-10] MEDS ORDERED: LIDOCAINE 5% 1 PATCH TD SCH (21:00)
[2021-11-11 08:00] LABS: Basophils # (auto) 0.01 K/uL (0-0.2); Basophils % (auto) 0.2 %; Eosinophils # (auto) 0.14 K/uL (0-0.5); Eosinophils % (auto) 2.4 %; Hematocrit (blood only) 35.3 % (37-47); Hemoglobin 11.8 g/dL (12.0-16.0); Immature Granulocytes # (auto) 0.01 K/uL (0.00-0.02); Immature Granulocytes % (auto) 0.2 %; Lymphocytes # (auto) 1.14 K/uL (1.2-3.4); Lymphocytes % (auto) 19.7 %; Mean Corpuscular Hemoglobin 31.7 pg (25-34); Mean Corpuscular Hgb Conc 33.4 g/dL (32-36); Mean Corpuscular Volume 94.9 fL (80-100); Mean Platelet Volume 10.2 fL (7.4-10.4); Monocytes # (auto) 0.31 K/uL (0.11-0.59); Monocytes % (auto) 5.4 %; Neutrophils # (auto) 4.18 K/uL (1.4-6.5); Neutrophils % (auto) 72.1 %; Platelet Count 172 K/uL (130-400); RDW Coefficient of Variation 13.2 % (11.5-14.5); RDW Standard Deviation 46.2 fL (36.4-46.3); Red Blood Count 3.72 M/uL (4.2-5.4); White Blood Count 5.79 K/uL (4.8-10.8)
[2021-11-11 08:36] LABS: BUN Creatinine Ratio 8.1 (10-20); Calcium 8.1 mg/dl (8.5-10.1); Creatinine Clr Calc Pharmacy 77.7 ml/min; Est GFR (African American) 72.8 ml/min; Est GFR (Non-African American) 62.8 ml/min; Magnesium 1.8 mg/dl (1.7-2.4); Potassium 3.7 mmol/L (3.5-5.1)
[2021-11-11] MEDS ORDERED: ADVANCED PROBIOTIC 1250 MG CAPSULE PO SCH (09:00)
[2021-11-11] MEDS: PANTOprazole 40 MG TAB PO SCH (09:02)
[2021-11-11] MEDS: METOPROLOL SUCC 25MG EXT REL TAB PO SCH (09:02)
[2021-11-11] MEDS: lamoTRIgine 25 MG TAB PO SCH (09:02)
[2021-11-11] MEDS: FLUoxetine HCL 20 MG CAP PO SCH (09:03)
[2021-11-11] MEDS: ATORVASTATIN 40 MG TAB PO SCH (09:03)
[2021-11-11] MEDS: metroNIDAZOLE 500 MG TAB PO SCH (09:03)
[2021-11-11] MEDS: lisinopril 40 MG TAB PO SCH (09:03)
[2021-11-11] MEDS: ASPIRIN 81 MG ECTAB PO SCH (09:03)
[2021-11-11] MEDS: GABAPENTIN 800 MG TAB PO SCH (09:03)
[2021-11-11] MEDS: clonazePAM 0.5 MG TAB PO SCH (09:10)
[2021-11-11] MEDS: HYDROCORTISONE HC 2.5% CRM 30GM TUBE EXT SCH (09:11)
[2021-11-11] MEDS ORDERED: LANTUS PER UNIT CHARGE SQ STA (11:40)
--- NOTE | 2021-11-11 12:08 | Discharge Summary ---
Date of Service November 11, 2021 Admission HPI Per Admitting Provider DATE OF ADMISSION: 11/07/2021. CHIEF COMPLAINT: Near syncope and abdominal pain, rectal bleeding. HISTORY OF PRESENT ILLNESS: A 56-year-old female with past medical history significant for allergic rhinitis, hypertension, morbid obesity, irritable bowel syndrome, chronic interstitial cystitis, chronic kidney disease stage III, fibromyalgia, migraines, history of angioneurotic edema, history of pulmonary embolism, anxiety, mood disorder, history of CVA, history of hemorrhoids, presents with near syncope. The patient says since last 3-4 days, she is having blood in the stools and she attributes it to her hemorrhoids acting up and a lot of rectal pain and she also developed some abdominal pain and some nausea, but otherwise she is eating and drinking okay. Recently in September, her HbA1c was 6.5 and she was prescribed Ozempic, but she did diet control and not eating sugars and recheck of HbA1c in October first week was 6.1. But she thought of taking Ozempic because it also helps with the weight loss. She took one dose. Since stroke IN 2018, she has some left-sided weakness and left leg weakness and she ambulates with holding to things and while she was ambulating today, her legs gave up and she fell down. She did not hit her head. She was lying on the floor for some time until her came and helped her. She says she did not pass out during the episode. Because of these symptoms, she came to the ER and in the ER orthostatics were positive and her creatinine bumped up to 2.3. CAT scan of the pelvis on the preliminary report, colitis seen. Currently, resting comfortably, hemodynamically stable. Denies any headache. Has some blurred visions. No earache, no runny nose, no sore throat, no cough. Sometimes has abdominal pain radiates to chest, but otherwise no chest pain. No shortness of breath. Constipated. Normal bladder movements. No swelling in the legs. ALLERGIES: PENICILLIN, SULFA ANTIBIOTICS. PAST MEDICAL HISTORY: As mentioned above. PAST SURGICAL HISTORY: Colonoscopy, EGDs, laparoscopic cholecystectomy, total abdominal hysterectomy with removal of tubes. MEDICATIONS: The patient is on albuterol 2 puffs inhalation q.i.d. p.r.n., aspirin 81 mg p.o. daily, atorvastatin 40 mg p.o. daily, clonazepam 0.5 mg p.o. t.i.d., fluoxetine 80 mg p.o. daily, gabapentin 800 mg p.o. at bedtime, hydrochlorothiazide 25 mg p.o. daily, Lamictal 25 mg p.o. b.i.d., lisinopril 40 mg p.o. daily, metoprolol succinate 25 mg p.o. daily, MetroGel application topical b.i.d., omeprazole 40 mg p.o. b.i.d., promethazine 25 mg p.o. q. 6 hours p.r.n., Ozempic 0.25 mg subcutaneous weekly, sumatriptan 100 mg p.o. p.r.n., tramadol 50 mg p.o. q. 6 hours p.r.n. FAMILY HISTORY: Significant for brother has prostate cancer, mother has hearing loss. SOCIAL HISTORY: , no smoking. Alcohol occasional. No drug use. REVIEW OF SYSTEMS: As per HPI. Rest of review of systems is negative. Admission Exam Per Admitting Provider GENERAL: The patient is morbidly obese, not in acute distress. VITAL SIGNS: Temperature 36.9, pulse 81, respiratory rate 20, blood pressure 110/81, oxygen 94% on room air. HEENT: Pupils equal, round and reactive to right. Left facial droop present. Oral mucosa dry. NECK: No JVD. No neck masses. CARDIOVASCULAR: S1 and S2 heard. Regular rate and rhythm. No murmur, no gallop. RESPIRATORY SYSTEM: Normal AP diameter. No accessory muscle use. No wheezing, no crackles. ABDOMEN: Soft, bowel sounds present, nontender, no distention. CENTRAL NERVOUS SYSTEM: Cranial nerves II through XII are grossly intact, left leg weakness?. EXTREMITIES: No edema, no erythema. Principal Diagnosis LILLI over CKD stage III Colitis Rectal hemorrhoids Discharge Exam GENERAL: Alert and oriented x3. NAD, on RA. HEENT: No pallor, no icterus. Pupils equal, round and reactive to light. Oral mucosa moist. NECK: No JVD, no neck masses. HEART: S1 and S2 heard. Regular rate and rhythm. No murmur, no gallop. RESPIRATORY SYSTEM: Normal AP diameter. No accessory muscle use. No wheezing, no crackles. ABDOMEN: Soft, bowel sounds present, mild tender mostly on left, no distention. CENTRAL NERVOUS SYSTEM: No facial droop. Speech is clear. Obeys simple commands. Moves extremities. EXTREMITIES: No edema, no erythema seen. Discharge Data Allergies Allergy/AdvReac Type Severity Reaction Status Date / Time Penicillins Allergy Unknown REACTION Verified 11/07/21 02:16 UNKNOWN- CHILDHOOD ALLERGY Sulfa (Sulfonamide AdvReac Intermediate N/V Verified 11/07/21 02:16 Antibiotics) Consultations 11/07/21 01:18 ED Decision to Admit Stat 11/07/21 08:00 Consult Gastroenterology Routine 11/07/21 18:23 Consult General Surgery Routine 11/08/21 08:51 Consult General Surgery Routine Ordered Studies 11/07/21 00:02 CT abd pelvis wo con Urgent Hospital Course (1) Rectal [age]-year-old female who presents with abdominal pain, rectal pain, rectal bleeding, and near syncope on 11/07. She was managed for the following: #. Near syncope #. Orthostatic hypotension #. LILLI/CKD 3 Likely secondary to dehydration Orthostatic vitals positive initially, improved Creatinine elevated at 2.3 at presentation, baseline 1.1, LILLI resolved back to baseline. 11/07 echo: EF 50 to 55%, grade 1 diastolic dysfunction Patient is started eating okay and moving around okay per RN. Continue with lisinopril and resume HCTZ upon discharge. #. Abdominal pain #. Colitis #. Rectal pain/hemorrhoids - Hb stable Admitting CT AP: Nonspecific colitis at the splenic flexure, no evidence of bowel obstruction. Left nephrolithiasis, no hydronephrosis. Patient reports improving diarrhea. Patient reports improving rectal pain with Anusol. Patient with mild abdominal pain, tolerating liquid diet, advance as tolerated. Continue with Rocephin 11/07 and metronidazole 11/07. Continue with Anusol. Patient being discharged on Cipro and metronidazole with probiotic. GI evaluated, recommends outpatient colonoscopy prior to possible hemorrhoidectomy General surgery evaluated, recommends outpatient colorectal surgery referral. Patient should be on bowel regimen once colitis/diarrhea resolves. Patient made aware. #. Other chronic medical conditions: Prediabetes [A1c 5.9], morbid obesity, HLD, history of CVA with left leg weakness, GERD, chronic interstitial cystitis history, irritable bowel syndrome history, migraine history Patient taking Ozempic because it helps with weight loss but it does have side effect profile of abdominal pain/constipation or diarrhea and LILLI. Given her presentation, will hold Ozempic and DC at discharge. continue to monitor, continue diet control upon discharge. Patient aware. Sleep study as an outpatient, continue statin/baby aspirin/other home meds. #. DVT prophylaxis: SCDs Patient insisted on going home [PT recommending inpatient rehab]. She is being discharged with following instruction at the point of discharge: Follow-up with your primary care physician within a week time. Follow-up with your GI doctor as an outpatient, you will need evaluation for outpatient colonoscopy prior to possible hemorrhoidectomy. Establish and follow-up with your colorectal surgeon within 1 week time. As discussed at the bedside, as your diarrhea gets better, you will need to be on laxatives [id number]. Avoid straining. Because you presented with abdominal pain and nausea, the possibility it could be from Ozempic side effect is there, your Ozempic is stopped upon discharge. Follow-up with your primary care physician for close monitoring of your diabetic management. For now lifestyle modification and dietary control advised. You will be discharged on antibiotics and probiotics for your colitis. You will be discharged with Anusol cream for your hemorrhoids, get in touch with your PCP/colorectal surgeon for further evaluation & management of your hemorrhoids. You will likely need sleep study as an outpatient. Take your medications as prescribed. (2) Acute kidney injury: Total Time Total Time Spent Total Time Spent (In Minutes): 40 Discharge Plan Discharge Items Patient Disposition: Home - Home Health Services Reason For Visit: NEAR SYNCOPE Discharge Diagnosis: LILLI over CKD stage III Colitis Rectal hemorrhoids Activity: Resume your previous activity Non-emergency contact: Primary Care Provider Call non-emergency contact if: you have any medication questions, your symptoms worsen and your temperature is above 101 Follow-up/Referrals: Abraham Ryan MD [Primary Care Provider] - Diet: Regular Addtl Attending Provider Instructions: Follow-up with your primary care physician within a week time. Follow-up with your GI doctor as an outpatient, you will need evaluation for outpatient colonoscopy prior to possible hemorrhoidectomy. Establish and follow-up with your colorectal surgeon within 1 week time. As discussed at the bedside, as your diarrhea gets better, you will need to be on laxatives [id number]. Avoid straining. Because you presented with abdominal pain and nausea, the possibility it could be from Ozempic side effect is there, your Ozempic is stopped upon discharge. Follow-up with your primary care physician for close monitoring of your diabetic management. For now lifestyle modification and dietary control advised. You will be discharged on antibiotics and probiotics for your colitis. You will be discharged with Anusol cream for your hemorrhoids, get in touch with your PCP/colorectal surgeon for further evaluation & management of your hemorrhoids. You will likely need sleep study as an outpatient. Take your medications as prescribed. Pending Studies at Discharge: No Stand-Alone Forms: My [facility], Smoking Cessation Medications and DC Order Prescriptions: New metronidazole 500 mg Tablet 500 mg PO TID 11 Days Qty: 33 RF: 0 Advanced Probiotic 625 mg (10 billion cell) Capsule 2 cap PO DAILY 14 Days Qty: 28 RF: 0 polyethylene glycol 3350 [Miralax] 17 gram Powder In Packet 34 g PO BID PRN (Reason: laxative effect) Qty: 100 RF: 0 hydrocortisone [Proctosol HC] 2.5 % Cream With Perineal Applicator 1 applic EXT BID 10 Days Qty: 30 RF: 0 ciprofloxacin HCl 500 mg tablet 500 mg PO BID 11 Days Qty: 22 RF: 0 Continued (DME) Aspirating [place] RF: 0 fluoxetine 40 mg capsule 80 mg PO DAILY RF: 0 atorvastatin 40 mg tablet 40 mg PO DAILY RF: 0 clonazepam 0.5 mg tablet 0.5 mg PO TID RF: 0 sumatriptan succinate 50 mg Tablet 100 mg PO DIRECTED PRN (Reason: Migraine Headache) RF: 0 omeprazole 40 mg capsule,delayed release(DR/EC) 40 mg PO BID RF: 0 tramadol 50 mg tablet 50 mg PO Q6 PRN (Reason: Pain) RF: 0 lamotrigine 25 mg Tablet 25 mg PO BID RF: 0 gabapentin 800 mg tablet 800 mg PO HS RF: 0 promethazine 25 mg tablet 25 mg PO Q6 PRN (Reason: Nausea) RF: 0 aspirin [Aspirin Childrens] 81 mg Tablet,Chewable 81 mg PO DAILY RF: 0 hydrochlorothiazide 25 mg tablet 25 mg PO DAILY RF: 0 metoprolol succinate 25 mg tablet extended release 24 hr 25 mg PO DAILY RF: 0 albuterol sulfate 90 mcg/actuation Hfa Aerosol Inhaler 2 puff INHALATION QID PRN (Reason: Shortness Of Breath Or Wheezing) RF: 0 lisinopril 40 mg tablet 40 mg PO DAILY RF: 0 metronidazole [Metrogel] 1 % Gel 1 applic TOPICAL BID RF: 0 Discontinued Ozempic 0.25 mg or 0.5 mg(2 mg/1.5 mL) pen injector 2.5 mg SUBCUT WK RF: 0 Discharge Orders: Discharge Order (Routine); Ordered 11/11/21 Ordered By: Carson Quezada Admission Data Admit Date/Time: 11/07/21 02:32 Attending Provider: Carson Quezada Admit Provider: Fitz Mendoza Primary Care Provider: Abraham Ryan Other Providers: Fitz Mendoza ; Maeve Sheth ; Chris Carreno ; Abdelrahman Mccracken ; [facility] Other Interventions: Discharge Summary Assessment (RN) Last Done: 11/11/21 10:35
== END 2021-11-11 12:22 | disposition home or self-care (01) | DRG 394 ==
LOC: ED 21:55 → 2N 11-07 02:32 → SUATTDRO 11-07 02:32 → INTOOBSV 11-07 02:32 → 2N 11-07 04:09
DX: G25.81 Restless legs syndrome; Z79.82 Long term (current) use of aspirin; T38.3X5A Adverse effect of insulin and oral hypoglycemic [antidiabetic] drugs, initial encounter; M79.7 Fibromyalgia; R11.0 Nausea; K64.4 Residual hemorrhoidal skin tags; K21.9 Gastro-esophageal reflux disease without esophagitis; F41.9 Anxiety disorder, unspecified; E11.22 Type 2 diabetes mellitus with diabetic chronic kidney disease; K55.9 Vascular disorder of intestine, unspecified; R10.9 Unspecified abdominal pain; E78.5 Hyperlipidemia, unspecified; I69.328 Other speech and language deficits following cerebral infarction; I69.344 Monoplegia of lower limb following cerebral infarction affecting left non-dominant side; Z79.899 Other long term (current) drug therapy; N17.9 Acute kidney failure, unspecified; M19.90 Unspecified osteoarthritis, unspecified site; E86.0 Dehydration; I69.111 Memory deficit following nontraumatic intracerebral hemorrhage; F32.A Depression, unspecified; Z68.42 Body mass index [BMI] 45.0-49.9, adult; K58.2 Mixed irritable bowel syndrome; Z86.711 Personal history of pulmonary embolism; N18.30 Chronic kidney disease, stage 3 unspecified; Z88.0 Allergy status to penicillin; I95.1 Orthostatic hypotension; K64.8 Other hemorrhoids; E66.01 Morbid (severe) obesity due to excess calories; K92.1 Melena; Z88.2 Allergy status to sulfonamides; Z86.718 Personal history of other venous thrombosis and embolism

== ENCOUNTER 2024-12-17 14:26 | Observation (INO) ==
[2024-12-17 15:05] LABS: Albumin Globulin Ratio 0.8 (0.9-2); BUN Creatinine Ratio 11.4 (10-20); Bilirubin,Total 1.9 mg/dl (0.2-1.0); Calcium 8.6 mg/dl (8.6-10.3); Creatinine Clr Calc Pharmacy 79.9 ml/min; Globulin 3.9 gm/dl (2.5-4.0); Potassium 3.4 mmol/L (3.5-5.1); Total Protein 6.9 gm/dl (6.0-8.3)
[2024-12-17 15:11] LABS: Troponin I High Sensitivity 5.7 pg/ml (0-14)
--- NOTE | 2024-12-17 15:12 | XRay Report ---
KUB HISTORY: Acute abdominal pain with constipation constipation COMPARISON: CT July 26, 2024 FINDINGS: Nonobstructive bowel gas pattern. Cholecystectomy. Mild to moderate colonic fecal retention . Pelvic calcifications are likely vascular. No renal calculi. No ureteral calculi. No pneumoperiton eum or pneumatosis. No fracture. IMPRESSION: 1. Nonobstructive bowel gas pattern. 2. Mild to moderate colonic fecal retention. ACT 112: Negative or not required by law. The above report was generated using voice recognition software. It may contain grammatical, syntax o r spelling errors. Electronically signed by: Gonzalez Villela M.D. 12/17/2024 3:11 PM
[2024-12-17 15:18] LABS: Basophils # (auto) 0.02 K/uL (0.00-0.20); Basophils % (auto) 0.6 %; Eosinophils # (auto) 0.15 K/uL (0.00-0.50); Eosinophils % (auto) 4.1 %; Hematocrit (blood only) 35.1 % (37.0-47.0); Hemoglobin 11.9 g/dl (12.0-16.0); Immature Granulocytes # (auto) 0.01 K/uL (0.01-0.20); Immature Granulocytes % (auto) 0.3 %; Lymphocytes # (auto) 0.91 K/uL (1.20-3.40); Lymphocytes % (auto) 25.1 %; Mean Corpuscular Hemoglobin 31.8 pg (25.0-34.0); Mean Corpuscular Hgb Conc 33.9 g/dL (32.0-36.0); Mean Corpuscular Volume 93.9 fL (80.0-100.0); Mean Platelet Volume 10.4 fL (9.4-12.4); Monocytes % (auto) 5.5 %; Neutrophils # (auto) 2.33 K/uL (1.40-6.50); Neutrophils % (auto) 64.4 %; Platelet Count 83 K/uL (130-400); Platelet Estimate Decreased (Normal); RDW Coefficient of Variation 14.9 % (11.5-14.5); RDW Standard Deviation 51.7 fL (36.4-46.3); Red Blood Count 3.74 M/uL (4.20-5.40); White Blood Count 3.62 K/ul (4.8-10.8)
--- NOTE | 2024-12-17 16:03 | Electrocardiogram Report ---
Test Reason : Blood Pressure : */* mmHG Vent. 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
[2024-12-17 16:53] LABS: INR 1.1 (0.9-1.1); Partial Thromboplastin Ratio 1.1; Partial Thromboplastin Time 30 Seconds (21-31); Prothrombin Time 12.3 Seconds (9.0-12.0)
[2024-12-17] MEDS: GLYCERIN ADULT 12 SUPP/BOX SUPP PR ONE (16:53)
[2024-12-17] MEDS: MAGNESIUM HYDROXIDE SUSP 30 ML UDC PO ONE (16:53)
[2024-12-17] MEDS: DICYCLOMINE HCL 10 MG CAP PO ONE (18:16)
[2024-12-17] MEDS: FAMOTIDINE 20MG IV PUSH 20 MG/5 ML SYR IV STA (18:16)
--- NOTE | 2024-12-17 18:26 | Emergency Department Note ---
Impression & Plan Abdominal pain, Constipation ED Provider Note ED Provider Note NAME: ZOE BUCKLEY AGE:59 SEX: Female : 1965 ARRIVES VIA: Private vehicle INFORMANT: Patient ED PROVIDER(s): Anahi Santo DO CHIEF COMPLAINT: Abdominal pain, constipation HPI: This is a 59-year-old female with multiple medical problems who presents to the emergency room due to concern for several days of abdominal pain and constipation. Patient states she had a very small hard stool yesterday which required a lot of pushing and straining in order to pass. She states she has had constipation previously and sometimes it alternates with diarrhea. She denies any recent change in medications or diet. No recent fevers, chills, or other symptoms of illness. She states she has chronic right-sided pain that she attributes to her known cirrhosis. She states few days ago she began having intermittent central abdominal pain which radiates upward into her epigastric/lower chest area. She states she has had a decreased appetite although no overt vomiting. She denies fevers or chills. She states she did not notice any blood with the bowel movement. She states she is still passing gas. Patient did take Phenergan that she has at home for nausea and to try Tums additionally for pain. She denies hx of gastritis/gerd. She states her pain feels worse when she is struggling to have a bowel movement. PAST MEDICAL HISTORY:See Below PAST SURGICAL HISTORY:See Below FAMILY HISTORY:See Below SOCIAL HISTORY:See Below HOME MEDICATIONS:See Below ALLERGIES:See Below VITALS:See Below PHYSICAL EXAMINATION: GENERAL: alert, well appearing, well nourished, no distress, non-toxic EYE EXAM: normal conjunctiva, PERRL and EOM's grossly intact OROPHARYNX: no exudate, no erythema, lips, buccal mucosa, and tongue normal and mucous membranes are moist NECK: supple, no nuchal rigidity, no adenopathy, non-tender LUNGS: Clear to auscultation. Normal chest wall mechanics, no w/r/r HEART: no murmurs, S1 normal and S2 normal ABDOMEN: abdomen soft, mild epigastric tenderness with palpation, right lateral abd pain with palpation additionally, normo-active bowel sounds, no masses, no rebound or guarding. BACK: Back is symmetrical on inspection and there is no deformity, no midline tenderness, no CVA tenderness. SKIN: no rashes, petechiae, orbruising UPPER EXTREMITIES: upper extremities are grossly normal. FROM, nml pulses b/l. LOWER EXTREMITIES: No pitting edema. FROM, nml pulses b/l. NEURO EXAM: Normal sensorium, cranial nerves II-XII grossly intact, normal speech, no facial droop,nogross weakness of arms, no gross weakness of legs. Gross sensation intact. No ataxia. Vital Signs: reviewed and remarkable Differential Diagnosis: Appendicitis, diverticulitis, UTI, obstruction, mesenteric ischemia, aortic pathology, inflammatory bowel disease, renal colic, PUD, pancreatitis, biliary pathology, hernia, volvulus, constipation, as well as other pathologies. MEDICAL DECISION MAKING: This is a 59-year-old female who presents emergency room due to concern for abdominal pain and possible constipation. Patient with chronic right lateral abdominal pain that she states is secondary to her cirrhosis however her concerning findings this time are more central and radiate into the epigastric area. Patient was afebrile and hemodynamically stable on arrival. Labs drawn and sent, IV established, EKG and x-rays performed at bedside and interpreted by me and patient monitored on telemetry. Patient given multiple medications in an effort to help with the constipation and also in consideration for gastritis/GERD. Patient continued to have pain. She was given small amount of IV fluids additionally. She was given medications for her nausea. After multiple medications over several hours, we eventually give the patient IV morphine as she requested further inpatient evaluation given persistence of her pain. CT of the abdomen pelvis was performed additionally without any acute findings. The right lateral flank pain I suspect is the area of inflammation and possible colitis noted by radiology. Consultation(s): 0039: Discussed with Dr. Sorensen, [facility] hospitalist team, for additional evaluation and management. ER Treatment Provided: See below Diagnostics Interpreted By Me: -ECG: Normal sinus at 79, normal axis, normal QRS, prolonged QTc, no acute ST/T wave changes -ECG: Normal sinus at 75, normal QRS, prolonged QTc, normal axis, no acute ST/T wave changes -Cardiac Monitoring: An order was placed for continuous cardiac monitoring. The monitor shows a rate of 76 with normal sinus rhythm. -Laboratory studies: As stated above and show below. 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 Fatigue Left sided numbness Weakness on left side of face Asthma (Chronic) Vitamin D deficiency (Chronic) Bilateral shoulder pain Fibromyalgia MRSA (methicillin resistant Staphylococcus aureus) carrier RUE weakness (Acute) Double vision (Acute) Interstitial cystitis (Chronic) Renal calculi (Chronic) Endometriosis (Chronic) Allergic rhinitis (Chronic) Arthralgia of multiple joints Muscle weakness (generalized) Gait abnormality Depression with anxiety (Chronic) Third nerve palsy of left eye POOR VISION IN LEFT EYE Migraine (Chronic) Medical History Hx MRSA infection (~2019) Chronic pain Interstitial cystitis Per records Asthma History of COVID-19 2021, 2022- symptoms resolved Type 2 diabetes mellitus Constipation Occasional Hemorrhoids Internal/external Meniere disease Chronic lightheadedness/dizziness Neuropathy RLE, b/l feet Restless leg syndrome Stable GERD (gastroesophageal reflux disease) Hyperlipidemia Per records, patient denies indicating she is on statin for stroke pervention History of pulmonary embolism 2017 after "long bus ride" Previously on Coumadin x months, then discontinued and started on ASA No issues since CVA (cerebral vascular accident) Remote hx 2017/2018, residual slurred speech, weakness, memory impairment IBS (irritable bowel syndrome) Diarrhea/constipation combination HTN (hypertension) Fibromyalgia Surgical History Nausea and vomiting after administration of anesthetic agent History of cystoscopy Bladder distention x2 History of tooth extraction History of esophagogastroduodenoscopy (EGD) History of colonoscopy S/P tubal ligation History of hysterectomy S/P cholecystectomy Family History Mother , age 63 of cerebral aneurysm. Cerebral aneurysm Father , age 63 of an [place] Myocardial infarction Other Heart disease Hypertension No family history of adverse response to anesthesia Social History Smoking Status: Never smoker Second Hand Exposure: No; Do You Dip or Chew Tobacco: No; Hx Alcohol Use: Yes Alcohol type: wine Alcohol Intake Frequency Comment: Once a month. Hx Substance Use: No Preferred Language: Polish Communication Ability: Effective Communication Ability Comment: NO COMMUNICATION DEFICITS FOR PAT PHONE CALL Manager People Required: No Beliefs That Will Affect Care: None marital status: Current Living Situation: Spouse current occupational status: employed current occupation: Works at the [employer]. 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 swelling Sulfa (Sulfonamide AdvReac Intermediate N/V Verified 12/17/24 18:00 Antibiotics) Home Meds Home Medications Medication Instructions Recorded Confirmed Aspirating [place] 11/07/21 11/21/23 albuterol sulfate 90 mcg/actuation 2 puff inhalation QID PRN 11/07/21 12/17/24 aerosol inhaler Shortness Of Breath Or Wheezing aspirin 81 mg chewable tablet 81 mg PO QAM 11/07/21 12/17/24 (Aspirin Childrens) atorvastatin 40 mg tablet (Lipitor) 40 mg PO QAM 11/07/21 12/17/24 clonazepam 0.5 mg tablet (Klonopin) 0.5 mg PO TID 11/07/21 12/17/24 fluoxetine 40 mg capsule (Prozac) 80 mg PO QPM 11/07/21 12/17/24 gabapentin 800 mg tablet 800 mg PO HS 11/07/21 12/17/24 hydrochlorothiazide 25 mg tablet 25 mg PO QAM 11/07/21 12/17/24 lisinopril 40 mg tablet (Zestril) 40 mg PO QAM 11/07/21 12/17/24 metoprolol succinate 25 mg 25 mg PO QAM 11/07/21 12/17/24 tablet,extended release 24 hr omeprazole 40 mg capsule,delayed 40 mg PO BID 11/07/21 12/17/24 release promethazine 25 mg tablet 25 mg PO UD PRN Nausea 11/07/21 12/17/24 sumatriptan succinate 50 mg tablet 100 mg PO DIRECTED PRN Migraine 11/07/21 12/17/24 (Imitrex) Headache tramadol 50 mg tablet 50 mg PO UD PRN Pain 11/07/21 12/17/24 calcium carbonate (Tums) 200 mg PO UD PRN Acid Reflux 12/16/21 12/17/24 polyethylene glycol 3350 17 gram 34 g PO UD PRN laxative effect 12/16/21 12/17/24 oral powder packet (Miralax) levothyroxine 25 mcg tablet 50 mcg PO QAM 11/30/23 12/17/24 cyanocobalamin (vitamin B-12) 1,000 mcg IM MONTHLY 12/11/23 12/17/24 1,000 mcg/mL injection solution (Dodex) metoclopramide HCl 5 mg tablet 5 mg PO Q8H PRN ABD DISCOMFORT 12/17/24 12/17/24 (Reglan) Previous Rx's Medication Instructions Recorded cholecalciferol (vitamin D3) 1,250 50,000 unit PO WK #14 caps 11/05/23 mcg (50,000 unit) capsule needle (disp) 23 gauge 23 gauge x #100 ea 11/12/23 1" (Aqinject Standard Needle) safety needles 25 gauge x 1" (BD #15 ea 11/12/23 Eclipse) syringe with needle, safety 3 mL #1 ea 11/12/23 23 gauge x 1" (Monoject Safety Syringes) Results & Data (ED) Vital Signs Vital Signs - 24 hr 12/17/24 14:29 12/17/24 15:52 12/17/24 15:52 Temperature 36.5 C Temperature Source Temporal Artery Scan Pulse Rate 79 77 Pulse Rate [Left Finger] 78 Pulse Rate from SpO2 Sensor Respiratory Rate 18 22 22 Respiratory Effort / Characteristics Non-Labored Spontaneous Non-Labored Spontaneous Respiratory Depth Normal Normal Blood Pressure 165/92 H Blood Pressure [Right Arm] 164/87 H Blood Pressure Mean 116 Blood Pressure Mean [Right Arm] 112 Blood Pressure Position Sitting Blood Pressure Position [Right Arm] Lying Pulse Oximetry 100 94 95 Oxygen Delivery Method Room Air Room Air Room Air Sepsis Recent Fever Within 48 Hours No Sepsis New/Unexplained Change in Mental Status No Sepsis Action Taken by Nursing No Action Required 12/17/24 15:57 12/17/24 16:00 12/17/24 16:00 Temperature Temperature Source Pulse Rate 78 Pulse Rate [Left Finger] Pulse Rate from SpO2 Sensor 78 Respiratory Rate 17 Respiratory Effort / Characteristics Respiratory Depth Blood Pressure 151/92 H 151/92 H Blood Pressure [Right Arm] Blood Pressure Mean 117 117 Blood Pressure Mean [Right Arm] Blood Pressure Position Blood Pressure Position [Right Arm] Pulse Oximetry 94 Oxygen Delivery Method Sepsis Recent Fever Within 48 Hours Sepsis New/Unexplained Change in Mental Status Sepsis Action Taken by Nursing 12/17/24 16:09 12/17/24 16:21 12/17/24 16:27 Temperature Temperature Source Pulse Rate 74 74 73 Pulse Rate [Left Finger] Pulse Rate from SpO2 Sensor 74 75 73 Respiratory Rate 18 15 17 Respiratory Effort / Characteristics Respiratory Depth Blood Pressure Blood Pressure [Right Arm] Blood Pressure Mean Blood Pressure Mean [Right Arm] Blood Pressure Position Blood Pressure Position [Right Arm] Pulse Oximetry 92 93 94 Oxygen Delivery Method Sepsis Recent Fever Within 48 Hours Sepsis New/Unexplained Change in Mental Status Sepsis Action Taken by Nursing 12/17/24 16:30 12/17/24 16:30 12/17/24 16:33 Temperature Temperature Source Pulse Rate 75 Pulse Rate [Left Finger] Pulse Rate from SpO2 Sensor 75 Respiratory Rate 19 Respiratory Effort / Characteristics Respiratory Depth Blood Pressure 155/91 H 155/91 H Blood Pressure [Right Arm] Blood Pressure Mean 106 106 Blood Pressure Mean [Right Arm] Blood Pressure Position Blood Pressure Position [Right Arm] Pulse Oximetry 93 Oxygen Delivery Method Sepsis Recent Fever Within 48 Hours Sepsis New/Unexplained Change in Mental Status Sepsis Action Taken by Nursing 12/17/24 17:41 12/17/24 17:42 12/17/24 17:54 Temperature Temperature Source Pulse Rate 73 73 Pulse Rate [Left Finger] Pulse Rate from SpO2 Sensor Respiratory Rate 18 24 Respiratory Effort / Characteristics Respiratory Depth Blood Pressure 147/79 H Blood Pressure [Right Arm] Blood Pressure Mean 94 Blood Pressure Mean [Right Arm] Blood Pressure Position Blood Pressure Position [Right Arm] Pulse Oximetry Oxygen Delivery Method Sepsis Recent Fever Within 48 Hours Sepsis New/Unexplained Change in Mental Status Sepsis Action Taken by Nursing 12/17/24 18:00 12/17/24 18:12 12/17/24 18:30 Temperature Temperature Source Pulse Rate 73 74 Pulse Rate [Left Finger] Pulse Rate from SpO2 Sensor 74 Respiratory Rate 19 23 Respiratory Effort / Characteristics Respiratory Depth Blood Pressure 156/84 H Blood Pressure [Right Arm] Blood Pressure Mean 98 Blood Pressure Mean [Right Arm] Blood Pressure Position Blood Pressure Position [Right Arm] Pulse Oximetry 96 Oxygen Delivery Method Sepsis Recent Fever Within 48 Hours Sepsis New/Unexplained Change in Mental Status Sepsis Action Taken by Nursing 12/17/24 18:44 12/17/24 18:51 12/17/24 19:00 Temperature Temperature Source Pulse Rate 79 75 Pulse Rate [Left Finger] Pulse Rate from SpO2 Sensor 75 Respiratory Rate 19 Respiratory Effort / Characteristics Respiratory Depth Blood Pressure 159/81 H Blood Pressure [Right Arm] Blood Pressure Mean 107 Blood Pressure Mean [Right Arm] Blood Pressure Position Blood Pressure Position [Right Arm] Pulse Oximetry 94 Oxygen Delivery Method Sepsis Recent Fever Within 48 Hours Sepsis New/Unexplained Change in Mental Status Sepsis Action Taken by Nursing 12/17/24 19:00 12/17/24 19:00 12/17/24 19:09 Temperature Temperature Source Pulse Rate 73 Pulse Rate [Left Finger] Pulse Rate from SpO2 Sensor 73 Respiratory Rate 17 Respiratory Effort / Characteristics Respiratory Depth Blood Pressure 159/81 H 159/81 H Blood Pressure [Right Arm] Blood Pressure Mean 107 107 Blood Pressure Mean [Right Arm] Blood Pressure Position Blood Pressure Position [Right Arm] Pulse Oximetry 99 Oxygen Delivery Method Sepsis Recent Fever Within 48 Hours Sepsis New/Unexplained Change in Mental Status Sepsis Action Taken by Nursing 12/17/24 19:33 12/17/24 19:42 12/17/24 19:54 Temperature Temperature Source Pulse Rate 72 76 75 Pulse Rate [Left Finger] Pulse Rate from SpO2 Sensor Respiratory Rate 23 22 Respiratory Effort / Characteristics Respiratory Depth Blood Pressure Blood Pressure [Right Arm] Blood Pressure Mean Blood Pressure Mean [Right Arm] Blood Pressure Position Blood Pressure Position [Right Arm] Pulse Oximetry Oxygen Delivery Method Sepsis Recent Fever Within 48 Hours Sepsis New/Unexplained Change in Mental Status Sepsis Action Taken by Nursing 12/17/24 20:00 12/17/24 20:01 12/17/24 20:45 Temperature Temperature Source Pulse Rate 71 73 Pulse Rate [Left Finger] Pulse Rate from SpO2 Sensor 72 Respiratory Rate 21 15 Respiratory Effort / Characteristics Respiratory Depth Blood Pressure 152/76 H Blood Pressure [Right Arm] Blood Pressure Mean 90 Blood Pressure Mean [Right Arm] Blood Pressure Position Blood Pressure Position [Right Arm] Pulse Oximetry 100 Oxygen Delivery Method Sepsis Recent Fever Within 48 Hours Sepsis New/Unexplained Change in Mental Status Sepsis Action Taken by Nursing 12/17/24 20:46 12/17/24 20:51 12/17/24 21:00 Temperature Temperature Source Pulse Rate 69 Pulse Rate [Left Finger] Pulse Rate from SpO2 Sensor 69 Respiratory Rate 19 Respiratory Effort / Characteristics Respiratory Depth Blood Pressure 140/76 151/83 H Blood Pressure [Right Arm] Blood Pressure Mean 88 112 Blood Pressure Mean [Right Arm] Blood Pressure Position Blood Pressure Position [Right Arm] Pulse Oximetry 98 Oxygen Delivery Method Sepsis Recent Fever Within 48 Hours Sepsis New/Unexplained Change in Mental Status Sepsis Action Taken by Nursing 12/17/24 21:00 12/17/24 21:00 12/17/24 21:00 Temperature Temperature Source Pulse Rate 70 Pulse Rate [Left Finger] Pulse Rate from SpO2 Sensor 70 Respiratory Rate 16 Respiratory Effort / Characteristics Respiratory Depth Blood Pressure 151/83 H 151/83 H Blood Pressure [Right Arm] Blood Pressure Mean 112 112 Blood Pressure Mean [Right Arm] Blood Pressure Position Blood Pressure Position [Right Arm] Pulse Oximetry 96 Oxygen Delivery Method Sepsis Recent Fever Within 48 Hours Sepsis New/Unexplained Change in Mental Status Sepsis Action Taken by Nursing 12/17/24 21:18 12/17/24 21:21 12/17/24 22:54 Temperature Temperature Source Pulse Rate 70 72 77 Pulse Rate [Left Finger] Pulse Rate from SpO2 Sensor 70 71 Respiratory Rate 18 20 Respiratory Effort / Characteristics Respiratory Depth Blood Pressure Blood Pressure [Right Arm] Blood Pressure Mean Blood Pressure Mean [Right Arm] Blood Pressure Position Blood Pressure Position [Right Arm] Pulse Oximetry 98 96 Oxygen Delivery Method Sepsis Recent Fever Within 48 Hours Sepsis New/Unexplained Change in Mental Status Sepsis Action Taken by Nursing 12/17/24 23:30 Temperature Temperature Source Pulse Rate Pulse Rate [Left Finger] 76 Pulse Rate from SpO2 Sensor Respiratory Rate 19 Respiratory Effort / Characteristics Respiratory Depth Blood Pressure Blood Pressure [Right Arm] 133/94 Blood Pressure Mean Blood Pressure Mean [Right Arm] 107 Blood Pressure Position Blood Pressure Position [Right Arm] Pulse Oximetry 92 Oxygen Delivery Method Sepsis Recent Fever Within 48 Hours Sepsis New/Unexplained Change in Mental Status Sepsis Action Taken by Nursing Laboratory Data 12/18/24 07:44 12/18/24 07:44 Lab Results 12/17/24 12/17/24 Range/Units 14:38 15:51 WBC 3.62 L (4.8-10.8) K/ul RBC 3.74 L (4.20-5.40) M/uL Hgb 11.9 L (12.0-16.0) g/dl Hct 35.1 L (37.0-47.0) % MCV 93.9 (80.0-100.0) fL MCH 31.8 (25.0-34.0) pg MCHC 33.9 (32.0-36.0) g/dL RDW Std Deviation 51.7 H (36.4-46.3) fL RDW Coeff of Karen 14.9 H (11.5-14.5) % Plt Count 83 L (130-400) K/uL MPV 10.4 (9.4-12.4) fL Immature Gran % (Auto) 0.3 % Neut % (Auto) 64.4 % Lymph % (Auto) 25.1 % Smith % (Auto) 5.5 % Eos % (Auto) 4.1 % Baso % (Auto) 0.6 % Neut # (Auto) 2.33 (1.40-6.50) K/uL Lymph # (Auto) 0.91 L (1.20-3.40) K/uL Smith # (Auto) 0.20 (0.11-0.59) K/uL Eos # (Auto) 0.15 (0.00-0.50) K/uL Baso # (Auto) 0.02 (0.00-0.20) K/uL Immature Gran # (Auto) 0.01 (0.01-0.20) K/uL Platelet Estimate Decreased L (Normal) PT Cancelled 12.3 H INR Cancelled 1.1 APTT Cancelled 30 PTT Ratio Cancelled 1.1 Sodium 141 (136-145) mmol/L Potassium 3.4 L (3.5-5.1) mmol/L Chloride 109 H (98-107) mmol/L Carbon Dioxide 26 (21-32) mmol/L Anion Gap 6 (3-11) BUN 10 (6-23) mg/dl Creatinine 0.88 (0.6-1.2) mg/dl Est Cr Clr Drug Dosing 79.9 ml/min eGFR 74.72 BUN/Creatinine Ratio 11.4 (10-20) Glucose 153 H (70-99(Fasting)) mg/dl Calcium 8.6 (8.6-10.3) mg/dl Total Bilirubin 1.9 H (0.2-1.0) mg/dl AST 49 H (13-39) U/L ALT 22 (7-52) U/L Alkaline Phosphatase 87 (34-104) U/L Troponin I High Sens 5.7 (0-14) pg/ml Total Protein 6.9 (6.0-8.3) gm/dl Albumin 3.0 L (3.4-5.0) gm/dl Globulin 3.9 (2.5-4.0) gm/dl Albumin/Globulin Ratio 0.8 L (0.9-2) Administered Medications Aspirin (Aspirin 81 Mg Ectab) 81 mg PO [facility] Stop: 01/17/25 08:59 Last Admin: 12/18/24 09:05 Dose: 81 mg Documented By: MARY JO Atorvastatin Calcium (Atorvastatin 40 Mg Tab) 40 mg PO [facility] Stop: 01/17/25 08:59 Last Admin: 12/18/24 09:06 Dose: 40 mg Documented By: MARY JO Clonazepam (Clonazepam 0.5 Mg Tab) 0.5 mg PO TID [facility] Stop: 01/17/25 08:59 Last Admin: 12/18/24 22:07 Dose: 0.5 mg Documented By: Admin: 12/18/24 14:10 Dose: 0.5 mg Documented By: MARY JO Admin: 12/18/24 09:15 Dose: 0.5 mg Documented By: MARY JO Fluoxetine HCl (Fluoxetine Hcl 20 Mg Cap) 80 mg PO QPM [facility] Stop: 01/17/25 20:59 Last Admin: 12/18/24 22:05 Dose: 80 mg Documented By: SPEEDY Gabapentin (Gabapentin 800 Mg Tab) 800 mg PO [facility] Stop: 01/17/25 20:59 Last Admin: 12/18/24 22:05 Dose: 800 mg Documented By: SPEEDY Hydrochlorothiazide (Hydrochlorothiazide 25 Mg Tab) 25 mg PO [facility] Stop: 01/17/25 08:59 Last Admin: 12/18/24 09:05 Dose: 25 mg Documented By: MARY JO Pantoprazole Sodium (Protonix) 40 mg in 10 mls @ 5 mls/min IV BID [facility] Stop: 01/17/25 08:59 Last Admin: 12/18/24 22:05 Dose: 5 mls/min Documented By: Admin: 12/18/24 09:05 Dose: 5 mls/min Documented By: MARY JO Ciprofloxacin (Cipro / D5w) 400 mg in 200 mls @ 100 mls/hr IV Q12H [facility] CARLOS; Protocol Stop: 12/28/24 01:59 Last Infusion: 12/18/24 16:11 Dose: Infused Documented By: MARY JO Admin: 12/18/24 14:11 Dose: 100 mls/hr Documented By: MARY JO Infusion: 12/18/24 05:23 Dose: Infused Documented By: Admin: 12/18/24 02:30 Dose: 100 mls/hr Documented By: GREGG Metronidazole (Flagyl) 500 mg in 100 mls @ 100 mls/hr IV Q8H [facility] CARLOS; Protocol Stop: 12/28/24 01:59 Last Infusion: 12/18/24 19:59 Dose: Infused Documented By: Admin: 12/18/24 18:46 Dose: 100 mls/hr Documented By: MARY JO Infusion: 12/18/24 11:38 Dose: Infused Documented By: MARY JO Admin: 12/18/24 10:38 Dose: 100 mls/hr Documented By: MARY JO Infusion: 12/18/24 03:34 Dose: Infused Documented By: Admin: 12/18/24 02:00 Dose: 100 mls/hr Documented By: GREGG Lactated Ringer's (Lr) 1,000 mls @ 100 mls/hr IV .Q10H [facility] Stop: 12/21/24 12:44 Last Admin: 12/18/24 14:25 Dose: 100 mls/hr Documented By: MARY JO Levothyroxine Sodium (Levothyroxine Sodium 50 Mcg Tablet) 50 mcg PO DAILYBB [facility] Stop: 01/17/25 06:29 Last Admin: 12/18/24 05:42 Dose: 50 mcg Documented By: GREGG Lisinopril (Lisinopril 40 Mg Tab) 40 mg PO QAM [facility] Stop: 01/17/25 08:59 Last Admin: 12/18/24 09:05 Dose: 40 mg Documented By: MARY JO Metoprolol Succinate (Metoprolol Succ 25mg Ext Rel Tab) 25 mg PO QAM [facility] Stop: 01/17/25 08:59 Last Admin: 12/18/24 09:05 Dose: 25 mg Documented By: MARY JO Morphine Sulfate (Morphine Sulfate 4 Mg/Ml 1 Ml Carp\\Vial) 3 mg IV Q3H PRN PRN Reason: Pain Stop: 01/01/25 01:35 Last Admin: 12/18/24 23:55 Dose: 3 mg Documented By: Admin: 12/18/24 14:11 Dose: 3 mg Documented By: MARY JO Admin: 12/18/24 07:36 Dose: 3 mg Documented By: MARY JO Ondansetron HCl (Ondansetron Inj 2 Mg/Ml 2 Ml Vial) 4 mg IV Q6H PRN PRN Reason: Nausea Stop: 01/17/25 01:43 Last Admin: 12/18/24 09:15 Dose: 4 mg Documented By: MARY JO Admin: 12/18/24 02:15 Dose: 4 mg Documented By: GREGG Sumatriptan Succinate (Sumatriptan Succinate 100 Mg Tab) 100 mg PO UD PRN PRN Reason: Migraine Headache Stop: 01/17/25 01:43 Last Admin: 12/18/24 02:45 Dose: 100 mg Documented By: GREGG Discontinued Medications Al Hydrox/Mg Hydrox/Simethicone (Aluminum/Magnesium Susp 30 Ml Udc) 15 ml PO NOW STA Stop: 12/17/24 19:08 Last Admin: 12/17/24 19:39 Dose: 15 ml Documented By: HAROON Dicyclomine HCl (Dicyclomine Hcl 10 Mg Cap) 10 mg PO NOW ONE Stop: 12/17/24 18:10 Last Admin: 12/17/24 18:16 Dose: 10 mg Documented By: MARY Glycerin (Glycerin Adult 12 Supp/Box Supp) 1 supp [place] NOW ONE Stop: 12/17/24 16:13 Last Admin: 12/17/24 16:53 Dose: 1 supp Documented By: HAROON Famotidine (Pepcid 20mg Iv Push) 20 mg in 5 mls @ 2.5 mls/min IV NOW STA Stop: 12/17/24 18:10 Last Admin: 12/17/24 18:16 Dose: 2.5 mls/min Documented By: MARY Pantoprazole Sodium (Protonix) 40 mg in 10 mls @ 5 mls/min IV NOW ONE Stop: 12/17/24 19:08 Last Admin: 12/17/24 19:38 Dose: 5 mls/min Documented By: HAROON Acetaminophen (Ofirmev) 1,000 mg in 100 mls @ 400 mls/hr IV NOW STA Stop: 12/17/24 23:10 Last Infusion: 12/18/24 04:23 Dose: Infused Documented By: Admin: 12/17/24 23:05 Dose: 400 mls/hr Documented By: HAROON Lactated Ringer's (Lr) 1,000 mls @ 100 mls/hr IV .Q10H STA Stop: 12/18/24 11:36 Last Infusion: 12/18/24 11:53 Dose: Infused Documented By: MARY JO Admin: 12/18/24 01:53 Dose: 100 mls/hr Documented By: GREGG Ioversol (Optiray 320 100ml) 90 ml IV ONCE ONE Stop: 12/17/24 19:25 Last Admin: 12/17/24 19:24 Dose: 90 ml Documented By: RESHMA Magnesium Citrate (Magnesium Citrate 296 Ml/Btl) 148 ml PO TODAY@ JUAN CARLOS Stop: 01/16/25 22:59 Last Admin: 12/17/24 23:05 Dose: 148 ml Documented By: HAROON Magnesium Hydroxide (Magnesium Hydroxide Susp 30 Ml Udc) 30 ml PO NOW ONE Stop: 12/17/24 16:13 Last Admin: 12/17/24 16:53 Dose: 30 ml Documented By: HAROON Metoclopramide HCl (Metoclopramide Hcl Inj 5 Mg/Ml 2 Ml Vial) 5 mg IV ONE ONE Stop: 12/17/24 19:08 Last Admin: 12/17/24 19:38 Dose: 5 mg Documented By: HAROON Morphine Sulfate (Morphine Sulfate 4 Mg/Ml 1 Ml Carp\\Vial) 4 mg IV NOW STA Stop: 12/18/24 00:05 Last Admin: 12/18/24 00:34 Dose: 4 mg Documented By: CARIDAD Potassium Chloride (Potassium Chloride Crtab 20 Meq Tabcr) 20 meq PO NOW STA Stop: 12/18/24 08:42 Last Admin: 12/18/24 09:22 Dose: 20 meq Documented By: MARY JO Sucralfate (Sucralfate 1 Gm/10 Ml Udc) 1 gm PO NOW STA Stop: 12/17/24 22:57 Last Admin: 12/17/24 23:05 Dose: 1 gm Documented By: HAROON Imaging Data Radiologist's Impression: KUB X-Ray 12/17/24 14:33 KUB HISTORY: Acute abdominal pain with constipation constipation COMPARISON: CT July 26, 2024 FINDINGS: Nonobstructive bowel gas pattern. Cholecystectomy. Mild to moderate colonic fecal retention. Pelvic calcifications are likely vascular. No renal calculi. No ureteral calculi. No pneumoperitoneum or pneumatosis. No fracture. IMPRESSION: 1. Nonobstructive bowel gas pattern. 2. Mild to moderate colonic fecal retention. ACT 112: Negative or not required by law. The above report was generated using voice recognition software. It may contain grammatical, syntax or spelling errors. Electronically signed by: Gonzalez Villela M.D. 12/17/2024 3:11 PM Abdomen/Pelvis CT 12/17/24 19:06 Exam(s): CT ABDOMEN + PELVIS With Contrast IV Amt: 90 ml optiray 320 EXAM: CT Abdomen and Pelvis With Intravenous Contrast CLINICAL HISTORY: Reason for exam: abd pain. TECHNIQUE: Axial computed tomography images of the abdomen and pelvis with intravenous contrast. CTDI is 28 mGy and DLP is 1359 mGy-cm. Automated exposure control was utilized for the study. A dose lowering technique was utilized adhering to the principles of ALARA. CONTRAST: Patient received 90 ml optiray 320 of IV contrast COMPARISON: July 26, 2024. FINDINGS: ABDOMEN: Liver: Irregular contour of the liver consistent with cirrhosis. No focal hepatic lesion. Gallbladder and bile ducts: Cholecystectomy. No ductal dilation. Pancreas: Unremarkable. No mass. No ductal dilation. Spleen: Unremarkable. No splenomegaly. Adrenals: Unremarkable. No mass. Kidneys and ureters: Unremarkable. No solid mass. No hydronephrosis. Stomach and bowel: Extensive edema is seen in the mesentery and the pericolic fat, particularly in the right. This may be edema secondary to liver disease. Right-sided colitis is difficult to exclude. No obstruction. PELVIS: Appendix: Small portions of a normal appendix are identified. Bladder: Unremarkable. No mass. Reproductive: Hysterectomy. ABDOMEN and PELVIS: Intraperitoneal space: There is small amount of ascites. No free air. Bones/joints: No acute findings. Soft tissues: Unremarkable. Vasculature: Unremarkable. No abdominal aortic aneurysm. Lymph nodes: Unremarkable. No enlarged lymph nodes. IMPRESSION: Cirrhosis, splenomegaly and a small amount of ascites. Edema and mesenteric and pericolic fat, particularly around the right colon. This may be edema associated with liver disease, though colitis cannot be excluded, and physically in the right colon. Electronically signed by: Chris Williamson MD 12/17/24 22:46 PM Discharge Plan Visit Data Chief Complaint: Illness Stated Complaint: PAIN IN CHEST, CONSTIPATED ED Provider: Anahi Santo Discharge Problem: Abdominal pain, Constipation Patient Disposition: Admitted As Inpatient Condition: Fair Discharge Instructions Interventions: ED Discharge Assessment Last Done: 12/18/24 01:42
[2024-12-17] MEDS: OPTIRAY 320 100ml IV ONE (19:24)
[2024-12-17] MEDS: METOCLOPRAMIDE HCL INJ 5 MG/ML 2 ML VIAL IV ONE (19:38)
[2024-12-17] MEDS: PANTOprazole 40 MG/10 ML SYR IV ONE (19:38)
[2024-12-17] MEDS: ALUMINUM/MAGNESIUM SUSP 30 ML UDC PO STA (19:39)
--- NOTE | 2024-12-17 22:47 | CT Scan Report ---
Exam(s): CT ABDOMEN + PELVIS With Contrast IV Amt: 90 ml optiray 320 EXAM: CT Abdomen and Pelvis With Intravenous Contrast CLINICAL HISTORY: Reason for exam: abd pain. TECHNIQUE: Axial computed tomography images of the abdomen and pelvis with intravenous contrast. CTDI is 28 mGy and DLP is 1359 mGy-cm. Automated exposure control was utilized for the study. A dose lowering technique was utilized adhering to the principles of ALARA. CONTRAST: Patient received 90 ml optiray 320 of IV contrast COMPARISON: July 26, 2024. FINDINGS: ABDOMEN: Liver: Irregular contour of the liver consistent with cirrhosis. No focal hepatic lesion. Gallbladder and bile ducts: Cholecystectomy. No ductal dilation. Pancreas: Unremarkable. No mass. No ductal dilation. Spleen: Unremarkable. No splenomegaly. Adrenals: Unremarkable. No mass. Kidneys and ureters: Unremarkable. No solid mass. No hydronephrosis. Stomach and bowel: Extensive edema is seen in the mesentery and the pericolic fat, particularly in the right. This may be edema secondary to liver disease. Right-sided colitis is difficult to exclude. No obstruction. PELVIS: Appendix: Small portions of a normal appendix are identified. Bladder: Unremarkable. No mass. Reproductive: Hysterectomy. ABDOMEN and PELVIS: Intraperitoneal space: There is small amount of ascites. No free air. Bones/joints: No acute findings. Soft tissues: Unremarkable. Vasculature: Unremarkable. No abdominal aortic aneurysm. Lymph nodes: Unremarkable. No enlarged lymph nodes. IMPRESSION: Cirrhosis, splenomegaly and a small amount of ascites. Edema and mesenteric and pericolic fat, particularly around the right colon. This may be edema associated with liver disease, though colitis cannot be excluded, and physically in the right colon. Electronically signed by: Chris Williamson MD 12/17/24 22:46 PM
[2024-12-17] MEDS: ACETAMINOPHEN 1,000 MG/100 ML VIAL IV STA (23:05)
[2024-12-17] MEDS: MAGNESIUM CITRATE 296 ML/BTL PO SCH (23:05)
[2024-12-17] MEDS: SUCRALFATE 1 GM/10 ML UDC PO STA (23:05)
[2024-12-18] MEDS: MoRPHine SULFATE 4 MG/ML 1 ML CARP\\VIAL IV STA (00:34)
--- NOTE | 2024-12-18 00:41 | History & Physical Report ---
Date of Service December 18, 2024 Assessment & Plan (1) Abdominal pain: (2) Anemia: Plan 59-year-old female PMHx allergic rhinitis, HTN, obesity, IBS, chronic residual cystitis, CKD stage III, fibromyalgia, migraines, angioneurotic edema, prior PE, anxiety, history of CVA, and T2DM presenting for constipation with associated abdominal pain and SOB. ED evaluation reveals leukopenia (3.62), H&H 11.9/35.1, platelets 83; PT/INR 12.3/1.1; CMP potassium 3.4, chloride 109, glucose 153, bilirubin 1.9, AST 49, albumin 3; KUB with mild to moderate colonic fecal retention; CTAP cirrhosis, splenomegaly, small amounts of ascites, edema and mesenteric and pericolonic fat particularly around the R colon may be edema associated with liver disease though colitis cannot be excluded; EKG NSR at 79 bpm.; provided with sucralfate 1 g p.o., pantoprazole 40 mg IV, morphine 4 mg IV, metoclopramide 5 mg IV, magnesium hydroxide 3 mL p.o., mag citrate 148 mL p.o., glycerin 1 suppository, famotidine 20 mg IV, dicyclomine 10 mg p.o., Maalox 15 mL p.o., and acetaminophen 1 g IV in ED. #Abdominal pain Presenting with approximately 3 days of constipation with associated abdominal pain and shortness of breath. Does take MiraLAX as needed for bowel movements. Also with history of liver cirrhosis. Had colonoscopy last in 2021 appears to only have had diverticulosis with hemorrhoids as well. History of cholecystectomy (2006) and hysterectomy with removal of tubes (2007). - CBC with leukopenia, H/H 11.9/35.1 (decreased from Jul)-pancytopenia which is new finding; CMP bilirubin 1.9, AST 49 - Lactate pending - KUB reveals mild to moderate colonic fecal retention - CTAP with cirrhosis, splenomegaly, small amount of ascites, and edema of the mesenteric and pericolonic fat, particular around R colon may be edema associated liver disease but colitis cannot be excluded - Consider CTA depending on lactate to r/o ?? ischemia - NPO - LR at 100 mL/h - Morphine 2g IV q3h prn - Protonix IV BID - Flagyl + Cipro IV - Consider GI consult #Anemia Appears new, no known bleeding per patient. Prior history of hemorrhoids and rectal bleeding, no current. - H/H 11.9/35.1 - Fecal occult pending - Iron panel pending - Trend CBC #[place] with cirrhosis- Recent diagnosis, no alcohol ingestion occurred, but previously would drink 3-6 beers on the weekends but some weekends up to 12 beers at a time, also with portal hypertension diagnosis; AST total bilirubin 1.9, AST 49 #HTN- HCTZ, lisinopril, metoprolol succinate - continue #HLD- Atorvastatin - continue #IBS- Metoclopramide, promethazine, MiraLAX - continue #Anxiety- Clonazepam, fluoxetine, gabapentin - continue #T2DM- Diet controlled; periodic Ozempic per PCP note #Hypothyroidism- Levothyroxine - continue #GERD- Omeprazole, Tums - continue #Migraines- Imitrex as needed - continue #Fibromyalgia/chronic pain- Gabapentin, clonazepam, tramadol as needed; admits to occasional marijuana use for pain - hold tramadol at admission given constipation #History of CVA- 2019, residual status of residual tremor's Dispo: Admit, med/sx VTE prophylaxis: SCDs This document was dictated utilizing [employer]. Please excuse any grammatical errors that may be secondary to bili 1.9, AST 49 of this software. Admission and Anticipated Discharge Date Admission Date: 12/18/2024 History of Present Illness Chief Complaint: Abdominal pain, SOB Primary Care Provider: Abraham Ryan MD 59-year-old female PMHx allergic rhinitis, HTN, obesity, IBS, chronic residual cystitis, CKD stage III, fibromyalgia, migraines, angioneurotic edema, prior PE, anxiety, history of CVA, and T2DM presenting for constipation with associated ab dominal pain and SOB. States that 3 days [employer]WORK [employer] she started to have epigastric pain that radiated into her chest, rating it 8 out of 10 on the pain scale at its worst and described as a dull and aching sensation. States that she felt very bloated and continued to have flatulence but decreased in bowel movements. She would pass very small amounts of stool sometimes liquid in nature. 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 No notes of family is having similar symptoms. She was having nausea without vomiting. At baseline, patient does experience vertigo and dizziness. States this is not any worse but that she still does experience this at times. Has had some bilateral ankle swelling, mainly noticed when she has been sitting for long periods of time. In July 2024 she was recent diagnosed with [place] and cirrhosis. States that sometimes she does have abdominal pain over her liver and she thought that this was what was going on. Feels that she is short of breath because she is unable to take a deep breath secondary to the bloating in her abdomen. States that she has not had this type of pain before. No fever or chills. Denies palpitations, diarrhea, numbness/tingling, LUTS, fever/chills, URI symptoms, weakness, syncope, or LOC. Patient has been taking most of her daily medications, but has decreased some of what she is taking because her belly was hurting so she did not want to take all of her meds. Current pain is a 7 out of 10 on the pain scale as compared to 8 out of 10 when she initially arrived. ED evaluation reveals leukopenia (3.62), H&H 11.9/35.1, platelets 83; PT/INR 12.3/1.1; CMP potassium 3.4, chloride 109, glucose 153, bilirubin 1.9, AST 49, albumin 3; KUB with mild to moderate colonic fecal retention; CTAP cirrhosis, splenomegaly, small amounts of ascites, edema and mesenteric and pericolonic fat particularly around the R colon may be edema associated with liver disease though colitis cannot be excluded; EKG NSR at 79 bpm.; provided with sucralfate 1 g p.o., pantoprazole 40 mg IV, morphine 4 mg IV, metoclopramide 5 mg IV, magnesium hydroxide 3 mL p.o., mag citrate 148 mL p.o., glycerin 1 suppository, famotidine 20 mg IV, dicyclomine 10 mg p.o., Maalox 15 mL p.o., and acetaminophen 1 g IV in ED. Please see Dr. Sorensen attestation for adjustments/additions to treatment plan. Allergies Allergy/AdvReac Type Severity Reaction Status Date / Time Penicillins Allergy Intermediate Unknown Verified 12/17/24 18:00 childhood reaction, ? swelling Sulfa (Sulfonamide AdvReac Intermediate N/V Verified 12/17/24 18:00 Antibiotics) Home Medications Medication Instructions Recorded Confirmed Type Aspirating Purlear 11/07/21 11/21/23 History albuterol sulfate 90 mcg/actuation 2 puff inhalation QID PRN 11/07/21 12/17/24 History aerosol inhaler Shortness Of Breath Or Wheezing aspirin 81 mg chewable tablet 81 mg PO QAM 11/07/21 12/17/24 History (Aspirin Childrens) atorvastatin 40 mg tablet (Lipitor) 40 mg PO QAM 11/07/21 12/17/24 History clonazepam 0.5 mg tablet (Klonopin) 0.5 mg PO TID 11/07/21 12/17/24 History fluoxetine 40 mg capsule (Prozac) 80 mg PO QPM 11/07/21 12/17/24 History gabapentin 800 mg tablet 800 mg PO HS 11/07/21 12/17/24 History hydrochlorothiazide 25 mg tablet 25 mg PO QAM 11/07/21 12/17/24 History lisinopril 40 mg tablet (Zestril) 40 mg PO QAM 11/07/21 12/17/24 History metoprolol succinate 25 mg 25 mg PO QAM 11/07/21 12/17/24 History tablet,extended release 24 hr omeprazole 40 mg capsule,delayed 40 mg PO BID 11/07/21 12/17/24 History release promethazine 25 mg tablet 25 mg PO UD PRN Nausea 11/07/21 12/17/24 History sumatriptan succinate 50 mg tablet 100 mg PO DIRECTED PRN Migraine 11/07/21 12/17/24 History (Imitrex) Headache tramadol 50 mg tablet 50 mg PO UD PRN Pain 11/07/21 12/17/24 History calcium carbonate (Tums) 200 mg PO UD PRN Acid Reflux 12/16/21 12/17/24 History polyethylene glycol 3350 17 gram 34 g PO UD PRN laxative effect 12/16/21 12/17/24 History oral powder packet (Miralax) cholecalciferol (vitamin D3) 1,250 50,000 unit PO WK #14 caps 11/05/23 12/17/24 Rx mcg (50,000 unit) capsule needle (disp) 23 gauge 23 gauge x #100 ea 11/12/23 11/21/23 Rx 1" (Aqinject Standard Needle) safety needles 25 gauge x 1" (BD #15 ea 11/12/23 11/21/23 Rx Eclipse) syringe with needle, safety 3 mL #1 ea 11/12/23 11/21/23 Rx 23 gauge x 1" (Monoject Safety Syringes) levothyroxine 25 mcg tablet 50 mcg PO QAM 11/30/23 12/17/24 History cyanocobalamin (vitamin B-12) 1,000 mcg IM MONTHLY 12/11/23 12/17/24 History 1,000 mcg/mL injection solution (Dodex) metoclopramide HCl 5 mg tablet 5 mg PO Q8H PRN ABD DISCOMFORT 12/17/24 12/17/24 History (Reglan) Past Med/Surg History Problem List (Updated 12/18/24 @ 01:44 by Natanael Mendenhall PA-C) Anemia Constipation (Acute) Abdominal pain (Acute) Cervical spine pain Lumbar spine pain Numbness and tingling Easy fatigability Weakness of muscle of left side of face due to and not concurrent with cerebrovascular accident (CVA) Orthostatic hypotension (Acute) Hemorrhoids (Acute) Rectal bleeding (Acute) COVID Right flank pain Left-sided weakness Idiopathic polyneuropathy 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 Fatigue Left sided numbness Weakness on left side of face Asthma (Chronic) Vitamin D deficiency (Chronic) Bilateral shoulder pain Fibromyalgia MRSA (methicillin resistant Staphylococcus aureus) carrier RUE weakness (Acute) Double vision (Acute) Interstitial cystitis (Chronic) Renal calculi (Chronic) Endometriosis (Chronic) Allergic rhinitis (Chronic) Arthralgia of multiple joints Muscle weakness (generalized) Gait abnormality Depression with anxiety (Chronic) Third nerve palsy of left eye POOR VISION IN LEFT EYE Migraine (Chronic) Medical History Hx MRSA infection (~2018) Chronic pain Interstitial cystitis Per records Asthma History of COVID-19 2021, 2022- symptoms resolved Type 2 diabetes mellitus Constipation Occasional Hemorrhoids Internal/external Meniere disease Chronic lightheadedness/dizziness Neuropathy RLE, b/l feet Restless leg syndrome Stable GERD (gastroesophageal reflux disease) Hyperlipidemia Per records, patient denies indicating she is on statin for stroke pervention History of pulmonary embolism 2017 after "long bus ride" Previously on Coumadin x months, then discontinued and started on ASA No issues since CVA (cerebral vascular accident) Remote hx , residual slurred speech, weakness, memory impairment IBS (irritable bowel syndrome) Diarrhea/constipation combination HTN (hypertension) Fibromyalgia Surgical History Nausea and vomiting after administration of anesthetic agent History of cystoscopy Bladder distention x2 History of tooth extraction History of esophagogastroduodenoscopy (EGD) History of colonoscopy S/P tubal ligation History of hysterectomy S/P cholecystectomy Family History Mother , age 63 of cerebral aneurysm. Cerebral aneurysm Father , age 63 of an [place] Myocardial infarction Other Heart disease Hypertension No family history of adverse response to anesthesia Social History Smoking Status: Never smoker Second Hand Exposure: No; Do You Dip or Chew Tobacco: No; Hx Alcohol Use: Yes Alcohol type: wine Alcohol Intake Frequency Comment: Once a month. Hx Substance Use: Yes Preferred Language: Afghan Communication Ability: Effective Communication Ability Comment: NO COMMUNICATION DEFICITS FOR PAT PHONE CALL [employer] Required: No Beliefs That Will Affect Care: None marital status: Current Living Situation: Spouse current occupational status: employed current occupation: Works at the [employer]. 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 Feels Safe at Home: Yes Assistive Devices: Glasses, Scooter/Electric Scooter and Walker Review of Systems Review of Systems: All systems reviewed & are unremarkable except as noted in Subjective Physical Exam Physical Exam: General: No acute distress Skin: Warm and dry Head: Normocephalic, atraumatic Eyes: PERRL, conjunctivae clear, sclera non-icteric ENT: External ear and ear canal without swelling; nose atraumatic; good dentition, tongue normal appearance, pharynx normal Neck: Supple, no LAD Cardio: RRR, no M/G/R, S1 and S2 normal Resp: No respiratory distress, Lungs CTA in all lobes bilaterally, no wheezes, rales, or rhonchi Abdomen: Soft, symmetric, tender to palpation throughout, mild distention; no peritoneal signs; no masses or hepatosplenomegaly; Bowel sounds normoactive MSK: No deformities; pulses palpable and equal; trace pitting edema BLE at ankles. Neuro: Awake, alert; Sensation intact bilaterally; CN grossly intact Psych: Appropriate mood and affect; good judgement and insight. Results & Data Results & Data Vital Signs (Past 12 Hours) Vital Signs Temp Pulse Pulse Resp BP BP Pulse Ox 12/17/24 23:30 76 19 133/94 92 12/17/24 22:54 77 12/17/24 21:21 72 20 96 12/17/24 21:18 70 18 98 12/17/24 21:00 70 16 96 12/17/24 21:00 151/83 H 12/17/24 21:00 151/83 H 12/17/24 21:00 151/83 H 12/17/24 20:51 69 19 98 12/17/24 20:46 140/76 12/17/24 20:45 73 15 100 12/17/24 20:01 152/76 H 12/17/24 20:00 71 21 12/17/24 19:54 75 22 12/17/24 19:42 76 23 12/17/24 19:33 72 12/17/24 19:09 73 17 99 12/17/24 19:00 159/81 H 12/17/24 19:00 159/81 H 12/17/24 19:00 159/81 H 12/17/24 18:51 75 19 94 12/17/24 18:44 79 12/17/24 18:30 156/84 H 12/17/24 18:12 74 23 96 12/17/24 18:00 73 19 12/17/24 17:54 73 24 12/17/24 17:42 73 18 12/17/24 17:41 147/79 H 12/17/24 16:33 75 19 93 12/17/24 16:30 155/91 H 12/17/24 16:30 155/91 H 12/17/24 16:27 73 17 94 12/17/24 16:21 74 15 93 12/17/24 16:09 74 18 92 12/17/24 16:00 151/92 H 12/17/24 16:00 151/92 H 12/17/24 15:57 78 17 94 12/17/24 15:52 78 22 164/87 H 95 12/17/24 15:52 77 22 94 12/17/24 14:29 36.5 C 79 18 165/92 H 100 O2 Del Method 12/17/24 23:30 12/17/24 22:54 12/17/24 21:21 12/17/24 21:18 12/17/24 21:00 12/17/24 21:00 12/17/24 21:00 12/17/24 21:00 12/17/24 20:51 12/17/24 20:46 12/17/24 20:45 12/17/24 20:01 12/17/24 20:00 12/17/24 19:54 12/17/24 19:42 12/17/24 19:33 12/17/24 19:09 12/17/24 19:00 12/17/24 19:00 12/17/24 19:00 12/17/24 18:51 12/17/24 18:44 12/17/24 18:30 12/17/24 18:12 12/17/24 18:00 12/17/24 17:54 12/17/24 17:42 12/17/24 17:41 12/17/24 16:33 12/17/24 16:30 12/17/24 16:30 12/17/24 16:27 12/17/24 16:21 12/17/24 16:09 12/17/24 16:00 12/17/24 16:00 12/17/24 15:57 12/17/24 15:52 Room Air 12/17/24 15:52 Room Air 12/17/24 14:29 Room Air Laboratory Results 12/17/24 12/17/24 15:51 14:38 WBC 3.62 L RBC 3.74 L Hgb 11.9 L Hct 35.1 L MCV 93.9 MCH 31.8 MCHC 33.9 RDW Std Deviation 51.7 H RDW Coeff of Karen 14.9 H Plt Count 83 L MPV 10.4 Immature Gran % (Auto) 0.3 Neut % (Auto) 64.4 Lymph % (Auto) 25.1 [place] % (Auto) 5.5 Eos % (Auto) 4.1 Baso % (Auto) 0.6 Neut # (Auto) 2.33 Lymph # (Auto) 0.91 L [place] # (Auto) 0.20 Eos # (Auto) 0.15 Baso # (Auto) 0.02 Immature Gran # (Auto) 0.01 Platelet Estimate Decreased L PT 12.3 H Cancelled INR 1.1 Cancelled APTT 30 Cancelled PTT Ratio 1.1 Cancelled Sodium 141 Potassium 3.4 L Chloride 109 H Carbon Dioxide 26 Anion Gap 6 BUN 10 Creatinine 0.88 Est Cr Clr Drug Dosing 79.9 eGFR 74.72 BUN/Creatinine Ratio 11.4 Glucose 153 H Calcium 8.6 Total Bilirubin 1.9 H AST 49 H ALT 22 Alkaline Phosphatase 87 Troponin I High Sens 5.7 Total Protein 6.9 Albumin 3.0 L Globulin 3.9 Albumin/Globulin Ratio 0.8 L Diagnostic Findings KUB X-Ray 12/17/24 14:33 KUB HISTORY: Acute abdominal pain with constipation constipation COMPARISON: CT July 26, 2024 FINDINGS: Nonobstructive bowel gas pattern. Cholecystectomy. Mild to moderate colonic fecal retention. Pelvic calcifications are likely vascular. No renal calculi. No ureteral calculi. No pneumoperitoneum or pneumatosis. No fracture. IMPRESSION: 1. Nonobstructive bowel gas pattern. 2. Mild to moderate colonic fecal retention. ACT 112: Negative or not required by law. The above report was generated using voice recognition software. It may contain grammatical, syntax or spelling errors. Electronically signed by: Gonzalez Villela M.D. 12/17/2024 3:11 PM Abdomen/Pelvis CT 12/17/24 19:06 Exam(s): CT ABDOMEN + PELVIS With Contrast IV Amt: 90 ml optiray 320 EXAM: CT Abdomen and Pelvis With Intravenous Contrast CLINICAL HISTORY: Reason for exam: abd pain. TECHNIQUE: Axial computed tomography images of the abdomen and pelvis with intravenous contrast. CTDI is 28 mGy and DLP is 1359 mGy-cm. Automated exposure control was utilized for the study. A dose lowering technique was utilized adhering to the principles of ALARA. CONTRAST: Patient received 90 ml optiray 320 of IV contrast COMPARISON: July 26, 2024. FINDINGS: ABDOMEN: Liver: Irregular contour of the liver consistent with cirrhosis. No focal hepatic lesion. Gallbladder and bile ducts: Cholecystectomy. No ductal dilation. Pancreas: Unremarkable. No mass. No ductal dilation. Spleen: Unremarkable. No splenomegaly. Adrenals: Unremarkable. No mass. Kidneys and ureters: Unremarkable. No solid mass. No hydronephrosis. Stomach and bowel: Extensive edema is seen in the mesentery and the pericolic fat, particularly in the right. This may be edema secondary to liver disease. Right-sided colitis is difficult to exclude. No obstruction. PELVIS: Appendix: Small portions of a normal appendix are identified. Bladder: Unremarkable. No mass. Reproductive: Hysterectomy. ABDOMEN and PELVIS: Intraperitoneal space: There is small amount of ascites. No free air. Bones/joints: No acute findings. Soft tissues: Unremarkable. Vasculature: Unremarkable. No abdominal aortic aneurysm. Lymph nodes: Unremarkable. No enlarged lymph nodes. IMPRESSION: Cirrhosis, splenomegaly and a small amount of ascites. Edema and mesenteric and pericolic fat, particularly around the right colon. This may be edema associated with liver disease, though colitis cannot be excluded, and physically in the right colon. Electronically signed by: Chris Williamson MD 12/17/24 22:46 PM Medications Administered Sucralfate 1 g p.o. Pantoprazole 40 mg IV Morphine 4 evette IV Metoclopramide 5 mg IV Mag hydroxide 30 mL p.o. Mag citrate 148 mL p.o. Glycerin 1 suppository NH Famotidine 20 evtete IV Dicyclomine 10 mL p.o. Maalox 15 mL p.o. Acetaminophen 1 g IV ECG Additional Comments: DICTATED BY: Beka Landin MD Test Reason : Blood Pressure : */* mmHG Vent. 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 Code Status & VTE Plan Code Status Conditional Yes: ALL cardiac interventions No: NO machines to include breathing machines Patient aware of what conditional status entails. Aware of risks of choosing only some measures and not all. Wishes to proceed with conditional code status. Supervising Physician Co-Signing Physician Notes I have personally seen, evaluated and examined the patient. I have also pers onally discussed the management of the patient with the resident physician/RADHA and I agree with the exam findings documented in the history and physical examination and the documented assessment and plan unless otherwise stated below. Brief Exam: In general pleasant 59-year-old female is alert and oriented x 3 time of exam she has no other complaints with exception of abdominal pain and intermittent ankle swelling. HEENT: Normocephalic atraumatic. Heart: Regular rate and rhythm no murmur ectopy or rub. Lungs: Clear. Abdomen: Obese soft minimal tenderness mid epigastric to right upper quadrant. No rebound no peritoneal sign. Positive bowel sounds. Extremities: Intact with trace ankle pedal edema. No christophe leg edema. Homans' sign negative. Neurologically: Alert and oriented x 3 with no focal deficit. Assessment/plan: As described above. Probable colitis. Rule out mesenteric ischemia. CT with IV contrast was done but not a CTA. Will wait with the lactic acid level was. If she remains having pain with an elevated lactic acid level we will consider repeat CAT scan/CT angio of her mesenteric arteries. In the interim we will treat her as a colitis with IV Flagyl and IV Cipro. She has throat swelling with penicillin. Please refer to orders for further planning. N.p.o. IV fluids. GI prophylaxis with protonix. PG Care Time/CCT Total # of Minutes Spent Total Time Spent with Patient: Total time spent is greater than 50% in coordination of care (as documented) at patient's floor/unit and/or counseling patient: Coding Level of Care Code 80412 INT INP/OBS CARE MIN Diagnoses Abdominal pain R10.9 Anemia D64.9
[2024-12-18] MEDS ORDERED: NALOXONE HCL 0.4 MG/1 ML VIAL/CARP IV PRN (01:43)
[2024-12-18] MEDS ORDERED: METOCLOPRAMIDE HCL 5 MG TABLET PO PRN (01:44)
[2024-12-18] MEDS ORDERED: MAGNESIUM HYDROXIDE SUSP 30 ML UDC PO PRN (01:44)
[2024-12-18] MEDS ORDERED: ACETAMINOPHEN 325 MG TAB PO PRN (01:44)
[2024-12-18] MEDS ORDERED: CALCIUM CARBONATE 500 MG CHEWABLE TAB PO PRN (01:44)
[2024-12-18] MEDS: LACTATED RINGER'S 1,000 ML IV STA (01:53)
[2024-12-18] MEDS: metroNIDAZOLE 500 MG/100 ML BAG IV SCH (02:00)
[2024-12-18] MEDS: ONDANSETRON INJ 2 MG/ML 2 ML VIAL IV PRN (02:15)
[2024-12-18] MEDS: CIPROFLOXACIN / D5W 400 MG/200 ML BAG IV SCH (02:30)
[2024-12-18] MEDS: SUMAtriptan succinate 100 MG TAB PO PRN (02:45)
[2024-12-18] MEDS: LEVOTHYROXINE SODIUM 50 MCG TABLET PO SCH (05:42)
[2024-12-18] MEDS: MoRPHine SULFATE 4 MG/ML 1 ML CARP\\VIAL IV PRN (07:36)
--- NOTE | 2024-12-18 07:53 | Hospitalist Progress Note ---
Date of Service December 18, 2024 Assessment & Plan (1) Abdominal pain: (2) Anemia: Plan Patient is a 59yo F with PMHx of allergic rhinitis, DM2, HTN, obesity, IBS, interstitial cystitis, stage III CKD, fibromyalgia, migraines, angioneurotic edema, anxiety, PE, CVA, cholecystectomy (2006) and hysterectomy with tubal ligation (2007) who presented with constipation, abdominal pain and SOB. Initial labs notable for low WBC and PLT at 3.62 and 83. Imaging showing significant stool burden, splenomegaly, stable cirrhosis, slight ascites, and signs of colitis particularly around the right colon. #Abdominal pain / Constipation - Sx x 3 days - constipation, abd pain, SOB. Does take MiraLAX prn at home. 1g sucralafate, 3mL magnesium hydroxide p.o., 148 mL mag citrate p.o., glycerin 1 suppository, famotidine 20 mg IV, dicyclomine 10 mg p.o., Maalox 15 mL p.o., and acetaminophen 1 g IV in ED. - Last colonoscopy in 2021, notable only for diverticulosis and hemorrhoids - CBC with leukopenia, bilirubin 1.9, AST mildly elevated at 49, lactate wnl - KUB showing mild to moderate colonic fecal retention - CTAP showing cirrhosis, splenomegaly, small amount of ascites, and edema of the mesenteric and pericolonic fat, particular around R colon may be edema associated liver disease but colitis cannot be excluded - Continue Flagyl + Cipro IV - Continue IV Protonix BID, Miralax 34g - PRN IV morphine, maalox, magnesium hydroxide, reglan, zofran - Keep NPO, continue IVF with LR at 100 mL/h #Normocytic Anemia - New problem - Hgb 14.7 in Jul, now 11.9 but unchanged from yesterday - No known bleeding per patient. Does have h/o hemorrhoids but no current rectal bleeding - Iron panel wnl - Trend CBC #BO with cirrhosis - Managed outpatient by PCP; does not see GI specialist - Recent diagnosis c/b portal hypertension; CTAP showing mild ascites; Tbili 1.9, AST 49 - Continue to monitor LFTs #HTN- HCTZ, lisinopril, metoprolol succinate - continue #HLD- Atorvastatin - continue #IBS- Metoclopramide, promethazine, MiraLAX - continue #Anxiety- Clonazepam, fluoxetine, gabapentin - continue #T2DM- Diet controlled; periodic Ozempic per PCP note #Hypothyroidism- Levothyroxine - continue #GERD- Omeprazole, Tums - continue #Migraines- Imitrex as needed - continue #Fibromyalgia/chronic pain- Gabapentin, clonazepam, tramadol as needed; admits to occasional marijuana use for pain - hold tramadol at admission given constipation #History of CVA- 2018, residual status of residual tremor's Dispo: Med/surg; eventual return home VTE prophylaxis: SCDs Admission and Anticipated Discharge Date Admission Date: December 18, 2024 Supervising Physician Co-Signing Physician Notes ATTESTATION I also saw the patient and confirmed funez portions of the history and exam. I agree with the impression and plan in the resident documentation, and as summarized below. Admitted yesterday after a three day history of abdominal pain and bowel changes. She feels a little better this morning, although is quite tired after not sleeping for the past several nights. EXAM VS stable, afebrile CV RRR Lungs CTA ABD soft, mild non-focal tenderness with (+) BS DATA Labs Lactate 1.2 TB 1.[address] abdomen and pelvis question colitis. KUB with increased stool burden. IMPRESSION & PLAN Colitis Abdominal Pain Bowel changes Thrombocytopenia Clinically improved Continue Cipro/Flagyl Pain management Bowel regimen Repeat CBC in AM given thrombocytopenia Additional per resident documentation Subjective Still having some nausea and abd pain, but milder during time of interview due to morning dose of morphine. Reports having BM last night, no blood, very watery, somewhat relieved her abd discomfort. Mild PINEDA. No CP, SOB, dysuria, skin changes Review of Systems Review of Systems: As per HPI. Physical Exam Physical Exam: Gen: NAD, WD/WN CV: RRR, no m/r/g, S1/S2 normal Resp: CTAB, symmetrical chest rise, breathing non-labored Abd: Soft, diffuse mild tenderness, +BS, no masses MSK: Normal ROM, no gross deformities Skin: Warm, dry, pink, no rashes Results & Data Results & Data Vital Signs (Past 12 Hours) Vital Signs Temp Pulse Pulse Resp BP BP Pulse Ox 12/18/24 07:34 36.5 C 69 16 138/83 92 12/18/24 01:48 36.7 C 76 18 175/83 H 94 12/18/24 01:42 72 18 153/84 H 95 12/17/24 23:30 76 19 133/94 92 12/17/24 22:54 77 12/17/24 21:21 72 20 96 12/17/24 21:18 70 18 98 12/17/24 21:00 70 16 96 12/17/24 21:00 151/83 H 12/17/24 21:00 151/83 H 12/17/24 21:00 151/83 H 12/17/24 20:51 69 19 98 12/17/24 20:46 140/76 12/17/24 20:45 73 15 100 12/17/24 20:01 152/76 H 12/17/24 20:00 71 21 12/17/24 19:54 75 22 O2 Del Method 12/18/24 07:34 Room Air 12/18/24 01:48 Room Air 12/18/24 01:42 Room Air 12/17/24 23:30 12/17/24 22:54 12/17/24 21:21 12/17/24 21:18 12/17/24 21:00 12/17/24 21:00 12/17/24 21:00 12/17/24 21:00 12/17/24 20:51 12/17/24 20:46 12/17/24 20:45 12/17/24 20:01 12/17/24 20:00 12/17/24 19:54 Resident Activity Tracking Resident Involvement: Resident Care Provided Care Provided: Adult Hospital Medicine
[2024-12-18 08:12] LABS: Hematocrit (blood only) 36.1 % (37.0-47.0); Hemoglobin 11.9 g/dl (12.0-16.0); Mean Corpuscular Hemoglobin 30.7 pg (25.0-34.0); Mean Platelet Volume 10.8 fL (9.4-12.4); Platelet Count 77 K/uL (130-400); RDW Coefficient of Variation 15.2 % (11.5-14.5); RDW Standard Deviation 51.7 fL (36.4-46.3); Red Blood Count 3.88 M/uL (4.20-5.40); White Blood Count 3.52 K/ul (4.8-10.8)
[2024-12-18 08:27] LABS: BUN Creatinine Ratio 10.3 (10-20); Calcium 8.6 mg/dl (8.6-10.3); Creatinine Clr Calc Pharmacy 72.4 ml/min; Potassium 3.3 mmol/L (3.5-5.1)
[2024-12-18] MEDS: hydroCHLOROthiazide 25 MG TAB PO SCH (09:05)
[2024-12-18] MEDS: METOPROLOL SUCC 25MG EXT REL TAB PO SCH (09:05)
[2024-12-18] MEDS: lisinopril 40 MG TAB PO SCH (09:05)
[2024-12-18] MEDS: ASPIRIN 81 MG ECTAB PO SCH (09:05)
[2024-12-18] MEDS: PANTOprazole 40 MG/10 ML SYR IV SCH (09:05)
[2024-12-18] MEDS: ATORVASTATIN 40 MG TAB PO SCH (09:06)
[2024-12-18] MEDS: clonazePAM 0.5 MG TAB PO SCH (09:15)
[2024-12-18] MEDS: POTASSIUM CHLORIDE CRTAB 20 MEQ TABCR PO STA (09:22)
[2024-12-18] MEDS: LACTATED RINGER'S 1,000 ML IV SCH (14:25)
[2024-12-18] MEDS: FLUoxetine HCL 20 MG CAP PO SCH (22:05)
[2024-12-18] MEDS: GABAPENTIN 800 MG TAB PO SCH (22:05)
[2024-12-19 07:28] LABS: Hematocrit (blood only) 33.9 % (37.0-47.0); Hemoglobin 11.2 g/dl (12.0-16.0); Mean Corpuscular Hemoglobin 31.1 pg (25.0-34.0); Mean Corpuscular Volume 94.2 fL (80.0-100.0); Mean Platelet Volume 10.9 fL (9.4-12.4); Platelet Count 86 K/uL (130-400); RDW Standard Deviation 52.6 fL (36.4-46.3); White Blood Count 5.67 K/ul (4.8-10.8)
[2024-12-19 07:52] LABS: BUN Creatinine Ratio 10.6 (10-20); Calcium 8.4 mg/dl (8.6-10.3); Creatinine Clr Calc Pharmacy 67.6 ml/min; Potassium 3.6 mmol/L (3.5-5.1)
[2024-12-19] MEDS: POLYETHYLENE (MIRALAX) 17 GM PACK PO PRN (09:49)
--- NOTE | 2024-12-19 10:12 | Hospitalist Progress Note ---
Date of Service December 19, 2024 Assessment & Plan (1) Abdominal pain: (2) Anemia: Plan Patient is a 59yo F with PMHx of allergic rhinitis, DM2, HTN, obesity, IBS, interstitial cystitis, stage III CKD, fibromyalgia, migraines, angioneurotic edema, anxiety, PE, CVA, cholecystectomy (2006) and hysterectomy with tubal ligation (2007) who presented with constipation, abdominal pain and SOB. Initial labs notable for low WBC and PLT at 3.62 and 83. Imaging showing significant stool burden, splenomegaly, stable cirrhosis, slight ascites, and signs of colitis particularly around the right colon. #Abdominal pain / Constipation - Sx x 3 days - constipation, abd pain, SOB. Does take MiraLAX prn at home. 1g sucralafate, 3mL magnesium hydroxide p.o., 148 mL mag citrate p.o., glycerin 1 suppository, famotidine 20 mg IV, dicyclomine 10 mg p.o., Maalox 15 mL p.o., and acetaminophen 1 g IV in ED. - Last colonoscopy in 2021, notable only for diverticulosis and hemorrhoids - CBC with leukopenia, bilirubin 1.9, AST mildly elevated at 49, lactate wnl - KUB showing mild to moderate colonic fecal retention - CTAP showing cirrhosis, splenomegaly, small amount of ascites, and edema of the mesenteric and pericolonic fat, particular around R colon may be edema associated liver disease but colitis cannot be excluded - Continue Flagyl + Cipro IV - Continue IV Protonix BID, Miralax 34g bid + additional doses as needed - PRN maalox, zofran; holding metoclopramide - Scheduled tylenol 650 q6h; stopped morphine, will start equivalent dose tramadol - Keep NPO, continue IVF with LR at 100 mL/h #Normocytic Anemia - New problem - Hgb 14.7 in Jul, now appears stable ~11 - No signs of active bleeding. Does have h/o hemorrhoids but no current rectal bleeding - Iron panel wnl, FOBT neg - Trend CBC #BO with cirrhosis - Managed outpatient by PCP; does not see GI specialist - Recent diagnosis c/b portal hypertension; CTAP showing mild ascites; Tbili 1.9, AST 49 #HTN- HCTZ, lisinopril, metoprolol succinate #HLD- Atorvastatin #IBS- continue promethazine, MiraLAX; holding Reglan #Anxiety- Continue clonazepam, fluoxetine, gabapentin #T2DM- Diet controlled; periodic Ozempic per PCP note #Hypothyroidism- Continue Levothyroxine #GERD- Omeprazole, Tums PRN #Migraines- Imitrex PRN #Fibromyalgia/chronic pain- Gabapentin, clonazepam, tramadol as needed; admits to occasional marijuana use for pain #History of CVA- 2019, residual status of residual tremor's Dispo: Med/surg; eventual return home VTE prophylaxis: SCDs Admission and Anticipated Discharge Date Admission Date: December 18, 2024 Supervising Physician Co-Signing Physician Notes Attending attestation Pt seen and examined in concert with Dr. Hickman. In agreement with the documented findings as noted in the resident documentation with any exceptions or additions as noted here. No significant BM as not requesting miralax at this time. Willing to move to standing order for same. Pain is adequately controlled on present regimen but morphine likely contributing to constipation, patient willing to transition to PO tramadol regimen to maintain pain control at dose lower and more stable to im prove bowel function. VS as noted. On examination, S1/S2 nl RRR no MCG. CTAB. Abd NT/ND BS+ve Abdominal pain with colitis, constipation - increase miralax to 34mg BID and monitor for response. Transition to tramadol 50mg BID PRN for pain, consider q8 if ineffective. Continue cipro/flagyl Anemia, normocytic - trend CBC Else see resident documentation as noted. Subjective Still having some nausea and abd pain, says it feels no better than at admission. No BM yesterday. Has been oob. Still NPO. No PINEDA, CP, SOB, dysuria Review of Systems Review of Systems: As per HPI. Physical Exam Physical Exam: Gen: NAD, WD/WN CV: RRR, no m/r/g, S1/S2 normal Resp: CTAB, symmetrical chest rise, breathing non-labored Abd: Soft, diffuse mild tenderness, +BS, no masses MSK: Normal ROM, no gross deformities Skin: Warm, dry, pink, no rashes Results & Data Results & Data Vital Signs (Past 12 Hours) Vital Signs Temp Pulse Resp BP Pulse Ox O2 Del Method O2 Flow Rate 12/19/24 09:40 95 Nasal Cannula 2 12/19/24 07:32 36.4 C L 74 18 123/79 90 Room Air Resident Activity Tracking Resident Involvement: Resident Care Provided Care Provided: Adult Hospital Medicine
[2024-12-19] MEDS: POLYETHYLENE (MIRALAX) 17 GM PACK PO SCH (10:39)
[2024-12-19] MEDS: ACETAMINOPHEN 325 MG TAB PO SCH (11:08)
[2024-12-19] MEDS: traMADol HCL 50 MG TABLET PO PRN (14:12)
[2024-12-19] MEDS: MoRPHine SULFATE 2 MG/ML CARP IV STA (20:44)
[2024-12-20] MEDS: MELATONIN 3 MG TAB PO PRN (00:59)
[2024-12-20 07:00] LABS: Hematocrit (blood only) 34.8 % (37.0-47.0); Hemoglobin 11.6 g/dl (12.0-16.0); Mean Corpuscular Hemoglobin 31.1 pg (25.0-34.0); Mean Corpuscular Hgb Conc 33.3 g/dL (32.0-36.0); Mean Corpuscular Volume 93.3 fL (80.0-100.0); Mean Platelet Volume 11.1 fL (9.4-12.4); Platelet Count 69 K/uL (130-400); RDW Coefficient of Variation 14.7 % (11.5-14.5); RDW Standard Deviation 50.4 fL (36.4-46.3); Red Blood Count 3.73 M/uL (4.20-5.40)
[2024-12-20 07:16] LABS: Calcium 8.5 mg/dl (8.6-10.3); Potassium 3.8 mmol/L (3.5-5.1)
[2024-12-20 07:22] LABS: BUN Creatinine Ratio 11.1 (10-20)
--- NOTE | 2024-12-20 08:11 | Electrocardiogram Report ---
Test Reason : Blood Pressure : */* mmHG Vent. Rate : 75 BPM Atrial Rate : 75 BPM P-R Int : 170 ms QRS Dur : 68 ms QT Int : 466 ms P-R-T Axes : 19 21 5 degrees QTcB Int : 520 ms Normal sinus rhythm Poor R wave progression, consider anterior NC vs. lead placement vs. LVH Borderline ECG When compared with ECG of 17-Dec-2024 14:35, Nonspecific T wave abnormality no longer evident in Anterior leads Confirmed by Beka Landin ([id number]) on 12/20/2024 8:11:06 AM Referred By: REFERRED SELF Confirmed By: Beka Landin
--- NOTE | 2024-12-20 10:27 | Hospitalist Progress Note ---
Date of Service December 20, 2024 Assessment & Plan (1) Abdominal pain: (2) Anemia: Plan Patient is a 59yo F with PMHx of allergic rhinitis, DM2, HTN, obesity, IBS, interstitial cystitis, stage III CKD, fibromyalgia, migraines, angioneurotic edema, anxiety, PE, CVA, cholecystectomy (2006) and hysterectomy with tubal ligation (2007) who presented with constipation, abdominal pain and SOB. Initial labs notable for low WBC and PLT at 3.62 and 83. Imaging showing significant stool burden, splenomegaly, stable cirrhosis, slight ascites, and signs of colitis particularly around the right colon. #Abdominal pain / Constipation - Sx x 3 days - constipation, abd pain, SOB. Does take MiraLAX prn at home. 1g sucralafate, 3mL magnesium hydroxide p.o., 148 mL mag citrate p.o., glycerin 1 suppository, famotidine 20 mg IV, dicyclomine 10 mg p.o., Maalox 15 mL p.o., and acetaminophen 1 g IV in ED. - Last colonoscopy in 2021, notable only for diverticulosis and hemorrhoids - CBC with leukopenia, bilirubin 1.9, AST mildly elevated at 49, lactate wnl - KUB showing mild to moderate colonic fecal retention - CTAP showing cirrhosis, splenomegaly, small amount of ascites, and edema of the mesenteric and pericolonic fat, particular around R colon may be edema associated liver disease but colitis cannot be excluded - Continue Flagyl + Cipro IV - Continue Miralax 34g bid + additional doses as needed; added [place] S 1tab qAM - Continue Protonix IV BID, PRN Phenergan, maalox, and zofran; holding metoclopramide - Scheduled tylenol 650 q6h; stopped morphine, pt reported no relief w/ equivalent dose tramadol, will try po oxy 5mg q6h prn #Normocytic Anemia - New problem - Hgb 14.7 in Jul, now appears stable ~11 - No signs of active bleeding. Does have h/o hemorrhoids but no current rectal bleeding - Iron panel wnl, FOBT neg - Trend CBC #BO with cirrhosis - Managed outpatient by PCP; does not see GI specialist - Recent diagnosis c/b portal hypertension; CTAP showing mild ascites; Tbili 1.9, AST 49 #HTN- HCTZ, lisinopril, metoprolol succinate #HLD- Atorvastatin #IBS- continue promethazine, MiraLAX; holding Reglan #Anxiety- Continue clonazepam, fluoxetine, gabapentin #T2DM- Diet controlled; periodic Ozempic per PCP note #Hypothyroidism- Continue Levothyroxine #GERD- Omeprazole, Tums PRN #Migraines- Imitrex PRN #Fibromyalgia/chronic pain- Gabapentin, clonazepam, tramadol as needed; admits to occasional marijuana use for pain #History of CVA- 2019, residual status of residual tremor's Dispo: Med/surg; eventual return home VTE prophylaxis: SCDs FENGI: full liquid diet Code status: Conditional (no intubation) Admission and Anticipated Discharge Date Admission Date: December 19, 2024 Supervising Physician Co-Signing Physician Notes Attending attestation Pt seen and examined in concert with Dr. Hickman. In agreement with the documented findings as noted in the resident documentation with any exceptions or additions as noted here. Improved pain with BMs, returning pain after decreased BM frequency and increased morphine use. No improvement in pain control with PO tramadol. VS as noted. On examination, S1/S2 nl RRR no MCG. CTAB. Abd NT/ND BS+ve Abdominal pain with colitis, constipation - continue miralax 34mg BID, add senna, and monitor for response. Transition to PO oxycodone in an effort to minimize morphine use. Continue Cipro/Flagyl Anemia, normocytic - trend CBC Else see resident documentation as noted. Subjective Still having some nausea and abd pain. Had several watery BMs yesterday; says abd pain did improve somewhat following those. Doing well on full liquid diet, no n/v. Denies PINEDA, CP, SOB, dysuria. Does report new lightheadedness/dizziness this morning. Review of Systems Review of Systems: As per HPI. Physical Exam Physical Exam: Gen: NAD, WD/WN HEENT: NCAT, EOMI, PERRL, MMM CV: RRR, no m/r/g, S1/S2 normal Resp: CTAB, symmetrical chest rise, breathing non-labored Abd: Soft, diffuse mild tenderness, +BS, no masses MSK: Normal ROM, no gross deformities Skin: Warm, dry, pink, no rashes Results & Data Results & Data Vital Signs (Past 12 Hours) Vital Signs Temp Pulse Resp BP Pulse Ox Pulse Ox O2 Del Method 12/20/24 08:31 36.8 C 62 18 132/84 98 Room Air 12/20/24 01:12 94 O2 Del Method 12/20/24 08:31 12/20/24 01:12 Room Air Resident Activity Tracking Resident Involvement: Resident Care Provided Care Provided: Adult Hospital Medicine
[2024-12-20] MEDS: DOCUSATE SODIUM/SENNA 50/8.6MG TAB PO SCH (11:22)
[2024-12-20] MEDS: PROMETHAZINE HCL 25 MG TAB PO PRN (16:19)
[2024-12-21] MEDS: oxyCODONE HCL IR 5 MG TAB (IMMEDIATE RELEASE) PO PRN (02:25)
--- NOTE | 2024-12-21 12:37 | XRay Report ---
Exam: KUB. History: Constipation. Evaluate stool burden. Comparison: 17 Dec 2024. Findings: Prominent gas large bowel distribution. Amorphous densities consistent with mild stool burden. No discrete mass. No abnormal calcifications. Bowel gas pattern is nonobstructive. Impression: Mild stool burden large bowel with prominent gas distention. No appreciated obstruction. Electronically signed by River Perkins 12-21-2024 12:35 PM
[2024-12-21] MEDS: POLYETHYLENE (MIRALAX) 17 GM PACK PO SCH (14:39)
--- NOTE | 2024-12-21 14:53 | Hospitalist Progress Note ---
Date of Service December 21, 2024 Assessment & Plan (1) Abdominal pain: (2) Anemia: Plan Patient is a 59yo F with PMHx of allergic rhinitis, DM2, HTN, obesity, IBS, interstitial cystitis, stage III CKD, fibromyalgia, migraines, angioneurotic edema, anxiety, PE, CVA, cholecystectomy (2006) and hysterectomy with tubal ligation (2007) who presented with constipation, abdominal pain and SOB. Initial labs notable for low WBC and PLT at 3.62 and 83. Imaging showing significant stool burden, splenomegaly, stable cirrhosis, slight ascites, and signs of colitis particularly around the right colon. #Abdominal pain / Constipation With 3 days of constipation, abdominal pain, shortness of breath prior to arrival Last colonoscopy iverticulosis/hemorrhoids CBC stable, BMP stable CTAP: Cirrhosis, splenomegaly. Edema and mesenteric and pericolic fat particularly around the right colon. May be associated liver disease but colitis cannot be excluded. KUB repeated 12/21: Mild stool burden through large bowel with prominent gas distention Given no leukocytosis, fever antibiotics discontinued. Increase MiraLAX to 34 g every 6 hours Continue Tylenol, tramadol as needed Oxycodone discontinuedlimit narcotic use in the presence of constipation #Normocytic anemia Hemoglobin stable at 11.6 No signs of active bleeding. Iron panel WNL, FOBT negative AM CBC #Cirrhosis BO induced, managed by PCP plt count 69, continue to monitor. Should be referred to GI on discharge MELD 3.0: 12 #HTN- HCTZ, lisinopril, metoprolol succinate #HLD- Atorvastatin #IBS- continue promethazine, MiraLAX; holding Reglan #Anxiety- Continue clonazepam, fluoxetine, gabapentin #T2DM- Diet controlled; periodic Ozempic per PCP note #Hypothyroidism- Continue Levothyroxine #GERD- Omeprazole, Tums PRN #Migraines- Imitrex PRN #Fibromyalgia/chronic pain- Gabapentin, clonazepam, tramadol as needed; admits to occasional marijuana use for pain #History of CVA- 2018, residual status of residual tremor's Dispo: Med/surg; eventual return home VTE prophylaxis: SCDs Admission and Anticipated Discharge Date Admission Date: December 19, 2024 Patrick Erickson was seen and examined this morning. She reports back & abdominal pain today. She states she feels very bloated and has not had a BM the last two days. Physical Exam Physical Exam: General: no acute distress; non-toxic appearing; well-nourished; cooperative HEENT: normocephalic, atraumatic; no scleral icterus; PERRLA w/ EOMs intact; vision and hearing grossly intact Skin: warm, dry without signs of tenting; no cyanosis; no rashes, bruising, lesions, or erythema noted CV: chest wall NTP; RRR; S1/S2 normal; no murmurs/rubs/gallops Lungs: no acute respiratory distress; symmetrical chest wall expansion ABD: Soft, NTP; BS hypoactive; generalized tenderness to palpation; no distention MSK: no edema noted in the LEs b/l, nonerythematous Neuro: A&Ox3; normal mood and affect; fluent speech; no focal deficits Results & Data Results & Data Vital Signs (Past 12 Hours) Vital Signs Temp Pulse Resp BP Pulse Ox Pulse Ox O2 Del Method 12/21/24 07:50 36.4 C L 66 18 109/68 98 Room Air 12/21/24 07:13 100 O2 Del Method 12/21/24 07:50 12/21/24 07:13 Room Air PG Care Time/CCT Total # of Minutes Spent Total Time Spent with Patient: Total time spent is greater than 50% in coordination of care (as documented) at patient's floor/unit and/or counseling patient: Coding Level of Care Code 42540 SUB INP/OBS CARE 3/50MIN Diagnoses Abdominal pain R10.9 Anemia D64.9
[2024-12-21] MEDS: ALUMINUM/MAGNESIUM SUSP 30 ML UDC PO PRN (19:56)
[2024-12-22 07:56] LABS: Hematocrit (blood only) 33.4 % (37.0-47.0); Mean Corpuscular Hemoglobin 31.2 pg (25.0-34.0); Mean Corpuscular Hgb Conc 32.9 g/dL (32.0-36.0); Mean Corpuscular Volume 94.6 fL (80.0-100.0); Mean Platelet Volume 11.3 fL (9.4-12.4); Platelet Count 79 K/uL (130-400); RDW Standard Deviation 52.2 fL (36.4-46.3); Red Blood Count 3.53 M/uL (4.20-5.40); White Blood Count 4.21 K/ul (4.8-10.8)
[2024-12-22 08:13] LABS: Albumin Globulin Ratio 0.9 (0.9-2); Albumin Level 2.9 gm/dl (3.4-5.0); BUN Creatinine Ratio 7.6 (10-20); Bilirubin,Total 0.8 mg/dl (0.2-1.0); Calcium 8.5 mg/dl (8.6-10.3); Creatinine Clr Calc Pharmacy 59.6 ml/min; Globulin 3.3 gm/dl (2.5-4.0); Potassium 3.9 mmol/L (3.5-5.1); Total Protein 6.2 gm/dl (6.0-8.3)
[2024-12-22] MEDS ORDERED: bisacodyL 10 MG SUPP PR PRN (08:22)
[2024-12-22] MEDS: FUROSEMIDE 40 MG TAB PO SCH (10:15)
[2024-12-22] MEDS: SPIRONOLACTONE 25 MG TAB PO SCH (10:16)
--- NOTE | 2024-12-22 14:22 | Hospitalist Progress Note ---
"Date of Service December 22, 2024 Assessment & Plan (1) Abdominal pain: (2) Anemia: Plan Patient is a 59yo F with PMHx of allergic rhinitis, DM2, HTN, obesity, IBS, interstitial cystitis, stage III CKD, fibromyalgia, migraines, angioneurotic edema, anxiety, PE, CVA, cholecystectomy (2006) and hysterectomy with tubal ligation (2007) who presented with constipation, abdominal pain and SOB. Initial labs notable for low WBC and PLT at 3.62 and 83. Imaging showing significant stool burden, splenomegaly, stable cirrhosis, slight ascites, and signs of colitis particularly around the right colon. #Abdominal pain / Constipation | hx of IBS-C | Cirrhosis Last colonoscopy iverticulosis/hemorrhoids. Does not follow with GI, would like referral to [facility] at discharge BO induded cirrhosis, plt 79 and stable. MELD 3.0: 12 CTAP: Cirrhosis, splenomegaly. Edema and mesenteric and pericolic fat particularly around the right colon. May be associated liver disease but colitis cannot be excluded. KUB repeated 12/21: Mild stool burden through large bowel with prominent gas distention Given no leukocytosis, fever antibiotics discontinued. Miralax decreased to BID with loose stools Continue Tylenol, tramadol as needed Oxycodone discontinuedlimit narcotic use in the presence of constipation did not tolerate low fiber diet well yesterday, continues on full liquids With component of mild ascities on imaging and pt feels bloated - will start lasix/spironolatone. lower dose spironolactone as pt recieved HCTZ this morning, but will plan to hold in AM #Normocytic anemia Hemoglobin stable at 11.6 No signs of active bleeding. Iron panel WNL, FOBT negative AM CBC #HTN- lisinopril, metoprolol succinate HCTZ held as above #HLD- Atorvastatin #IBS- continue promethazine, MiraLAX; holding Reglan #Anxiety- Continue clonazepam, fluoxetine, gabapentin #T2DM- Diet controlled; periodic Ozempic per PCP note #Hypothyroidism- Continue Levothyroxine #GERD- Omeprazole, Tums PRN #Migraines- Imitrex PRN #Fibromyalgia/chronic pain- Gabapentin, clonazepam, tramadol as needed; admits to occasional marijuana use for pain #History of CVA- 2019, residual status of residual tremor's Dispo: continued inpatient stay for pain control VTE prophylaxis: SCDs, chemical ppx defered with thobocytopenia Admission and Anticipated Discharge Date Admission Date: December 19, 2024 Subjective patient seen lying in bed, reports pain is about a 7 in her lower abdomen feels full of fluid did not do well with low fiber diet tolerate full liquids okay denies heartburn Review of Systems Review of Systems: All systems reviewed & are unremarkable except as noted in Subjective Physical Exam Physical Exam: General: NAD, VS as above Resp: normal respiratory effort, lungs clear to auscultation CV: RRR, no murmur, Abd: hypoactive bowel sounds, generalized abd tenderness, but worse epigastric and RLQ. no guarding Extremities: Moves all extremities, LE nonpittig edema Neuro: A&O x3, Skin: intact, no lesions noted Results & Data Results & Data Vital Signs (Past 12 Hours) Vital Signs Temp Pulse Pulse Resp BP BP Pulse Ox 12/22/24 12:00 97.7 F 69 15 116/71 95 12/22/24 11:01 76 135/84 91 12/22/24 10:09 77 112/69 12/22/24 08:00 97.9 F 76 14 121/79 91 O2 Del Method 12/22/24 12:00 Room Air 12/22/24 11:01 Room Air 12/22/24 10:09 Room Air 12/22/24 08:00 Room Air Laboratory Results cbc and chemistry reviewed PG Care Time/CCT Total # of Minutes Spent Total Time Spent with Patient: Total time spent is greater than 50% in coordination of care (as documented) at patient's floor/unit and/or counseling patient: Coding Level of Care Code 50066 SUB INP/OBS CARE 3/50MIN Diagnoses Abdominal pain R10.9 Anemia D64.9"
[2024-12-22] MEDS: POLYETHYLENE (MIRALAX) 17 GM PACK PO SCH (21:37)
[2024-12-23 06:52] LABS: Hematocrit (blood only) 33.3 % (37.0-47.0); Hemoglobin 10.9 g/dl (12.0-16.0); Mean Corpuscular Hemoglobin 31.2 pg (25.0-34.0); Mean Corpuscular Hgb Conc 32.7 g/dL (32.0-36.0); Mean Corpuscular Volume 95.4 fL (80.0-100.0); Mean Platelet Volume 11.6 fL (9.4-12.4); Platelet Count 83 K/uL (130-400); RDW Coefficient of Variation 14.9 % (11.5-14.5); RDW Standard Deviation 52.1 fL (36.4-46.3); Red Blood Count 3.49 M/uL (4.20-5.40); White Blood Count 4.18 K/ul (4.8-10.8)
[2024-12-23 07:04] LABS: Albumin Globulin Ratio 0.9 (0.9-2); BUN Creatinine Ratio 6.5 (10-20); Bilirubin,Total 0.8 mg/dl (0.2-1.0); Calcium 8.6 mg/dl (8.6-10.3); Creatinine Clr Calc Pharmacy 56.7 ml/min; Globulin 3.3 gm/dl (2.5-4.0); Potassium 3.6 mmol/L (3.5-5.1); Total Protein 6.3 gm/dl (6.0-8.3)
--- NOTE | 2024-12-23 11:52 | Hospitalist Progress Note ---
Date of Service December 23, 2024 Assessment & Plan (1) Abdominal pain: (2) Anemia: Plan Patient is a 59yo F with PMHx of allergic rhinitis, DM2, HTN, obesity, IBS, interstitial cystitis, stage III CKD, fibromyalgia, migraines, angioneurotic edema, anxiety, PE, CVA, cholecystectomy (2006) and hysterectomy with tubal ligation (2007) who presented with constipation, abdominal pain and SOB. Initial labs notable for low WBC and PLT at 3.62 and 83. Imaging showing significant stool burden, splenomegaly, stable cirrhosis, slight ascites, and signs of colitis particularly around the right colon. #Abdominal pain / Constipation | hx of IBS-C | Cirrhosis Last colonoscopy iverticulosis/hemorrhoids. Does not follow with GI, would like referral to [facility] at discharge BO induded cirrhosis, plt 83 and stable. MELD 3.0: 12 CTAP: Cirrhosis, splenomegaly. Edema and mesenteric and pericolic fat particularly around the right colon. May be associated liver disease but colitis cannot be excluded KUB repeated 12/21: Mild stool burden through large bowel with prominent gas distention; no stones noted on KUB or CT A/P imaging Patient was initially placed on ciprofloxacin and metronidazole, but these were discontinued on 12/[address] A/P in July 2024 and November 2024 Patient did exhibit mild right colon wall thickening in July reflective of nonspecific colitis It is possible that this has now evolved into a worse colitis in the right colon PCR stool not obtained on admission Patient underwent a colonoscopy [place] [address] Amaya; negative biopsies; colonic malignancy is lower differential given timeframe However, did discuss this with patient and recommended that she have a colonoscopy follow-up outpatient upon discharge Touched base with gastroenterology; therefore they would not have any acute changes in management at this time and recommend outpatient follow-up Miralax decreased to BID with loose stools and multiple bowel movements on 12/22 Patient reports her main concern on 12/23 is that her pain is not controlled; tramadol not working Multimodal pain regimen as follows: Continue acetaminophen 650 mg p.o. q6h for pain 15 Will add back on oxycodone 5 mg p.o. q6h for pain 610; discussed risk of constipation with patient Lidocaine patch application to RUQ Capsaicin cream PRN Trial of dicyclomine 10 mg IV x 1 for IBS related pain Patient reports that she ate her full liquid diet this morning, and did well with it; while she had trouble with her low fiber diet on 12/22, will plan to advance as tolerated With component of mild ascites on imaging and pt feels bloated - will start lasix/spironolatone. lower dose spironolactone as pt recieved HCTZ this morning, but will plan to hold in AM #Normocytic anemia Hemoglobin stable at 11.6 No signs of active bleeding. Iron panel WNL, FOBT negative AM CBC #HTN- lisinopril, metoprolol succinate HCTZ held as above #HLD- Atorvastatin #IBS- continue promethazine, MiraLAX; holding Reglan #Anxiety- Continue clonazepam, fluoxetine, gabapentin #T2DM- Diet controlled; periodic Ozempic per PCP note #Hypothyroidism- Continue Levothyroxine #GERD- Omeprazole, Tums PRN #Migraines- Imitrex PRN #Fibromyalgia/chronic pain- Gabapentin, clonazepam, tramadol as needed; admits to occasional marijuana use for pain #History of CVA- 2019, residual status of residual tremor's Dispo: continued inpatient stay for pain control VTE prophylaxis: SCDs, chemical ppx deferred with thrombocytopenia Admission and Anticipated Discharge Date Admission Date: December 19, 2024 Subjective Mrs. Jackman is still having significant right-sided abdominal pain and nausea this morning. She is now approaching 2 weeks of intermittent pain and nausea. The pain is located in her right upper quadrant and flank; she reports it is a constant 7/10 this morning, with an occasional sharp intermittent stabbing pain towards her back. She has tolerated a soft diet over the past 2 days, but can only have a few bites before it upsets her stomach. She did eat all of her breakfast this morning (yogurt, ice cream, chocolate milk, and coffee) and reports she did all right. Yesterday, she had nonstop liquidy bowel movements throughout the day and night. No BMs yet today. No blood in her diarrhea. No dark tarry stool. Patient has history of cholecystectomy. Her last colonoscopy was with Dr. Amaya at [place] 1.5 years ago. She denies any prior history of lactose or gluten intolerance. No prior history of Crohn's or ulcerative colitis. She does have a history of kidney stones. While patient is amenable to going home, she wants to be "well" when she returns home. She is requesting to speak with a forest manager this morning. ROS: Patient endorses migraine, RUQ abdominal pain, right flank pain, nausea, and aching/muscle spasms after walking that leads to chest pain/SOB. Patient denies fever, chills, night sweats, vomiting, changes in urinary habits, burning with nation, blood in the urine, or blood in the diarrhea. Review of Systems Review of Systems: See HPI above Physical Exam Physical Exam: General: Moderate distress secondary to nausea and right flank pain; non-toxic appearing; at bedside; cooperative; SpO2 92% on RA HEENT: normocephalic, atraumatic; no scleral icterus; PERRLA; vision and hearing grossly intact Neck: supple; no lymphadenopathy; trachea midline Skin: warm, dry without signs of tenting; no cyanosis; no rashes, bruising, le sions, or erythema noted CV: chest wall NTP; RRR; S1/S2 normal; no murmurs/rubs/gallops; pulses intact and symmetric at radial, DP, and PT Lungs: no acute respiratory distress; symmetrical chest wall expansion; clear breath sounds across all lung mtz w/o adventitious sounds; no wheezing ABD: Soft; TTP in the right flank and right upper and lower quadrants; BS present; no rebound/guarding; distention secondary to body habitus Back: Positive CVA tenderness bilaterally, but worse on the right side MSK: no tics or fasciculations; nonpitting edema noted in the LEs b/l, nonerythematous Neuro: A&Ox3; normal mood and affect; fluent speech; no focal deficits appreciated; sensation intact symmetrical extremities bilateral Results & Data Results & Data Vital Signs (Past 12 Hours) Vital Signs Temp Pulse Resp BP BP Pulse Ox O2 Del Method 12/23/24 10:17 72 104/65 91 Room Air 12/23/24 08:46 72 115/73 96 Room Air 12/23/24 07:41 36.7 C 60 18 100/61 95 Room Air PG Care Time/CCT Total # of Minutes Spent Total Time Spent with Patient: Total time spent is greater than 50% in coordination of care (as documented) at patient's floor/unit and/or counseling patient: [place] [address] SUB INP/OBS CARE 3/50MIN Patient Type Established History Comprehensive Exam Comprehensive Medical Decision Making High Complexity Diagnoses Abdominal pain R10.9 Anemia D64.9
[2024-12-23 13:15] LABS: Appearance Urine Clear (Clear); Bacteria Urine Automated None Seen (None Seen); Bilirubin Urine Negative (Negative); Blood Urine Negative (Negative); Cast Urine Automated 0-2 /lpf (0-2); Color Urine Yellow; Epithelial Cell Urine Auto 0-2 /hpf (0-2); Glucose Urine UA Negative (Negative); Ketones Urine Negative (Negative); Leukocyte Esterase Urine Trace (Negative); Nitrite Urine Negative (Negative); Protein Urine Negative (Negative); RBC Urine Automated 0-2 /hpf (0-2); Specific Gravity Urine 1.004 (1.000-1.030); Urobilinogen Urine Negative (Negative); WBC Urine Automated 0-5 /hpf (0-5)
[2024-12-23] MEDS ORDERED: CAPSAICIN CR 0.075% 60 GM TUBE EXT PRN (18:46)
[2024-12-23] MEDS ORDERED: ACETAMINOPHEN 325 MG TAB PO PRN (18:52)
[2024-12-23] MEDS: LIDOCAINE 5% 1 PATCH TD STA (20:21)
[2024-12-23] MEDS: DICYCLOMINE HCL 10 MG CAP PO ONE (23:17)
[2024-12-23] MEDS: oxyCODONE HCL IR 5 MG TAB (IMMEDIATE RELEASE) PO PRN (23:18)
[2024-12-24] MEDS: LIDOCAINE 5% 1 PATCH TD STA (02:21)
[2024-12-24 07:52] VITALS: RESP 18
[2024-12-24 10:15] LABS: Basophils # (auto) 0.02 K/uL (0.00-0.20); Basophils % (auto) 0.5 %; Eosinophils # (auto) 0.29 K/uL (0.00-0.50); Eosinophils % (auto) 6.9 %; Hematocrit (blood only) 34.8 % (37.0-47.0); Hemoglobin 11.2 g/dl (12.0-16.0); Immature Granulocytes # (auto) 0.01 K/uL (0.01-0.20); Immature Granulocytes % (auto) 0.2 %; Lymphocytes # (auto) 1.48 K/uL (1.20-3.40); Lymphocytes % (auto) 35.2 %; Mean Corpuscular Hgb Conc 32.2 g/dL (32.0-36.0); Mean Corpuscular Volume 96.4 fL (80.0-100.0); Monocytes # (auto) 0.25 K/uL (0.11-0.59); Monocytes % (auto) 5.9 %; Neutrophils # (auto) 2.16 K/uL (1.40-6.50); Neutrophils % (auto) 51.3 %; Platelet Count 89 K/uL (130-400); RDW Coefficient of Variation 14.8 % (11.5-14.5); RDW Standard Deviation 52.8 fL (36.4-46.3); Red Blood Count 3.61 M/uL (4.20-5.40); White Blood Count 4.21 K/ul (4.8-10.8)
[2024-12-24 10:27] LABS: BUN Creatinine Ratio 7.6 (10-20); Calcium 8.3 mg/dl (8.6-10.3); Creatinine Clr Calc Pharmacy 53.6 ml/min; Potassium 3.2 mmol/L (3.5-5.1)
[2024-12-24] MEDS: POTASSIUM CHLORIDE CRTAB 20 MEQ TABCR PO STA (11:52)
[2024-12-24] MEDS: LACTATED RINGER'S 500 ML IV ONE (11:52)
[2024-12-24 14:45] VITALS: PULSE 64; TEMP 97.9; O2SAT 94
[2024-12-24 16:14] LABS: BUN Creatinine Ratio 7.8 (10-20); Calcium 8.8 mg/dl (8.6-10.3); Creatinine Clr Calc Pharmacy 54.9 ml/min; Magnesium 1.5 mg/dl (1.7-2.4); Potassium 4.1 mmol/L (3.5-5.1)
--- NOTE | 2024-12-24 16:35 | Discharge Summary ---
Discharge Summary Date of Service December 24, 2024 Principal Dx & Hospital Course #1 = Principal Diagnosis (1) Symptoms consistent with irritable bowel syndrome: (2) Constipation: (3) Colitis: (4) Anemia: Plan Patient is a 59yo F with PMHx of allergic rhinitis, DM2, HTN, obesity, IBS, interstitial cystitis, stage III CKD, fibromyalgia, migraines, angioneurotic edema, anxiety, PE, CVA, cholecystectomy (2006) and hysterectomy with tubal ligation (2007) who presented with constipation, abdominal pain and SOB. Initial labs notable for low WBC and PLT at 3.62 and 83. Imaging showing significant stool burden, splenomegaly, stable cirrhosis, slight ascites, and signs of colitis particularly around the right colon. Day of discharge 12/24: Patient reports that she slept well last night for the first time in a while. She reports that the Bentyl and lidocaine patch significantly helped her abdominal pain. This morning, her main complaint is the pain in her feet bilaterally. She has been tolerating her breakfast well with only mild nausea. No vomiting. No fevers. She also had a bowel movement after breakfast today; still liquidy. ROS: Patient endorses nausea, intermittent RUQ pain (improvement from yesterday), diarrhea, and bilateral foot pain (which she describes as a "tooth achy" pain) Patient denies fever, chills, night sweats, chest pain, SOB, vomiting, or blood in the urine or stool. #Abdominal pain / Constipation | hx of IBS-C | Cirrhosis | Colitis Last colonoscopy iverticulosis/hemorrhoids. Does not follow with GI, [facility] [place] induded cirrhosis, plt 83 and stable. MELD 3.0: 12 CTAP: Cirrhosis, splenomegaly. Edema and mesenteric and pericolic fat particularly around the right colon. May be associated liver disease but colitis cannot be excluded KUB repeated 12/21: Mild stool burden through large bowel with prominent gas distention; no stones noted on KUB or CT A/P imaging Patient was initially placed on ciprofloxacin and metronidazole, but these were discontinued on 12/[address] A/P in July 2024 and November 2024 Patient did exhibit mild right colon wall thickening in July reflective of nonspecific colitis It is possible that this has now evolved into a full-blown colitis in the right colon PCR stool not obtained on admission Patient underwent a colonoscopy [place] [address] Amaya; negative biopsies; colonic malignancy is lower differential given timeframe However, did discuss this with patient and recommended that she have a colonoscopy follow-up outpatient upon discharge Touched base with gastroenterology and ran case by them; no acute changes in management; as long as vitals remained stable, recommend slowly advancing diet, and outpatient follow-up Miralax decreased to BID with loose stools and multiple bowel movements on 12/22 With component of mild ascites/liver cirrhosis on imaging and pt feels bloated - will start spironolactone Patient reports improvement on 12/24; now tolerating a solid diet #Hypomagnesia | hypokalemia Mild; magnesium 1.5 and potassium 3.2 on 12/24; likely contributing to patient's bilateral foot pain/cramping Suspected secondary to recent bouts of diarrhea Repleted with the following: Magnesium 1 g IV x 1 Potassium 40 mEq p.o. x 1 Will plan for outpatient CMP prior to PCP appointment #Normocytic anemia Hemoglobin stable at 11.6 -> 11.0 -> 11.2 No signs of active bleeding. Iron panel WNL, FOBT negative Will plan for outpatient CBC prior to PCP appointment #HTN- lisinopril, metoprolol succinate HCTZ held as above #HLD- Atorvastatin #IBS- continue promethazine, MiraLAX; holding Reglan #Anxiety- Continue clonazepam, fluoxetine, gabapentin #T2DM- Diet controlled; periodic Ozempic per PCP note #Hypothyroidism- Continue Levothyroxine #GERD- Omeprazole, Tums PRN #Migraines- Imitrex PRN #Fibromyalgia/chronic pain- Gabapentin, clonazepam, tramadol as needed; admits to occasional marijuana use for pain #History of CVA- 2018, residual status of residual tremor's Dispo: Discharge home with gastroenterology follow-up for liver cirrhosis and potential colonoscopy Notes For Next Care Provider Patient was hospitalized for nonspecific abdominal pain, thought to be secondary to IBS-C as well as right-sided colitis. While there was imaging in July demonstrating liver cirrhosis, patient reports she was unaware of this. Her LFTs were elevated on arrival, however quickly improved with treatment in the hospital. We will be switching her from hydrochlorothiazide to spironolactone in the setting of liver cirrhosis. We will also be holding her lisinopril as she had multiple episodes of mild hypotension (low of 96/64) while in the hospital. Please review these medications at transitional care appointment. Additionally, we plan to set her up with gastroenterology, both to monitor her liver cirrhosis, and to have an outpatient colonoscopy performed for her colitis. New medications include: Lidocaine patches 5% Dicyclomine (Bentyl) 10 mg by mouth every 6 hours as needed for abdominal pain related to IBS Ondansetron 4 mg oral dissolvable tablets; can be taken every 8 hours as needed for nausea/vomiting; dissolves under the tongue SenokotS 8.6-50 mg tablet by mouth at night for constipation Milk of Magnesia 15 mL by mouth twice daily as needed for constipation Spironolactone 50 mg daily (take 25mg tablets x 2 every morning) Admission HPI Per Admitting Provider 59-year-old female PMHx allergic rhinitis, HTN, obesity, IBS, chronic residual cystitis, CKD stage III, fibromyalgia, migraines, angioneurotic edema, prior PE, anxiety, history of CVA, and T2DM presenting for constipation with associated abdominal pain and SOB. 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 States that she felt very bloated and continued to have flatulence but decreased in bowel movements. She would pass very small amounts of stool sometimes liquid in nature. 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 No notes of family is having similar symptoms. She was having nausea without vomiting. At baseline, patient does experience vertigo and dizziness. States this is not any worse but that she still does experience this at times. Has had some bilateral ankle swelling, mainly noticed when she has been sitting for long periods of time. In July 2024 she was recent diagnosed with [place] and cirrhosis. States that sometimes she does have abdominal pain over her liver and she thought that this was what was going on. Feels that she is short of breath because she is unable to take a deep breath secondary to the bloating in her abdomen. States that she has not had this type of pain before. No fever or chills. Denies palpitations, diarrhea, numbness/tingling, LUTS, fever/chills, URI symptoms, weakness, syncope, or LOC. Patient has been taking most of her daily medications, but has decreased some of what she is taking because her belly was hurting so she did not want to take all of her meds. Current pain is a 7 out of 10 on the pain scale as compared to 8 out of 10 when she initially arrived. ED evaluation reveals leukopenia (3.62), H&H 11.9/35.1, platelets 83; PT/INR 12.3/1.1; CMP potassium 3.4, chloride 109, glucose 153, bilirubin 1.9, AST 49, albumin 3; KUB with mild to moderate colonic fecal retention; CTAP cirrhosis, splenomegaly, small amounts of ascites, edema and mesenteric and pericolonic fat particularly around the R colon may be edema associated with liver disease though colitis cannot be excluded; EKG NSR at 79 bpm.; provided with sucralfate 1 g p.o., pantoprazole 40 mg IV, morphine 4 mg IV, metoclopramide 5 mg IV, magnesium hydroxide 3 mL p.o., mag citrate 148 mL p.o., glycerin 1 suppository, famotidine 20 mg IV, dicyclomine 10 mg p.o., Maalox 15 mL p.o., and acetaminophen 1 g IV in ED. Please see Dr. Sorensen attestation for adjustments/additions to treatment plan. Admission Exam Per Admitting Provider General: No acute distress Skin: Warm and dry Head: Normocephalic, atraumatic Eyes: PERRL, conjunctivae clear, sclera non-icteric ENT: External ear and ear canal without swelling; nose atraumatic; good dentition, tongue normal appearance, pharynx normal Neck: Supple, no LAD Cardio: RRR, no M/G/R, S1 and S2 normal Resp: No respiratory distress, Lungs CTA in all lobes bilaterally, no wheezes, rales, or rhonchi Abdomen: Soft, symmetric, tender to palpation throughout, mild distention; no peritoneal signs; no masses or hepatosplenomegaly; Bowel sounds normoactive MSK: No deformities; pulses palpable and equal; trace pitting edema BLE at ankles. Neuro: Awake, alert; Sensation intact bilaterally; CN grossly intact Psych: Appropriate mood and affect; good judgement and insight. Discharge Exam General: Moderate distress secondary to nausea and right flank pain; non-toxic appearing; at bedside; cooperative; SpO2 92% on RA HEENT: normocephalic, atraumatic; no scleral icterus; PERRLA; vision and hearing grossly intact Neck: supple; no lymphadenopathy; trachea midline Skin: warm, dry without signs of tenting; no cyanosis; no rashes, bruising, lesions, or erythema noted CV: chest wall NTP; RRR; S1/S2 normal; no murmurs/rubs/gallops; pulses intact and symmetric at radial, DP, and PT Lungs: no acute respiratory distress; symmetrical chest wall expansion; clear breath sounds across all lung mtz w/o adventitious sounds; no wheezing ABD: Soft; TTP in the right flank and right upper and lower quadrants; BS present; no rebound/guarding; distention secondary to body habitus Back: Positive CVA tenderness bilaterally, but worse on the right side MSK: no tics or fasciculations; nonpitting edema noted in the LEs b/l, nonerythematous Neuro: A&Ox3; normal mood and affect; fluent speech; no focal deficits appreciated; sensation intact symmetrical extremities bilateral Discharge Plan Discharge Items Patient Disposition: Home - Self-Care Reason For Visit: ABDOMINAL PAIN, ANEMIA Discharge Diagnosis: Right sided colitis, liver cirrhosis Condition on Discharge: Fair Activity: As commented below Activity Comment: Gradually increase activity as tolerated Non-emergency contact: Primary Care Provider and Help Desk Administrator Call non-emergency contact if: you have any medication questions, your symptoms worsen, your pain is not controlled, your pain is worsening and you have a fever Follow-up/Referrals: Abraham Ryan MD [Primary Care Provider] - Diet: Low Fiber Addtl Attending Provider Instructions: You were hospitalized at [facility] from 12/18 - 12/24 for abdominal pain. Initial imaging of your abdomen and pelvis revealed liver cirrhosis as well as edema (swelling) around your right colon that could not exclude a nonspecific colitis. Most of your symptoms were thought to be due to this right sided colitis in the setting of IBS with constipation. You received a multimodal pain regimen during your hospitalization (including IV morphine on arrival, Tylenol, tramadol, oxycodone, dicyclomine, gabapentin, and lidocaine patches). Given constipation, we gradually decreased narcotics and increased your bowel regimen (to include MiraLAX, senna, and milk of magnesia) until you began to have regular bowel movements and 6/2. You were also initially treated with 2 antibiotics (metronidazole and ciprofloxacin) for colitis due to an elevated white blood cell count on arrival; however, these antibiotic were eventually discontinued as your white blood cell count stabilized, and you had no reported fevers. New prescriptions for the following medications have been sent to your pharmacy ([facility] on [address]): Lidocaine patches 5% (note: There are 4% patches that can be obtained [id number] which may be cheaper than this prescription) Dicyclomine (Bentyl) 10 mg by mouth every 6 hours as needed for abdominal pain related to IBS Ondansetron 4 mg oral dissolvable tablets; can be taken every 8 hours as needed for nausea/vomiting; dissolves under the tongue SenokotS 8.6-50 mg tablet by mouth at night for constipation Milk of Magnesia 15 mL by mouth twice daily as needed for constipation Spironolactone 50 mg daily (take 25mg tablets x 2 every morning) This medication will be replacing your hydrochlorothiazide in the setting of liver cirrhosis Additionally, it was found that your blood pressure was low at times in the hospital. Please hold the following medications until you have a follow-up appointment with your PCP Hydrochlorothiazide 25 mg tablet Lisinopril 40 mg tablet Please plan to follow-up with your PCP in the next 1 to 2 weeks. Prior to this PCP appointment you will need to have the following blood work drawn: CBC, CMP, and Magnesium. Please have this drawn 1 to 2 days prior to your scheduled appointment. Upon discharge, our case management team will be working to help you establish care with a client renewal specialist; please look out for correspondence regarding a follow-up appointment. We recommend you follow with a client renewal specialist for your liver cirrhosis. Additionally, while you mentioned you had a colonoscopy done in 2021, it is recommended that you have a repeat colonoscopy scheduled outpatient in the setting of your new right sided colitis. If you develop any new or worsening symptoms, such as fever, chills, chest pain, trouble breathing, blood in your stool, intractable nausea and vomiting, or intractable right upper quadrant abdominal pain, please return to the emergency department immediately. It was a pleasure taking care of you. Please reach out any questions or concerns. Sincerely, The Hospital medicine team at [facility] Pending Studies at Discharge: No Stand-Alone Forms: [facility] Medications and DC Order Prescriptions: New sennosides-docusate sodium [Senokot-S] 8.6-50 mg Tablet 1 tab PO QPM Qty: 14 0RF Rx Instructions: Take 1 tablet by mouth every evening spironolactone 25 mg Tablet 50 mg PO QAM Qty: 60 0RF Rx Instructions: Take 2 tablets by mouth every morning ondansetron 4 mg tablet,disintegrating 4 mg PO Q8H PRN (Reason: nausea and vomiting) 7 Days Qty: 21 0RF Rx Instructions: Take 1 tablet by mouth every 8 hours as needed for nausea/vomiting. Note: This is a dissolvable tablet that can be placed under the tongue. lidocaine 5 % adhesive patch,medicated 1 patch topical DAILY Qty: 15 0RF Rx Instructions: leave on most painful area for up to 12 hrs dicyclomine 10 mg capsule 10 mg PO QID PRN (Reason: abdominal pain) Qty: 30 0RF Rx Instructions: Take 1 tablet by mouth up to 4 times daily as needed for abdominal pain magnesium hydroxide [Milk of Magnesia] 400 mg/5 mL suspension 15 ml PO BID PRN (Reason: constipation) Qty: 355 0RF Rx Instructions: Take 15 mL twice daily as needed for constipation Continued cholecalciferol (vitamin D3) 1,250 mcg (50,000 unit) capsule 50,000 unit PO WK Qty: 14 1RF Rx Instructions: PER PT "HAVEN'T TAKEN FOR MONTHS". Take 1 capsule once per week (DME) Monoject Safety Syringes 3 mL 23 gauge x 1" syringe See Rx Instructions .Route Qty: 1 0RF Rx Instructions: As directed (DME) needle (disp) 23 gauge [Aqinject Standard Needle] 23 gauge x 1" needle See Rx Instructions .Route Qty: 100 0RF Rx Instructions: As directed (DME) BD Eclipse 25 gauge x 1" needle See Rx Instructions .Route Qty: 15 0RF Rx Instructions: As directed (DME) Aspirating Leupp fluoxetine [Prozac] 40 mg capsule 80 mg PO QPM atorvastatin [Lipitor] 40 mg tablet 40 mg PO QAM clonazepam [Klonopin] 0.5 mg tablet 0.5 mg PO TID Rx Instructions: 1 tab in am 1 tab at noon & 1 tab at hs. sumatriptan succinate [Imitrex] 50 mg Tablet 100 mg PO DIRECTED PRN (Reason: Migraine Headache) omeprazole 40 mg capsule,delayed release(DR/EC) 40 mg PO BID tramadol 50 mg tablet 50 mg PO UD PRN (Reason: Pain) gabapentin 800 mg tablet 800 mg PO HS promethazine 25 mg tablet 25 mg PO UD PRN (Reason: Nausea) aspirin [Aspirin Childrens] 81 mg Tablet,Chewable 81 mg PO QAM metoprolol succinate 25 mg tablet extended release 24 hr 25 mg PO QAM albuterol sulfate 90 mcg/actuation Hfa Aerosol Inhaler 2 puff INHALATION QID PRN (Reason: Shortness Of Breath Or Wheezing) polyethylene glycol 3350 [Miralax] 17 gram powder in packet 34 g PO UD PRN (Reason: laxative effect) calcium carbonate [Tums] 200 mg calcium (500 mg) Tablet,Chewable 200 mg PO UD PRN (Reason: Acid Reflux) levothyroxine 25 mcg tablet 50 mcg PO QAM cyanocobalamin (vitamin B-12) [Dodex] 1,000 mcg/mL solution 1,000 mcg IM MONTHLY Rx Instructions: PER PT "HAVEN'T TAKEN FOR MONTHS". metoclopramide HCl [Reglan] 5 mg tablet 5 mg PO Q8H PRN (Reason: ABD DISCOMFORT) Held hydrochlorothiazide 25 mg tablet 25 mg PO QAM Hold Instructions: Resume on 01/07/25. Hold until seen by PCP for low blood pressure lisinopril [Zestril] 40 mg tablet 40 mg PO QAM Hold Instructions: Resume on 01/07/25. Hold until seen by PCP for follow-up due to low blood pressure Discharge Orders: Discharge Order (Routine); Ordered 12/24/24 Ordered By: Randy Haider/Other Patient Handouts: Low-Fiber Diet, Cirrhosis of Liver Dc, ED Irritable Bowel Syndrome Admission Data Admit Date/Time: 12/19/24 10:24 Attending Provider: Crispin Arzate Admit Provider: Isidro Sorensen Primary Care Provider: Abraham Ryan Other Providers: Isidro Sorensen Hospital Stay Data Consultations 12/18/24 00:39 ED Decision to Admit Stat Diagnostic Imagining Performed 12/17/24 19:06 CT abd pelvis IV con only Stat Discharge Instructions Given to Patient (Per Discharging Provider) You were hospitalized at [facility] from 12/18 - 12/24 for abdominal pain. Initial imaging of your abdomen and pelvis revealed liver cirrhosis as well as edema (swelling) around your right colon that could not exclude a nonspecific colitis. Most of your symptoms were thought to be due to this right sided colitis in the setting of IBS with constipation. You received a multimodal pain regimen during your hospitalization (including IV morphine on arrival, Tylenol, tramadol, oxycodone, dicyclomine, gabapentin, and lidocaine patches). Given constipation, we gradually decreased narcotics and increased your bowel regimen (to include MiraLAX, senna, and milk of magnesia) until you began to have regular bowel movements and 12/22. You were also initially treated with 2 antibiotics (metronidazole and ciprofloxacin) for colitis due to an elevated white blood cell count on arrival; however, these antibiotic were eventually discontinued as your white blood cell count stabilized, and you had no reported fevers. New prescriptions for the following medications have been sent to your pharmacy ([facility] on [address]): Lidocaine patches 5% (note: There are 4% patches that can be obtained [id number] which may be cheaper than this prescription) Dicyclomine (Bentyl) 10 mg by mouth every 6 hours as needed for abdominal pain related to IBS Ondansetron 4 mg oral dissolvable tablets; can be taken every 8 hours as needed for nausea/vomiting; dissolves under the tongue SenokotS 8.6-50 mg tablet by mouth at night for constipation Milk of Magnesia 15 mL by mouth twice daily as needed for constipation Spironolactone 50 mg daily (take 25mg tablets x 2 every morning) This medication will be replacing your hydrochlorothiazide in the setting of liver cirrhosis Additionally, it was found that your blood pressure was low at times in the hospital. Please hold the following medications until you have a follow-up appointment with your PCP Hydrochlorothiazide 25 mg tablet Lisinopril 40 mg tablet Please plan to follow-up with your PCP in the next 1 to 2 weeks. Prior to this PCP appointment you will need to have the following blood work drawn: CBC, CMP, and Magnesium. Please have this drawn 1 to 2 days prior to your scheduled appointment. Upon discharge, our case management team will be working to help you establish care with a client renewal specialist; please look out for correspondence regarding a follow-up appointment. We recommend you follow with a client renewal specialist for your liver cirrhosis. Additionally, while you mentioned you had a colonoscopy done in 2021, it is recommended that you have a repeat colonoscopy scheduled outpatient in the setting of your new right sided colitis. If you develop any new or worsening symptoms, such as fever, chills, chest pain, trouble breathing, blood in your stool, intractable nausea and vomiting, or intractable right upper quadrant abdominal pain, please return to the emergency department immediately. It was a pleasure taking care of you. Please reach out any questions or concerns. Sincerely, The Hospital medicine team at [facility] Total Time Total Time Spent Total Time Spent (In Minutes): 55 Coding [place] [address] INP/OBS DISCH >30 MIN Patient Type Established History Comprehensive Exam Comprehensive Medical Decision Making High Complexity Diagnoses Symptoms consistent with irritable bowel syndrome K58.9 Constipation K59.00 Colitis K52.9 Anemia D64.9
[2024-12-24] MEDS: MAGNESIUM SULFATE / D5W 1 GM/100 ML BAG IV ONE (17:03)
[2024-12-24 18:54] VITALS: BP 117/73
[2024-12-24] MEDS ORDERED: PANTOprazole 40 MG TAB PO SCH (21:00)
== END 2024-12-24 18:54 | disposition home or self-care (01) | DRG 392 ==
LOC: ED 14:26 → 3W 14:26 → SUATTDRO 12-18 01:17 → 3W 12-18 01:42 → SUATTDRO 12-19 10:24 → 3N 12-22 18:28

== ENCOUNTER 2025-03-29 11:44 | Observation (INO) ==
--- NOTE | 2025-03-29 12:20 | Emergency Department Note ---
Impression & Plan Intractable abdominal pain, Acute pain of right lower extremity, Colitis ED Provider Note HISTORY OF PRESENT ILLNESS: Patient is a 60-year-old female presenting with upper abdominal pain, nausea and vomiting. Patient reports that 2 hours prior to arrival she developed sudden onset of epigastric and right upper quadrant abdominal pain. Reports that she has had "copious amounts of watery diarrhea." She reports she has had multiple episodes of vomiting. She reports a history of cirrhosis. Denies any fevers. Denies any chest pain or shortness of breath. Reports her pain is a 10 out of 10 and describes it as "it just really hurts." She denies any recent sick contact exposures. Denies any recent antibiotic use. She states she took a Phenergan dose about 45 minutes prior to arrival to help with her symptoms. Patient reports that her abdominal surgical history is significant for a cholecystectomy. Patient is also complaining of "charley horse" pain in her right lower extremity. She is concerned she might have a blood clot. Denies any trauma to the area. She is not on any anticoagulation or antiplatelet therapies other than aspirin. ROS: as above PHYSICAL EXAM: Constitutional: Patient appears in no acute distress. Obese. HENT: Head: Normocephalic and atraumatic. Eyes: EOMI, PERRL Mouth/Throat: Mucous membranes moist. Neck: Trachea midline. Neck supple. Cardiovascular: RRR, No murmurs, rubs or gallops. Intact distal pulses. Pulmonary/Chest: No respiratory distress. Breath sounds clear and equal bilaterally. No wheezes or rales. Abdominal: Abdomen soft, no rebound or guarding. Diffuse tenderness to palpation. Musculoskeletal: No edema, tenderness or deformity noted. Skin: Warm and dry. No rash, erythema, pallor or cyanosis Psychiatric: Appropriate mood and affect for situation. Neurological: Alert and keenly responsive. CN II-XII grossly intact, moving all extremities equally and fully. MDM: - Vitals signs showed hypertension - History obtained via patient. History as above. - Chronic conditions affecting care: GERD; HLD; hx of PE; HTN; depression/anxiety - Differential diagnoses include, but are not limited to: cholelithiasis; bowel obstruction; dehydration; electrolyte abnormality; ACS - Order placed for continuous cardiac monitoring. At this time, monitor showed rate of 70 bpm with normal sinus rhythm, per my interpretation. - External medical records reviewed. Discharge summary dated 12/2024 was reviewed. Patient was admitted at that time secondary to abdominal pain. - EKG image interpreted by myself showed normal sinus rhythm. Rate 83 bpm. QT 412. No acute ischemic changes. - Laboratory workup interpreted by myself showed normal WBC; thrombocytopenia (plt 99); normal PT/INR; slight hyponatremia (K 3.4); elevated total bilirubin (1.9); elevated AST (43); normal troponin; normal lipase - UA negative for infection - Patient initially given 1L NS, 4 mg IV zofran and 4 mg IV morphine for symptomatic management. About 1 hour after administration, patient complaining of 10 out of 10 pain again. Given 50 mcg IV fentanyl. - US RLE negative for DVT - CT abdomen/pelvis with IV contrast showed mild diffuse colonic wall thickening with minimal pericolonic stranding similar to previous CT imaging. No evidence of bowel obstruction. Noted have cirrhotic liver and mild splenomegaly consistent with portal hypertension. Did have several subpleural nodular ground glass opacities in the lung bases new since previous CT scan. Noted to be nonspecific though could be possible septic emboli. Patient is not compaining of shortness of breath, so septic emboli considered less likely. -On reassessment, the patient still complaining of 10 out of 10 abdominal pain. She reports she does not feel that she could go home secondary to her continued symptoms. Did discuss results with the patient and is unclear why she is having continued pain. Will discuss case with hospitalist service for admission for observation for intractable abdominal pain. - Discussion was had with rn field case manager about patient's case and need for admission - Hospitalist consulted for admission - Patient admitted to [facility] hospitalist service for further evaluation and management. ASSESSMENT AND PLAN: Diagnosis: Intractable abdominal pain; acute pain of right lower extremity; colitis Plan: Admit Past Med/Surg History Problem List (Updated 03/29/25 @ 15:02 by Rena Cantu MD) Colitis (Acute) Acute pain of right lower extremity (Acute) Intractable abdominal pain (Acute) Symptoms consistent with irritable bowel syndrome Colitis Anemia Arthralgia of multiple joints Cervical spine pain Lumbar spine pain Numbness and tingling Easy fatigability Muscle weakness (generalized) Weakness of muscle of left side of face due to and not concurrent with cerebrovascular accident (CVA) Orthostatic hypotension (Acute) Hemorrhoids (Acute) Rectal bleeding (Acute) COVID Right flank pain Left-sided weakness Idiopathic polyneuropathy 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 Fatigue Left sided numbness Weakness on left side of face Depression with anxiety (Chronic) Asthma (Chronic) Vitamin D deficiency (Chronic) Bilateral shoulder pain Fibromyalgia MRSA (methicillin resistant Staphylococcus aureus) carrier Gait abnormality Third nerve palsy of left eye POOR VISION IN LEFT EYE RUE weakness (Acute) Double vision (Acute) Migraine (Chronic) Interstitial cystitis (Chronic) Renal calculi (Chronic) Endometriosis (Chronic) Allergic rhinitis (Chronic) Medical History (Updated 03/29/25 @ 15:02 by Rena Cantu MD) Weakness on left side of face Hx of renal calculi Idiopathic polyneuropathy Depression with anxiety Cervical spine pain full rom Colitis Constipation Abdominal pain Hx MRSA infection (~2019) Chronic pain Interstitial cystitis Per records Asthma pt. denies, states has inhaler for allergies History of COVID-19 2021, 2022- symptoms resolved Type 2 diabetes mellitus Hemorrhoids Internal/external Meniere disease Chronic lightheadedness/dizziness Neuropathy RLE, b/l feet Restless leg syndrome Stable GERD (gastroesophageal reflux disease) Hyperlipidemia Per records, patient denies indicating she is on statin for stroke pervention History of pulmonary embolism 2017 after "long bus ride" Previously on Coumadin x months, then discontinued and started on ASA No issues since CVA (cerebral vascular accident) (2018) Remote hx , residual slurred speech, left weakness, memory impairment - follows with dr. lopez IBS (irritable bowel syndrome) Diarrhea/constipation combination HTN (hypertension) Fibromyalgia Surgical History Nausea and vomiting after administration of anesthetic agent History of cystoscopy Bladder distention x2 History of tooth extraction History of esophagogastroduodenoscopy (EGD) History of colonoscopy S/P tubal ligation History of hysterectomy S/P cholecystectomy Family History Mother , age 63 of cerebral aneurysm. Cerebral aneurysm Father , age 63 of an [place] Myocardial infarction Other Heart disease Hypertension No family history of adverse response to anesthesia Social History Smoking Status: Never smoker Second Hand Exposure: No; Do You Dip or Chew Tobacco: No; Hx Alcohol Use: Yes Alcohol type: wine Alcohol Intake Frequency Comment: Once a month. Hx Substance Use: No Preferred Language: Mac[place] Communication Ability: Effective Communication Ability Comment: NO COMMUNICATION DEFICITS FOR PAT PHONE CALL Medical Records Tech Required: No Beliefs That Will Affect Care: None marital status: Current Living Situation: Spouse current occupational status: employed current occupation: Works at the [employer]. 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 swelling Sulfa (Sulfonamide AdvReac Intermediate N/V Verified 03/29/25 12:21 Antibiotics) Home Meds Home Medications Medication Instructions Recorded Confirmed Aspirating [place] 11/07/21 01/14/25 albuterol sulfate 90 mcg/actuation 2 puff inhalation QID PRN 11/07/21 02/05/25 aerosol inhaler Shortness Of Breath Or Wheezing aspirin 81 mg chewable tablet 81 mg PO UD 11/07/21 02/05/25 (Aspirin Childrens) clonazepam 0.5 mg tablet (Klonopin) 0.5 mg PO TID 11/07/21 02/05/25 fluoxetine 40 mg capsule (Prozac) 80 mg PO QPM 11/07/21 02/05/25 gabapentin 800 mg tablet 200 mg PO HS 11/07/21 02/05/25 lisinopril 40 mg tablet (Zestril) 40 mg PO QAM 11/07/21 02/05/25 omeprazole 40 mg capsule,delayed 40 mg PO HS 11/07/21 02/05/25 release promethazine 25 mg tablet 25 mg PO UD PRN Nausea 11/07/21 02/05/25 sumatriptan succinate 50 mg tablet 100 mg PO DIRECTED PRN Migraine 11/07/21 02/05/25 (Imitrex) Headache tramadol 50 mg tablet 50 mg PO UD PRN Pain 11/07/21 02/05/25 calcium carbonate (Tums) 200 mg PO UD PRN Acid Reflux 12/16/21 02/05/25 polyethylene glycol 3350 17 gram 34 g PO UD PRN laxative effect 12/16/21 02/05/25 oral powder packet (Miralax) levothyroxine 25 mcg tablet 50 mcg PO QAM 11/30/23 02/05/25 metoclopramide HCl 5 mg tablet 5 mg PO Q8H PRN ABD DISCOMFORT 12/17/24 02/05/25 (Reglan) carbidopa 25 mg-levodopa 100 mg 1 tab PO HS 02/05/25 02/05/25 tablet lidocaine 5 % topical patch 1 patch topical DAILY PRN Back Pain 02/05/25 02/05/25 Previous Rx's Medication Instructions Recorded needle (disp) 23 gauge 23 gauge x #100 ea 11/12/23 1" (Aqinject Standard Needle) safety needles 25 gauge x 1" (BD #15 ea 11/12/23 Eclipse) syringe with needle, safety 3 mL #1 ea 11/12/23 23 gauge x 1" (Monoject Safety Syringes) dicyclomine 10 mg capsule 10 mg PO QID PRN abdominal pain 12/24/24 #30 caps sennosides 8.6 mg-docusate sodium 1 tab PO QPM #14 tabs 12/24/24 50 mg tablet (Senokot-S) spironolactone 25 mg tablet 50 mg (2 x 25 mg) PO QAM #60 tabs 12/24/24 peg 3350-electrolytes 236 240 ml PO Q10M #4,000 mL 01/30/25 gram-22.74 gram-6.74 gram-5.86 gram solution (Golytely) Results & Data (ED) Vital Signs Vital Signs - 24 hr 03/29/25 11:46 03/29/25 12:16 03/29/25 13:00 Temperature 36.5 C Temperature Source Temporal Artery Scan Pulse Rate 81 78 70 Pulse Rate from SpO2 Sensor 71 Respiratory Rate 20 20 Respiratory Effort / Characteristics Non-Labored Spontaneous Respiratory Depth Normal Respiratory Pattern Regular Blood Pressure 156/88 H 142/78 H Blood Pressure Mean 110 95 Pulse Oximetry 95 97 Oxygen Delivery Method Room Air Room Air Sepsis Recent Fever Within 48 Hours No Sepsis New/Unexplained Change in Mental Status N/A Sepsis Action Taken by Nursing No Action Required 03/29/25 14:00 Temperature Temperature Source Pulse Rate 69 Pulse Rate from SpO2 Sensor 69 Respiratory Rate 20 Respiratory Effort / Characteristics Respiratory Depth Respiratory Pattern Blood Pressure 140/74 Blood Pressure Mean 101 Pulse Oximetry 91 Oxygen Delivery Method Room Air Sepsis Recent Fever Within 48 Hours Sepsis New/Unexplained Change in Mental Status Sepsis Action Taken by Nursing Laboratory Data 03/29/25 12:06 03/29/25 12:06 Lab Results 03/29/25 03/29/25 03/29/25 Range/Units 12:06 13:00 14:14 WBC 5.76 (4.8-10.8) K/ul RBC 4.80 (4.20-5.40) M/uL Hgb 14.3 (12.0-16.0) g/dl Hct 43.3 (37.0-47.0) % MCV 90.2 (80.0-100.0) fL MCH 29.8 (25.0-34.0) pg MCHC 33.0 (32.0-36.0) g/dL RDW Std Deviation 51.8 H (36.4-46.3) fL RDW Coeff of Karen 15.7 H (11.5-14.5) % Plt Count 99 L (130-400) K/uL MPV 11.1 (9.4-12.4) fL Immature Gran % (Auto) 0.2 % Neut % (Auto) 70.5 % Lymph % (Auto) 19.6 % Hunt % (Auto) 6.4 % Eos % (Auto) 2.8 % Baso % (Auto) 0.5 % Neut # (Auto) 4.06 (1.40-6.50) K/uL Lymph # (Auto) 1.13 L (1.20-3.40) K/uL Hunt # (Auto) 0.37 (0.11-0.59) K/uL Eos # (Auto) 0.16 (0.00-0.50) K/uL Baso # (Auto) 0.03 (0.00-0.20) K/uL Immature Gran # (Auto) 0.01 (0.01-0.20) K/uL PT 11.9 (9.0-12.0) Seconds INR 1.1 (0.9-1.1) Sodium 140 (136-145) mmol/L Potassium 3.4 L (3.5-5.1) mmol/L Chloride 106 (98-107) mmol/L Carbon Dioxide 26 (21-32) mmol/L Anion Gap 8 (3-11) BUN 9 (6-23) mg/dl Creatinine 1.04 (0.6-1.2) mg/dl Est Cr Clr Drug Dosing 64.3 ml/min eGFR 60.77 BUN/Creatinine Ratio 8.7 L (10-20) Glucose 121 H (70-99(Fasting)) mg/dl Lactate 1.1 (0.4-2.0) mmol/L Calcium 9.2 (8.6-10.3) mg/dl Total Bilirubin 1.9 H (0.2-1.0) mg/dl AST 43 H (13-39) U/L ALT 32 (7-52) U/L Alkaline Phosphatase 92 (34-104) U/L Troponin I High Sens 3.6 (0-14) pg/ml Total Protein 7.4 (6.0-8.3) gm/dl Albumin 3.5 (3.4-5.0) gm/dl Globulin 3.9 (2.5-4.0) gm/dl Albumin/Globulin Ratio 0.9 (0.9-2) Lipase 16 (11-82) U/L Urine Color Dark Yellow Urine Appearance Clear (Clear) Urine pH 6.5 (4.5-7.5) Ur Specific [place] 1.018 (1.000-1.030) Urine Protein Negative (Negative) Urine Glucose (UA) Negative (Negative) Urine Ketones Negative (Negative) Urine Blood Negative (Negative) Urine Nitrite Negative (Negative) Urine Bilirubin Negative (Negative) Urine Urobilinogen Negative (Negative) Ur Leukocyte Esterase 1+ H (Negative) Urine WBC (Auto) 0-5 (0-5) /hpf Urine RBC (Auto) 0-2 (0-2) /hpf U Hyaline Cast (Auto) 0-2 (0-2) /lpf U Epithel Cells (Auto) 3-5 H (0-2) /hpf Urine Bacteria (Auto) None Seen (None Seen) Urine Mucus Present A (None Prsent) Urine Comment Administered Medications Discontinued Medications Fentanyl Citrate (Fentanyl Citrate Pf 100 Mcg/2 Ml Vial) 50 mcg IV NOW STA Stop: 03/29/25 13:26 Last Admin: 03/29/25 13:48 Dose: 50 mcg Documented By: PAU Sodium Chloride (Nss) 1,000 mls @ 999 mls/hr IV .Q1H1M ONE Stop: 03/29/25 13:11 Last Infusion: 03/29/25 14:27 Dose: Infused Documented By: Admin: 03/29/25 12:21 Dose: 999 mls/hr Documented By: LIZBETH Ioversol (Optiray 320 100ml) 94 ml IV ONCE ONE Stop: 03/29/25 13:31 Last Admin: 03/29/25 13:30 Dose: 94 ml Documented By: MATY Morphine Sulfate (Morphine Sulfate 4 Mg/Ml 1 Ml Carp\\Vial) 4 mg IV NOW STA Stop: 03/29/25 12:12 Last Admin: 03/29/25 12:21 Dose: 4 mg Documented By: LIZBETH Ondansetron HCl (Ondansetron Inj 2 Mg/Ml 2 Ml Vial) 4 mg IV NOW STA Stop: 03/29/25 12:12 Last Admin: 03/29/25 12:21 Dose: 4 mg Documented By: LIZBETH Imaging Data Radiologist's Impression: Abdomen/Pelvis CT 03/29/25 12:11 CT SCAN OF THE ABDOMEN AND PELVIS WITH IV CONTRAST CLINICAL HISTORY: Epigastric pain. COMPARISON STUDY: CT of the abdomen and pelvis December 17, 2024. KUB December 21, 2024. TECHNIQUE: Following the IV administration of 94 cc of Optiray 320, CT scan of the abdomen and pelvis is performed from the lung bases to the proximal femora. Images are reviewed in the axial, sagittal, and coronal planes. IV contrast was administered without complication. A dose lowering technique was utilized adhering to the principles of ALARA. CT DOSE: 1463.18 mGy.cm FINDINGS: Several nodular subpleural groundglass densities within the lower lungs have developed since CT of December 17, 2024. The largest is a 1.2 cm focus within the left lower lobe on image 12 of 397. No pneumatosis, free air or portal venous gas is present. Cirrhotic liver is again noted. No hepatic lesions are identified on venous phase exam. There is no biliary ductal dilatation status post cholecystectomy. Trace perihepatic ascites has slightly decreased since prior CT. Splenomegaly and small varices are again noted. The main, left and right portal veins are patent. Adrenal glands, right kidney and pancreas are unremarkable. There is a small left renal cyst. There is no hydronephrosis. There is no pancreatic ductal dilatation. There is no evidence for a bowel obstruction. Mild diffuse colonic wall thickening is noted with minimal pericolonic stranding. Similar findings were shown on prior CT. The colon is mildly fluid-filled. There is no evidence for a bowel obstruction. Major vasculature is patent. IMPRESSION: 1. Mild diffuse colonic wall thickening with minimal pericolonic stranding, similar to prior CT. The findings may be related to liver disease. However, a nonspecific colitis is favored. Mildly fluid-filled colon. 2. No evidence for a bowel obstruction. 3. Cirrhotic liver. Mild splenomegaly and varices formation consistent with portal hypertension. Trace ascites. 4. Several subpleural nodular groundglass opacities within the lung bases which are new since prior CT. These are nonspecific although favor an infectious process. Although not highly suggestive, septic emboli are within the differential. ACT 112: Negative or not required by law. Electronically signed by: Corey Velazquez M.D. 03/29/2025 1:58 PM Venous Doppler Study 03/29/25 12:30 RIGHT LOWER EXTREMITY VENOUS DOPPLER CLINICAL HISTORY: RLE pain COMPARISON STUDY: Right lower extremity venous Doppler ultrasound November 10, 2016. TECHNIQUE: Sonography of the deep venous system of the right lower extremity was performed. Compression and augmentation were evaluated. FINDINGS: The right common femoral, superficial femoral and popliteal veins were compressible. Augmentation was normal. Flow was shown within the deep calf vessels. IMPRESSION: No evidence of deep venous thrombus within the right lower extremity. ACT 112: Negative or not required by law. Electronically signed by: Corey Velazquez M.D. 03/29/2025 1:29 PM Discharge Plan Visit Data Chief Complaint: Illness Stated Complaint: VOMITING, DIARRHEA, ABD PAIN INTO CHEST ED Provider: Rena Cantu Discharge Problem: Intractable abdominal pain, Acute pain of right lower extremity, Colitis Patient Disposition: Admitted As Inpatient Condition: Fair Forms Stand Alone Forms: [facility] Prescriptions Prescriptions: No Action (DME) Monoject Safety Syringes 3 mL 23 gauge x 1" syringe See Rx Instructions .Route Qty: 1 0RF Rx Instructions: As directed (DME) needle (disp) 23 gauge [Aqinject Standard Needle] 23 gauge x 1" needle See Rx Instructions .Route Qty: 100 0RF Rx Instructions: As directed (DME) BD Eclipse 25 gauge x 1" needle See Rx Instructions .Route Qty: 15 0RF Rx Instructions: As directed peg 3350-electrolytes [Golytely] 236-22.74-6.74 -5.86 gram recon soln 240 ml PO Q10M Qty: 4000 0RF Rx Instructions: Take per split dose instructions (DME) Aspirating [place] fluoxetine [Prozac] 40 mg capsule 80 mg PO QPM clonazepam [Klonopin] 0.5 mg tablet 0.5 mg PO TID Rx Instructions: 1 tab in am 1 tab at noon & 1 tab at hs. sumatriptan succinate [Imitrex] 50 mg Tablet 100 mg PO DIRECTED PRN (Reason: Migraine Headache) omeprazole 40 mg capsule,delayed release(DR/EC) 40 mg PO HS tramadol 50 mg tablet 50 mg PO UD PRN (Reason: Pain) gabapentin 800 mg tablet 200 mg PO HS promethazine 25 mg tablet 25 mg PO UD PRN (Reason: Nausea) aspirin [Aspirin Childrens] 81 mg Tablet,Chewable 81 mg PO UD Rx Instructions: hasn't been taking recently albuterol sulfate 90 mcg/actuation Hfa Aerosol Inhaler 2 puff INHALATION QID PRN (Reason: Shortness Of Breath Or Wheezing) lisinopril [Zestril] 40 mg tablet 40 mg PO QAM Hold Instructions: Resume on 01/07/25. Hold until seen by PCP for follow-up due to low blood pressure Rx Instructions: has been holding polyethylene glycol 3350 [Miralax] 17 gram powder in packet 34 g PO UD PRN (Reason: laxative effect) calcium carbonate [Tums] 200 mg calcium (500 mg) Tablet,Chewable 200 mg PO UD PRN (Reason: Acid Reflux) levothyroxine 25 mcg tablet 50 mcg PO QAM metoclopramide HCl [Reglan] 5 mg tablet 5 mg PO Q8H PRN (Reason: ABD DISCOMFORT) sennosides-docusate sodium [Senokot-S] 8.6-50 mg Tablet 1 tab PO QPM Qty: 14 0RF Rx Instructions: Take 1 tablet by mouth every evening spironolactone 25 mg Tablet 50 mg PO QAM Qty: 60 0RF Rx Instructions: Take 2 tablets by mouth every morning dicyclomine 10 mg capsule 10 mg PO QID PRN (Reason: abdominal pain) Qty: 30 0RF Rx Instructions: Take 1 tablet by mouth up to 4 times daily as needed for abdominal pain carbidopa-levodopa 25-100 mg Tablet 1 tab PO HS lidocaine 5 % adhesive patch,medicated 1 patch topical DAILY PRN (Reason: Back Pain) Rx Instructions: leave on most painful area for up to 12 hrs Referrals Referrals: Abraham Ryan MD [Primary Care Provider] -
[2025-03-29] MEDS: ONDANSETRON INJ 2 MG/ML 2 ML VIAL IV STA ×2 (12:21→17:46)
[2025-03-29] MEDS: SODIUM CHLORIDE 0.9% 1,000 ML IV ONE (12:21)
[2025-03-29] MEDS: MoRPHine SULFATE 4 MG/ML 1 ML CARP\\VIAL IV STA (12:21)
[2025-03-29 12:41] LABS: Hematocrit (blood only) 43.3 % (37.0-47.0); Hemoglobin 14.3 g/dl (12.0-16.0); Immature Granulocytes # (auto) 0.01 K/uL (0.01-0.20); Immature Granulocytes % (auto) 0.2 %; Mean Corpuscular Hemoglobin 29.8 pg (25.0-34.0); Mean Corpuscular Volume 90.2 fL (80.0-100.0); Platelet Count 99 K/uL (130-400); RDW Standard Deviation 51.8 fL (36.4-46.3); Red Blood Count 4.80 M/uL (4.20-5.40); White Blood Count 5.76 K/ul (4.8-10.8)
[2025-03-29 12:46] LABS: Alanine Aminotransferase 32.0 U/L (7-52); Albumin Globulin Ratio 0.9 (0.9-2); Albumin Level 3.5 gm/dl (3.4-5.0); Alkaline Phosphatase 92.0 U/L (34-104); Anion Gap 8.0 (3-11); Bilirubin,Total 1.9 mg/dl (0.2-1.0); Blood Urea Nitrogen 9.0 mg/dl (6-23); Calcium 9.2 mg/dl (8.6-10.3); Carbon Dioxide 26.0 mmol/L (21-32); Chloride 106.0 mmol/L (98-107); Creatinine Clr Calc Pharmacy 64.3 ml/min; Globulin 3.9 gm/dl (2.5-4.0); Glucose 121.0 mg/dl (70-99(Fasting)); Lipase 16.0 U/L (11-82); Potassium 3.4 mmol/L (3.5-5.1); Sodium 140.0 mmol/L (136-145); Total Protein 7.4 gm/dl (6.0-8.3)
[2025-03-29 13:09] LABS: INR 1.1 (0.9-1.1); Prothrombin Time 11.9 Seconds (9.0-12.0)
[2025-03-29] MEDS: OPTIRAY 320 100ml IV ONE (13:30)
--- NOTE | 2025-03-29 13:30 | Ultrasound Report ---
RIGHT LOWER EXTREMITY VENOUS DOPPLER CLINICAL HISTORY: RLE pain COMPARISON STUDY: Right lower extremity venous Doppler ultrasound November 10, 2016. TECHNIQUE: Sonography of the deep venous system of the right lower extremity was performed. Compress ion and augmentation were evaluated. FINDINGS: The right common femoral, superficial femoral and popliteal veins were compressible. Augme ntation was normal. Flow was shown within the deep calf vessels. IMPRESSION: No evidence of deep venous thrombus within the right lower extremity. ACT 112: Negative or not required by law. Electronically signed by: Corey Velazquez M.D. 03/29/2025 1:29 PM
[2025-03-29 13:43] LABS: Appearance Urine Clear (Clear); Bacteria Urine Automated None Seen (None Seen); Cast Urine Automated 0-2 /lpf (0-2); Glucose Urine UA Negative (Negative); RBC Urine Automated 0-2 /hpf (0-2); WBC Urine Automated 0-5 /hpf (0-5)
--- NOTE | 2025-03-29 14:00 | CT Scan Report ---
CT SCAN OF THE ABDOMEN AND PELVIS WITH IV CONTRAST CLINICAL HISTORY: Epigastric pain. COMPARISON STUDY: CT of the abdomen and pelvis December 17, 2024. KUB December 21, 2024. TECHNIQUE: Following the IV administration of 94 cc of Optiray 320, CT scan of the abdomen and pelvis is performed from the lung bases to the proximal femora. Images are reviewed in the axial, sagittal, and coronal planes. IV contrast was administered without complication. A dose lowering technique was utilized adhering to the principles of ALARA. CT DOSE: 1463.18 mGy.cm FINDINGS: Several nodular subpleural groundglass densities within the lower lungs have developed sinc e CT of December 17, 2024. The largest is a 1.2 cm focus within the left lower lobe on image 12 of 397. No pneumatosis, free air or portal venous gas is present. Cirrhotic liver is again noted. No hepatic le sions are identified on venous phase exam. There is no biliary ductal dilatation status post cholecys tectomy. Trace perihepatic ascites has slightly decreased since prior CT. Splenomegaly and small vari sneha are again noted. The main, left and right portal veins are patent. Adrenal glands, right kidney a nd pancreas are unremarkable. There is a small left renal cyst. There is no hydronephrosis. There is no pancreatic ductal dilatation. There is no evidence for a bowel obstruction. Mild diffuse colonic w all thickening is noted with minimal pericolonic stranding. Similar findings were shown on prior CT. The colon is mildly fluid-filled. There is no evidence for a bowel obstruction. Major vasculature is patent. IMPRESSION: 1. Mild diffuse colonic wall thickening with minimal pericolonic stranding, similar to prior CT. The findings may be related to liver disease. However, a nonspecific colitis is favored. Mildly fluid-effie led colon. 2. No evidence for a bowel obstruction. 3. Cirrhotic liver. Mild splenomegaly and varices formation consistent with portal hypertension. Trac e ascites. 4. Several subpleural nodular groundglass opacities within the lung bases which are new since prior C T. These are nonspecific although favor an infectious process. Although not highly suggestive, septic emboli are within the differential. ACT 112: Negative or not required by law. Electronically signed by: Corey Velazquez M.D. 03/29/2025 1:58 PM
--- NOTE | 2025-03-29 16:32 | History & Physical Report ---
Date of Service March 29, 2025 Assessment & Plan (1) Gastroenteritis: Plan: Probable viral etiology with epigastric pain. Protonix and Carafate ordered. Pain control measures ordered. Clear liquids for now. Advance diet as tolerated. IV fluids (2) Epigastric pain: Plan: Due to suspected viral gastroenteritis. Pain control measures. No obstruction seen on imaging (3) Hypokalemia: Plan: Parenteral replacement. Serial labs (4) Essential hypertension: Plan: Stable. Continue current medical management (5) Cirrhosis: Plan: Appears to be nonalcoholic. She takes spironolactone chronically. Liver enzymes are minimally elevated. Lipase normal. Serial labs (6) Primary hypothyroidism: Plan: Continue current Synthroid replacement. Check thyroid profile Plan Hopeful discharge to home within the next 2 to 3 days History of Present Illness Chief Complaint: Epigastric pain, nausea/ vomiting and diarrhea Primary Care Provider: Abraham Ryan MD 60-year-old white female with several days of intermittent nausea vomiting and loose stools. She denies hematemesis, melena, hematochezia. She came to the ED for evaluation. Abdominal pelvic CT scan reveals evidence of colon wall thickening. Lipase is normal. Potassium is slightly low at 3.4. She has a history of cirrhosis and liver enzymes are slightly elevated with normal lipase. She will be admitted for further evaluation and treatment. No other immediate family members are ill. This does not appear to be food poisoning Allergies Allergy/AdvReac Type Severity Reaction Status Date / Time Penicillins Allergy Intermediate Unknown Verified 03/29/25 15:43 childhood reaction, ? swelling famotidine AdvReac Severe Diarrhea Unverified 03/29/25 15:45 Sulfa (Sulfonamide AdvReac Intermediate N/V Verified 03/29/25 15:43 Antibiotics) Home Medications Medication Instructions Recorded Confirmed Type Aspirating Ashby 11/07/21 01/14/25 History albuterol sulfate 90 mcg/actuation 2 puff inhalation QID PRN 11/07/21 03/29/25 History aerosol inhaler Shortness Of Breath Or Wheezing aspirin 81 mg chewable tablet 81 mg PO DAILY 11/07/21 03/29/25 History (Aspirin Childrens) clonazepam 0.5 mg tablet (Klonopin) 0.5 mg PO TID 11/07/21 03/29/25 History lisinopril 40 mg tablet (Zestril) 40 mg PO QAM 11/07/21 02/05/25 History omeprazole 40 mg capsule,delayed 40 mg PO HS 11/07/21 03/29/25 History release promethazine 25 mg tablet 25 mg PO UD PRN Nausea 11/07/21 03/29/25 History sumatriptan succinate 50 mg tablet 100 mg PO DIRECTED PRN Migraine 11/07/21 03/29/25 History (Imitrex) Headache tramadol 50 mg tablet 50 mg PO UD PRN Pain 11/07/21 03/29/25 History calcium carbonate (Tums) 200 mg PO UD PRN Acid Reflux 12/16/21 03/29/25 History polyethylene glycol 3350 17 gram 34 g PO UD PRN laxative effect 12/16/21 03/29/25 History oral powder packet (Miralax) needle (disp) 23 gauge 23 gauge x #100 ea 11/12/23 01/14/25 Rx 1" (Aqinject Standard Needle) safety needles 25 gauge x 1" (BD #15 ea 11/12/23 01/14/25 Rx Eclipse) syringe with needle, safety 3 mL #1 ea 11/12/23 01/14/25 Rx 23 gauge x 1" (Monoject Safety Syringes) levothyroxine 25 mcg tablet 50 mcg PO QAM 11/30/23 03/29/25 History metoclopramide HCl 5 mg tablet 5 mg PO Q8H PRN ABD DISCOMFORT 12/17/24 03/29/25 History (Reglan) dicyclomine 10 mg capsule 10 mg PO QID PRN abdominal pain 12/24/24 03/29/25 Rx #30 caps sennosides 8.6 mg-docusate sodium 1 tab PO QPM #14 tabs 12/24/24 03/29/25 Rx 50 mg tablet (Senokot-S) spironolactone 25 mg tablet 50 mg (2 x 25 mg) PO QAM #60 tabs 12/24/24 03/29/25 Rx peg 3350-electrolytes 236 240 ml PO Q10M #4,000 mL 01/30/25 Rx gram-22.74 gram-6.74 gram-5.86 gram solution (Golytely) lidocaine 5 % topical patch 1 patch topical DAILY PRN Back Pain 02/05/25 03/29/25 History carbidopa ER 25 mg-levodopa 100 mg 1 tab PO HS 03/29/25 03/29/25 History tablet,extended release carvedilol 6.25 mg tablet 6.25 mg PO BID 03/29/25 03/29/25 History cholecalciferol (vitamin D3) 25 25 mcg PO DAILY 03/29/25 03/29/25 History mcg (1,000 unit) chewable tablet (Vitamin D3) cyclobenzaprine 10 mg tablet 10 mg PO BID PRN Muscle Spasm 03/29/25 03/29/25 History fluoxetine 40 mg capsule 80 mg PO QPM 03/29/25 03/29/25 History gabapentin 100 mg capsule 100 mg PO HS 03/29/25 03/29/25 History magnesium citrate 100 mg tablet 100 mg PO DAILY 03/29/25 03/29/25 History riboflavin (vitamin B2) 25 mg 0 mg PO DAILY 03/29/25 03/29/25 History tablet Past Med/Surg History Problem List (Updated 03/29/25 @ 16:31 by Chris Valdes MD) Primary hypothyroidism Cirrhosis Essential hypertension Hypokalemia Epigastric pain Gastroenteritis Colitis (Acute) Acute pain of right lower extremity (Acute) Intractable abdominal pain (Acute) Symptoms consistent with irritable bowel syndrome Colitis Anemia Arthralgia of multiple joints Cervical spine pain Lumbar spine pain Numbness and tingling Easy fatigability Muscle weakness (generalized) Weakness of muscle of left side of face due to and not concurrent with cerebrovascular accident (CVA) Orthostatic hypotension (Acute) Hemorrhoids (Acute) Rectal bleeding (Acute) COVID Right flank pain Left-sided weakness Idiopathic polyneuropathy 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 Fatigue Left sided numbness Weakness on left side of face Depression with anxiety (Chronic) Asthma (Chronic) Vitamin D deficiency (Chronic) Bilateral shoulder pain Fibromyalgia MRSA (methicillin resistant Staphylococcus aureus) carrier Gait abnormality Third nerve palsy of left eye POOR VISION IN LEFT EYE RUE weakness (Acute) Double vision (Acute) Migraine (Chronic) Interstitial cystitis (Chronic) Renal calculi (Chronic) Endometriosis (Chronic) Allergic rhinitis (Chronic) Medical History (Updated 03/29/25 @ 16:31 by Chris Valdes MD) Weakness on left side of face Hx of renal calculi Idiopathic polyneuropathy Depression with anxiety Cervical spine pain full rom Colitis Constipation Abdominal pain Hx MRSA infection (~2019) Chronic pain Interstitial cystitis Per records Asthma pt. denies, states has inhaler for allergies History of COVID-19 2021, 2022- symptoms resolved Type 2 diabetes mellitus Hemorrhoids Internal/external Meniere disease Chronic lightheadedness/dizziness Neuropathy RLE, b/l feet Restless leg syndrome Stable GERD (gastroesophageal reflux disease) Hyperlipidemia Per records, patient denies indicating she is on statin for stroke pervention History of pulmonary embolism 2017 after "long bus ride" Previously on Coumadin x months, then discontinued and started on ASA No issues since CVA (cerebral vascular accident) (2018) Remote hx , residual slurred speech, left weakness, memory impairment - follows with dr. lopez IBS (irritable bowel syndrome) Diarrhea/constipation combination HTN (hypertension) Fibromyalgia Surgical History Nausea and vomiting after administration of anesthetic agent History of cystoscopy Bladder distention x2 History of tooth extraction History of esophagogastroduodenoscopy (EGD) History of colonoscopy S/P tubal ligation History of hysterectomy S/P cholecystectomy Family History Mother , age 63 of cerebral aneurysm. Cerebral aneurysm Father , age 63 of an [place] Myocardial infarction Other Heart disease Hypertension No family history of adverse response to anesthesia Social History Smoking Status: Never smoker Second Hand Exposure: No; Do You Dip or Chew Tobacco: No; Hx Alcohol Use: Yes Alcohol type: wine Alcohol Intake Frequency Comment: Once a month. Hx Substance Use: No Preferred Language: Thai Communication Ability: Effective Communication Ability Comment: NO COMMUNICATION DEFICITS FOR PAT PHONE CALL Body Welder Required: No Beliefs That Will Affect Care: None marital status: Current Living Situation: Spouse current occupational status: employed current occupation: Works at the [employer]. 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 Watery stools. No hematemesis, melena, hematochezia GUno urinary retention, no urinary incontinence, no dysuria, no hematuria Musculoskeletalno joint pain, no muscle tenderness Skinno bruising, no rashes, no pruritus Neurono isolated weakness, no paresthesia, no weakness Psychno depression, no anxiety Physical Exam 2 Physical Exam: General-alert and oriented x3, no fever, no chills HEENT-head atraumatic and normocephalic, pupils equal and reactive to light, extraocular muscles intact Neck-no lymphadenopathy or thyromegaly, trachea midline Chest-clear to auscultation. No rales, wheezing or rhonchi Cardiac-regular rate and rhythm, normal S1 and S2 Abdomen-normal bowel sounds, no hepatosplenomegaly. Epigastric tenderness. No palpable masses. No rebound or guarding Extremities-no cyanosis, clubbing, or edema Neuro-cranial nerves II through XII intact, motor and sensory function within normal limits, strength symmetrical, no focal deficits Psych-normal affect, normal mood Results & Data Results & Data Vital Signs (Past 12 Hours) Vital Signs Temp Pulse Resp BP Pulse Ox O2 Del Method 03/29/25 15:33 152/85 H 03/29/25 15:33 65 21 97 03/29/25 15:06 73 17 94 03/29/25 15:00 140/83 03/29/25 14:54 70 16 100 03/29/25 14:51 74 17 94 03/29/25 14:31 137/79 03/29/25 14:00 69 20 140/74 91 Room Air 03/29/25 13:00 70 20 142/78 H 97 Room Air 03/29/25 12:16 78 03/29/25 11:46 36.5 C 81 20 156/88 H 95 Room Air Laboratory Results 03/29/25 12:06 03/29/25 12:06 Code Status & VTE Plan Code Status Full code PG Care Time/CCT Total # of Minutes Spent Total Time Spent with Patient: Total time spent is greater than 50% in coordination of care (as documented) at patient's floor/unit and/or counseling patient: Coding Level of Care Code 74797 INT INP/OBS CARE 3/75MIN Diagnoses Gastroenteritis K52.9 Epigastric pain R10.13 Hypokalemia E87.6 Essential hypertension I10 Cirrhosis K74.60 Primary hypothyroidism E03.9
[2025-03-29] MEDS: MoRPHine SULFATE 2 MG/ML CARP IV STA (17:39)
[2025-03-29] MEDS: ONDANSETRON INJ 2 MG/ML 2 ML VIAL ONE (17:44)
[2025-03-29] MEDS ORDERED: ALBUTEROL HFA 8 GM INHALER INH PRN (19:01)
[2025-03-29] MEDS: SUCRALFATE 1 GM/10 ML UDC PO SCH (19:41)
[2025-03-29] MEDS: SODIUM CHLORIDE 0.9% 1,000 ML IV SCH (19:43)
[2025-03-29] MEDS: POTASSIUM CHLORIDE / WTR 10 MEQ/100 ML PLCT IV SCH (19:43)
[2025-03-29] MEDS: MoRPHine SULFATE 2 MG/ML CARP IV PRN (21:50)
[2025-03-29] MEDS: clonazePAM 0.5 MG TAB PO SCH (21:52)
[2025-03-29] MEDS: GABAPENTIN 100 MG CAP PO SCH (21:53)
[2025-03-29] MEDS: PANTOprazole 40 MG/10 ML SYR IV SCH (21:53)
[2025-03-29] MEDS: CARBIDOPA/LEVODOPA 25/100MG EXT REL TAB PO SCH (21:58)
[2025-03-30] MEDS: ONDANSETRON INJ 2 MG/ML 2 ML VIAL IV PRN (05:59)
[2025-03-30] MEDS: LEVOTHYROXINE SODIUM 50 MCG TABLET PO SCH (06:03)
[2025-03-30 07:34] LABS: Hematocrit (blood only) 35.4 % (37.0-47.0); Hemoglobin 11.3 g/dl (12.0-16.0); Immature Granulocytes # (auto) 0.01 K/uL (0.01-0.20); Immature Granulocytes % (auto) 0.3 %; Mean Corpuscular Hemoglobin 29.9 pg (25.0-34.0); Mean Corpuscular Volume 93.7 fL (80.0-100.0); Platelet Count 75 K/uL (130-400); RDW Standard Deviation 55.7 fL (36.4-46.3); Red Blood Count 3.78 M/uL (4.20-5.40); White Blood Count 4.00 K/ul (4.8-10.8)
[2025-03-30 08:15] LABS: Alanine Aminotransferase 12.0 U/L (7-52); Albumin Globulin Ratio 0.9 (0.9-2); Albumin Level 2.7 gm/dl (3.4-5.0); Alkaline Phosphatase 66.0 U/L (34-104); Anion Gap 4.0 (3-11); Bilirubin,Total 1.4 mg/dl (0.2-1.0); Blood Urea Nitrogen 9.0 mg/dl (6-23); Calcium 8.3 mg/dl (8.6-10.3); Carbon Dioxide 28.0 mmol/L (21-32); Chloride 108.0 mmol/L (98-107); Creatinine Clr Calc Pharmacy 63.1 ml/min; Globulin 3.0 gm/dl (2.5-4.0); Glucose 87.0 mg/dl (70-99(Fasting)); Potassium 3.4 mmol/L (3.5-5.1); Sodium 140.0 mmol/L (136-145); Total Protein 5.7 gm/dl (6.0-8.3)
[2025-03-30] MEDS: SPIRONOLACTONE 25 MG TAB PO SCH (08:22)
[2025-03-30] MEDS: CHOLECALCIFEROL 25 MCG (1000 UNITS) TAB PO SCH (08:22)
[2025-03-30] MEDS: ASPIRIN 81 MG CHEW PO SCH (08:23)
[2025-03-30] MEDS ORDERED: NON-FORMULARY MEDICATION (Riboflavin (Vitamin B2) 25 mg Tablet) PO SCH (09:00)
[2025-03-30] MEDS ORDERED: NON-FORMULARY MEDICATION (Magnesium Citrate 100 mg Tablet) PO SCH (09:00)
[2025-03-30] MEDS: LACTATED RINGER'S 1,000 ML IV SCH (09:05)
[2025-03-30] MEDS: POTASSIUM CHLORIDE / WTR 10 MEQ/100 ML PLCT IV ONE (09:05)
--- NOTE | 2025-03-30 09:50 | Electrocardiogram Report ---
Test Reason : Blood Pressure : */* mmHG Vent. Rate : 83 BPM Atrial Rate : 83 BPM P-R Int : 180 ms QRS Dur : 70 ms QT Int : 412 ms P-R-T Axes : 59 22 15 degrees QTcB Int : 484 ms Normal sinus rhythm Poor R wave progression, consider anterior WA vs. lead placement vs. LVH Abnormal ECG When compared with ECG of 17-Dec-2024 18:11, No significant change was found Confirmed by John Dale ([id number]) on 03/30/2025 9:49:56 AM Referred By: REFERRED SELF Confirmed By: John Dale
[2025-03-30 10:08] LABS: Magnesium 1.6 mg/dl (1.7-2.4)
[2025-03-30] MEDS: LIDOCAINE 5% 1 PATCH TD STA (11:12)
[2025-03-30] MEDS: MAGNESIUM SULFATE / D5W 1 GM/100 ML BAG IV ONE (11:12)
--- NOTE | 2025-03-30 11:33 | Gastrointestinal Consultation ---
Date of Consultation March 30, 2025 Assessment & Plan (1) IBS (irritable bowel syndrome): 60 year old female w/ history of hypothyroidism, endometriosis, anxiety, depression, interstitial cystitis, HTN, cirrhosis, IBS-Mixed, Migraines admitted through the ED w/ abd yolis, chronic alternating bowel habits, previous episodes of hematochezia. Fecal calprotectin borderline elevated, last colon in 2021 w/o pathology. Numerous CT question colitis. 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 Clear liquids today. Golytely tonight. NPO aftermidnight. Colonsocopy 04/01 to rule out any luminal findings. We appreciate assistance in the management of any serological abnormality and corrections to include: hemoglobin >7, INR <2, platelets >50,000, potassium levels >3.5 but <5.3, and sodium levels within 5 points of the reference range prior to endoscopic evaluation. Thank you for allowing us to participate in the care of this patient. Please call with any acute changes, questions or concerns. Please see addendum below with additional recommendation from my supervising physician. I spent a total of 60 minutes on the date of service in review of patient's record, and previously obtained information in person and appropriate medical visit, discussion and education of plan, with patient and/or caregiver, placing orders for tests/referral/procedures as medically necessary and documentation of pertinent clinical information in patient's medical records for their visit today. Supervising Physician Co-Signing Physician Notes I personally saw and examined the patient. I have reviewed the chart and agree with the documentation provided by the BRATTICE BUILDER including discussion about the assessment, treatment and plan. Briefly, 60 year old female w/ history of hypothyroidism, endometriosis, anxiety, depression, interstitial cystitis, HTN, cirrhosis - MAS, IBS-Mixed, Migraines admitted through the ED w/ abd pain, chronic alternating bowel habits, previous episodes of hematochezia. Fecal calprotectin borderline elevated, last colon in 2021 w/o pathology. Numerous CT question colitis. 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 Clear liquids today. Golytely tonight. NPO aftermidnight. Colonsocopy 04/01 to rule out any luminal findings -she is having significant pain and alteration in bowel habits. We will proceed with a colonoscopy with biopsy. History of Present Illness Reason for Consultation: Recurrent colitis; ? colonoscopy Requesting Physician: Crispin Arzate Attending Physician: Crispin Arzate History of Present Illness 60 year old female w/ history of hypothyroidism, endometriosis, anxiety, depression, interstitial cystitis, HTN, cirrhosis, IBS-Mixed, Migraines admitted through the ED w/ abd pain - GI asked to evaluate for potential colonoscopy. She notes chronic alternating bowel habits. Diarrhea/constipation at baseline. She has had episodes of rectal bleeding in the past, suggest this last occurred a month or so ago. She notes she has episodic abd pain. Presently this is her upper abd. No vomiting but has had nausea. Cdiff negative 01/2025 Stool calprotectin borderline elevated (78) 01/2025 CTAP 2024: . Mild diffuse colonic wall thickening with minimal pericolonic stranding, similar to prior CT. The findings may be related to liver disease. However, a nonspecific colitis is favored. Mildly fluid-filled colon. CTAP 2024: Cirrhosis, splenomegaly and a small amount of ascites.Edema and mesenteric and pericolic fat, particularly around the right colon. This may be edema associated with liver disease, though colitis cannot be excluded, and physically in the right colon. Colonoscopy 2021: - The examined portion of the ileum was normal. - Diverticulosis in the sigmoid colon. - Internal hemorrhoids. - Biopsies were taken with a cold forceps from the entire colon for evaluation of microscopic colitis. Allergies Allergy/AdvReac Type Severity Reaction Status Date / Time Penicillins Allergy Intermediate Unknown Verified 03/29/25 15:43 childhood reaction, ? swelling famotidine AdvReac Severe Diarrhea Unverified 03/29/25 15:45 Sulfa (Sulfonamide AdvReac Intermediate N/V Verified 03/29/25 15:43 Antibiotics) Home Medications Medication Instructions Recorded Confirmed Type Aspirating Mack 11/07/21 01/14/25 History albuterol sulfate 90 mcg/actuation 2 puff inhalation QID PRN 11/07/21 03/29/25 History aerosol inhaler Shortness Of Breath Or Wheezing aspirin 81 mg chewable tablet 81 mg PO DAILY 11/07/21 03/29/25 History (Aspirin Childrens) clonazepam 0.5 mg tablet (Klonopin) 0.5 mg PO TID 11/07/21 03/29/25 History lisinopril 40 mg tablet (Zestril) 40 mg PO QAM 11/07/21 02/05/25 History omeprazole 40 mg capsule,delayed 40 mg PO HS 11/07/21 03/29/25 History release promethazine 25 mg tablet 25 mg PO UD PRN Nausea 11/07/21 03/29/25 History sumatriptan succinate 50 mg tablet 100 mg PO DIRECTED PRN Migraine 11/07/21 03/29/25 History (Imitrex) Headache tramadol 50 mg tablet 50 mg PO UD PRN Pain 11/07/21 03/29/25 History calcium carbonate (Tums) 200 mg PO UD PRN Acid Reflux 12/16/21 03/29/25 History polyethylene glycol 3350 17 gram 34 g PO UD PRN laxative effect 12/16/21 03/29/25 History oral powder packet (Miralax) needle (disp) 23 gauge 23 gauge x #100 ea 11/12/23 01/14/25 Rx 1" (Aqinject Standard Needle) safety needles 25 gauge x 1" (BD #15 ea 11/12/23 01/14/25 Rx Eclipse) syringe with needle, safety 3 mL #1 ea 11/12/23 01/14/25 Rx 23 gauge x 1" (Monoject Safety Syringes) levothyroxine 25 mcg tablet 50 mcg PO QAM 11/30/23 03/29/25 History metoclopramide HCl 5 mg tablet 5 mg PO Q8H PRN ABD DISCOMFORT 12/17/24 03/29/25 History (Reglan) dicyclomine 10 mg capsule 10 mg PO QID PRN abdominal pain 12/24/24 03/29/25 Rx #30 caps sennosides 8.6 mg-docusate sodium 1 tab PO QPM #14 tabs 12/24/24 03/29/25 Rx 50 mg tablet (Senokot-S) spironolactone 25 mg tablet 50 mg (2 x 25 mg) PO QAM #60 tabs 12/24/24 03/29/25 Rx peg 3350-electrolytes 236 240 ml PO Q10M #4,000 mL 01/30/25 Rx gram-22.74 gram-6.74 gram-5.86 gram solution (Golytely) lidocaine 5 % topical patch 1 patch topical DAILY PRN Back Pain 02/05/25 03/29/25 History carbidopa ER 25 mg-levodopa 100 mg 1 tab PO HS 03/29/25 03/29/25 History tablet,extended release carvedilol 6.25 mg tablet 6.25 mg PO BID 03/29/25 03/29/25 History cholecalciferol (vitamin D3) 25 25 mcg PO DAILY 03/29/25 03/29/25 History mcg (1,000 unit) chewable tablet (Vitamin D3) cyclobenzaprine 10 mg tablet 10 mg PO BID PRN Muscle Spasm 03/29/25 03/29/25 History fluoxetine 40 mg capsule 80 mg PO QPM 03/29/25 03/29/25 History gabapentin 100 mg capsule 100 mg PO HS 03/29/25 03/29/25 History magnesium citrate 100 mg tablet 100 mg PO DAILY 03/29/25 03/29/25 History riboflavin (vitamin B2) 25 mg 0 mg PO DAILY 03/29/25 03/29/25 History tablet Patient History Medical History (Updated 03/29/25 @ 16:31 by Chris Valdes MD) Weakness on left side of face Hx of renal calculi Idiopathic polyneuropathy Depression with anxiety Cervical spine pain full rom Colitis Constipation Abdominal pain Hx MRSA infection (~2018) Chronic pain Interstitial cystitis Per records Asthma pt. denies, states has inhaler for allergies History of COVID-19 2021, 2022- symptoms resolved Type 2 diabetes mellitus Hemorrhoids Internal/external Meniere disease Chronic lightheadedness/dizziness Neuropathy RLE, b/l feet Restless leg syndrome Stable GERD (gastroesophageal reflux disease) Hyperlipidemia Per records, patient denies indicating she is on statin for stroke pervention History of pulmonary embolism 2016 after "long bus ride" Previously on Coumadin x months, then discontinued and started on ASA No issues since CVA (cerebral vascular accident) (2018) Remote hx , residual slurred speech, left weakness, memory impairment - follows with dr. lopez IBS (irritable bowel syndrome) Diarrhea/constipation combination HTN (hypertension) Fibromyalgia Surgical History Nausea and vomiting after administration of anesthetic agent History of cystoscopy Bladder distention x2 History of tooth extraction History of esophagogastroduodenoscopy (EGD) History of colonoscopy S/P tubal ligation History of hysterectomy S/P cholecystectomy Family History Mother , age 63 of cerebral aneurysm. Cerebral aneurysm Father , age 63 of an [place] Myocardial infarction Other Heart disease Hypertension No family history of adverse response to anesthesia Social History Smoking Status: Never smoker Second Hand Exposure: No; Do You Dip or Chew Tobacco: No; Hx Alcohol Use: Yes Alcohol type: wine Alcohol Intake Frequency Comment: Once a month. Hx Substance Use: Yes Last Used Substance: Unknown Preferred Language: [place] Communication Ability: Effective Communication Ability Comment: NO COMMUNICATION DEFICITS FOR PAT PHONE CALL Turner Splitter Machine Operator Required: No Beliefs That Will Affect Care: None marital status: Current Living Situation: Spouse current occupational status: employed current occupation: Works at the [employer]. 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 Physical Exam Constitutional: WD/WN, vitals as above Respiratory: normal respiratory effort, lungs clear to auscultation Cardiovascular: RRR, no murmur, no edema Gastrointestinal (Abdomen): normal bowel sounds, soft, nontender, no hepatosplenomegaly Skin: no rashes, warm and dry Results & Data Vital Signs (Past 12 Hours) Vital Signs Temp Pulse Resp BP Pulse Ox O2 Del Method 03/30/25 07:23 97.5 F L 70 18 115/69 92 Room Air Laboratory Results 03/30/25 03/29/25 03/29/25 Range/Units 06:52 14:14 13:00 WBC 4.00 L (4.8-10.8) K/ul RBC 3.78 L (4.20-5.40) M/uL Hgb 11.3 L D (12.0-16.0) g/dl Hct 35.4 L (37.0-47.0) % MCV 93.7 (80.0-100.0) fL MCH 29.9 (25.0-34.0) pg MCHC 31.9 L (32.0-36.0) g/dL RDW Std Deviation 55.7 H (36.4-46.3) fL RDW Coeff of Karen 16.0 H (11.5-14.5) % Plt Count 75 L (130-400) K/uL MPV 11.1 (9.4-12.4) fL Immature Gran % (Auto) 0.3 % Neut % (Auto) 56.3 % Lymph % (Auto) 31.3 % Dixon % (Auto) 8.8 % Eos % (Auto) 2.8 % Baso % (Auto) 0.5 % Neut # (Auto) 2.26 (1.40-6.50) K/uL Lymph # (Auto) 1.25 (1.20-3.40) K/uL Dixon # (Auto) 0.35 (0.11-0.59) K/uL Eos # (Auto) 0.11 (0.00-0.50) K/uL Baso # (Auto) 0.02 (0.00-0.20) K/uL Immature Gran # (Auto) 0.01 (0.01-0.20) K/uL PT (9.0-12.0) Seconds INR (0.9-1.1) Sodium 140 (136-145) mmol/L Potassium 3.4 L (3.5-5.1) mmol/L Chloride 108 H (98-107) mmol/L Carbon Dioxide 28 (21-32) mmol/L Anion Gap 4 (3-11) BUN 9 (6-23) mg/dl Creatinine 1.06 (0.6-1.2) mg/dl Est Cr Clr Drug Dosing 63.1 ml/min eGFR 59.40 BUN/Creatinine Ratio 8.5 L (10-20) Glucose 87 (70-99(Fasting)) mg/dl Lactate 1.1 (0.4-2.0) mmol/L Calcium 8.3 L (8.6-10.3) mg/dl Magnesium 1.6 L (1.7-2.4) mg/dl Total Bilirubin 1.4 H (0.2-1.0) mg/dl AST 35 (13-39) U/L ALT 12 (7-52) U/L Alkaline Phosphatase 66 (34-104) U/L Troponin I High Sens (0-14) pg/ml Total Protein 5.7 L D (6.0-8.3) gm/dl Albumin 2.7 L (3.4-5.0) gm/dl Globulin 3.0 (2.5-4.0) gm/dl Albumin/Globulin Ratio 0.9 (0.9-2) Lipase (11-82) U/L Urine Color Dark Yellow Urine Appearance Clear (Clear) Urine pH 6.5 (4.5-7.5) Ur Specific [place] 1.018 (1.000-1.030) Urine Protein Negative (Negative) Urine Glucose (UA) Negative (Negative) Urine Ketones Negative (Negative) Urine Blood Negative (Negative) Urine Nitrite Negative (Negative) Urine Bilirubin Negative (Negative) Urine Urobilinogen Negative (Negative) Ur Leukocyte Esterase 1+ H (Negative) Urine WBC (Auto) 0-5 (0-5) /hpf Urine RBC (Auto) 0-2 (0-2) /hpf U Hyaline Cast (Auto) 0-2 (0-2) /lpf U Epithel Cells (Auto) 3-5 H (0-2) /hpf Urine Bacteria (Auto) None Seen (None Seen) Urine Mucus Present A (None Prsent) Urine Comment 03/29/25 Range/Units 12:06 WBC 5.76 (4.8-10.8) K/ul RBC 4.80 (4.20-5.40) M/uL Hgb 14.3 (12.0-16.0) g/dl Hct 43.3 (37.0-47.0) % MCV 90.2 (80.0-100.0) fL MCH 29.8 (25.0-34.0) pg MCHC 33.0 (32.0-36.0) g/dL RDW Std Deviation 51.8 H (36.4-46.3) fL RDW Coeff of Karen 15.7 H (11.5-14.5) % Plt Count 99 L (130-400) K/uL MPV 11.1 (9.4-12.4) fL Immature Gran % (Auto) 0.2 % Neut % (Auto) 70.5 % Lymph % (Auto) 19.6 % Dixon % (Auto) 6.4 % Eos % (Auto) 2.8 % Baso % (Auto) 0.5 % Neut # (Auto) 4.06 (1.40-6.50) K/uL Lymph # (Auto) 1.13 L (1.20-3.40) K/uL Dixon # (Auto) 0.37 (0.11-0.59) K/uL Eos # (Auto) 0.16 (0.00-0.50) K/uL Baso # (Auto) 0.03 (0.00-0.20) K/uL Immature Gran # (Auto) 0.01 (0.01-0.20) K/uL PT 11.9 (9.0-12.0) Seconds INR 1.1 (0.9-1.1) Sodium 140 (136-145) mmol/L Potassium 3.4 L (3.5-5.1) mmol/L Chloride 106 (98-107) mmol/L Carbon Dioxide 26 (21-32) mmol/L Anion Gap 8 (3-11) BUN 9 (6-23) mg/dl Creatinine 1.04 (0.6-1.2) mg/dl Est Cr Clr Drug Dosing 64.3 ml/min eGFR 60.77 BUN/Creatinine Ratio 8.7 L (10-20) Glucose 121 H (70-99(Fasting)) mg/dl Lactate (0.4-2.0) mmol/L Calcium 9.2 (8.6-10.3) mg/dl Magnesium (1.7-2.4) mg/dl Total Bilirubin 1.9 H (0.2-1.0) mg/dl AST 43 H (13-39) U/L ALT 32 (7-52) U/L Alkaline Phosphatase 92 (34-104) U/L Troponin I High Sens 3.6 (0-14) pg/ml Total Protein 7.4 (6.0-8.3) gm/dl Albumin 3.5 (3.4-5.0) gm/dl Globulin 3.9 (2.5-4.0) gm/dl Albumin/Globulin Ratio 0.9 (0.9-2) Lipase 16 (11-82) U/L Urine Color Urine Appearance (Clear) Urine pH (4.5-7.5) Ur Specific [place] (1.000-1.030) Urine Protein (Negative) Urine Glucose (UA) (Negative) Urine Ketones (Negative) Urine Blood (Negative) Urine Nitrite (Negative) Urine Bilirubin (Negative) Urine Urobilinogen (Negative) Ur Leukocyte Esterase (Negative) Urine WBC (Auto) (0-5) /hpf Urine RBC (Auto) (0-2) /hpf U Hyaline Cast (Auto) (0-2) /lpf U Epithel Cells (Auto) (0-2) /hpf Urine Bacteria (Auto) (None Seen) Urine Mucus (None Prsent) Urine Comment PG Care Time/CCT Total # of Minutes Spent Total Time Spent with Patient: Total time spent is greater than 50% in coordination of care (as documented) at patient's floor/unit and/or counseling patient: Coding Level of Care Code 67465 INT INP/OBS CARE MIN Diagnoses IBS (irritable bowel syndrome) K58.9
--- NOTE | 2025-03-30 11:35 | Hospitalist Progress Note ---
Date of Service March 30, 2025 Assessment & Plan (1) Gastroenteritis: Plan: Protonix and Carafate have reportedly not helped Reviewed prior gastroenterology workup from 01/14 Stool calprotectin on 01/20 WNL Negative C. difficile Transglutaminase WNL; elevated IgA at 782 on celiac panel Overall, patient symptoms were more in alignment with IBS Touched base with gastroenterology on 03/30 Patient was originally supposed to have a colonoscopy done outpatient, but th is was never scheduled Clear liquids today + GoLytely N.p.o. at midnight and potential colonoscopy on 03/31 (2) Epigastric pain: Plan: Suspected due to gastroenteritis/colitis seen on imaging. Pain control measures. No obstruction seen on imaging. Clinically, patient remains hemodynamically stable/normotensive on 03/30 (3) Essential hypertension: Plan: Stable. Continue current medical management (4) Cirrhosis: Plan: Appears to be nonalcoholic. She takes spironolactone chronically. Liver enzymes are minimally elevated. Lipase normal. Serial labs ? Portal HTN colopathy (5) Primary hypothyroidism: Plan: Continue current Synthroid replacement. (6) Hypomagnesemia: Plan: Replete as needed (7) Hypokalemia: Plan: Replete as needed Plan Disposition: Continued stay for colonoscopy on 03/31; n.p.o. at midnight Admission and Anticipated Discharge Date Admission Date: March 29, 2025 Subjective Mrs. Jackman reports she is still having 10 out of 10 RUQ/epigastric pain this morning. She reports it is constant. The pain is mainly in her epigastric region, but radiates up her chest and around her right flank. She also reports pain in both her upper and lower back. Protonix and Carafate have not helped the pain. Patient reports she was supposed to have an outpatient colonoscopy scheduled upon her last discharge, but did not have this done. She reports that this pain has been ongoing over the past 2 weeks, and has been intermittent. She wakes up with a headache, and then when she tries to get out of bed she "doubles over in pain". She has been taking Tums and Phenergan as needed for the pain and nausea, but this has not been helping. Patient denies history of smoking. She does have history of a stroke with residual left-sided upper and lower extremity sensation deficits. Additionally, patient was having "watery diarrhea" all day yesterday, but today she feels blocked up as if she is constipated. Patient is still passing gas. She denies any recent antibiotic use. No blood in her stool. No black tarry stool. ROS: Patient endorses severe epigastric pain, chest pain, pleuritic CP, pain radiation to her back, constipation, 1 episode of yellow/bilious vomit prior to hospitalization, and nausea. Patient denies fever, cough, or SOB. Review of Systems Review of Systems: See HPI above Physical Exam Physical Exam: General: no acute distress; non-toxic appearing; well-nourished; cooperative HEENT: normocephalic, atraumatic; no scleral icterus; PERRLA w/ EOMs intact; vision and hearing grossly intact Neck: supple; no lymphadenopathy; trachea midline Skin: warm, dry without signs of tenting; no cyanosis; no rashes, bruising, lesions, or erythema noted CV: chest wall NTP; RRR; S1/S2 normal; no murmurs/rubs/gallops; pulses intact and symmetric at radial, DP, and PT Lungs: no acute respiratory distress; symmetrical chest wall expansion; clear breath sounds across all lung mtz w/o adventitious sounds; no wheezing ABD: Soft, NTP; BS present; no rebound/guarding; no distention MSK: no tics or fasciculations; no edema noted in the LEs b/l, nonerythematous Neuro: A&Ox3; normal mood and affect; fluent speech; no focal deficits; sensation grossly intact in the LEs b/l Results & Data Results & Data Vital Signs (Past 12 Hours) Vital Signs Temp Pulse Resp BP Pulse Ox O2 Del Method 03/30/25 07:23 36.4 C L 70 18 115/69 92 Room Air PG Care Time/CCT Total # of Minutes Spent Total Time Spent with Patient: Total time spent is greater than 50% in coordination of care (as documented) at patient's floor/unit and/or counseling patient: C[place] [address] SUB INP/OBS CARE 3/50MIN Patient Type Established History Comprehensive Exam Comprehensive Medical Decision Making High Complexity Diagnoses Gastroenteritis K52.9 Epigastric pain R10.13 Essential hypertension I10 Cirrhosis K74.60 Primary hypothyroidism E03.9 Hypomagnesemia E83.42 Hypokalemia E87.6
[2025-03-30] MEDS: ACETAMINOPHEN 1,000 MG/100 ML VIAL IV STA (12:09)
[2025-03-30] MEDS: LAVAGE SOLUTION 4000ML PO SCH (16:51)
[2025-03-30] MEDS ORDERED: PROCHLORPERAZINE 5 MG in SYRINGE 4 ML IV PRN (19:57)
[2025-03-30 20:26] LABS: Cdiff Toxin B Gene (2yr or >) Negative Cdiff Gene (Neg)
[2025-03-30] MEDS: REMOVE LIDODERM PATCH SCH (20:40)
[2025-03-30 20:57] LABS: Adenovirus F 40/41 PCR Not Detected (NotDetected); Campylobacter PCR Not Detected (NotDetected); Enteroaggregative E.coli(EAEC) Not Detected (NotDetected); Shiga-like Toxin E.coli (STEC) Not Detected (NotDetected); Vibrio species PCR Not Detected (NotDetected)
[2025-03-31 07:59] LABS: Hematocrit (blood only) 36.0 % (37.0-47.0); Hemoglobin 11.5 g/dl (12.0-16.0); Immature Granulocytes # (auto) 0.02 K/uL (0.01-0.20); Immature Granulocytes % (auto) 0.6 %; Mean Corpuscular Hemoglobin 29.9 pg (25.0-34.0); Mean Corpuscular Volume 93.5 fL (80.0-100.0); Platelet Count 66 K/uL (130-400); RDW Standard Deviation 54.5 fL (36.4-46.3); Red Blood Count 3.85 M/uL (4.20-5.40); White Blood Count 3.18 K/ul (4.8-10.8)
[2025-03-31 08:28] LABS: Alanine Aminotransferase 6.0 U/L (7-52); Albumin Globulin Ratio 0.9 (0.9-2); Albumin Level 2.7 gm/dl (3.4-5.0); Alkaline Phosphatase 67.0 U/L (34-104); Anion Gap 3.0 (3-11); Bilirubin,Total 1.4 mg/dl (0.2-1.0); Blood Urea Nitrogen 7.0 mg/dl (6-23); Calcium 8.3 mg/dl (8.6-10.3); Carbon Dioxide 29.0 mmol/L (21-32); Chloride 109.0 mmol/L (98-107); Creatinine Clr Calc Pharmacy 63.7 ml/min; Globulin 3.0 gm/dl (2.5-4.0); Glucose 86.0 mg/dl (70-99(Fasting)); Potassium 3.5 mmol/L (3.5-5.1); Sodium 141.0 mmol/L (136-145); Total Protein 5.7 gm/dl (6.0-8.3)
--- NOTE | 2025-03-31 09:16 | Hospitalist Progress Note ---
Date of Service March 31, 2025 Assessment & Plan (1) Gastroenteritis: (2) Epigastric pain: (3) Cirrhosis: (4) Essential hypertension: (5) Primary hypothyroidism: (6) Hypomagnesemia: (7) Hypokalemia: (8) Pancytopenia: Plan This patient is a 60-year-old female who presented on 03/29 for right upper abdominal pain, dizziness, and N/V/D x 2 hours [employer]. #Recurrent colitis | IBS | viral gastroenteritis A/P CT on arrival revealed mild diffuse colonic wall thickening similar to prior CT; nonspecific colitis was favored; no evidence of bowel obstruction Protonix and Carafate have reportedly not helped Reviewed prior gastroenterology workup from 01/14 Stool calprotectin on 01/20 WNL Negative C. difficile Transglutaminase WNL; elevated IgA at 782 on celiac panel Overall, patient symptoms are more in alignment with IBS / GERD Gastroenterology consult appreciated Patient was originally supposed to have a colonoscopy done outpatient, but this was never scheduled Plan for colonoscopy on 03/31 Note: Patient had difficulty tolerating GoLytely solution on the evening of 03/30 Dulcolax 5 mg p.o. x 1 last night + MiraLAX PRN Touch base to GI in the morning of 03/31, will defer additional Dulcolax as it could potentially delay colonoscopy N.p.o. on the morning of 03/31 prior to colonoscopy IV Compazine and Zofran PRN for N/V Continue IVF while NPO #Generalized abdominal pain | back pain | fibromyalgia Suspected due to gastroenteritis/colitis seen on imaging Note: A/P CT also noted several ground glass opacities favoring an infectious process; while unlikely septic emboli within ddx Clinically, patient has remained hemodynamically stable on 03/30 and 03/31 Normotensive; no reported fevers; no leukocytosis Will defer additional imaging at this time Lidocaine application PRN for back apin Will plan to discontinue IV morphine on the evening of 03/31 Reinitiate dicyclomine 10 mg p.o. QID PRN Will trial increase of gabapentin from 100 mg -> 300 mg HS on the evening of 03/31 and see if this helps alleviate pain #Liver cirrhosis Nonalcoholic LFTs minimally elevated; lipase WNL Continue spironolactone ? Portal HTN colopathy as potential cause of pain #Pancytopenia Noted on labs; trend Could be secondary to viral gastroenteritis v. Liver cirrhosis #Anxiety Continue clonazepam 0.5 mg TID #Essential hypertension Stable. Continue current medical management #Primary hypothyroidism Continue Synthroid #Hypokalemia | hypomagnesemia Replete PRN Disposition: Continued stay pending colonoscopy/pain control Admission and Anticipated Discharge Date Admission Date: March 29, 2025 Subjective Mrs. Jackman reports she did not sleep much last night. She did have 1 bowel movement that was "watery" around 7 PM last night. While she had difficulty tolerating the GoLytely prep for her colonoscopy today, she reports that she has "nothing left" in her stomach. She is still passing gas regularly, and has not had anything to eat for greater than 48 hours now. She is unable to tolerate the GoLytely, as she reports that it makes her feel sick with her gag reflex. In regard to her pain, she still is having generalized abdominal pain which she rates a constant 9 out of 10. The pain is also in her upper and lower back, and around her right flank. ROS: Patient endorses nausea, generalized abdominal pain, back pain, and right flank pain. Patient denies fevers overnight, SOB, vomiting, or changes in urinary habits (burning with urination or blood in the urine). Review of Systems Review of Systems: See HPI above Physical Exam Physical Exam: General: no acute distress; tired; non-toxic appearing; cooperative; SpO2 94% on RA HEENT: normocephalic, atraumatic; no scleral icterus; PERRLA; vision and hearing grossly intact Neck: supple; no lymphadenopathy; trachea midline Skin: warm, dry without signs of tenting; no cyanosis; no rashes, bruising, lesions, or erythema noted CV: chest wall NTP; RRR; pulses intact and symmetric at radial, DP, and PT Lungs: no acute respiratory distress; symmetrical chest wall expansion; clear breath sounds across all lung mtz w/o adventitious sounds; no wheezing ABD: Soft, TTP in all 4 quadrants as well as epigastric region; right flank is TTP; BS present; no rebound/guarding; no distention; no rashes or bruising appreciated on the abdomen flanks bilaterally MSK: no tics or fasciculations; no edema noted in the LEs b/l, nonerythematous Neuro: A&Ox3; normal mood and affect; fluent speech; no focal deficits; patient report sensation is intact and symmetric in the lower extremities bilaterally assessed via light touch Results & Data Results & Data Vital Signs (Past 12 Hours) Vital Signs Temp Pulse Resp BP Pulse Ox O2 Del Method 03/31/25 08:18 36.3 C L 67 18 131/77 94 Room Air 03/31/25 02:30 94 Room Air 03/30/25 22:20 36.6 C 62 18 122/70 90 Room Air PG Care Time/CCT Total # of Minutes Spent Total Time Spent with Patient: Total time spent is greater than 50% in coordination of care (as documented) at patient's floor/unit and/or counseling patient: Coding [place] [address] SUB INP/OBS CARE 2/35MIN Patient Type Established Medical Decision Making Moderate Complexity Diagnoses Gastroenteritis K52.9 Epigastric pain R10.13 Cirrhosis K74.60 Essential hypertension I10 Primary hypothyroidism E03.9 Hypomagnesemia E83.42 Hypokalemia E87.6 Pancytopenia D61.818
--- NOTE | 2025-03-31 09:57 | Gastroenterology Progress Note ---
Date of Service March 31, 2025 Assessment & Plan (1) IBS (irritable bowel syndrome): Plan: 60 year old female w/ history of hypothyroidism, endometriosis, anxiety, depression, interstitial cystitis, HTN, cirrhosis, IBS-Mixed, Migraines admitted through the ED w/ abd yolis, chronic alternating bowel habits, previous episodes of hematochezia. She refused golyely prep, took a dose of miralax and dulcolax but is reporting clear, liquid stool. May attempt colonoscopy today, however, if prep is inadequate, would need to be rescheduled for complete examination. Continue NPO status. Admission and Anticipated Discharge Date Admission Date: March 29, 2025 Supervising Physician Co-Signing Physician Notes I personally saw and examined the patient. I have reviewed the chart and agree with the documentation provided by the RESEARCH KENNEL SUPERVISOR including discussion about the assessment, treatment and plan. Briefly, able to do MiraLAX with Dulcolax prep. Will proceed with colonoscopy today Subjective Reporting liquids stools. Ongoing abd pain. Did not take golytely. Review of Systems Review of Systems: All other findings negative except as noted in HPI. Physical Exam Constitutional: WD/WN, vitals as above Respiratory: normal respiratory effort Gastrointestinal (Abdomen): normal bowel sounds, soft, nontender, no hepatosplenomegaly Skin: no rashes, warm and dry Results & Data Results & Data Vital Signs (Past 12 Hours) Vital Signs Temp Pulse Resp BP Pulse Ox O2 Del Method 03/31/25 08:18 97.3 F L 67 18 131/77 94 Room Air 03/31/25 02:30 94 Room Air 03/30/25 22:20 97.9 F 62 18 122/70 90 Room Air Laboratory Results 03/31/25 03/30/25 03/30/25 Range/Units 07:35 Unknown 06:52 WBC 3.18 L (4.8-10.8) K/ul RBC 3.85 L (4.20-5.40) M/uL Hgb 11.5 L (12.0-16.0) g/dl Hct 36.0 L (37.0-47.0) % MCV 93.5 (80.0-100.0) fL MCH 29.9 (25.0-34.0) pg MCHC 31.9 L (32.0-36.0) g/dL RDW Std Deviation 54.5 H (36.4-46.3) fL RDW Coeff of Karen 15.8 H (11.5-14.5) % Plt Count 66 L (130-400) K/uL MPV 10.7 (9.4-12.4) fL Immature Gran % (Auto) 0.6 % Neut % (Auto) 59.2 % Lymph % (Auto) 28.3 % [place] % (Auto) 8.2 % Eos % (Auto) 3.1 % Baso % (Auto) 0.6 % Neut # (Auto) 1.88 (1.40-6.50) K/uL Lymph # (Auto) 0.90 L (1.20-3.40) K/uL [place] # (Auto) 0.26 (0.11-0.59) K/uL Eos # (Auto) 0.10 (0.00-0.50) K/uL Baso # (Auto) 0.02 (0.00-0.20) K/uL Immature Gran # (Auto) 0.02 (0.01-0.20) K/uL Sodium 141 (136-145) mmol/L Potassium 3.5 (3.5-5.1) mmol/L Chloride 109 H (98-107) mmol/L Carbon Dioxide 29 (21-32) mmol/L Anion Gap 3 (3-11) BUN 7 (6-23) mg/dl Creatinine 1.05 (0.6-1.2) mg/dl Est Cr Clr Drug Dosing 63.7 ml/min eGFR 60.08 BUN/Creatinine Ratio 6.7 L (10-20) Glucose 86 (70-99(Fasting)) mg/dl Calcium 8.3 L (8.6-10.3) mg/dl Magnesium 1.6 L (1.7-2.4) mg/dl Total Bilirubin 1.4 H (0.2-1.0) mg/dl AST 32 (13-39) U/L ALT 6 L (7-52) U/L Alkaline Phosphatase 67 (34-104) U/L Total Protein 5.7 L (6.0-8.3) gm/dl Albumin 2.7 L (3.4-5.0) gm/dl Globulin 3.0 (2.5-4.0) gm/dl Albumin/Globulin Ratio 0.9 (0.9-2) Stl C. cayetanensis PCR Not Detected (NotDetected) Stool Rotavirus A PCR Not Detected (NotDetected) Stl Adenov F 40/41 PCR Not Detected (NotDetected) Stool Astrovirus (PCR) Not Detected (NotDetected) Stool Campylobacter PCR Not Detected (NotDetected) Stl C. diff Tox B Gene Negative Cdiff Gene (Neg) Stl C. diff 027-NAP1-BI NEGATIVE Stool Cryptosporidium PCR Not Detected (NotDetected) Stl E.coli Shiga Tox PCR Not Detected (NotDetected) Stl Enterotoxigenic E PCR Not Detected (NotDetected) Stool EPEC (PCR) Not Detected (NotDetected) Stool EAEC (PCR) Not Detected (NotDetected) Stl E. histolytica PCR Not Detected (NotDetected) Stool Giardia Lamblia PCR Not Detected (NotDetected) Stool Salmonella PCR Not Detected (NotDetected) Stool Sapovirus (PCR) Not Detected (NotDetected) Stl P. shigelloides PCR Not Detected (NotDetected) Stl Shigella/EIEC PCR Not Detected (NotDetected) St Y.enterocolitica PCR Not Detected (NotDetected) Stool Vibrio (PCR) Not Detected (NotDetected) Stl Vibrio cholerae PCR Not Detected (NotDetected) Stl Norovirus GI/GII PCR Not Detected (NotDetected) PG Care Time/CCT Total # of Minutes Spent Total Time Spent with Patient: Total time spent is greater than 50% in coordination of care (as documented) at patient's floor/unit and/or counseling patient: Coding Level of Care Code None Diagnoses IBS (irritable bowel syndrome) K58.9
[2025-03-31 10:22] LABS: Magnesium 1.6 mg/dl (1.7-2.4)
[2025-03-31] MEDS: MAGNESIUM SULFATE / D5W 1 GM/100 ML BAG IV ONE (12:31)
[2025-03-31] MEDS: SODIUM CHLORIDE 0.9% 500 ML IV SCH (13:05)
--- NOTE | 2025-03-31 13:09 | Anesthesiology Consultation ---
Date of Service March 31, 2025 Assessment & Plan (1) Encounter for pre-operative examination: Chart Review Chart Review: Acceptable Risk for Surgery and Patient NOT seen in Pre Admission Testing Consults Requested none History Surgery Operation Date: 03/31/25 16:30 Proposed Procedures p Colonoscopy Gabino Lloyd MD Height/Weight Height: 5 ft 4 in Weight: 99.5 kg Allergies Allergy/AdvReac Type Severity Reaction Status Date / Time Penicillins Allergy Intermediate Unknown Verified 03/31/25 12:56 childhood reaction, ? swelling famotidine AdvReac Severe Diarrhea Unverified 03/31/25 12:56 Sulfa (Sulfonamide AdvReac Intermediate N/V Verified 03/31/25 12:56 Antibiotics) Medications Home Medications Medication Instructions Recorded Confirmed Last Taken Aspirating [place] 11/07/21 01/14/25 Unknown albuterol sulfate 90 mcg/actuation 2 puff inhalation QID PRN 11/07/21 03/29/25 Unknown aerosol inhaler Shortness Of Breath Or Wheezing aspirin 81 mg chewable tablet 81 mg PO DAILY 11/07/21 03/29/25 03/29/25 (Aspirin Childrens) clonazepam 0.5 mg tablet (Klonopin) 0.5 mg PO TID 11/07/21 03/29/25 03/29/25 lisinopril 40 mg tablet (Zestril) 40 mg PO QAM 11/07/21 02/05/25 12/14/24 omeprazole 40 mg capsule,delayed 40 mg PO HS 11/07/21 03/29/25 03/28/25 release promethazine 25 mg tablet 25 mg PO UD PRN Nausea 11/07/21 03/29/25 03/29/25 sumatriptan succinate 50 mg tablet 100 mg PO DIRECTED PRN Migraine 11/07/21 03/29/25 12/02/23 14:00 (Imitrex) Headache tramadol 50 mg tablet 50 mg PO UD PRN Pain 11/07/21 03/29/25 Unknown calcium carbonate (Tums) 200 mg PO UD PRN Acid Reflux 12/16/21 03/29/25 Unknown polyethylene glycol 3350 17 gram 34 g PO UD PRN laxative effect 12/16/21 03/29/25 Unknown oral powder packet (Miralax) needle (disp) 23 gauge 23 gauge x #100 ea 11/12/23 01/14/25 Unknown 1" (Aqinject Standard Needle) safety needles 25 gauge x 1" (BD #15 ea 11/12/23 01/14/25 Unknown Eclipse) syringe with needle, safety 3 mL #1 ea 11/12/23 01/14/25 Unknown 23 gauge x 1" (Monoject Safety Syringes) levothyroxine 25 mcg tablet 50 mcg PO QAM 11/30/23 03/29/25 03/29/25 metoclopramide HCl 5 mg tablet 5 mg PO Q8H PRN ABD DISCOMFORT 12/17/24 03/29/25 Unknown (Reglan) dicyclomine 10 mg capsule 10 mg PO QID PRN abdominal pain 12/24/24 03/29/25 Unknown #30 caps sennosides 8.6 mg-docusate sodium 1 tab PO QPM #14 tabs 12/24/24 03/29/25 03/28/25 50 mg tablet (Senokot-S) spironolactone 25 mg tablet 50 mg (2 x 25 mg) PO QAM #60 tabs 12/24/24 03/29/25 03/29/25 peg 3350-electrolytes 236 240 ml PO Q10M #4,000 mL 01/30/25 Unknown gram-22.74 gram-6.74 gram-5.86 gram solution (Golytely) lidocaine 5 % topical patch 1 patch topical DAILY PRN Back Pain 02/05/25 03/29/25 03/28/25 carbidopa ER 25 mg-levodopa 100 mg 1 tab PO HS 03/29/25 03/29/25 03/28/25 tablet,extended release carvedilol 6.25 mg tablet 6.25 mg PO BID 03/29/25 03/29/25 Unknown cholecalciferol (vitamin D3) 25 25 mcg PO DAILY 03/29/25 03/29/25 Unknown mcg (1,000 unit) chewable tablet (Vitamin D3) cyclobenzaprine 10 mg tablet 10 mg PO BID PRN Muscle Spasm 03/29/25 03/29/25 Unknown fluoxetine 40 mg capsule 80 mg PO QPM 03/29/25 03/29/25 03/28/25 gabapentin 100 mg capsule 100 mg PO HS 09/07/25 09/07/25 09/06/25 magnesium citrate 100 mg tablet 100 mg PO DAILY 03/29/25 03/29/25 Unknown riboflavin (vitamin B2) 25 mg 0 mg PO DAILY 03/29/25 03/29/25 Unknown tablet Active Medications Generic Name Dose Route Start Last Admin Trade Name Santos PRN Reason Stop Dose Admin Aspirin 81 mg 03/30/25 09:00 03/31/25 08:45 Aspirin 81 Mg Chew PO 04/29/25 08:59 81 mg DAILY JUAN CARLOS Administration Carbidopa/Levodopa 1 tab 03/29/25 21:00 03/30/25 20:40 Carbidopa/Levodopa 25/100mg Ext Rel Tab PO 04/28/25 20:59 1 tab HS JUAN CARLOS Administration Carvedilol 6.25 mg 03/29/25 21:00 03/31/25 10:25 Carvedilol 6.25 Mg Tab PO 04/28/25 20:59 6.25 mg BID JUAN CARLOS Administration Clonazepam 0.5 mg 03/29/25 21:00 03/31/25 08:43 Clonazepam 0.5 Mg Tab PO 04/28/25 20:59 0.5 mg TID JUAN CARLOS Administration Fluoxetine HCl 80 mg 03/29/25 21:00 03/30/25 20:40 Fluoxetine Hcl 20 Mg Cap PO 04/28/25 20:59 80 mg QPM JUAN CARLOS Administration Gabapentin 100 mg 03/29/25 21:00 03/30/25 20:40 Gabapentin 100 Mg Cap PO 04/28/25 20:59 100 mg HS JUAN CARLOS Administration Pantoprazole Sodium 40 mg in 10 mls @ 5 mls/min 03/29/25 21:00 03/31/25 08:46 Protonix IV 04/28/25 20:59 5 mls/min BID JUAN CARLOS Administration Lactated Ringer's 1,000 mls @ 80 mls/hr 03/30/25 08:45 03/31/25 12:52 Lr IV 03/31/25 22:14 Not Given .[id number] JUAN CARLOS Magnesium Sulfate/Dextrose 1 gm in 100 mls @ 50 mls/hr 03/31/25 12:04 03/31/25 12:31 Magnesium Sulfate / D5w IV 03/31/25 14:03 50 mls/hr ONE ONE Administration Sodium Chloride 500 mls @ 15 mls/hr 03/31/25 07:30 03/31/25 13:06 Nss IV 04/01/25 07:29 Infused .Q24H JUAN CARLOS Infusion Levothyroxine Sodium 50 mcg 03/30/25 06:30 03/31/25 06:00 Levothyroxine Sodium 50 Mcg Tablet PO 04/29/25 06:29 50 mcg DAILYBB JUAN CARLOS Administration Lisinopril 40 mg 03/30/25 09:00 03/31/25 08:45 Lisinopril 40 Mg Tab PO 04/29/25 08:59 40 mg QAM JUAN CARLOS Administration Miscellaneous 1 each 03/30/25 21:00 03/30/25 20:40 Remove Lidoderm Patch N/A 04/29/25 20:59 1 each DAILY@2100 JUAN CARLOS Administration Morphine Sulfate 2 mg 03/29/25 17:10 03/31/25 08:23 Morphine Sulfate 2 Mg/Ml Carp IV 04/12/25 17:09 2 mg Q3H PRN Administration Pain Ondansetron HCl 4 mg 03/29/25 19:01 03/31/25 08:28 Ondansetron Inj 2 Mg/Ml 2 Ml Vial IV 04/28/25 19:00 4 mg Q4H PRN Administration Nausea Spironolactone 50 mg 03/30/25 09:00 03/31/25 08:44 Spironolactone 25 Mg Tab PO 04/29/25 08:59 50 mg QAM JUAN CARLOS Administration Sucralfate 1 gm 03/29/25 19:15 03/31/25 08:56 Sucralfate 1 Gm/10 Ml Udc PO 04/28/25 19:14 1 gm QID JUAN CARLOS Administration Vitamin D 25 mcg 03/30/25 09:00 03/31/25 08:42 Cholecalciferol 25 Mcg (1000 Units) Tab PO 04/29/25 08:59 25 mcg DAILY JUAN CARLOS Administration NPO Date Last Intake of Fluids: 03/31/25 Time Last Intake of Fluids: 10:45 Date Last Intake of Solids: 03/29/25 Time Last Intake of Solids: 12:00 Past Medical History Medical History Weakness on left side of face Hx of renal calculi Idiopathic polyneuropathy Depression with anxiety Cervical spine pain full rom Colitis Constipation Abdominal pain Hx MRSA infection (~2019) Chronic pain Interstitial cystitis Per records Asthma pt. denies, states has inhaler for allergies History of COVID-19 2021, 2022- symptoms resolved Type 2 diabetes mellitus Hemorrhoids Internal/external Meniere disease Chronic lightheadedness/dizziness Neuropathy RLE, b/l feet Restless leg syndrome Stable GERD (gastroesophageal reflux disease) Hyperlipidemia Per records, patient denies indicating she is on statin for stroke pervention History of pulmonary embolism 2017 after "long bus ride" Previously on Coumadin x months, then discontinued and started on ASA No issues since CVA (cerebral vascular accident) (2018) Remote hx , residual slurred speech, left weakness, memory impairment - follows with dr. lopez IBS (irritable bowel syndrome) Diarrhea/constipation combination HTN (hypertension) Fibromyalgia Past Family History Family History Mother , age 63 of cerebral aneurysm. Cerebral aneurysm Father , age 63 of an MA Myocardial infarction Other Heart disease Hypertension No family history of adverse response to anesthesia Past Surgical History Surgical History Nausea and vomiting after administration of anesthetic agent History of cystoscopy Bladder distention x2 History of tooth extraction History of esophagogastroduodenoscopy (EGD) History of colonoscopy S/P tubal ligation History of hysterectomy S/P cholecystectomy Social History Smoking Status: Never smoker Do You Dip or Chew Tobacco: No Hx Alcohol Use: Yes Alcohol type: wine alcohol intake frequency: a few times a week Hx Substance Use: Yes substance use type: marijuana Last Used Substance: Unknown Physical Exam Vital Signs Last Vital Signs Temp 98.1 F 03/31/25 12:57 Pulse 65 03/31/25 12:57 Resp 16 03/31/25 12:57 BP 143/67 H 03/31/25 12:57 Pulse Ox 94 03/31/25 12:57 O2 Del Method Room Air 03/31/25 12:57 Testing Laboratory Results 03/31/25 07:35 03/31/25 07:35 PT 11.9 Seconds (9.0-12.0) 03/29/25 12:06 INR 1.1 (0.9-1.1) 03/29/25 12:06 Urine Color Dark Yellow 03/29/25 13:00 Urine Appearance Clear (Clear) 03/29/25 13:00 Urine pH 6.5 (4.5-7.5) 03/29/25 13:00 Ur Specific [place] 1.018 (1.000-1.030) 03/29/25 13:00 Urine Protein Negative (Negative) 03/29/25 13:00 Urine Glucose (UA) Negative (Negative) 03/29/25 13:00 Urine Ketones Negative (Negative) 03/29/25 13:00 Urine Nitrite Negative (Negative) 03/29/25 13:00 Ur Leukocyte Esterase 1+ (Negative) H 03/29/25 13:00 Urine WBC (Auto) 0-5 /hpf (0-5) 03/29/25 13:00 Urine RBC (Auto) 0-2 /hpf (0-2) 03/29/25 13:00 U Hyaline Cast (Auto) 0-2 /lpf (0-2) 03/29/25 13:00 U Epithel Cells (Auto) 3-5 /hpf (0-2) H 03/29/25 13:00 Urine Bacteria (Auto) None Seen (None Seen) 03/29/25 13:00
--- NOTE | 2025-03-31 13:37 | Communication Note ---
Date of Service: March 31, 2025 Colon: Hemorrhoids noted. Left colon with solid stool and at the splenic flexure it was complete Brown out. Unable to proceed with colonoscopy. Patient needs a full prep and can get a colonoscopy outpatient in the left colon everything appeared normal except for internal hemorrhoids. Gabino
--- NOTE | 2025-03-31 13:39 | GI REPORT ---
[facility] Patient: ZOE BUCKLEY : 1965 Sex at : Female Age: 60 Years Procedure: Colonoscopy Date: 03/31/2025 Attending Physician: Kahlil Lloyd MD Referring MD: Crispin Arzate M.d. Indications: - Generalized abdominal pain - Change in bowel habits Medications: Complications: - No immediate complications. Estimated Blood Loss: - Estimated blood loss: None. Procedure: - ASA Grade Assessment: III - A patient with severe systemic disease. - The pediatric colonoscope was introduced through the anus and advanced to the splenic flexure. - The colonoscopy was performed without difficulty. - The quality of the bowel preparation was poor. Findings: - Internal hemorrhoids were found during retroflexion. The hemorrhoids were small. Left colon had stool upto splenic flexure and then all stool. No colitis or masses noted. - Solid stool was found in the sigmoid colon and in the descending colon, precluding visualization. Impression: - Preparation of the colon was poor. - Internal hemorrhoids. - Left colon had stool upto splenic flexure and then all stool. No colitis or masses noted. - Stool in the sigmoid colon and in the descending colon. - No specimens collected. Recommendation: - No evidence of colitis noted in the left colon. I suspect the thickening in the right colon is related to pericolonic edema from her ascites and cirrhosis. Given that she cannot prep here, I suggest she do an outpatient colonoscopy. I would feed her 2 gm na diet and put her on dicylomine and fiber. Procedure Code(s): - 37517-83, Colonoscopy, flexible; diagnostic, including collection of specimen(s) by brushing or washing, when performed (separate procedure) Diagnosis Code(s): - R10.84, Generalized abdominal pain - R19.4, Change in bowel habit - K64.8, Other hemorrhoids CPT(R) - 202 copyright [employer]. All Rights Reserved. The CPT codes, CCI edits and ICD codes generated are intended as suggestions and were generated based on input data. These codes are preliminary and upon boiler tube reamer review may be revised to meet current compliance and payer requirements. The provider is responsible for the final determination of appropriate codes, and modifiers. Kahlil Lloyd MD This document has been electronically signed. Note Initiated:03/31/2025 Note Completed:03/31/2025 1:39 PM \\[id number]
[2025-03-31] MEDS: LIDOCAINE 2% 2 ML VIAL/AMP(20MG/ML) INFIL ONE (14:26)
[2025-03-31] MEDS: PROPOFOL IV EMULSION 10 MG/ML 20 ML VIAL IV ONE (14:27)
--- NOTE | 2025-03-31 14:37 | Anesthesiology Progress Note ---
Date of Service March 31, 2025 Anesthesia Post Procedure Vital Signs Vital Signs: Temp Pulse Pulse Resp BP BP Pulse Ox 03/31/25 14:06 63 17 137/87 93 03/31/25 13:51 62 16 124/70 97 03/31/25 13:36 62 18 111/68 93 03/31/25 12:57 98.1 F 65 16 143/67 H 94 03/31/25 08:18 97.3 F L 67 18 131/77 94 03/31/25 02:30 94 03/30/25 22:20 97.9 F 62 18 122/70 90 03/30/25 20:40 62 130/81 03/30/25 15:21 97.7 F 63 18 106/66 92 O2 Del Method 03/31/25 14:06 Room Air 03/31/25 13:51 Room Air 03/31/25 13:36 Room Air 03/31/25 12:57 Room Air 03/31/25 08:18 Room Air 03/31/25 02:30 Room Air 03/30/25 22:20 Room Air 03/30/25 20:40 03/30/25 15:21 Room Air Pain Intensity Other: Pain Intensity: 10 Abdomen: Pain Intensity: 8 Transfer of Care Handoff Completed per policy Notes Mental Status: alert / awake / arousable and participated in evaluation Patient Amnestic to Procedure: Yes Nausea / Vomiting: adequately controlled Pain: adequately controlled Airway Patency, RR, SpO2: stable & adequate BP & HR: stable & adequate Hydration State: stable & adequate Anesthetic Complications: no major complications apparent and Pt Satisfied with anesthetic care
[2025-03-31] MEDS ORDERED: POLYETHYLENE (MIRALAX) 17 GM PACK PO PRN (15:35)
[2025-03-31] MEDS: LIDOCAINE 5% 1 PATCH TD STA (18:34)
[2025-03-31] MEDS ORDERED: REMOVE LIDODERM PATCH SCH (21:00)
[2025-03-31] MEDS: DICYCLOMINE HCL 10 MG CAP PO PRN (21:04)
[2025-03-31] MEDS: REMOVE LIDODERM PATCH SCH (21:10)
[2025-03-31] MEDS: GABAPENTIN 300 MG CAP PO SCH (21:38)
[2025-04-01] MEDS: FAMOTIDINE 20MG IV PUSH 20 MG/5 ML SYR IV STA (02:24)
[2025-04-01] MEDS: ACETAMINOPHEN 1,000 MG/100 ML VIAL IV PRN (02:28)
[2025-04-01 06:28] LABS: Hematocrit (blood only) 32.6 % (37.0-47.0); Hemoglobin 11.1 g/dl (12.0-16.0); Immature Granulocytes # (auto) 0.00 K/uL (0.01-0.20); Immature Granulocytes % (auto) 0.0 %; Mean Corpuscular Hemoglobin 31.1 pg (25.0-34.0); Mean Corpuscular Volume 91.3 fL (80.0-100.0); Platelet Count 63 K/uL (130-400); RDW Standard Deviation 50.9 fL (36.4-46.3); Red Blood Count 3.57 M/uL (4.20-5.40); White Blood Count 2.74 K/ul (4.8-10.8)
[2025-04-01 06:57] LABS: Alanine Aminotransferase 9.0 U/L (7-52); Albumin Globulin Ratio 1.0 (0.9-2); Albumin Level 2.6 gm/dl (3.4-5.0); Alkaline Phosphatase 64.0 U/L (34-104); Anion Gap 5.0 (3-11); Bilirubin,Total 1.4 mg/dl (0.2-1.0); Blood Urea Nitrogen 8.0 mg/dl (6-23); Calcium 8.1 mg/dl (8.6-10.3); Carbon Dioxide 26.0 mmol/L (21-32); Chloride 108.0 mmol/L (98-107); Creatinine Clr Calc Pharmacy 67.5 ml/min; Globulin 2.7 gm/dl (2.5-4.0); Glucose 83.0 mg/dl (70-99(Fasting)); Magnesium 1.6 mg/dl (1.7-2.4); Potassium 3.3 mmol/L (3.5-5.1); Sodium 139.0 mmol/L (136-145); Total Protein 5.3 gm/dl (6.0-8.3)
[2025-04-01] MEDS: LIDOCAINE 5% 1 PATCH TD SCH (07:46)
[2025-04-01] MEDS: POLYETHYLENE (MIRALAX) 17 GM PACK PO SCH (07:48)
[2025-04-01] MEDS: POTASSIUM CHLORIDE CRTAB 20 MEQ TABCR PO STA (08:51)
[2025-04-01] MEDS: MAGNESIUM OXIDE 400 MG TAB PO SCH (08:51)
--- NOTE | 2025-04-01 09:48 | Hospitalist Progress Note ---
Date of Service April 01, 2025 Assessment & Plan (1) Gastroenteritis: (2) Epigastric pain: (3) Cirrhosis: (4) Essential hypertension: (5) Primary hypothyroidism: (6) Hypomagnesemia: (7) Hypokalemia: (8) Pancytopenia: Plan This patient is a 60-year-old female who presented on 03/29 for right upper abdominal pain, dizziness, and N/V/D x 2 hours [employer]. #Recurrent colitis | IBS | viral gastroenteritis A/P CT on arrival revealed mild diffuse colonic wall thickening similar to prior CT; nonspecific colitis was favored; no evidence of bowel obstruction Protonix and Carafate have reportedly not helped Reviewed prior gastroenterology workup from 01/14 Stool calprotectin on 01/20 WNL Negative C. difficile Transglutaminase WNL; elevated IgA at 782 on celiac panel Overall, patient symptoms are more in alignment with IBS / GERD Gastroenterology consult appreciated Patient underwent colonoscopy on 03/31, but unfortunately stool in the colon presented for colonoscopy Noted internal hemorrhoids; no colitis or masses up to the splenic flexure Recommended repeat colonoscopy as outpatient Recommend 2 g NA diet and dicyclomine IV Compazine and Zofran PRN for N/V Patient was trialed on a low fiber diet, but reports she had exacerbation of epigastric pain approximately ~10min after eating Initiate dicyclomine 10mg p.o. QID scheduled #Blurry vision | H/o stroke in 2018 with residual left Patient reports blurry vision on the morning of 04/01 She also reports new onset confusion and is concerned She reports frequency of radiation "every month" She does not have prior history of MS, she reports her mother had MS Patient requesting brain MRI at this time to assess for recurrence of stroke, and check for MS COVID, flu, RSV negative Brain MRI with and without contrast did not reveal acute intracranial findings; small vessel disease; superimposed demyelinating disease unlikely #Generalized abdominal pain | epigastric pain | back pain | fibromyalgia Suspected due to gastroenteritis/colitis seen on imaging Note: A/P CT also noted several ground glass opacities favoring an infectious process; while unlikely septic emboli within ddx Clinically, patient has remained hemodynamically stable Normotensive on 04/01; no reported fevers; no leukocytosis Minimally hypertensive throughout her hospital stay; lower suspicion for aortic dissection No episodes of tachycardic or hypoxic throughout her hospital stay; lower suspicion for pulmonary However, given recurrence of 10 out of 10 pain without clear etiology, will order a chest CT with contrast to assess for additional pathology Lidocaine application QAM for back pain Discontinued IV morphine on the evening of 03/31 Gabapentin increase 100 mg -> 300 mg HS Note, patient reports that this did help with her sleep, but she will have difficulty with increased doses of gabapentin given her liver cirrhosis #Constipation (resolved) MiraLAX daily Patient reports she did have a bowel movement on the morning of 04/01 #Liver cirrhosis Nonalcoholic LFTs minimally elevated; lipase WNL Continue spironolactone ? Portal HTN colopathy as potential cause of pain #Pancytopenia Noted on labs; trend Could be secondary to viral gastroenteritis v. Liver cirrhosis #Anxiety Continue clonazepam 0.5 mg TID #Essential hypertension Stable. Continue current medical management #Primary hypothyroidism Continue Synthroid #Hypokalemia | hypomagnesemia Secondary to watery stool Replete PRN Disposition: Continued stay on 04/01 for pain control and additional imaging of the brain and chest Admission and Anticipated Discharge Date Admission Date: March 29, 2025 Supervising Physician Co-Signing Physician Notes Attending Attestation - Chart reviewed, care plan d/w RAVI Ayon. I agree w/ the funez components of his documentation. Due to visual complaints & other symptoms agree with MRI brain. Due to abnormal lung findings on lung cuts from the CT abd/pelvis agree with dedicated CT chest for additional information/characterization. Huber Triana MD Subjective Alerted by nursing staff at approximately 0900 the patient was complaining of blurry vision, brain fog, and abdominal pain. Patient also reported she had similar symptoms just prior to her last stroke. Patient was examined at bedside around 0915. She reports that she has had blurry vision in both eyes over the past couple days, but did not mention it. Blurry vision in the left eye greater than right eye. She reports she is "seeing double" this morning. When asked if this has happened in the past, she reports that this happens at least once per month. She denies any pain in her eyes. No personal history of MS, but believes her mom has MS. Additionally, the patient woke up with abdominal pain. Pain is largely epigastric radiating up into the chest; she describes it as a dull achy pain. The pain is not pleuritic this morning. Additionally, she was having cramping in her calfs bilaterally, and woke up with a charley horse in her left calf. Patient reports that the increased gabapentin did help with her sleep last night, but she did wake up disoriented 3 times. At 1 point she thought she was in a hotel room. She reports that gabapentin does help with her pain, but makes her increasingly sleepy, and she was told to keep to lower doses due to her liver cirrhosis. Her carbidopa does help. Patient reports she had pain in her stomach after trying a full liquid diet last night. She then tried a low fiber diet this morning (eggs, toast, and cranberry juice with MiraLAX). She developed exacerbation of her abdominal pain approximate 10 minutes after eating. She did have a bowel movement this morning (both solid/watery stool). ROS: Patient endorses headache, abdominal pain, chest pain, leg cramping bilaterally, back pain, blurry vision, and seeing double Patient denies tinnitus, chest palpitations, or pleuritic CP. Review of Systems Review of Systems: See HPI above Physical Exam Physical Exam: General: no acute distress; tired; non-toxic appearing; cooperative; SpO2 94% on RA HEENT: normocephalic, atraumatic; no scleral icterus; PERRLA; vision and hearing grossly intact Neck: supple; no lymphadenopathy; trachea midline Skin: warm, dry without signs of tenting; no cyanosis; no rashes, bruising, lesions, or erythema noted CV: chest wall NTP; RRR; pulses intact and symmetric at radial, DP, and PT Lungs: no acute respiratory distress; symmetrical chest wall expansion; clear breath sounds across all lung mtz w/o adventitious sounds; no wheezing ABD: Soft, TTP in all 4 quadrants as well as epigastric region; right flank is TTP; BS present; no rebound/guarding; no distention; no rashes or bruising appreciated on the abdomen flanks bilaterally MSK: no tics or fasciculations; no edema noted in the LEs b/l, nonerythematous Neuro: A&Ox3; normal mood and affect; fluent speech; no focal deficits; patient report sensation is intact and symmetric in the lower extremities bilaterally assessed via light touch Results & Data Results & Data Vital Signs (Past 12 Hours) Vital Signs Temp Pulse Resp BP Pulse Ox O2 Del Method 04/01/25 07:26 36.4 C L 63 18 127/76 92 Room Air 04/01/25 00:00 36.5 C 95 H 18 107/61 92 Room Air PG Care Time/CCT Total # of Minutes Spent Total Time Spent with Patient: Total time spent is greater than 50% in coordination of care (as documented) at patient's floor/unit and/or counseling patient: Coding [place] [address] SUB INP/OBS CARE 3/50MIN Patient Type Established Medical Decision Making High Complexity Diagnoses Gastroenteritis K52.9 Epigastric pain R10.13 Cirrhosis K74.60 Essential hypertension I10 Primary hypothyroidism E03.9 Hypomagnesemia E83.42 Hypokalemia E87.6 Pancytopenia D61.818
[2025-04-01] MEDS: GADOBUTROL 65ML VIAL IV ONE (12:39)
[2025-04-01 12:52] LABS: Influenza A virus by PCR Negative (Neg); Influenza B virus by PCR Negative (Neg); SARS CoV2 RNA(COVID-19) Ceph NEGATIVE (Negative)
--- NOTE | 2025-04-01 13:28 | Magnetic Resonance Report ---
MR brain MS wo/w con CLINICAL HISTORY: Blurry vision/MS r/o; h/o stroke with residual def COMPARISON STUDY: MRI of the brain July 04, 2019. Head CT February 07, 2023. TECHNIQUE: Utilizing 1.5 Suzanne magnet and dedicated coil, multiplanar, multiecho imaging of the brain was performed pre and postcontrast administration according to multiple sclerosis protocol. Intraven ous injection of 10 cc of Gadavist was uneventful. FINDINGS: There are no foci of restricted diffusion to suggest acute infarct. No acute intracranial h emorrhage, midline shift or mass effect is present. Ventricular system is unremarkable. Basal cistern s are patent. There are no extra-axial collections. Flow-voids for the major intracranial vessels are present. Numerous white matter T2 hyperintense foci are noted. These have mildly progressed when com pared to MRI of July 04, 2019. T2 hyperintensity within the mily has also mildly progressed. Ther e are no calvarial lesions. No orbital abnormality is identified on nondedicated exam. IMPRESSION: 1. No acute intracranial findings. 2. No intracranial mass or pathologic enhancement. 3. Numerous white matter T2 hyperintense foci which have mildly progressed since MRI of July 04, 2019. These favor small vessel disease. A superimposed demyelinating disease would be difficult to ex clude but is considered unlikely. ACT 112: Negative or not required by law. Electronically signed by: Corey Velazquez M.D. 04/01/2025 1:27 PM
[2025-04-01] MEDS: LACTATED RINGER'S 500 ML IV SCH (17:57)
--- NOTE | 2025-04-01 20:35 | CT Scan Report ---
CT of the chest without contrast Technique: Noncontrast axial images of chest. Coronal and sagittal reformatted images made available for review Comparison made with prior exam dated 02/07/2023 Findings: Patchy nodular infiltrates scattered throughout the lungs bilaterally with a particular lower lobe predominance. This is new when compared with the prior exam and may be of infectious or inflammatory etiology. No effusions. Bone windows demonstrate no focal abnormality. Limited valuation upper abdomen demonstrates postoperative changes prior cholecystectomy. Splenomegaly is present. Impression: Multifocal pneumonia. Recommend repeat CT scan in 3 months to assess for stability/resolution. Electronically signed by Tushar Weber 04-01-2025 8:34 PM
[2025-04-01] MEDS: DICYCLOMINE HCL 10 MG CAP PO SCH (21:14)
[2025-04-01 21:47] VITALS: TEMP 98.1
[2025-04-02] MEDS: DICYCLOMINE HCL 10 MG CAP PO ONE (01:03)
[2025-04-02 06:10] LABS: Hematocrit (blood only) 35.2 % (37.0-47.0); Hemoglobin 11.4 g/dl (12.0-16.0); Immature Granulocytes # (auto) 0.01 K/uL (0.01-0.20); Immature Granulocytes % (auto) 0.4 %; Mean Corpuscular Hemoglobin 29.8 pg (25.0-34.0); Mean Corpuscular Volume 91.9 fL (80.0-100.0); Platelet Count 62 K/uL (130-400); RDW Standard Deviation 51.3 fL (36.4-46.3); Red Blood Count 3.83 M/uL (4.20-5.40); White Blood Count 2.78 K/ul (4.8-10.8)
[2025-04-02 06:30] LABS: Anion Gap 5 (3-11); Blood Urea Nitrogen 9 mg/dl (6-23); Calcium 8.3 mg/dl (8.6-10.3); Carbon Dioxide 28 mmol/L (21-32); Chloride 108 mmol/L (98-107); Creatinine Clr Calc Pharmacy 64.9 ml/min; Glucose 90 mg/dl (70-99(Fasting)); Potassium 3.7 mmol/L (3.5-5.1); Sodium 141 mmol/L (136-145)
[2025-04-02 06:32] LABS: Alanine Aminotransferase < 3 U/L (7-52); Albumin Globulin Ratio 0.9 (0.9-2); Albumin Level 2.7 gm/dl (3.4-5.0); Alkaline Phosphatase 68 U/L (34-104); Bilirubin,Total 1.0 mg/dl (0.2-1.0); Globulin 3.0 gm/dl (2.5-4.0); Magnesium 1.5 mg/dl (1.7-2.4); Total Protein 5.7 gm/dl (6.0-8.3)
[2025-04-02 08:13] VITALS: BP 132/80; PULSE 70; RESP 16; O2SAT 92
[2025-04-02] MEDS: AZITHROMYCIN 250 MG TAB PO SCH (09:25)
[2025-04-02] MEDS: MAGNESIUM SULFATE / D5W 1 GM/100 ML BAG IV SCH (09:33)
[2025-04-02] MEDS: CYCLOBENZAPRINE HCL 10 MG TAB PO STA (10:08)
--- NOTE | 2025-04-02 15:22 | Discharge Summary ---
Discharge Summary Date of Service April 02, 2025 Principal Dx & Hospital Course #1 = Principal Diagnosis (1) Gastroenteritis: (2) Epigastric pain: (3) Cirrhosis: (4) Essential hypertension: (5) Primary hypothyroidism: (6) Hypomagnesemia: (7) Hypokalemia: (8) Pancytopenia: (9) Multifocal pneumonia: Plan This patient is a 60-year-old female who presented on 03/29 for right upper abdominal pain, dizziness, and N/V/D x 2 hours [employer]. Day of discharge 04/02: VSS at time of discharge. Patient reports she wants to go home today. She is willing to stay to try p.o. antibiotics in the setting of new found pneumonia, but reports she is going home afterward. Overall, despite attempting different remedies, her pain is largely the same as it was when she came into the hospital. The pain is a 9 out of 10 at worst and many different locations (upper back, lower back, right flank, epigastric region, and chest). She tried taking Bentyl last night, but then developed "weird dreams". She woke up thinking she had to "take the kids to school". She would like to avoid this medication moving forward. Additionally, patient reports that she needs to attend her 's uncle's in [facility] this weekend. When asked if she has taken cephalosporins in the past, she is unsure. However, she believes that whenever she takes penicillins her "throat closes up". Patient is upset regarding the medication she had been given over the course of her hospital stay, as she had recently seen her PCP on 03/26 (Nirlai), who had printed the discharge list discontinuing many of her current medications. When asked why these medications were discontinued, she reports they were stopped for "constipation". Reviewed most recent PCP paper med list at bedside, and the following medications were stopped on 03/26: Dicyclomine, lisinopril, spironolactone, vitamin B1, atorvastatin, carvedilol, aspirin, and vitamin D. Will plan to hold these medications upon discharge. ROS: Patient endorses feeling hot/sweaty overnight, worsening joint pain throughout her hospital stay, ongoing chest pain, right upper quadrant pain, and back pain. Please see supplemental communication note regarding patient leaving prior to discharge instructions being given. 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 x 1 while in the hospital NOTE: Patient was reportedly doing well 1 hour after this was administered, but she left the hospital and was not assessed by a medical provider after was given Will plan to discharge patient on the following antibiotics: - Cefuroxime 500 mg twice daily x 5 days - Azithromycin 250 mg daily x 4 days #Recurrent colitis | IBS | viral gastroenteritis A/P CT on arrival revealed mild diffuse colonic wall thickening similar to prior CT; nonspecific colitis was favored; no evidence of bowel obstruction Protonix and Carafate have reportedly not helped Reviewed prior gastroenterology workup from 01/14 Stool calprotectin on 01/20 WNL Negative C. difficile Transglutaminase WNL; elevated IgA at 782 on celiac panel Overall, patient symptoms are more in alignment with IBS / GERD Gastroenterology consult appreciated Patient underwent colonoscopy on 03/31, but unfortunately stool in the colon presented for colonoscopy Noted internal hemorrhoids; no colitis or masses up to the splenic flexure Recommended repeat colonoscopy as outpatient May also benefit from having an EGD done to assess for peptic ulcer Recommend 2 g NA diet and dicyclomine IV Compazine and Zofran PRN for N/V Patient was trialed on a low fiber diet on 04/01 at 04/02, but reports she had e xacerbation of epigastric pain approximately ~10min after eating; ? Peptic ulcer Patient had a poor side effect from dicyclomine on the evening of 04/01 (confusion overnight); will discontinue this medication upon discharge #Blurry vision | H/o stroke in 2018 with residual left Patient reports blurry vision on the morning of 04/01 She also reports new onset confusion and is concerned She reports frequency of radiation "every month" She does not have prior history of MS, she reports her mother had MS Patient requesting brain MRI at this time to assess for recurrence of stroke, and check for MS COVID, flu, RSV negative Brain MRI with and without contrast did not reveal acute intracranial findings; small vessel disease; superimposed demyelinating disease unlikely #Generalized abdominal pain | epigastric pain | back pain | fibromyalgia Suspected due to gastroenteritis/colitis seen on imaging Note: A/P CT also noted several ground glass opacities favoring an infectious process; while unlikely septic emboli within ddx Clinically, patient has remained hemodynamically stable Normotensive on 04/01; no reported fevers; no leukocytosis Minimally hypertensive throughout her hospital stay; lower suspicion for aortic dissection No episodes of tachycardic or hypoxic throughout her hospital stay; lower suspicion for pulmonary Suspect her pain is multifactorial: (1) multifocal pneumonia, (2) right sided colitis, (3) IBS, and (4) GERD Lidocaine application application to back as needed Discontinued IV morphine on the evening of 03/31 Continue gabapentin 100 mg HS upon discharge Difficult to increase dose based on liver cirrhosis #Constipation (resolved) MiraLAX daily Patient reports she did have a bowel movement on the morning of 04/01 #Liver cirrhosis Non-alcoholic LFTs minimally elevated; lipase WNL Spironolactone on hold based on most recent PCP appointment ? Portal HTN colopathy as potential contributor to pain #Pancytopenia Noted on labs; trend Could be secondary to viral gastroenteritis v. Liver cirrhosis #Anxiety Continue clonazepam 0.5 mg TID #Essential hypertension Stable. Continue current medical management #Primary hypothyroidism Continue Synthroid #Hypokalemia | hypomagnesemia Secondary to watery stool Replete PRN #Hypomagnesemia Refractory to IV magnesium in the hospital Will discharge patient on magnesium supplementation Disposition: Left hospital before being discharged; discharged to home on 04/02 Notes For Next Care Provider This patient was hospitalized from 03/29 - 04/02 for right upper quadrant abdominal pain with radiation towards the chest, as well as back pain. She has had multiple admissions for similar. Imaging of the abdomen and pelvis revealed a nonspecific colitis. She underwent a colonoscopy, but could not tolerate the prep, and did not have a bowel movement after Dulcolax was given. Unfortunately, the results of her colonoscopy were not helpful, and her GI team is recommended that she have a repeat colonoscopy done as an outpatient. Given she reported exacerbation of her abdominal pain 10 minutes after eating, she may also benefit from an EGD to assess for peptic ulcer. Her vitals remained hemodynamically stable throughout her hospital stay. Despite this, she reported ongoing 9 out of 10 pain in multiple locations. Patient's pain remains unclear at time of discharge. However, suspect this was multifactorial: (1) IBS leading to intermittent constipation and diarrhea, and recurrent colitis, (2) multifocal pneumonia, (3) hepatic colopathy from her liver cirrhosis, and (4) GERD. Patient was discharged on cefuroxime 500 mg p.o. BID x 5 days and azithromycin 250 mg p.o. x 4 days for her multifocal pneumonia on discharge. Blood culture still pending at time of discharge. Additionally, patient had a low magnesium throughout her hospital stay, likely secondary to diarrhea in setting of IBS C/D. Her magnesium is 1.5 at time of discharge. May need to adjust current magnesium supplementation as an outpatient. Admission HPI Per Admitting Provider 60-year-old white female with several days of intermittent nausea vomiting and loose stools. She denies hematemesis, melena, hematochezia. She came to the ED for evaluation. Abdominal pelvic CT scan reveals evidence of colon wall thickening. Lipase is normal. Potassium is slightly low at 3.4. She has a history of cirrhosis and liver enzymes are slightly elevated with normal lipase. She will be admitted for further evaluation and treatment. No other immediate family members are ill. This does not appear to be food poisoning Admission Exam Per Admitting Provider General-alert and oriented x3, no fever, no chills HEENT-head atraumatic and normocephalic, pupils equal and reactive to light, extraocular muscles intact Neck-no lymphadenopathy or thyromegaly, trachea midline Chest-clear to auscultation. No rales, wheezing or rhonchi Cardiac-regular rate and rhythm, normal S1 and S2 Abdomen-normal bowel sounds, no hepatosplenomegaly. Epigastric tenderness. No palpable masses. No rebound or guarding Extremities-no cyanosis, clubbing, or edema Neuro-cranial nerves II through XII intact, motor and sensory function within normal limits, strength symmetrical, no focal deficits Psych-normal affect, normal mood Discharge Exam General: no acute distress; fatigued; at bedside; non-toxic appearing; cooperative; SpO2 92% on RA HEENT: normocephalic, atraumatic; no scleral icterus; PERRLA; vision and hearing grossly intact Neck: supple; no lymphadenopathy; trachea midline Skin: warm, dry without signs of tenting; no cyanosis; no rashes, bruising, lesions, or erythema noted CV: chest wall NTP; RRR; pulses intact and symmetric at radial, DP, and PT Lungs: no acute respiratory distress; symmetrical chest wall expansion; clear breath sounds across all lung mtz w/o adventitious sounds; no wheezing ABD: Soft, TTP in all 4 quadrants as well as epigastric region; right flank is TTP; BS present; no rebound/guarding; no distention; no rashes or bruising appreciated on the abdomen flanks bilaterally MSK: no tics or fasciculations; no edema noted in the LEs b/l, nonerythematous Neuro: A&Ox3; normal mood and affect; fluent speech; no focal deficits; patient report sensation is intact and symmetric in the lower extremities bilaterally assessed via light touch Discharge Plan Discharge Items Patient Disposition: Home - Self-Care Reason For Visit: GASTROENTERITIS, ABD PAIN Discharge Diagnosis: Gastroenteritis, colitis, multifocal pneumonia Condition on Discharge: Fair Activity: As commented below Activity Comment: Gradually resume previous activity as tolerated Non-emergency contact: Primary Care Provider Call non-emergency contact if: you have any medication questions, your symptoms worsen, your pain is not controlled, your pain is worsening and you have a fever Follow-up/Referrals: Abraham Ryan MD [Primary Care Provider] - Diet: Low Sodium (2gm) Addtl Attending Provider Instructions: You were hospitalized at [facility] from 03/29 - 04/02 due to intractable right sided abdominal pain radiating up to the chest, as well as back pain. Imaging of your abdomen and pelvis on arrival revealed a nonspecific colitis in the right colon. Throughout your hospital stay, your vital signs remained stable. You did not have any episodes of acute hypoxia, or low oxygen saturation. You underwent a colonoscopy with our gastroenterology team (Dr. Lloyd) on 03/31. Unfortunately, colonoscopy results were poor due to bowel blockage from stool; from what was obtained, there was no evidence of colitis in the left colon. Our gastroenterology team believes that the thickening of your right colon was due to edema (or swelling) caused by your liver cirrhosis. Gastroenterology also suggested a repeat colonoscopy as an outpatient with better bowel prep. If this is done as an outpatient, we would also recommend an EGD to assess for peptic ulcers Given you mentioned "pain with deep breaths", additional imaging of your chest was taken prior to discharge, which revealed a multifocal pneumonia in the lower lung mtz bilaterally. This CT imaging was reviewed by both hospital medicine team, and is possible that this is a viral pneumonia versus bacterial. However, out of an abundance of caution, we will plan to send you home on the following antibiotics: - Azithromycin 250 mg x 4 days - Cefuroxime 500 mg twice daily x 5 days Please plan to follow-up with your PCP in the next 7 to 10 days for a transitional care appointment. We also recommend that you follow-up with gastroenterology as an outpatient. If you develop any new or worsening symptoms, such as fever, chills, difficulty breathing, rapid heart rate/chest palpitations, intractable chest pain, nausea, or vomiting, please return to the emergency department immediately. It was a pleasure taking care of you. Please reach out any questions or concerns. Sincerely, The Hospital medicine team at [facility] Pending Studies at Discharge: Yes Studies:: Blood cultures Stand-Alone Forms: My [facility] Medications and DC Order Prescriptions: New azithromycin 250 mg tablet 250 mg PO DAILY 4 Days Qty: 4 0RF Rx Instructions: ORDERED 04/02/25, PER PT "HAVE NOT TAKEN THIS MED" Take 1 tablet by mouth daily Continued (DME) Monoject Safety Syringes 3 mL 23 gauge x 1" syringe See Rx Instructions .Route Qty: 1 0RF Rx Instructions: As directed (DME) needle (disp) 23 gauge [Aqinject Standard Needle] 23 gauge x 1" needle See Rx Instructions .Route Qty: 100 0RF Rx Instructions: As directed (DME) BD Eclipse 25 gauge x 1" needle See Rx Instructions .Route Qty: 15 0RF Rx Instructions: As directed (DME) Aspirating [place] clonazepam [Klonopin] 0.5 mg tablet 0.5 mg PO TID Rx Instructions: 1 tab in am 1 tab at noon & 1 tab at hs. sumatriptan succinate [Imitrex] 50 mg Tablet 100 mg PO DIRECTED PRN (Reason: Migraine Headache) omeprazole 40 mg capsule,delayed release(DR/EC) 40 mg PO BID tramadol 50 mg tablet 50 mg PO Q6H PRN (Reason: Pain) promethazine 25 mg tablet 25 mg PO Q6H PRN (Reason: Nausea) albuterol sulfate 90 mcg/actuation Hfa Aerosol Inhaler 2 puff INHALATION QID sennosides-docusate sodium [Senokot-S] 8.6-50 mg Tablet 1 tab PO QPM Qty: 14 0RF Rx Instructions: Take 1 tablet by mouth every evening lidocaine 5 % adhesive patch,medicated 1 patch topical DAILY PRN (Reason: Back Pain) Rx Instructions: leave on most painful area for up to 12 hrs fluoxetine 40 mg capsule 80 mg PO QAM cyclobenzaprine 10 mg tablet 10 mg PO BID PRN (Reason: Muscle Spasm) carbidopa-levodopa 25-100 mg tablet extended release 1 tab PO HS Held aspirin [Aspirin Childrens] 81 mg Tablet,Chewable 81 mg PO DAILY Hold Instructions: Resume on 04/30/25. Hold until seen by PCP for follow-up Rx Instructions: ON HOLD lisinopril [Zestril] 40 mg tablet 40 mg PO QAM Hold Instructions: Resume on 01/07/25. Hold until seen by PCP for follow-up due to low blood pressure Rx Instructions: ON HOLD has been holding spironolactone 25 mg Tablet 50 mg PO QAM Qty: 60 0RF Hold Instructions: Resume on 04/30/25. Hold until seen by PCP for follow-up Rx Instructions: ON HOLD Take 2 tablets by mouth every morning carvedilol 6.25 mg tablet 6.25 mg PO BID Hold Instructions: Resume on 04/30/25. Hold until seen by PCP for follow Rx Instructions: ON HOLD cholecalciferol (vitamin D3) [Vitamin D3] 25 mcg (1,000 unit) Tablet,Chewable 25 mcg PO DAILY Hold Instructions: Resume on 04/30/25. Hold until seen by PCP for follow-up Rx Instructions: ON HOLD Discontinued dicyclomine 10 mg capsule 10 mg PO QID PRN (Reason: abdominal pain) Qty: 30 0RF Rx Instructions: Take 1 tablet by mouth up to 4 times daily as needed for abdominal pain No Action atorvastatin 40 mg Tablet 40 mg PO DAILY Rx Instructions: ON HOLD lamotrigine [Lamictal] 25 mg Tablet 25 mg PO DAILY Rx Instructions: ON HOLD magnesium hydroxide [Milk of Magnesia] 400 mg/5 mL Suspension 15 ml PO BID PRN (Reason: Constipation) levothyroxine 50 mcg Tablet 50 mcg PO DAILYBB cyanocobalamin (vitamin B-12) [Vitamin B-12] 1,000 mcg/mL Solution 1,000 mcg IM DIRECTED Rx Instructions: ON HOLD ibuprofen 600 mg Tablet 600 mg PO TID PRN (Reason: Pain) ondansetron [Zofran ODT] 4 mg Tablet,Disintegrating 4 mg PO Q8H PRN (Reason: NAUSEA/VOMITING) dicyclomine 10 mg Capsule 10 mg PO DIRECTED Rx Instructions: ON HOLD riboflavin (vitamin B2) 400 mg Tablet 400 mg PO DAILY magnesium oxide 400 mg magnesium Tablet 400 mg PO HS Discharge Orders: Discharge Order (Routine); Ordered 04/02/25 Ordered By: Randy Ayon Admission Data Admit Date/Time: 03/29/25 16:21 Attending Provider: Huber Triana Admit Provider: Chris Valdes Primary Care Provider: Abraham Ryan Other Providers: Kahlil Lloyd Other Interventions: Discharge Summary Assessment (RN) Last Done: 04/02/25 15:18 Hospital Stay Data Consultations 03/29/25 15:02 ED Decision to Admit Stat 03/30/25 10:50 Consult Gastroenterology Routine Procedures Performed Operation Date: 03/31/25 16:30 Actual Procedures p Colonoscopy - Kahlil Lloyd MD Diagnostic Imagining Performed 03/29/25 12:11 CT abd pelvis IV con only Stat 03/29/25 12:30 US leg [US venous doppler LE RT] Stat 04/01/25 CT chest diagnostic wo con Routine 04/01/25 10:29 MR brain MS wo/w con Urgent Pending Results Patient Have Any Pending Studies at Discharge: Yes Discharge Instructions Given to Patient (Per Discharging Provider) You were hospitalized at [facility] from 03/29 - 04/02 due to intractable right sided abdominal pain radiating up to the chest, as well as back pain. Imaging of your abdomen and pelvis on arrival revealed a nonspecific colitis in the right colon. Throughout your hospital stay, your vital signs remained stable. You did not have any episodes of acute hypoxia, or low oxygen saturation. You underwent a colonoscopy with our gastroenterology team (Dr. Lloyd) on 03/31. Unfortunately, colonoscopy results were poor due to bowel blockage from stool; from what was obtained, there was no evidence of colitis in the left colon. Our gastroenterology team believes that the thickening of your right colon was due to edema (or swelling) caused by your liver cirrhosis. Gastroenterology also suggested a repeat colonoscopy as an outpatient with better bowel prep. If this is done as an outpatient, we would also recommend an EGD to assess for peptic ulcers Given you mentioned "pain with deep breaths", additional imaging of your chest w as taken prior to discharge, which revealed a multifocal pneumonia in the lower lung mtz bilaterally. This CT imaging was reviewed by both hospital medicine team, and is possible that this is a viral pneumonia versus bacterial. However, out of an abundance of caution, we will plan to send you home on the following antibiotics: - Azithromycin 250 mg x 4 days - Cefuroxime 500 mg twice daily x 5 days Please plan to follow-up with your PCP in the next 7 to 10 days for a transitional care appointment. We also recommend that you follow-up with gastroenterology as an outpatient. If you develop any new or worsening symptoms, such as fever, chills, difficulty breathing, rapid heart rate/chest palpitations, intractable chest pain, nausea, or vomiting, please return to the emergency department immediately. It was a pleasure taking care of you. Please reach out any questions or concerns. Sincerely, The Hospital medicine team at [facility] Supervising Physician Co-Signing Physician Notes Attending Attestation and Discharge Note: Chart reviewed, discharge care plan d/w RAVI Ayon. I agree w/ the funez components of his discharge documentation. Of note - I did not perform a bedside visit or exam on day of discharge. 60yo female with history of cirrhosis, HTN, fibromyalgia, asthma, pancytopenia, and hypothyroidism. Presented with right upper quadrant abdominal pain, dizziness, and nausea/emesis/diarrhea. The exact etiology of her symptoms was initially elusive. COVID/flu/RSV negative. U/a was negative. Lung cuts from the CT of the abd/pelvis showed nodular infiltrates. The CT also showed possible colitis. Due to her abd pain and CT findings gastroenterology was consulted & patient underwent colonoscopy. Unfortunately the prep was poor and therefore the scope was non-diagnostic. Stool BioFire and stool for c. diff were all negative. Later on in the stay a dedicated CT of the chest was obtained due to the lung findings previously seen on CT abd/pelvis. The CT chest showed multifocal pneumonia. We suspect that many of her symptoms were due in part to pneumonia. She will complete a course of PO cefuroxime BID and azithromycin for the pneumonia. She will need close f/u in the outpatient setting given the large quantity of symptoms she had while here. Recommend a repeat CT chest in 2-3 months as well to ensure full resolution of the lung infiltrates. Huber Triana MD Total Time Total Time Spent Total Time Spent (In Minutes): 35 Coding [place] [address] INP/OBS DISCH >30 MIN Patient Type Established Medical Decision Making High Complexity Diagnoses Gastroenteritis K52.9 Epigastric pain R10.13 Cirrhosis K74.60 Essential hypertension I10 Primary hypothyroidism E03.9 Hypomagnesemia E83.42 Hypokalemia E87.6 Pancytopenia D61.818 Multifocal pneumonia J18.8
--- NOTE | 2025-04-02 15:38 | Communication Note ---
Note: Patient left the hospital at 1530 on 04/02 prior to her discharge paperwork being printed. We had discussed that she could potentially be discharge earlier today; it was contingent on how she did after trying a cephalosporin for her newfound multifocal pneumonia (given her history of PCN allergy, and reported throat closure). Patient refused to stay while awaiting discharge paperwork, and she was not examined by medical provider after this medication was administered. Per nursing staff, she was feeling fine approximately 1 hour after this medication was given. While I would not characterize this is leaving "AGAINST MEDICAL ADVICE", she left abruptly despite being asked to wait to ensure appropriate transitional care, and she did not receive any discharge paperwork or education on medication/condition upon leaving the hospital today. Date of Service: April 02, 2025
== END 2025-04-02 15:52 | disposition home or self-care (01) | DRG 391 ==
LOC: SUATTDRO → ED 11:44 → INTOOBSV 16:21 → SUATTDRO 16:21 → EDINP 16:21 → 3N 20:13 → 3E 03-31 22:00

== ENCOUNTER 2025-04-04 19:32 | Inpatient (IN) ==
--- NOTE | 2025-04-04 19:54 | Emergency Department Note ---
ED Provider Note History of Present Illness Chief Complaint: Fall Stated Complaint: FALL, INJURED SPINE Time Seen by Provider: 04/04/25 19:37 Source: patient Mode of arrival: ambulatory Limitations: no limitations Patient is a 60-year-old female that presents to the emergency department with complaints of lower back pain and tailbone pain. Patient states that she fell approximately 14 hours prior to arrival when she was at a wedding in [place]. Patient was walking around in high-heeled shoes and lost her balance and fell to her buttocks. Patient states that she has had lower back pain since and it is radiating down her bilateral lower extremities. Patient denies any numbness or tingling. Patient also denies any loss of bladder or bowel. Patient states that she rode back from [place] in the vehicle and has had increased pain. Home Medications Medication Instructions Recorded Confirmed Type Aspirating [place] 11/07/21 01/14/25 History albuterol sulfate 90 mcg/actuation 2 puff inhalation QID Shortness Of 11/07/21 04/04/25 History aerosol inhaler Breath Or Wheezing aspirin 81 mg chewable tablet 81 mg PO DAILY 11/07/21 04/04/25 History (Aspirin Childrens) clonazepam 0.5 mg tablet (Klonopin) 0.5 mg PO TID 11/07/21 04/04/25 History lisinopril 40 mg tablet (Zestril) 40 mg PO QAM 11/07/21 04/04/25 History omeprazole 40 mg capsule,delayed 40 mg PO BID 11/07/21 04/04/25 History release promethazine 25 mg tablet 25 mg PO Q6H PRN Nausea 11/07/21 04/04/25 History sumatriptan succinate 50 mg tablet 100 mg PO DIRECTED PRN Migraine 11/07/21 04/04/25 History (Imitrex) Headache tramadol 50 mg tablet 50 mg PO Q6H PRN Pain 11/07/21 04/04/25 History needle (disp) 23 gauge 23 gauge x #100 ea 11/12/23 01/14/25 Rx 1" (Aqinject Standard Needle) safety needles 25 gauge x 1" (BD #15 ea 11/12/23 01/14/25 Rx Eclipse) syringe with needle, safety 3 mL #1 ea 11/12/23 01/14/25 Rx 23 gauge x 1" (Monoject Safety Syringes) sennosides 8.6 mg-docusate sodium 1 tab PO QPM #14 tabs 12/24/24 04/04/25 Rx 50 mg tablet (Senokot-S) spironolactone 25 mg tablet 50 mg (2 x 25 mg) PO QAM #60 tabs 12/24/24 04/04/25 Rx lidocaine 5 % topical patch 1 patch topical DAILY PRN Back Pain 02/05/25 04/04/25 History carbidopa ER 25 mg-levodopa 100 mg 1 tab PO HS 03/29/25 04/04/25 History tablet,extended release carvedilol 6.25 mg tablet 6.25 mg PO BID 03/29/25 04/04/25 History cholecalciferol (vitamin D3) 25 25 mcg PO DAILY 03/29/25 04/04/25 History mcg (1,000 unit) chewable tablet (Vitamin D3) cyclobenzaprine 10 mg tablet 10 mg PO BID PRN Muscle Spasm 03/29/25 04/04/25 History fluoxetine 40 mg capsule 80 mg PO QAM 03/29/25 04/04/25 History azithromycin 250 mg tablet 250 mg PO DAILY Multifocal 04/02/25 04/04/25 Rx pneumonia 4 days #4 tabs atorvastatin 40 mg tablet 40 mg PO DAILY 04/04/25 04/04/25 History cyanocobalamin (vitamin B-12) 1,000 mcg IM DIRECTED 04/04/25 04/04/25 History 1,000 mcg/mL injection solution dicyclomine 10 mg capsule 10 mg PO DIRECTED 04/04/25 04/04/25 History ibuprofen 600 mg tablet 600 mg PO TID PRN Pain 04/04/25 04/04/25 History lamotrigine 25 mg tablet (Lamictal) 25 mg PO DAILY 04/04/25 04/04/25 History levothyroxine 50 mcg tablet 50 mcg PO DAILYBB 04/04/25 04/04/25 History magnesium hydroxide 400 mg/5 mL 15 ml PO BID PRN Constipation 04/04/25 04/04/25 History oral suspension (Milk of Magnesia) magnesium oxide 400 mg PO HS 04/04/25 04/04/25 History ondansetron 4 mg disintegrating 4 mg PO Q8H PRN NAUSEA/VOMITING 04/04/25 04/04/25 History tablet riboflavin (vitamin B2) 400 mg 400 mg PO DAILY 04/04/25 04/04/25 History tablet Allergies Allergy/AdvReac Type Severity Reaction Status Date / Time Penicillins Allergy Intermediate Unknown Verified 04/04/25 21:50 childhood reaction, ? swelling famotidine AdvReac Severe Diarrhea Verified 04/04/25 21:50 dicyclomine [From Bentyl] AdvReac Intermediate Confusion Verified 04/04/25 21:50 Sulfa (Sulfonamide AdvReac Intermediate N/V Verified 04/04/25 21:50 Antibiotics) Past Med/Surg History Problem List (Updated 04/05/25 @ 01:48 by SEBLE Schilling) Lumbar compression fracture (Acute) Intractable back pain (Acute) Multifocal pneumonia Pancytopenia Hypomagnesemia Primary hypothyroidism Cirrhosis Essential hypertension Hypokalemia Epigastric pain Gastroenteritis Colitis (Acute) Acute pain of right lower extremity (Acute) Intractable abdominal pain (Acute) Symptoms consistent with irritable bowel syndrome Colitis Anemia Arthralgia of multiple joints Cervical spine pain Lumbar spine pain Numbness and tingling Easy fatigability Muscle weakness (generalized) Weakness of muscle of left side of face due to and not concurrent with cerebrovascular accident (CVA) Orthostatic hypotension (Acute) Hemorrhoids (Acute) Rectal bleeding (Acute) COVID Right flank pain Left-sided weakness Idiopathic polyneuropathy 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 Fatigue Left sided numbness Weakness on left side of face Depression with anxiety (Chronic) Asthma (Chronic) Vitamin D deficiency (Chronic) Bilateral shoulder pain Fibromyalgia MRSA (methicillin resistant Staphylococcus aureus) carrier Gait abnormality Third nerve palsy of left eye POOR VISION IN LEFT EYE RUE weakness (Acute) Double vision (Acute) Migraine (Chronic) Interstitial cystitis (Chronic) Renal calculi (Chronic) Endometriosis (Chronic) Allergic rhinitis (Chronic) Medical History Weakness on left side of face Hx of renal calculi Idiopathic polyneuropathy Depression with anxiety Cervical spine pain full rom Colitis Constipation Abdominal pain Hx MRSA infection (~2019) Chronic pain Interstitial cystitis Per records Asthma pt. denies, states has inhaler for allergies History of COVID-19 2021, 2022- symptoms resolved Type 2 diabetes mellitus Hemorrhoids Internal/external Meniere disease Chronic lightheadedness/dizziness Neuropathy RLE, b/l feet Restless leg syndrome Stable GERD (gastroesophageal reflux disease) Hyperlipidemia Per records, patient denies indicating she is on statin for stroke pervention History of pulmonary embolism 2017 after "long bus ride" Previously on Coumadin x months, then discontinued and started on ASA No issues since CVA (cerebral vascular accident) (2018) Remote hx , residual slurred speech, left weakness, memory impairment - follows with dr. lopez IBS (irritable bowel syndrome) Diarrhea/constipation combination HTN (hypertension) Fibromyalgia Surgical History Nausea and vomiting after administration of anesthetic agent History of cystoscopy Bladder distention x2 History of tooth extraction History of esophagogastroduodenoscopy (EGD) History of colonoscopy S/P tubal ligation History of hysterectomy S/P cholecystectomy Family History Mother , age 63 of cerebral aneurysm. Cerebral aneurysm Father , age 63 of an [place] Myocardial infarction Other Heart disease Hypertension No family history of adverse response to anesthesia Social History Smoking Status: Never smoker Second Hand Exposure: No; Do You Dip or Chew Tobacco: No; Hx Alcohol Use: Yes Alcohol type: wine Alcohol Intake Frequency Comment: Once a month. Hx Substance Use: Yes Last Used Substance: Unknown Preferred Language: Uzbek Communication Ability: Effective Communication Ability Comment: NO COMMUNICATION DEFICITS FOR PAT PHONE CALL Patient Transport Officer Required: No Beliefs That Will Affect Care: None marital status: Current Living Situation: Spouse current occupational status: employed current occupation: Works at the [employer]. 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 Feels Safe at Home: Yes Safety Concerns: Feels Safe At This Time Assistive Devices: Glasses and Walker Physical Exam Vital Signs Vital Signs - 24 hr 04/04/25 19:33 04/04/25 19:42 04/04/25 23:36 Temperature 36.5 C Temperature Source Temporal Artery Scan Pulse Rate 84 76 73 Respiratory Rate 20 Respiratory Effort / Characteristics Non-Labored Spontaneous Respiratory Depth Normal Respiratory Pattern Regular Blood Pressure 160/96 H Blood Pressure Mean 117 Pulse Oximetry 100 Oxygen Delivery Method Room Air Sepsis Recent Fever Within 48 Hours No Sepsis New/Unexplained Change in Mental Status No Sepsis Action Taken by Nursing No Action Required VITAL SIGNS - Vital signs and nursing notes were reviewed. GENERAL -60-year-old female appearing her stated age and in noticeable discomfort throughout the exam. Patient's is at bedside. NECK - FROM of the cervical spine. ABDOMEN - Abdominal contour without pulsations or visible masses. BS normoactive all four quadrants. MUSCULOSKELETAL - ROM of the lumbar spine region was limited due to discomfort. No step-off deformities were palpated down the cervical, thoracic, or lumbar spines. Increased tenderness to Palpation experienced at the level of the lumbar spine bilateral paraspinal muscle distribution. NEUROLOGIC - REFLEXES: +3/4 patellar reflexes B/L, +3/4 Achilles reflexes B/L. SENSORY: Spinothalamic tract was found to be intact with ability to discriminate sharp versus dull sensation at the level of hip joint down do the great toe. No sensory defects of the dorsal column were appreciated utilizing light touch for evaluation. CEREBELLAR: Pt able to perform rapid alternating movements of the feet. EXTREMITIES - Range of Motion - No tremors, ticks, or fasciculations of the lower extremities noticed during inspection. FROM of the lower extremities. No clonus noted with PROM of the lower extremities bilaterally. Pt able to perform straight leg raises B/L without any difficulty. Pt had + 5 strength appreciated in bilateral in the lower extremities against examiner's resistance. VASCULAR - Capillary refill of the great toe was brisk. No mottling or blanching of the extremities present. +3/5 dorsalis pedis pulses palpated bilaterally. Course Administered Medications Carbidopa/Levodopa (Carbidopa/Levodopa 25/100mg Ext Rel Tab) 1 tab PO HS JUAN CARLOS Stop: 05/05/25 02:04 Last Admin: 04/05/25 03:21 Dose: 1 tab Documented By: ANS Clonazepam (Clonazepam 0.5 Mg Tab) 0.5 mg PO TID PRN PRN Reason: Anxiety Stop: 05/05/25 02:04 Last Admin: 04/05/25 14:57 Dose: 0.5 mg Documented By: HRB Fluoxetine HCl (Fluoxetine Hcl 20 Mg Cap) 80 mg PO QAM JUAN CARLOS Stop: 05/05/25 08:59 Last Admin: 04/05/25 08:45 Dose: 80 mg Documented By: CHAZ Dexamethasone 6 mg/ Syringe 1.5 mls @ 1 mls/min IV Q24H JUAN CARLOS Stop: 05/05/25 08:59 Last Admin: 04/05/25 08:50 Dose: 1 mls/min Documented By: B Ketorolac Tromethamine (Ketorolac Tromethamine 15 Mg/Ml Vial) 10 mg IV Q6H PRN PRN Reason: Pain Stop: 04/10/25 02:04 Last Admin: 04/05/25 08:57 Dose: 10 mg Documented By: CHAZ Levothyroxine Sodium (Levothyroxine Sodium 50 Mcg Tablet) 50 mcg PO DAILYBB [facility] Stop: 05/05/25 06:29 Last Admin: 04/05/25 06:17 Dose: 50 mcg Documented By: thelma Pantoprazole Sodium (Pantoprazole 40 Mg Tab) 40 mg PO BID [facility] Stop: 05/05/25 02:04 Last Admin: 04/05/25 08:45 Dose: 40 mg Documented By: Admin: 04/05/25 03:21 Dose: 40 mg Documented By: AFRICA Polyethylene Glycol (Polyethylene (Miralax) 17 Gm Pack) 17 gm PO DAILY PRN PRN Reason: Constipation Stop: 05/05/25 02:04 Last Admin: 04/05/25 09:03 Dose: 17 gm Documented By: CHAZ Tramadol HCl (Tramadol Hcl 50 Mg Tablet) 50 mg PO Q6H PRN PRN Reason: Pain Stop: 05/05/25 02:04 Last Admin: 04/05/25 10:38 Dose: 50 mg Documented By: Admin: 04/05/25 04:02 Dose: 50 mg Documented By: thelma Discontinued Medications Albuterol (Albuterol Hfa 8 Gm Inhaler) 2 puffs INH QID [facility] Stop: 05/05/25 08:59 Last Admin: 04/05/25 13:00 Dose: Not Given Documented By: Admin: 04/05/25 08:53 Dose: Not Given Documented By: CHAZ Azithromycin (Azithromycin 250 Mg Tab) 250 mg PO NOW ONE Stop: 04/05/25 00:11 Last Admin: 04/05/25 01:23 Dose: 250 mg Documented By: GERA Cefuroxime Axetil (Cefuroxime Axetil 500 Mg Tab) 500 mg PO NOW ONE Stop: 04/05/25 00:11 Last Admin: 04/05/25 01:23 Dose: 500 mg Documented By: GERA Diphenhydramine HCl (Diphenhydramine 50 Mg/Ml Vial) 25 mg IV NOW STA Stop: 04/05/25 00:33 Last Admin: 04/05/25 01:23 Dose: 25 mg Documented By: GERA Enoxaparin Sodium (Enoxaparin Inj 40 Mg/0.4 Ml Syr) 40 mg SQ Q24H JUAN CARLOS Stop: 05/05/25 02:04 Last Admin: 04/05/25 03:16 Dose: Not Given Documented By: AFRICA Acetaminophen (Ofirmev) 1,000 mg in 100 mls @ 400 mls/hr IV NOW STA Stop: 04/04/25 21:56 Last Infusion: 04/04/25 23:59 Dose: Infused Documented By: Admin: 04/04/25 22:29 Dose: 400 mls/hr Documented By: NOMAN Dexamethasone 10 mg/ Syringe 2.5 mls @ 1 mls/min IV NOW STA Stop: 04/05/25 00:37 Last Admin: 04/05/25 01:22 Dose: 1 mls/min Documented By: GERA Magnesium Sulfate/Dextrose (Magnesium Sulfate / D5w) 1 gm in 100 mls @ 50 mls/hr IV Q2H JUAN CARLOS Stop: 04/05/25 07:29 Last Infusion: 04/05/25 08:54 Dose: Infused Documented By: Infusion: 04/05/25 07:27 Dose: 50 mls/hr Documented By: Infusion: 04/05/25 06:21 Dose: 0 mls/hr Documented By: thelma Admin: 04/05/25 05:48 Dose: 50 mls/hr Documented By: thelma Infusion: 04/05/25 05:45 Dose: Infused Documented By: thelma Admin: 04/05/25 03:43 Dose: 50 mls/hr Documented By: thelma Ketorolac Tromethamine (Ketorolac Tromethamine 15 Mg/Ml Vial) 10 mg IV NOW ONE Stop: 04/05/25 00:19 Last Admin: 04/05/25 01:22 Dose: 10 mg Documented By: GERA Lidocaine (Lidocaine 5% 1 Patch) 1 patch TD NOW STA Stop: 04/05/25 00:10 Last Admin: 04/05/25 01:23 Dose: 1 patch Documented By: GERA Miscellaneous (Remove Lidoderm Patch) 1 each N/A 1230 ONE Stop: 04/05/25 12:31 Last Admin: 04/05/25 13:00 Dose: 1 each Documented By: HRB Miscellaneous (Patient's Height &/Or Weight Needed) 1 each N/A Q2H STA Stop: 04/05/25 02:14 Last Admin: 04/05/25 03:02 Dose: 1 each Documented By: ANS Morphine Sulfate (Morphine Sulfate 4 Mg/Ml 1 Ml Carp\\Vial) 4 mg IV NOW STA Stop: 04/04/25 21:43 Last Admin: 04/04/25 22:29 Dose: 4 mg Documented By: BS Morphine Sulfate (Morphine Sulfate 2 Mg/Ml Carp) 2 mg IV NOW STA Stop: 04/05/25 13:32 Last Admin: 04/05/25 13:43 Dose: 2 mg Documented By: HRB Ondansetron HCl (Ondansetron Inj 2 Mg/Ml 2 Ml Vial) 4 mg IV NOW STA Stop: 04/04/25 21:43 Last Admin: 04/04/25 22:29 Dose: 4 mg Documented By: BS Oxycodone HCl (Oxycodone Hcl Ir 5 Mg Tab (Immediate Release)) 10 mg PO NOW STA Stop: 04/04/25 19:48 Last Admin: 04/04/25 20:24 Dose: 10 mg Documented By: mls Medical Decision Making Differential Diagnosis In the evaluation and treatment of this patient the following differential diagnoses were considered: Cauda equina syndrome, discitis, HNP, sciatica, epidural abscess, psoas abscess, musculoskeletal strain, lumbar fracture, lumbar dislocation, lumbar subluxation, spondylolisthesis, spondylosis, or compression fracture. Medical Records Attestation: I reviewed the patient's medical records. Home Medications was personally reviewed by me Laboratory Data 04/04/25 22:24 04/04/25 22:24 Lab Results 04/04/25 Range/Units 22:24 WBC 4.70 L (4.8-10.8) K/ul RBC 4.04 L (4.20-5.40) M/uL Hgb 12.0 (12.0-16.0) g/dl Hct 38.2 (37.0-47.0) % MCV 94.6 (80.0-100.0) fL MCH 29.7 (25.0-34.0) pg MCHC 31.4 L (32.0-36.0) g/dL RDW Std Deviation 54.6 H (36.4-46.3) fL RDW Coeff of Karen 15.7 H (11.5-14.5) % Plt Count 71 L (130-400) K/uL MPV 11.4 (9.4-12.4) fL Immature Gran % (Auto) 0.2 % Neut % (Auto) 67.9 % Lymph % (Auto) 20.6 % [place] % (Auto) 8.3 % Eos % (Auto) 2.6 % Baso % (Auto) 0.4 % Neut # (Auto) 3.19 (1.40-6.50) K/uL Lymph # (Auto) 0.97 L (1.20-3.40) K/uL Independence # (Auto) 0.39 (0.11-0.59) K/uL Eos # (Auto) 0.12 (0.00-0.50) K/uL Baso # (Auto) 0.02 (0.00-0.20) K/uL Immature Gran # (Auto) 0.01 (0.01-0.20) K/uL Sodium 139 (136-145) mmol/L Potassium 3.6 (3.5-5.1) mmol/L Chloride 106 (98-107) mmol/L Carbon Dioxide 27 (21-32) mmol/L Anion Gap 6 (3-11) BUN 9 (6-23) mg/dl Creatinine 1.05 (0.6-1.2) mg/dl Est Cr Clr Drug Dosing Not Reportable eGFR 60.08 BUN/Creatinine Ratio 8.6 L (10-20) Glucose 85 (70-99(Fasting)) mg/dl Calcium 8.9 (8.6-10.3) mg/dl Magnesium 1.5 L (1.7-2.4) mg/dl Total Bilirubin 1.1 H (0.2-1.0) mg/dl AST 33 (13-39) U/L ALT 21 (7-52) U/L Alkaline Phosphatase 87 (34-104) U/L Total Protein 6.7 (6.0-8.3) gm/dl Albumin 3.1 L (3.4-5.0) gm/dl Globulin 3.6 (2.5-4.0) gm/dl Albumin/Globulin Ratio 0.9 (0.9-2) Imaging Data Radiologist's Impression: Lumbar Spine CT 04/05/25 00:15 EXAM: CT lumbar spine wo con CLINICAL HISTORY: Possibly worsened L3 fx, pain. TECHNIQUE: CT non-contrast scan of lumbar spine done. Axial images obtained with reformatted coronal and sagittal images and submitted for interpretation. One of the following dose reduction techniques were utilized for this exam: Automated exposure control, adjustment of the mA and/or kV according to patient size, use of iterative reconstruction. COMPARISON: 02/07/2023 CT. FINDINGS: Vertebrae: Normal alignment of the lumbar vertebrae. Minimal retrolisthesis of L3 over L4 vertebra. Mild lumbar dextroscoliosis. Diffuse osteopenia. Mild lumbar spondylitic changes with tiny anterior osteophytes. Evidence of a transitional vertebra with lumbarized S1. Corticated mildly displaced fracture of both transverse processes of L1 vertebra, likely representing an old fracture. Anterior wedging of L2 vertebra with reduction of up to 30% of its height, with associated depression of its upper endplate, suggesting wedge fracture of indeterminate age. Anterior wedging of L3 vertebra with reduction of up to 50% of its height with an associated upper endplate Schmorl's node with a suspected transverse radiolucent line seen within the vertebral body with associated mild depression of its lower endplate, suggesting a possible acute on top of chronic wedging fracture. No detected retropulsed bony fragments. Intervertebral Discs: Reduced height of L2-3 intervertebral disc. Spinal Canal and Neural Foramina: L2-3 and L3-4 disc osteophyte complex indenting the anterior thecal sac and causing moderate bilateral neuroforaminal stenosis Facet Joints: Multilevel facet joint arthropathy Soft Tissues: Normal appearance of the paraspinal soft tissues. No abnormal masses, fluid collections, or signs of inflammation. IMPRESSION: 1. Anterior wedging of L3 vertebra with more reduction of its height compared to prior withnew transverse radiolucent line seen within the vertebral body with associated mild depression of its lower endplate suggesting possible acute on top of chronic wedging fracture. Correlate clinically. 2. Stable corticated mildly displaced old fracture of the both transverse processes of L1 vertebra. 3. Stable anterior wedging of L2 vertebra suggesting old wedge fracture. 4. No detected retropulsed bony fragments 5. Minimal retrolisthesis of L3 over L4 vertebra. stable 6. Diffuse osteopenia. stabe 7. Mild lumbar spondylitic changes with tiny anterior osteophytes. stabe 8. L2-3 and L3-4 disc osteophyte complex indenting the anterior thecal sac and causing moderate bilateral neuroforaminal stenosis. worsing 9. Mild lumbar dextroscoliosis. stabe Electronically signed by Bruce Salmon 04-05-2025 07:36 AM MDM Narrative Patient is a 60-year-old female that presents to the emergency department with complaints of lower back pain and tailbone pain. Patient states that she fell approximately 14 hours prior to arrival when she was at a wedding in [place]. Patient was walking around in high-heeled shoes and lost her balance and fell to her buttocks. Patient states that she has had lower back pain since and it is radiating down her bilateral lower extremities. Patient denies any numbness or tingling. Patient also denies any loss of bladder or bowel. Patient states that she rode back from [place] in the vehicle and has had increased pain. Patient was evaluated by myself and findings were noted in the physical exam above. Patient was ordered x-rays of her thoracic spine, lumbar spine, and coccyx. Patient was also ordered dose of Oxy IR for pain control. Upon reevaluation the patient was not feeling any better with a dose of oxycodone for pain. Patient is still writhing in bed complaining of severe pain. Patient was ordered IV placement and a dose of IV Tylenol and morphine. Patient was also ordered a dose of IV Zofran for any nausea that could be caused by the pain medication. Patient's lumbar spine x-ray was completed and interpreted by radiology to show a suspected minimally worsened moderate L3 compression fracture and a stable moderate L2 compression fracture. Those were noted on the patient's previous CT of the spine back in 2022. Patient also had a sacrum and coccyx x-ray that was completed and interpreted by radiology to show no acute findings of the sacrum or the coccyx. Patient also had a thoracic spine x-ray that was completed and interpreted by radiology to note no acute findings of the thoracic spine either. Upon subsequent reevaluation the patient states that she is feeling somewhat better after the dose of morphine. Patient states that she does not feel that she cannot control the significant pain that she is having at home and does not feel comfortable with discharge. I discussed with the patient that we can admit her for the hospital for intractable pain, however she does need to at some point be seen by orthopedic spine as she continues to have persistent issues with her back even prior to the fall. Patient verbalized understanding and was agreeable to the plan. I spoke with Dr. Coreas of the [facility] and gave him a full report of the patient's chief complaint, current status and the results of her imaging. He verbalized understanding and was agreeable to admit the patient under his service. Patient was at this time ordered a CBC and CMP as well. Please refer to the [facility]'s documentation for further evaluation and management of this patient. Impression Lumbar compression fracture, Intractable back pain Discharge Plan Visit Data Chief Complaint: Fall Stated Complaint: FALL, INJURED SPINE ED Provider: Richie Paez ED Midlevel Provider: Alberta Augustine Discharge Problem: Lumbar compression fracture, Intractable back pain Patient Disposition: Admitted As Inpatient Condition: Fair Discharge Instructions Interventions: ED Discharge Assessment Last Done: 04/05/25 01:30 ED DC CONDITION Conditon at Discharge Condition at Discharge: Fair Discharge Problem: Lumbar compression fracture Qualifiers: Encounter type: initial encounter Lumbar vertebra fracture level: L3 Qualified Code(s): S32.030A - Wedge compression fracture of third lumbar vertebra, initial encounter for closed fracture
--- NOTE | 2025-04-04 22:16 | XRay Report ---
Exam(s): XR SACRUM/COCCYX EXAM: XR Sacrum and Coccyx, 2 or more Views CLINICAL HISTORY: Pain TECHNIQUE: Frontal and lateral views of the sacrum and coccyx. COMPARISON: No relevant prior studies available. FINDINGS: Sacrum/coccyx: Unremarkable as visualized. No acute fracture. Vertebrae: Visualized lumbar vertebrae are unremarkable. Soft tissues: Unremarkable. IMPRESSION: No acute findings in the sacrum or coccyx. Electronically signed by: Tonja Mak MD 04/04/25 22:14 PM
[2025-04-04] MEDS: ONDANSETRON INJ 2 MG/ML 2 ML VIAL IV STA (22:29)
[2025-04-04] MEDS: ACETAMINOPHEN 1,000 MG/100 ML VIAL IV STA (22:29)
[2025-04-04] MEDS: MoRPHine SULFATE 4 MG/ML 1 ML CARP\\VIAL IV STA (22:29)
--- NOTE | 2025-04-04 22:42 | XRay Report ---
Exam(s): XR T SPINE, 3 views EXAM: XR Thoracic Spine, 3 Views CLINICAL HISTORY: Back Pain. TECHNIQUE: Frontal, lateral and swimmer's views of the thoracic spine. COMPARISON: CT thoracic spine 02/07/2023 FINDINGS: Vertebrae: Minimal degenerative changes of the spleen. No acute fracture. Normal alignment. Disc spaces: No acute findings. No significant narrowing. Soft tissues: Unremarkable. IMPRESSION: No acute findings in the thoracic spine. Electronically signed by: Tonja Mak MD 04/04/25 22:42 PM
--- NOTE | 2025-04-04 22:43 | XRay Report ---
Exam(s): XR L SPINE, 2-3 views EXAM: XR Lumbosacral Spine, 2 or 3 Views CLINICAL HISTORY: Back Pain. TECHNIQUE: Frontal and lateral views of the lumbar spine and sacrum. COMPARISON: CT lumbar spine 02/07/2023 FINDINGS: Vertebrae: Suspect minimally worsened moderate L3 compression fracture. Stable moderate L2 compression fracture. Normal alignment. Sacrum/coccyx: Unremarkable as visualized. No acute fracture. Disc spaces: No acute findings. No significant narrowing as visualized. Soft tissues: Unremarkable. IMPRESSION: 1. Suspect minimally worsened moderate L3 compression fracture. 2. Stable moderate L2 compression fracture. Electronically signed by: Tonja Mak MD 04/04/25 22:43 PM
[2025-04-05] MEDS ORDERED: dexAMETHasone 10 MG in DEXTROSE 5% 25 ML IV STA (00:28)
--- NOTE | 2025-04-05 00:28 | History & Physical Report ---
Date of Service April 05, 2025 Assessment & Plan (1) Intractable back pain: (2) Lumbar compression fracture: (3) Multifocal pneumonia: Plan Patient is a 60-year-old female with past medical history of alcoholic liver cirrhosis, CVA in 2018, PE, IBS, HTN, RLS. Patient was recently admitted from 03/29 to 04/02 due to viral gastroenteritis also found to have multifocal pneumonia. Patient returned to the ED 04/05 after a fall at a hitting her back on a rock found to have a suspected minimally only worsened moderate L3 compression fracture resulting in intractable pain requiring admission. #intractable back pain lumbar XR read as suspected minimally worsened moderate L3 compression fracture, stable L2 compression fracture; fractures were noted on lumbar spine CT from 2022. Patient stated she has frequent falls given she has a history of CVA and Mnire's disease. Laboratories ordered Lumbar spine CT ordered to further evaluate PT/OT ordered Pain control with Tylenol as needed, Toradol as needed, continue home tramadol for breakthrough pain - will try to avoid narcotics - had 10mg PO oxycodone + 4mg IV morphine in ED Continue home Flexeril as needed Lidoderm patch ordered Dexamethasone 10 mg IV on admission, continue with 6 mg daily Ortho-spine consulted K-pad as needed Fall precautions #Multifocal PNA - CT read from 04/01 patient has multifocal pneumonia however personally reviewed and appears questionable. Patient is asymptomatic, nonhypoxic, with no difficulty breathing. She has not taken antibiotics since 04/02. Ordered abx on admission however will defer further use given asymptomatic and non-hypoxic #IBSrecent admission for viral gastroenteritis, patient stated symptoms improved. Continue home PPI and Zofran as needed for nausea With recent electrolyte depletion ordered BMP and magnesium levels #Anxietycontinue Klonopin as needed #HTNpatient reports no medical management at home, continue diet control. #Hypothyroidismcontinue levothyroxine VTE ppx: SCDs with thrombocytopenia Dispo: med surg Admission and Anticipated Discharge Date Admission Date: 04/05/25 History of Present Illness Chief Complaint: fall Primary Care Provider: Abraham Ryan MD Patient is a 60-year-old female with past medical history of alcoholic liver cirrhosis, CVA in 2018, PE, IBS, HTN, RLS. Patient was recently admitted from 03/29 to 04/02 due to viral gastroenteritis also found to have multifocal pneumonia. Patient returned to the ED 04/05 after a fall at a hitting her back on a rock found to have a suspected minimally only worsened moderate L3 compression fracture resulting in intractable pain requiring admission. Patient seen at bedside. She was at a for her 's uncle in [place] at 1030 this morning when she fell and hit her back on a rock. She was also wearing heels at the time. She has had significant pain since and is still complaining of 9/10 pain after 1G IV Tylenol, oxycodone 10 mg p.o., and morphine 4 Mg IV in the ED. She denies any sensory deficits, bladder or bowel incontinence, abdominal pain, dysuria, hematuria, diarrhea, or constipation. She does endorse some chest pain and shortness of breath but stated she was re cently diagnosed with pneumonia. She was prescribed 2 antibiotics however she did not take any because her PCP reportedly told her that she could have an allergic reaction to them with being allergic to penicillin and sulfa antibiotics. Extensively discussed this with patient at bedside that allergic reaction occurs in a very small amount of people with these "sister "medications. She reportedly had 1 dose of cefuroxime prior to discharge. Did not have any reaction. She is agreeable to trial these antibiotics especially while being monitored in the inpatient setting. She did not take any of her home medications today and is continuing to hold all of her blood pressure medications as her PCP stated her blood pressure is low after weight loss. Note that patient has a [facility] PCP however is being admitted to [facility] services due to insurance. Allergies Allergy/AdvReac Type Severity Reaction Status Date / Time Penicillins Allergy Intermediate Unknown Verified 04/04/25 21:50 childhood reaction, ? swelling famotidine AdvReac Severe Diarrhea Verified 04/04/25 21:50 dicyclomine [From Bentyl] AdvReac Intermediate Confusion Verified 04/04/25 21:50 Sulfa (Sulfonamide AdvReac Intermediate N/V Verified 04/04/25 21:50 Antibiotics) Home Medications Medication Instructions Recorded Confirmed Type Aspirating [place] 11/07/21 01/14/25 History albuterol sulfate 90 mcg/actuation 2 puff inhalation QID Shortness Of 11/07/21 04/04/25 History aerosol inhaler Breath Or Wheezing aspirin 81 mg chewable tablet 81 mg PO DAILY 11/07/21 04/04/25 History (Aspirin Childrens) clonazepam 0.5 mg tablet (Klonopin) 0.5 mg PO TID 11/07/21 04/04/25 History lisinopril 40 mg tablet (Zestril) 40 mg PO QAM 11/07/21 04/04/25 History omeprazole 40 mg capsule,delayed 40 mg PO BID 11/07/21 04/04/25 History release promethazine 25 mg tablet 25 mg PO Q6H PRN Nausea 11/07/21 04/04/25 History sumatriptan succinate 50 mg tablet 100 mg PO DIRECTED PRN Migraine 11/07/21 04/04/25 History (Imitrex) Headache tramadol 50 mg tablet 50 mg PO Q6H PRN Pain 11/07/21 04/04/25 History needle (disp) 23 gauge 23 gauge x #100 ea 11/12/23 01/14/25 Rx 1" (Aqinject Standard Needle) safety needles 25 gauge x 1" (BD #15 ea 11/12/23 01/14/25 Rx Eclipse) syringe with needle, safety 3 mL #1 ea 11/12/23 01/14/25 Rx 23 gauge x 1" (Monoject Safety Syringes) sennosides 8.6 mg-docusate sodium 1 tab PO QPM #14 tabs 12/24/24 04/04/25 Rx 50 mg tablet (Senokot-S) spironolactone 25 mg tablet 50 mg (2 x 25 mg) PO QAM #60 tabs 12/24/24 04/04/25 Rx lidocaine 5 % topical patch 1 patch topical DAILY PRN Back Pain 02/05/25 04/04/25 History carbidopa ER 25 mg-levodopa 100 mg 1 tab PO HS 03/29/25 04/04/25 History tablet,extended release carvedilol 6.25 mg tablet 6.25 mg PO BID 03/29/25 04/04/25 History cholecalciferol (vitamin D3) 25 25 mcg PO DAILY 03/29/25 04/04/25 History mcg (1,000 unit) chewable tablet (Vitamin D3) cyclobenzaprine 10 mg tablet 10 mg PO BID PRN Muscle Spasm 03/29/25 04/04/25 History fluoxetine 40 mg capsule 80 mg PO QAM 03/29/25 04/04/25 History azithromycin 250 mg tablet 250 mg PO DAILY Multifocal 04/02/25 04/04/25 Rx pneumonia 4 days #4 tabs atorvastatin 40 mg tablet 40 mg PO DAILY 04/04/25 04/04/25 History cyanocobalamin (vitamin B-12) 1,000 mcg IM DIRECTED 04/04/25 04/04/25 History 1,000 mcg/mL injection solution dicyclomine 10 mg capsule 10 mg PO DIRECTED 04/04/25 04/04/25 History ibuprofen 600 mg tablet 600 mg PO TID PRN Pain 04/04/25 04/04/25 History lamotrigine 25 mg tablet (Lamictal) 25 mg PO DAILY 04/04/25 04/04/25 History levothyroxine 50 mcg tablet 50 mcg PO DAILYBB 04/04/25 04/04/25 History magnesium hydroxide 400 mg/5 mL 15 ml PO BID PRN Constipation 04/04/25 04/04/25 History oral suspension (Milk of Magnesia) magnesium oxide 400 mg PO HS 04/04/25 04/04/25 History ondansetron 4 mg disintegrating 4 mg PO Q8H PRN NAUSEA/VOMITING 04/04/25 04/04/25 History tablet riboflavin (vitamin B2) 400 mg 400 mg PO DAILY 04/04/25 04/04/25 History tablet Past Med/Surg History Problem List (Updated 04/05/25 @ 01:48 by SEBLE Schilling) Lumbar compression fracture (Acute) Intractable back pain (Acute) Multifocal pneumonia Pancytopenia Hypomagnesemia Primary hypothyroidism Cirrhosis Essential hypertension Hypokalemia Epigastric pain Gastroenteritis Colitis (Acute) Acute pain of right lower extremity (Acute) Intractable abdominal pain (Acute) Symptoms consistent with irritable bowel syndrome Colitis Anemia Arthralgia of multiple joints Cervical spine pain Lumbar spine pain Numbness and tingling Easy fatigability Muscle weakness (generalized) Weakness of muscle of left side of face due to and not concurrent with cerebrovascular accident (CVA) Orthostatic hypotension (Acute) Hemorrhoids (Acute) Rectal bleeding (Acute) COVID Right flank pain Left-sided weakness Idiopathic polyneuropathy 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 Fatigue Left sided numbness Weakness on left side of face Depression with anxiety (Chronic) Asthma (Chronic) Vitamin D deficiency (Chronic) Bilateral shoulder pain Fibromyalgia MRSA (methicillin resistant Staphylococcus aureus) carrier Gait abnormality Third nerve palsy of left eye POOR VISION IN LEFT EYE RUE weakness (Acute) Double vision (Acute) Migraine (Chronic) Interstitial cystitis (Chronic) Renal calculi (Chronic) Endometriosis (Chronic) Allergic rhinitis (Chronic) Medical History Weakness on left side of face Hx of renal calculi Idiopathic polyneuropathy Depression with anxiety Cervical spine pain full rom Colitis Constipation Abdominal pain Hx MRSA infection (~2019) Chronic pain Interstitial cystitis Per records Asthma pt. denies, states has inhaler for allergies History of COVID-19 2021, 2022- symptoms resolved Type 2 diabetes mellitus Hemorrhoids Internal/external Meniere disease Chronic lightheadedness/dizziness Neuropathy RLE, b/l feet Restless leg syndrome Stable GERD (gastroesophageal reflux disease) Hyperlipidemia Per records, patient denies indicating she is on statin for stroke pervention History of pulmonary embolism 2017 after "long bus ride" Previously on Coumadin x months, then discontinued and started on ASA No issues since CVA (cerebral vascular accident) (2017) Remote hx , residual slurred speech, left weakness, memory impairment - follows with dr. lopez IBS (irritable bowel syndrome) Diarrhea/constipation combination HTN (hypertension) Fibromyalgia Surgical History Nausea and vomiting after administration of anesthetic agent History of cystoscopy Bladder distention x2 History of tooth extraction History of esophagogastroduodenoscopy (EGD) History of colonoscopy S/P tubal ligation History of hysterectomy S/P cholecystectomy Family History Mother , age 63 of cerebral aneurysm. Cerebral aneurysm Father , age [address] Myocardial infarction Other Heart disease Hypertension No family history of adverse response to anesthesia Social History Smoking Status: Never smoker Second Hand Exposure: No; Do You Dip or Chew Tobacco: No; Hx Alcohol Use: Yes Alcohol type: wine Alcohol Intake Frequency Comment: Once a month. Hx Substance Use: Yes Last Used Substance: Unknown Preferred Language: [place] Communication Ability: Effective Communication Ability Comment: NO COMMUNICATION DEFICITS FOR PAT PHONE CALL Rounder Hand Required: No Beliefs That Will Affect Care: None marital status: Current Living Situation: Spouse current occupational status: employed current occupation: Works at the [employer]. 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 Non-toxic appearing. HEENT- EOMI, mucous membranes moist. Hearing grossly intact. Heart-normal S1 and S2. No murmurs, rubs or gallops. Lungs-clear bilaterally, no respiratory distress, no accessory muscle use. Abdomen-normal bowel sounds and soft. No ascites noted. Non-tender. Extremities- no clubbing, cyanosis, or edema. Rheumatologic-normal range of motion. Psychiatric-normal affect. Results & Data Results & Data Vital Signs (Past 12 Hours) Vital Signs Temp Pulse Resp BP Pulse Ox O2 Del Method 04/04/25 23:36 73 04/04/25 19:42 76 04/04/25 19:33 36.5 C 84 20 160/96 H 100 Room Air Laboratory Results Ordered CBC and CMP Diagnostic Findings reviewed thoracic spine XR, sacrum and coccyx XR, lumbar spine XR Medications Administered EDTylenol 1G IV, oxycodone 10 mg p.o., morphine 4 Mg IV, Zofran 4 Mg IV AdmissionToradol 10 mg IV, Lidoderm patch, dexamethasone 10 mg IV, Benadryl 25 mg IV, cefuroxime 500 mg p.o., azithromycin 250 mg p.o. Code Status & VTE Plan Code Status full code VTE Prophylaxis Plan VTE Prophylaxis will be ordered: Yes Supervising Physician Co-Signing Physician Notes Attending addendum: I have physically seen this patient, have supervised the RADHA's activities, and agree with the H&P unless as otherwise noted. Assessment and Plan: The patient is a 60-year-old female with past medical history including alcoholic liver cirrhosis, CVA 2018, PE, IBS, hypertension, RLS. She was most recently mated continently from 03/29-03/31/2025 for viral gastroenteritis and a purported diagnosis of multifocal pneumonia. She presented to the emergency department on 04/05 after a fall at a that she was attending in [place], where her back hit a rock, and since then has had more significant than her usual baseline pain. She is referred for further evaluation and treatment of low back pain. Intractable low back pain- X-ray of lumbar spine showed a stable moderate L2 compression fracture, and a suspected minimally worsened moderate L3 compression fracture, both of which fractures were also seen on lumbar spine CT from 2022. Patient attributes her frequent falls to history of CVA and Mnire's disease. CBC with differential, basic metabolic panel and magnesium levels are now ordered Order lumbar spine CT Consult PT/OT Acetaminophen 650 mg by mouth every 6 hours as needed for mild pain or fever Toradol IV every 6 hours as needed moderate pain Continue home tramadol as needed breakthrough pain She had been given 4 mg morphine IV, and oxycodone 10 mg p.o. by the ED, reports no significant change in pain level. Continue Flexeril 10 mg p.o. twice daily as needed Order Lidoderm patch Give dexamethasone 10 mg IV now, and 6 mg IV daily K-pad as needed Fall precautions Consult orthopedic spine surgery Multifocal pneumonia- As reported by radiology on 04/01/2025, however, personal review of CT today feels that that is an over read, and patient has no symptomatology, having a pulse ox of 100% on room air Patient received one-time dose of oral antibiotics, which will not be continued IBS- Continue pantoprazole and Zofran Anxiety- Continue clonazepam Hypothyroidism- Continue levothyroxine Hypertension- - Diet controlled PG Care Time/CCT Total # of Minutes Spent Total Time Spent with Patient: Total time spent is greater than 50% in coordination of care (as documented) at patient's floor/unit and/or counseling patient: Coding Level of Care Code 46658 INT INP/OBS CARE 3/75MIN Diagnoses Intractable back pain M54.9 Lumbar compression fracture S32.000A Multifocal pneumonia J18.8
[2025-04-05 01:02] LABS: Anion Gap 6 (3-11); Bilirubin,Total 1.1 mg/dl (0.2-1.0); Calcium 8.9 mg/dl (8.6-10.3); Carbon Dioxide 27 mmol/L (21-32); Chloride 106 mmol/L (98-107); Magnesium 1.5 mg/dl (1.7-2.4); Potassium 3.6 mmol/L (3.5-5.1); Sodium 139 mmol/L (136-145)
[2025-04-05 01:03] LABS: Hematocrit (blood only) 38.2 % (37.0-47.0); Hemoglobin 12.0 g/dl (12.0-16.0); Immature Granulocytes # (auto) 0.01 K/uL (0.01-0.20); Immature Granulocytes % (auto) 0.2 %; Mean Corpuscular Hemoglobin 29.7 pg (25.0-34.0); Mean Corpuscular Volume 94.6 fL (80.0-100.0); Platelet Count 71 K/uL (130-400); RDW Standard Deviation 54.6 fL (36.4-46.3); Red Blood Count 4.04 M/uL (4.20-5.40); White Blood Count 4.70 K/ul (4.8-10.8)
[2025-04-05 01:07] LABS: Alanine Aminotransferase 21 U/L (7-52); Albumin Globulin Ratio 0.9 (0.9-2); Alkaline Phosphatase 87 U/L (34-104); Blood Urea Nitrogen 9 mg/dl (6-23); Globulin 3.6 gm/dl (2.5-4.0); Glucose 85 mg/dl (70-99(Fasting)); Total Protein 6.7 gm/dl (6.0-8.3)
[2025-04-05] MEDS: KETOROLAC TROMETHAMINE 15 MG/ML VIAL IV ONE (01:22)
[2025-04-05] MEDS: dexAMETHasone 10 MG in SYRINGE 0 ML IV STA (01:22)
[2025-04-05] MEDS: diphenhydrAMINE 50 MG/ML VIAL IV STA (01:23)
[2025-04-05] MEDS: AZITHROMYCIN 250 MG TAB PO ONE (01:23)
[2025-04-05] MEDS: LIDOCAINE 5% 1 PATCH TD STA (01:23)
[2025-04-05] MEDS ORDERED: MELATONIN 3 MG TAB PO PRN (02:05)
[2025-04-05] MEDS: Patient's HEIGHT &/or WEIGHT Needed STA (03:02)
[2025-04-05] MEDS: ENOXAPARIN INJ 40 MG/0.4 ML SYR SQ SCH (03:16)
[2025-04-05] MEDS: CARBIDOPA/LEVODOPA 25/100MG EXT REL TAB PO SCH (03:21)
[2025-04-05] MEDS: MAGNESIUM SULFATE / D5W 1 GM/100 ML BAG IV SCH (03:43)
[2025-04-05] MEDS: LEVOTHYROXINE SODIUM 50 MCG TABLET PO SCH (06:17)
--- NOTE | 2025-04-05 07:36 | CT Scan Report ---
EXAM: CT lumbar spine wo con CLINICAL HISTORY: Possibly worsened L3 fx, pain. TECHNIQUE: CT non-contrast scan of lumbar spine done. Axial images obtained with reformatted coronal and sagittal images and submitted for interpretation. One of the following dose reduction techniques were utilized for this exam: Automated exposure control, adjustment of the mA and/or kV according to patient size, use of iterative reconstruction. COMPARISON: 02/07/2023 CT. FINDINGS: Vertebrae: Normal alignment of the lumbar vertebrae. Minimal retrolisthesis of L3 over L4 vertebra. Mild lumbar dextroscoliosis. Diffuse osteopenia. Mild lumbar spondylitic changes with tiny anterior osteophytes. Evidence of a transitional vertebra with lumbarized S1. Corticated mildly displaced fracture of both transverse processes of L1 vertebra, likely representing an old fracture. Anterior wedging of L2 vertebra with reduction of up to 30% of its height, with associated depression of its upper endplate, suggesting wedge fracture of indeterminate age. Anterior wedging of L3 vertebra with reduction of up to 50% of its height with an associated upper endplate Schmorl's node with a suspected transverse radiolucent line seen within the vertebral body with associated mild depression of its lower endplate, suggesting a possible acute on top of chronic wedging fracture. No detected retropulsed bony fragments. Intervertebral Discs: Reduced height of L2-3 intervertebral disc. Spinal Canal and Neural Foramina: L2-3 and L3-4 disc osteophyte complex indenting the anterior thecal sac and causing moderate bilateral neuroforaminal stenosis Facet Joints: Multilevel facet joint arthropathy Soft Tissues: Normal appearance of the paraspinal soft tissues. No abnormal masses, fluid collections, or signs of inflammation. IMPRESSION: 1. Anterior wedging of L3 vertebra with more reduction of its height compared to prior withnew transverse radiolucent line seen within the vertebral body with associated mild depression of its lower endplate suggesting possible acute on top of chronic wedging fracture. Correlate clinically. 2. Stable corticated mildly displaced old fracture of the both transverse processes of L1 vertebra. 3. Stable anterior wedging of L2 vertebra suggesting old wedge fracture. 4. No detected retropulsed bony fragments 5. Minimal retrolisthesis of L3 over L4 vertebra. stable 6. Diffuse osteopenia. stabe 7. Mild lumbar spondylitic changes with tiny anterior osteophytes. stabe 8. L2-3 and L3-4 disc osteophyte complex indenting the anterior thecal sac and causing moderate bilateral neuroforaminal stenosis. worsing 9. Mild lumbar dextroscoliosis. stabe Electronically signed by Bruce Salmon 04-05-2025 07:36 AM
[2025-04-05] MEDS: ALBUTEROL HFA 8 GM INHALER INH SCH (08:45)
[2025-04-05] MEDS: dexAMETHasone 6 MG in SYRINGE 0 ML IV SCH (08:50)
[2025-04-05] MEDS: KETOROLAC TROMETHAMINE 15 MG/ML VIAL IV PRN (08:57)
[2025-04-05] MEDS ORDERED: lamoTRIgine 25 MG TAB PO SCH (09:00)
[2025-04-05] MEDS ORDERED: ASPIRIN 81 MG CHEW PO SCH (09:00)
[2025-04-05] MEDS ORDERED: ATORVASTATIN 40 MG TAB PO SCH (09:00)
[2025-04-05] MEDS: POLYETHYLENE (MIRALAX) 17 GM PACK PO PRN (09:03)
--- NOTE | 2025-04-05 10:46 | Orthopedic Consultation ---
Date of Service April 05, 2025 History of Present Illness Reason for Consultation: . Lumbar compression fracture. Requesting Physician: . Attending Physician: Huber Triana MD 60-year-old female with past medical history of alcoholic liver cirrhosis, CVA in 2018, PE, IBS, HTN, RLS. Patient was recently admitted from 03/29 to 04/02 due to viral gastroenteritis also found to have multifocal pneumonia. Patient returned to the ED 04/05 after a fall at a hitting her back on a rock found to have a suspected minimally only worsened moderate L3 compression fracture resulting in intractable pain requiring admission. Patient stated she has frequent falls given she has a history of CVA and Mnire's disease. The patient states that due to dress shoes that she was wearing, she tripped while walking on an incline and grass, and hit the rock she reports having had the compression fractures around 2 years ago treated in [place], and had been doing reasonably well prior to the fall relative to any chronic low back pain. Exam reveals the patient indicate pain at the lumbar region mildly tender to palpation. She has appropriate strength 5/5 for EHL, ankle plantar dorsiflexion, knee flexion extension and hip flexion bilaterally. CT lumbar spine wo con April 05, 2025 CLINICAL HISTORY: Possibly worsened L3 fx, pain. COMPARISON: 02/07/2023 CT. FINDINGS: Vertebrae: Normal alignment of the lumbar vertebrae.Minimal retrolisthesis of L3 over L4 vertebra. Mild lumbar dextroscoliosis. Diffuse osteopenia. Mild lumbar spondylitic changes with tiny anterior osteophytes. Evidence of a transitional vertebra with lumbarized S1. Corticated mildly displaced fracture of both transverse processes of L1 vertebra, likely representing an old fracture. Anterior wedging of L2 vertebra with reduction of up to 30% of its height, with associated depression of its upper endplate, suggesting wedge fracture of indeterminate age. Anterior wedging of L3 vertebra with reduction of up to 50% of its height with an associated upper endplate Schmorl's node with a suspected transverse radiolucent line seen within the vertebral body with associated mild depression of its lower endplate, suggesting a possible acute on top of chronic wedging fracture. No detected retropulsed bony fragments. Intervertebral Discs: Reduced height of L2-3 intervertebral disc. Spinal Canal and Neural Foramina: L2-3 and L3-4 disc osteophyte complex indenting the anterior thecal sac and causing moderate bilateral neuroforaminal stenosis Facet Joints: Multilevel facet joint arthropathy Soft Tissues: Normal appearance of the paraspinal soft tissues. No abnormal masses, fluid collections, or signs of inflammation. IMPRESSION: 1. Anterior wedging of L3 vertebra with more reduction of its height compared to prior withnew transverse radiolucent line seen within the vertebral body with associated mild depression of its lower endplate suggesting possible acute on top of chronic wedging fracture. Correlate clinically. 2. Stable corticated mildly displaced old fracture of the both transverse processes of L1 vertebra. 3. Stable anterior wedging of L2 vertebra suggesting old wedge fracture. 4. No detected retropulsed bony fragments 5. Minimal retrolisthesis of L3 over L4 vertebra. stable 6. Diffuse osteopenia. stabe 7. Mild lumbar spondylitic changes with tiny anterior osteophytes. stabe 8. L2-3 and L3-4 disc osteophyte complex indenting the anterior thecal sac and causing moderate bilateral neuroforaminal stenosis. worsing 9. Mild lumbar dextroscoliosis. stabe Review of CT scan images lumbar spine from 04/05/2025, this my separate interpretation, this reveals the patient to have what appears to be chronic L2 burst fracture unchanged, the L3 compression fracture appears to be relatively similar in appearance except for anterior inferior left fracture line, no retropulsion otherwise degenerative changes as noted. Impression: Status post fall with to be additional fracture in the anterior inferior aspect of L3 prior compression fracture with low back pain is the complaint. Recommendations: Discussed findings with patient, at this time the patient is a significant amount of symptoms, recommend appropriate medications and mobilization with physical therapy. The patient can be fitted with a lumbosacral brace either here at the hospital to be worn when she is up and around as this appears to be a stable fracture. Another option would be mobilization and other brace options at follow-up but she returns to office follow-up for radiographs. No operative intervention needed in this situation. Allergies Allergy/AdvReac Type Severity Reaction Status Date / Time Penicillins Allergy Intermediate Unknown Verified 04/04/25 21:50 childhood reaction, ? swelling famotidine AdvReac Severe Diarrhea Verified 04/04/25 21:50 dicyclomine [From Bentyl] AdvReac Intermediate Confusion Verified 04/04/25 21:50 Sulfa (Sulfonamide AdvReac Intermediate N/V Verified 04/04/25 21:50 Antibiotics) Home Medications Medication Instructions Recorded Confirmed Type Aspirating Mouthcard 11/07/21 01/14/25 History albuterol sulfate 90 mcg/actuation 2 puff inhalation QID Shortness Of 11/07/21 04/04/25 History aerosol inhaler Breath Or Wheezing aspirin 81 mg chewable tablet 81 mg PO DAILY 11/07/21 04/04/25 History (Aspirin Childrens) clonazepam 0.5 mg tablet (Klonopin) 0.5 mg PO TID 11/07/21 04/04/25 History lisinopril 40 mg tablet (Zestril) 40 mg PO QAM 11/07/21 04/04/25 History omeprazole 40 mg capsule,delayed 40 mg PO BID 11/07/21 04/04/25 History release promethazine 25 mg tablet 25 mg PO Q6H PRN Nausea 11/07/21 04/04/25 History sumatriptan succinate 50 mg tablet 100 mg PO DIRECTED PRN Migraine 11/07/21 04/04/25 History (Imitrex) Headache tramadol 50 mg tablet 50 mg PO Q6H PRN Pain 11/07/21 04/04/25 History needle (disp) 23 gauge 23 gauge x #100 ea 11/12/23 01/14/25 Rx 1" (Aqinject Standard Needle) safety needles 25 gauge x 1" (BD #15 ea 11/12/23 01/14/25 Rx Eclipse) syringe with needle, safety 3 mL #1 ea 11/12/23 01/14/25 Rx 23 gauge x 1" (Monoject Safety Syringes) sennosides 8.6 mg-docusate sodium 1 tab PO QPM #14 tabs 12/24/24 04/04/25 Rx 50 mg tablet (Senokot-S) spironolactone 25 mg tablet 50 mg (2 x 25 mg) PO QAM #60 tabs 12/24/24 04/04/25 Rx lidocaine 5 % topical patch 1 patch topical DAILY PRN Back Pain 02/05/25 04/04/25 History carbidopa ER 25 mg-levodopa 100 mg 1 tab PO HS 03/29/25 04/04/25 History tablet,extended release carvedilol 6.25 mg tablet 6.25 mg PO BID 03/29/25 04/04/25 History cholecalciferol (vitamin D3) 25 25 mcg PO DAILY 03/29/25 04/04/25 History mcg (1,000 unit) chewable tablet (Vitamin D3) cyclobenzaprine 10 mg tablet 10 mg PO BID PRN Muscle Spasm 03/29/25 04/04/25 History fluoxetine 40 mg capsule 80 mg PO QAM 03/29/25 04/04/25 History azithromycin 250 mg tablet 250 mg PO DAILY Multifocal 04/02/25 04/04/25 Rx pneumonia 4 days #4 tabs atorvastatin 40 mg tablet 40 mg PO DAILY 04/04/25 04/04/25 History cyanocobalamin (vitamin B-12) 1,000 mcg IM DIRECTED 04/04/25 04/04/25 History 1,000 mcg/mL injection solution dicyclomine 10 mg capsule 10 mg PO DIRECTED 04/04/25 04/04/25 History ibuprofen 600 mg tablet 600 mg PO TID PRN Pain 04/04/25 04/04/25 History lamotrigine 25 mg tablet (Lamictal) 25 mg PO DAILY 04/04/25 04/04/25 History levothyroxine 50 mcg tablet 50 mcg PO DAILYBB 04/04/25 04/04/25 History magnesium hydroxide 400 mg/5 mL 15 ml PO BID PRN Constipation 04/04/25 04/04/25 History oral suspension (Milk of Magnesia) magnesium oxide 400 mg PO HS 04/04/25 04/04/25 History ondansetron 4 mg disintegrating 4 mg PO Q8H PRN NAUSEA/VOMITING 04/04/25 04/04/25 History tablet riboflavin (vitamin B2) 400 mg 400 mg PO DAILY 04/04/25 04/04/25 History tablet Past Med/Surg History Problem List (Updated 04/05/25 @ 01:48 by SEBLE Schilling) Lumbar compression fracture (Acute) Intractable back pain (Acute) Multifocal pneumonia Pancytopenia Hypomagnesemia Primary hypothyroidism Cirrhosis Essential hypertension Hypokalemia Epigastric pain Gastroenteritis Colitis (Acute) Acute pain of right lower extremity (Acute) Intractable abdominal pain (Acute) Symptoms consistent with irritable bowel syndrome Colitis Anemia Arthralgia of multiple joints Cervical spine pain Lumbar spine pain Numbness and tingling Easy fatigability Muscle weakness (generalized) Weakness of muscle of left side of face due to and not concurrent with cerebrovascular accident (CVA) Orthostatic hypotension (Acute) Hemorrhoids (Acute) Rectal bleeding (Acute) COVID Right flank pain Left-sided weakness Idiopathic polyneuropathy 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 Fatigue Left sided numbness Weakness on left side of face Depression with anxiety (Chronic) Asthma (Chronic) Vitamin D deficiency (Chronic) Bilateral shoulder pain Fibromyalgia MRSA (methicillin resistant Staphylococcus aureus) carrier Gait abnormality Third nerve palsy of left eye POOR VISION IN LEFT EYE RUE weakness (Acute) Double vision (Acute) Migraine (Chronic) Interstitial cystitis (Chronic) Renal calculi (Chronic) Endometriosis (Chronic) Allergic rhinitis (Chronic) Medical History Weakness on left side of face Hx of renal calculi Idiopathic polyneuropathy Depression with anxiety Cervical spine pain full rom Colitis Constipation Abdominal pain Hx MRSA infection (~2018) Chronic pain Interstitial cystitis Per records Asthma pt. denies, states has inhaler for allergies History of COVID-19 2021, 2022- symptoms resolved Type 2 diabetes mellitus Hemorrhoids Internal/external Meniere disease Chronic lightheadedness/dizziness Neuropathy RLE, b/l feet Restless leg syndrome Stable GERD (gastroesophageal reflux disease) Hyperlipidemia Per records, patient denies indicating she is on statin for stroke pervention History of pulmonary embolism 2016 after "long bus ride" Previously on Coumadin x months, then discontinued and started on ASA No issues since CVA (cerebral vascular accident) (2018) Remote hx , residual slurred speech, left weakness, memory impairment - follows with dr. lopez IBS (irritable bowel syndrome) Diarrhea/constipation combination HTN (hypertension) Fibromyalgia Surgical History Nausea and vomiting after administration of anesthetic agent History of cystoscopy Bladder distention x2 History of tooth extraction History of esophagogastroduodenoscopy (EGD) History of colonoscopy S/P tubal ligation History of hysterectomy S/P cholecystectomy Family History Mother , age 63 of cerebral aneurysm. Cerebral aneurysm Father , age 63 of an OR Myocardial infarction Other Heart disease Hypertension No family history of adverse response to anesthesia Social History Smoking Status: Never smoker Second Hand Exposure: No; Do You Dip or Chew Tobacco: No; Hx Alcohol Use: Yes Alcohol type: wine Alcohol Intake Frequency Comment: Once a month. 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 Physical Exam . Results & Data Results & Data Laboratory Results . Diagnostic Findings . PG Care Time/CCT Total # of Minutes Spent Total Time Spent with Patient: Total time spent is greater than 50% in coordination of care (as documented) at patient's floor/unit and/or counseling patient: Coding Level of Care Code 18705 IN/OBS CONSULT LVL 3,45M
--- NOTE | 2025-04-05 12:46 | Hospitalist Progress Note ---
"Date of Service April 05, 2025 Assessment & Plan (1) Intractable back pain: (2) Lumbar compression fracture: (3) Multifocal pneumonia: (4) Fall: (5) Ambulatory dysfunction: Plan Patient is a 60-year-old female with past medical history of alcoholic liver cirrhosis, CVA in 2018, PE, IBS, HTN, RLS. Patient was recently admitted from 03/29 to 04/02 due to viral gastroenteritis also found to have multifocal pneumonia. Patient returned to the ED 04/05 after she twisted her ankle while wearing high heels at a , and fell, striking her back on a rock. #Acute on chronic anterior wedging of L3 vertebra | intractable back pain | ambulatory dysfunction Lumbar XR read as suspected minimally worsened moderate L3 compression fracture, stable L2 compression fracture; fractures were noted on lumbar spine CT from 2022 Patient reports history of frequent falls due to prior CVA and Mnire's disease Lumbar spine CT reveals anterior wedging of L3 vertebra Pain control with Tylenol as needed, Toradol as needed, continue home tramadol for breakthrough pain Will try to avoid narcotics for possible as this has led to issues with her GI tract/constipation in the past Continue home Flexeril as needed Lidocaine patch as needed Heat application/K-pad as needed Continue dexamethasone 6 mg IV daily Orthospine consult appreciate No operative intervention planned at this time Recommend patient be fitted with a lumbosacral brace Orthotics consult appreciated PT/OT evaluations appreciated Fall precautions #Multifocal PNA - CT read from 04/01 patient has multifocal pneumonia however personally reviewed and appears questionable. Patient is asymptomatic, non- hypoxic, with no difficulty breathing. Patient reports she completed azithromycin as an outpatient upon last discharge, but did not take the cefuroxime she was discharged on (d/t fear of PCN allergy) Additional antibiotics deferred at this time, as she has asymptomatic and not hypoxic without recurrence of chest pain from her prior admission #IBSrecent admission for viral gastroenteritis, patient stated symptoms improved. Continue home PPI and Zofran as needed for nausea Note: Patient has not done well on Bentyl in the past #Anxiety Continue Klonopin as needed #HTN Patient reports no medical management at home, continue diet control. #Hypothyroidism Continue levothyroxine #Hypomagnesia Replete as needed VTE ppx: SCDs with thrombocytopenia Dispo: Continued stay on [facility] Admission and Anticipated Discharge Date Admission Date: April 05, 2025 Supervising Physician Co-Signing Physician Notes Attending Attestation - Chart reviewed, care plan d/w RAVI Ayon. I agree w/ the funez components of his documentation. Appreciate ortho-spine assistance & recs. Huber Triana MD Subjective Mrs. Jackman unfortunately had to attend a in [place] over the weekend for her 's uncle. At the , she was wearing high heels and walking through grass when she twisted her ankle. She fell backwards and struck her lower back on a rock upon impact. Unclear if she struck her head. Patient has a history of recurrent falls, which she attributes to balance instability due to her history of stroke. After this fall, she took 4 tramadol to help with the pain, and her drove her 5.5 hours back to [place]. She rates the pain as tolerable at this time after taking Toradol, tramadol, and receiving IV steroids. She also believes that the lidocaine patch is helping. However at its worst, her pain is a 10 out of 10. She has been able to ambulate using the walker to the bathroom today, and is amenable to trying a lumbosacral brace. In regards to her stomach pain, she is currently having low transverse abdominal pain in lower quadrants bilaterally with radiation up towards the chest. 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 She has been taking the azithromycin that was provided upon discharge, and reports no respiratory symptoms at this time (no SOB, pleuritic CP, or cough). ROS: Patient endorses lower back pain worse with movements, lower abdominal pain, chest pain, headache, and neuropathy in the legs bilaterally (at baseline). Patient denies urinary/fecal incontinence, SOB, pleuritic CP, or cough. Review of Systems Review of Systems: See HPI Physical Exam Physical Exam: General: Mild distress secondary to lower back pain; anxious/tearful initially; non-toxic appearing; cooperative; SpO2 92% on RA HEENT: normocephalic, atraumatic; no scleral icterus; PERRLA w/ EOMs intact; vision and hearing grossly intact Neck: supple; no lymphadenopathy; trachea midline; patient reports pain when shrugging the shoulders against resistance Skin: warm, dry without signs of tenting; no cyanosis; superficial purple bruising noted on the left forearm and left barron; TTP CV: chest wall NTP; RRR; S1/S2 normal; no murmurs/rubs/gallops; pulses intact and symmetric at radial, DP, and PT Lungs: no acute respiratory distress; symmetrical chest wall expansion; clear breath sounds across all lung mtz w/o adventitious sounds; no wheezing ABD: Soft, TTP in the lower quadrants bilaterally assessed via light touch; no rashes or bruising appreciated in the abdomen or flanks bilaterally BS present; no rebound/guarding; no distention MSK: no tics or fasciculations; no edema noted in the LEs b/l, nonerythematous; patient demonstrates ability to wiggle toes; 1/5 strength lifting legs against resistance bilaterally; positive leg lift bilaterally reproducing pain in the back Neuro: A&Ox3; normal mood and affect; fluent speech; no focal deficits; she reports that there is diminished sensation in the left lower extremity when compared to the right (but reports this is chronic) Results & Data Results & Data Vital Signs (Past 12 Hours) Vital Signs Temp Pulse Resp BP BP Pulse Ox O2 Del Method 04/05/25 08:00 36.3 C L 64 16 136/81 92 Room Air 04/05/25 07:30 Room Air 04/05/25 02:05 36.9 C 70 14 149/83 H 93 Room Air 04/05/25 01:55 36.9 C 70 14 149/83 H 93 Room Air 04/05/25 01:00 74 18 134/72 98 Room Air PG Care Time/CCT Total # of Minutes Spent Total Time Spent with Patient: Total time spent is greater than 50% in coordination of care (as documented) at patient's floor/unit and/or counseling patient: C[place] [address] SUB INP/OBS CARE 3/50MIN Patient Type Established Medical Decision Making High Complexity Diagnoses Intractable back pain M54.9 Lumbar compression fracture S32.030A Encounter type: initial encounter Lumbar vertebra fracture level: L3 Multifocal pneumonia J18.8 Fall W19.XXXA Ambulatory dysfunction R26.2 (2) Lumbar compression fracture Encounter type: initial encounter Lumbar vertebra fracture level: L3 Qualified Code(s): S32.030A - Wedge compression fracture of third lumbar vertebra, initial encounter for closed fracture"
[2025-04-05] MEDS: REMOVE LIDODERM PATCH ONE (13:00)
[2025-04-05] MEDS ORDERED: ALBUTEROL HFA 8 GM INHALER INH PRN (13:36)
[2025-04-05] MEDS: MoRPHine SULFATE 2 MG/ML CARP IV STA (13:43)
[2025-04-05] MEDS: clonazePAM 0.5 MG TAB PO PRN (14:57)
[2025-04-05] MEDS: ONDANSETRON INJ 2 MG/ML 2 ML VIAL IV PRN (16:17)
[2025-04-05] MEDS: LIDOCAINE 5% 1 PATCH TD SCH (20:27)
[2025-04-05] MEDS: CYCLOBENZAPRINE HCL 10 MG TAB PO PRN (22:32)
[2025-04-05] MEDS: ACETAMINOPHEN 325 MG TAB PO PRN (23:59)
[2025-04-06] MEDS: REMOVE LIDODERM PATCH SCH (07:53)
[2025-04-06 08:11] LABS: Hematocrit (blood only) 37.7 % (37.0-47.0); Hemoglobin 12.3 g/dl (12.0-16.0); Mean Corpuscular Hemoglobin 30.1 pg (25.0-34.0); Mean Corpuscular Volume 92.2 fL (80.0-100.0); Platelet Count 71 K/uL (130-400); RDW Standard Deviation 52.4 fL (36.4-46.3); Red Blood Count 4.09 M/uL (4.20-5.40); White Blood Count 6.37 K/ul (4.8-10.8)
[2025-04-06 08:40] LABS: Anion Gap 3.0 (3-11); Blood Urea Nitrogen 15.0 mg/dl (6-23); Calcium 8.9 mg/dl (8.6-10.3); Carbon Dioxide 30.0 mmol/L (21-32); Chloride 106.0 mmol/L (98-107); Creatinine Clr Calc Pharmacy 56.8 ml/min; Glucose 119.0 mg/dl (70-99(Fasting)); Magnesium 1.8 mg/dl (1.7-2.4); Potassium 4.7 mmol/L (3.5-5.1); Sodium 139.0 mmol/L (136-145)
--- NOTE | 2025-04-06 12:01 | Hospitalist Progress Note ---
"Date of Service April 06, 2025 Assessment & Plan (1) Intractable back pain: (2) Lumbar compression fracture: (3) Multifocal pneumonia: (4) Fall: (5) Ambulatory dysfunction: Plan Patient is a 60-year-old female with past medical history of alcoholic liver cirrhosis, CVA in 2018, PE, IBS, HTN, RLS. Patient was recently admitted from 03/29 to 04/02 due to viral gastroenteritis also found to have multifocal pneumonia. Patient returned to the ED 04/05 after she twisted her ankle while wearing high heels at a , and fell, striking her back on a rock. #Acute on chronic anterior wedging of L3 vertebra | intractable back pain | ambulatory dysfunction -Acute, severe, intractable, minimal improvement during initial hospitalization thus far -Lumbar XR read as suspected minimally worsened moderate L3 compression fracture, stable L2 compression fracture; fractures were noted on lumbar spine CT from 2022 Patient reports history of frequent falls due to prior CVA and Mnire's disease -Will continue with multimodal pain regimen, initially with Tylenol, add Toradol, tramadol for breakthrough -She has had difficulty with narcotics in the past, given her limited success thus far may introduce low-dose morphine/oxycodone short-term, will try to limit dose and duration as this has led to issues with her GI tract/constipation in the past -Continue home Flexeril as needed -Lidocaine patch as needed -Heat application/K-pad as needed -Continue dexamethasone 6 mg IV daily -Orthospine consult appreciated No operative intervention planned at this time Recommend patient be fitted with a lumbosacral brace -PT/OT evaluations appreciated, pending intake evaluations today -Will closely monitor her pain requirements with PT OT and increased activity -Short-term plan for supportive bracing/TLSO, placement for SNF/rehab pending authorization -Continue fall precautions #Multifocal PNA - CT read from 04/01 patient has multifocal pneumonia however personally reviewed and appears questionable. Patient is asymptomatic, non- hypoxic, with no difficulty breathing. - She only took a single dose of the azithromycin, did not take the second antibiotic secondary to history of penicillin allergy - Given the addition of dexamethasone I think it prudent to restart and complete the initial course of azithromycin - Continue to monitor closely for progression of pulmonary symptoms as she would be high risk immunosuppression with dexamethasone - Will add a baseline procalcitonin, repeat if she has any clinical defervescence #IBSrecent admission for viral gastroenteritis, patient stated symptoms im proved. Continue home PPI and Zofran as needed for nausea Note: Patient has not done well on Bentyl in the past #Anxiety -Continue Klonopin as needed #HTN -Patient reports no medical management at home, continue diet control. #Hypothyroidism -Continue levothyroxine #Hypomagnesia -Check with a.m. labs replete as needed VTE ppx: SCDs with thrombocytopenia Dispo: Continued stay on [facility] Admission and Anticipated Discharge Date Admission Date: April 05, 2025 Subjective Doing okay this morning. No new or different symptoms. States she has had pain in the region of the low back where this injury has flared things but never severe or persistent as it has been during this admission. Orthopedic consultation yesterday with no plans interventions. Medical management, external bracing and rehab/therapy. She is having minimal response to current pain medication management. Has not tried ambulated with PT or OT as of yet. At rest the pain does seem to see but she is still having very frequent flares. She has had no problems with bowel or bladder function. Eating okay. Had a previous stroke and had an excellent rehab experience with rehab and is very motivated to continue with this for June. Review of Systems Constitutional: No fevers chills Respiratory: No shortness of breath Cardiovascular: Additional Comments: No palpitations Neurologic: No numbness or tingling. Pain is reported above Physical Exam Constitutional: Alert and oriented, lying in hospital bed, no apparent distress Eyes: Sclera clear Respiratory: Clear to auscultation Cardiovascular: Regular rate and rhythm, no murmurs rubs or gallops Gastrointestinal (Abdomen): Normal bowel sounds Musculoskeletal: Full active range of motion in upper extremities, lower examination limited secondary to pain Skin: No rash or discoloration Neurologic: No numbness or tingling, and weakness exam of lower extremities limited secondary to pain Results & Data Results & Data Vital Signs (Past 12 Hours) Vital Signs Temp Pulse Resp BP Pulse Ox O2 Del Method 04/06/25 07:33 36.4 C L 68 18 144/77 H 96 Room Air 04/06/25 00:02 36.6 C 77 20 145/78 H 91 Room Air Laboratory Results 04/06/25 07:50 WBC 6.37 RBC 4.09 L Hgb 12.3 Hct 37.7 MCV 92.2 MCH 30.1 MCHC 32.6 RDW Std Deviation 52.4 H RDW Coeff of Karen 15.4 H Plt Count 71 L MPV 11.1 Sodium 139 Potassium 4.7 D Chloride 106 Carbon Dioxide 30 Anion Gap 3 BUN 15 Creatinine 1.17 Est Cr Clr Drug Dosing 56.8 eGFR 52.76 BUN/Creatinine Ratio 12.8 Glucose 119 H Calcium 8.9 Magnesium 1.8 PG Care Time/CCT Total # of Minutes Spent Total Time Spent with Patient: Total time spent is greater than 50% in coordination of care (as documented) at patient's floor/unit and/or counseling patient: Coding Level of Care Code 12611 SUB INP/OBS CARE 08/16MIN Diagnoses Intractable back pain M54.9 Lumbar compression fracture S32.030A Encounter type: initial encounter Lumbar vertebra fracture level: L3 Multifocal pneumonia J18.8 Fall W19.XXXA Ambulatory dysfunction R26.2 (2) Lumbar compression fracture Encounter type: initial encounter Lumbar vertebra fracture level: L3 Qualified Code(s): S32.030A - Wedge compression fracture of third lumbar vertebra, initial encounter for closed fracture"
[2025-04-06] MEDS: AZITHROMYCIN 250 MG TAB PO ONE (14:19)
[2025-04-07 07:38] LABS: Anion Gap 5.0 (3-11); Blood Urea Nitrogen 23.0 mg/dl (6-23); Calcium 8.8 mg/dl (8.6-10.3); Carbon Dioxide 29.0 mmol/L (21-32); Chloride 105.0 mmol/L (98-107); Creatinine Clr Calc Pharmacy 58.3 ml/min; Glucose 99.0 mg/dl (70-99(Fasting)); Magnesium 1.8 mg/dl (1.7-2.4); Potassium 4.3 mmol/L (3.5-5.1); Sodium 139.0 mmol/L (136-145)
[2025-04-07 07:40] LABS: Hematocrit (blood only) 38.8 % (37.0-47.0); Hemoglobin 12.6 g/dl (12.0-16.0); Immature Granulocytes # (auto) 0.03 K/uL (0.01-0.20); Immature Granulocytes % (auto) 0.5 %; Mean Corpuscular Hemoglobin 29.9 pg (25.0-34.0); Mean Corpuscular Volume 92.2 fL (80.0-100.0); Platelet Count 77 K/uL (130-400); RDW Standard Deviation 52.9 fL (36.4-46.3); Red Blood Count 4.21 M/uL (4.20-5.40); White Blood Count 6.24 K/ul (4.8-10.8)
[2025-04-07] MEDS: AZITHROMYCIN 250 MG TAB PO SCH (09:07)
[2025-04-07] MEDS: MoRPHine SULFATE 4 MG/ML 1 ML CARP\\VIAL IV STA (10:17)
--- NOTE | 2025-04-07 11:44 | Hospitalist Progress Note ---
"Date of Service April 07, 2025 Assessment & Plan (1) Intractable back pain: (2) Lumbar compression fracture: (3) Multifocal pneumonia: (4) Fall: (5) Ambulatory dysfunction: Plan Patient is a 60-year-old female with past medical history of alcoholic liver cirrhosis, CVA in 2018, PE, IBS, HTN, RLS. Patient was recently admitted from 03/29 to 04/02 due to viral gastroenteritis also found to have multifocal pneumonia. Patient returned to the ED 04/05 after she twisted her ankle while wearing high heels at a , and fell, striking her back on a rock. #Acute on chronic anterior wedging of L3 vertebra | intractable back pain | ambulatory dysfunction -Acute, severe, intractable, minimal improvement during initial hospitalization thus far -Lumbar XR read as suspected minimally worsened moderate L3 compression fracture, stable L2 compression fracture; fractures were noted on lumbar spine CT from 2022 Patient reports history of frequent falls due to prior CVA and Mnire's disease -Will continue with multimodal pain regimen, initially with Tylenol, add Toradol, tramadol for breakthrough -She has had difficulty with narcotics in the past, given her limited success thus far may introduce low-dose morphine/oxycodone short-term, will try to limit dose and duration as this has led to issues with her GI tract/constipation in the past -Continue home Flexeril as needed -Lidocaine patch as needed -Heat application/K-pad as needed -Continue dexamethasone 6 mg IV daily -Orthospine consult appreciated No operative intervention planned at this time Recommend patient be fitted with a lumbosacral brace -PT/OT evaluations appreciated, pending intake evaluations today -Will closely monitor her pain requirements with PT OT and increased activity -Short-term plan for supportive bracing/TLSO, placement for SNF/rehab pending authorization -Continue fall precautions - Will add short course of IV morphine to establish pain control, breakthrough with oxycodone for the short-term. Discussed with patient need for multimodal care plan and risks of opiate based medications with her chronicity and comorbidities. Short-term plan is to establish control with improved function and then taper as able #Multifocal PNA - CT read from 04/01 patient has multifocal pneumonia however personally reviewed and appears questionable. Patient is asymptomatic, non- hypoxic, with no difficulty breathing. - She only took a single dose of the azithromycin, did not take the second antibiotic secondary to history of penicillin allergy - Given the addition of dexamethasone I think it prudent to restart and complete the initial course of azithromycin - Continue to monitor closely for progression of pulmonary symptoms as she would be high risk immunosuppression with dexamethasone - Will add a baseline procalcitonin, repeat if she has any clinical defervescence - No evidence of recurrent #IBSrecent admission for viral gastroenteritis, patient stated symptoms improved. Continue home PPI and Zofran as needed for nausea Note: Patient has not done well on Bentyl in the past #Anxiety -Continue Klonopin as needed #HTN -Patient reports no medical management at home, continue diet control. #Hypothyroidism -Continue levothyroxine #Hypomagnesia -Check with a.m. labs replete as needed VTE ppx: SCDs with thrombocytopenia Dispo: Continued stay on MedSurg Admission and Anticipated Discharge Date Admission Date: April 07, 2025 Subjective Doing okay this morning. Feels like the lidocaine patch was moved to the right. Pain tends to flare in the left side. Much more limited functionally today secondary to the worsening pain. She is motivated and wants to get up and shower show flareup of pain to much. We discussed more potent interventions. She has required oxycodone and morphine in the past for flares of this severe. Otherwise no new or different symptoms. Interestingly. No problem with bowels or eliminations. Physical Exam Constitutional: Alert and oriented, lying in hospital bed, no apparent distress Eyes: Sclera clear Respiratory: Clear to auscultation Cardiovascular: Regular rate and rhythm, no murmurs rubs or gallops Gastrointestinal (Abdomen): Normal bowel sounds Musculoskeletal: Full active range of motion in upper extremities, lower examination limited secondary to pain Skin: No rash or discoloration Neurologic: No numbness or tingling, and weakness exam of lower extremities limited secondary to pain Results & Data Results & Data Vital Signs (Past 12 Hours) Vital Signs Temp Pulse Resp BP Pulse Ox O2 Del Method 04/07/25 07:25 36.6 C 65 18 136/81 96 Room Air Laboratory Results 04/07/25 07:03 WBC 6.24 RBC 4.21 Hgb 12.6 Hct 38.8 MCV 92.2 MCH 29.9 MCHC 32.5 RDW Std Deviation 52.9 H RDW Coeff of Karen 15.7 H Plt Count 77 L MPV 11.0 Immature Gran % (Auto) 0.5 Neut % (Auto) 80.1 Lymph % (Auto) 14.3 [place] % (Auto) 5.1 Eos % (Auto) 0.0 Baso % (Auto) 0.0 Neut # (Auto) 5.00 Lymph # (Auto) 0.89 L [place] # (Auto) 0.32 Eos # (Auto) 0.00 Baso # (Auto) 0.00 Immature Gran # (Auto) 0.03 Sodium 139 Potassium 4.3 Chloride 105 Carbon Dioxide 29 Anion Gap 5 BUN 23 Creatinine 1.14 Est Cr Clr Drug Dosing 58.3 eGFR 54.43 BUN/Creatinine Ratio 20.2 H Glucose 99 Calcium 8.8 Magnesium 1.8 Procalcitonin 0.06 PG Care Time/CCT Total # of Minutes Spent Total Time Spent with Patient: Total time spent is greater than 50% in coordination of care (as documented) at patient's floor/unit and/or counseling patient: Coding Level of Care Code 97446 SUB INP/OBS CARE 3/50MIN Diagnoses Intractable back pain M54.9 Lumbar compression fracture S32.030A Encounter type: initial encounter Lumbar vertebra fracture level: L3 Multifocal pneumonia J18.8 Fall W19.XXXA Ambulatory dysfunction R26.2 (2) Lumbar compression fracture Encounter type: initial encounter Lumbar vertebra fracture level: L3 Qualified Code(s): S32.030A - Wedge compression fracture of third lumbar vertebra, initial encounter for closed fracture"
--- NOTE | 2025-04-08 13:57 | Hospitalist Progress Note ---
"Date of Service April 08, 2025 Assessment & Plan (1) Intractable back pain: (2) Lumbar compression fracture: (3) Multifocal pneumonia: (4) Fall: (5) Ambulatory dysfunction: Plan Patient is a 60-year-old female with past medical history of alcoholic liver cirrhosis, CVA in 2018, PE, IBS, HTN, RLS. Patient was recently admitted from 03/29 to 04/02 due to viral gastroenteritis also found to have multifocal pneumonia. Patient returned to the ED 04/05 after she twisted her ankle while wearing high heels at a , and fell, striking her back on a rock. #Acute on chronic anterior wedging of L3 vertebra | intractable back pain | ambulatory dysfunction -Acute, severe, intractable, minimal improvement during initial hospitalization thus far -Lumbar XR read as suspected minimally worsened moderate L3 compression fracture, stable L2 compression fracture; fractures were noted on lumbar spine CT from 2022 Patient reports history of frequent falls due to prior CVA and Mnire's disease -Will continue with multimodal pain regimen, initially with Tylenol, add Toradol, tramadol for breakthrough -She has had difficulty with narcotics in the past, given her limited success thus far may introduce low-dose morphine/oxycodone short-term, will try to limit dose and duration as this has led to issues with her GI tract/constipation in the past -Continue home Flexeril as needed -Lidocaine patch as needed -Heat application/K-pad as needed -Continue dexamethasone 6 mg IV daily -Orthospine consult appreciated No operative intervention planned at this time Recommend patient be fitted with a lumbosacral brace -PT/OT evaluations appreciated, pending intake evaluations today -Adequately conrtrolled with the addition of oral oxycodone, difficult to determine what her time frame of need will be. She has a tentative acceptance at [facility] for rehab, transition to rehab appropriate with close follow-up for pain medication management and taper when appropriate. #Multifocal PNA - CT read from 04/01 patient has multifocal pneumonia however personally reviewed and appears questionable. Patient is asymptomatic, non- hypoxic, with no difficulty breathing. - She only took a single dose of the azithromycin, did not take the second antibiotic secondary to history of penicillin allergy - Given the addition of dexamethasone I think it prudent to restart and complete the initial course of azithromycin - Continue to monitor closely for progression of pulmonary symptoms as she would be high risk immunosuppression with dexamethasone - Will add a baseline procalcitonin, repeat if she has any clinical defervescence - No evidence of recurrence #IBSrecent admission for viral gastroenteritis, patient stated symptoms improved. Continue home PPI and Zofran as needed for nausea Note: Patient has not done well on Bentyl in the past #Anxiety -Continue Klonopin as needed #HTN -Patient reports no medical management at home, continue diet control. #Hypothyroidism -Continue levothyroxine #Hypomagnesia -Check with a.m. labs replete as needed VTE ppx: SCDs with thrombocytopenia Dispo: Continued stay on MedSurg Admission and Anticipated Discharge Date Admission Date: April 07, 2025 Subjective Doing okay this morning. Oxycodone has been helpful. She is able to get up and shower, improving participation with PT and OT. No new events or concerns. Sleeping well. No problems with bowel or bladder function. Physical Exam Constitutional: Alert and oriented, lying in hospital bed, no apparent distress Eyes: Sclera clear Respiratory: Clear to auscultation Cardiovascular: Regular rate and rhythm, no murmurs rubs or gallops Gastrointestinal (Abdomen): Normal bowel sounds Musculoskeletal: Full active range of motion in upper extremities, lower examination limited secondary to pain Skin: No rash or discoloration Neurologic: No numbness or tingling, and weakness exam of lower extremities limited secondary to pain Results & Data Results & Data Vital Signs (Past 12 Hours) Vital Signs Temp Pulse Resp BP Pulse Ox O2 Del Method 04/08/25 07:53 Room Air 04/08/25 07:07 36.4 C L 65 18 159/94 H 94 Room Air PG Care Time/CCT Total # of Minutes Spent Total Time Spent with Patient: Total time spent is greater than 50% in coordination of care (as documented) at patient's floor/unit and/or counseling patient: Coding Level of Care Code 80121 SUB INP/OBS CARE 2/35MIN Diagnoses Intractable back pain M54.9 Lumbar compression fracture S32.030A Encounter type: initial encounter Lumbar vertebra fracture level: L3 Multifocal pneumonia J18.8 Fall W19.XXXA Ambulatory dysfunction R26.2 (2) Lumbar compression fracture Encounter type: initial encounter Lumbar vertebra fracture level: L3 Qualified Code(s): S32.030A - Wedge compression fracture of third lumbar vertebra, initial encounter for closed fracture"
[2025-04-09 07:54] VITALS: RESP 16
[2025-04-09 15:58] VITALS: BP 148/75; PULSE 77; TEMP 97.9; O2SAT 95
[2025-04-09] MEDS: PROMETHAZINE HCL 25 MG TAB PO PRN (16:00)
--- NOTE | 2025-04-09 17:10 | Discharge Summary ---
Date of Service April 09, 2025 Admission HPI Per Admitting Provider Patient is a 60-year-old female with past medical history of alcoholic liver cirrhosis, CVA in 2018, PE, IBS, HTN, RLS. Patient was recently admitted from 03/29 to 04/02 due to viral gastroenteritis also found to have multifocal pneumonia. Patient returned to the ED 04/05 after a fall at a hitting her back on a rock found to have a suspected minimally only worsened moderate L3 compression fracture resulting in intractable pain requiring admission. Patient seen at bedside. She was at a for her 's uncle in [place] at 1030 this morning when she fell and hit her back on a rock. She was also wearing heels at the time. She has had significant pain since and is still complaining of 04/01 pain after 1G IV Tylenol, oxycodone 10 mg p.o., and morphine 4 Mg IV in the ED. She denies any sensory deficits, bladder or bowel incontinence, abdominal pain, dysuria, hematuria, diarrhea, or constipation. She does endorse some chest pain and shortness of breath but stated she was recently diagnosed with pneumonia. She was prescribed 2 antibiotics however she did not take any because her PCP reportedly told her that she could have an allergic reaction to them with being allergic to penicillin and sulfa antibiotics. Extensively discussed this with patient at bedside that allergic reaction occurs in a very small amount of people with these "sister "medications. She reportedly had 1 dose of cefuroxime prior to discharge. Did not have any reaction. She is agreeable to trial these antibiotics especially while being monitored in the inpatient setting. She did not take any of her joão e medications today and is continuing to hold all of her blood pressure medications as her PCP stated her blood pressure is low after weight loss. Note that patient has a [facility] PCP however is being admitted to [facility] services due to insurance. Discharge Data Consultations 04/04/25 23:45 ED Decision to Admit Stat 04/05/25 02:05 Consult Orthopedic Spine Surgery Routine Hospital Course (1) Intractable back pain: (2) Lumbar compression fracture: (3) Multifocal pneumonia: (4) Fall: (5) Ambulatory dysfunction: Plan Patient is a 60-year-old female with past medical history of alcoholic liver cirrhosis, CVA in 2018, PE, IBS, HTN, RLS. Patient was recently admitted from 03/29 to 04/02 due to viral gastroenteritis also found to have multifocal pneumonia. Patient returned to the ED 04/05 after she twisted her ankle while wearing high heels at a , and fell, striking her back on a rock. #Acute on chronic anterior wedging of L3 vertebra | intractable back pain | ambulatory dysfunction -Acute, severe, intractable, minimal improvement during initial hospitalization thus far -Lumbar XR read as suspected minimally worsened moderate L3 compression fracture, stable L2 compression fracture; fractures were noted on lumbar spine CT from 2022 Patient reports history of frequent falls due to prior CVA and Mnire's disease -Will continue with multimodal pain regimen, initially with Tylenol, add Toradol, tramadol for breakthrough -She has had difficulty with narcotics in the past, given her limited success thus far may introduce low-dose morphine/oxycodone short-term, will try to limit dose and duration as this has led to issues with her GI tract/constipation in the past -Continue home Flexeril as needed -Lidocaine patch as needed -Heat application/K-pad as needed -Continue dexamethasone 6 mg IV daily -Orthospine consult appreciated No operative intervention planned at this time Recommend patient be fitted with a lumbosacral brace -PT/OT evaluations appreciated, pending intake evaluations today -Adequately conrtrolled with the addition of oral oxycodone, difficult to determine what her time frame of need will be. She has a tentative acceptance at [facility] for rehab, transition to rehab appropriate with close follow-up for pain medication management and taper when appropriate. #Multifocal PNA - CT read from 04/01 patient has multifocal pneumonia however personally reviewed and appears questionable. Patient is asymptomatic, non- hypoxic, with no difficulty breathing. - She only took a single dose of the azithromycin, did not take the second antibiotic secondary to history of penicillin allergy - Given the addition of dexamethasone I think it prudent to restart and complete the initial course of azithromycin - Continue to monitor closely for progression of pulmonary symptoms as she would be high risk immunosuppression with dexamethasone - Will add a baseline procalcitonin, repeat if she has any clinical defervescence - No evidence of recurrence #IBSrecent admission for viral gastroenteritis, patient stated symptoms improved. Continue home PPI and Zofran as needed for nausea Note: Patient has not done well on Bentyl in the past #Anxiety -Continue Klonopin as needed #HTN -Patient reports no medical management at home, continue diet control. #Hypothyroidism -Continue levothyroxine #Hypomagnesia -Check with a.m. labs replete as needed VTE ppx: SCDs with thrombocytopenia Dispo: Continued stay on MedSurg Coding Level of Care Code 80218 INP/OBS DISCH >30 MIN Diagnoses Intractable back pain M54.9 Lumbar compression fracture S32.030A Encounter type: initial encounter Lumbar vertebra fracture level: L3 Multifocal pneumonia J18.8 Fall W19.XXXA Ambulatory dysfunction R26.2
--- NOTE | 2025-04-09 17:16 | Discharge Summary ---
Discharge Summary Date of Service April 09, 2025 Principal Dx & Hospital Course #1 = Principal Diagnosis (1) Intractable back pain: (2) Lumbar compression fracture: (3) Multifocal pneumonia: (4) Fall: (5) Ambulatory dysfunction: Plan Patient is a 60-year-old female with past medical history of alcoholic liver cirrhosis, CVA in 2018, PE, IBS, HTN, RLS. Patient was recently admitted from 03/29 to 04/02 due to viral gastroenteritis also found to have multifocal pneumonia. Patient returned to the ED 04/05 after she twisted her ankle while wearing high heels at a , and fell, striking her back on a rock. #Acute on chronic anterior wedging of L3 vertebra | intractable back pain | ambulatory dysfunction -Acute, severe, intractable, minimal improvement during initial hospitalization thus far -Lumbar XR read as suspected minimally worsened moderate L3 compression fracture, stable L2 compression fracture; fractures were noted on lumbar spine CT from 2022 Patient reports history of frequent falls due to prior CVA and Mnire's disease -Will continue with multimodal pain regimen, initially with Tylenol, add Toradol, tramadol for breakthrough -Adequately controlled with the addition of oral oxycodone, - [facility] to continue oxycodone, as needed Toradol, more aggressive therapy regimens. She will need an outpatient follow-up to taper opiates as well as restart outpatient NSAIDs when safe #Multifocal PNA - CT read from 04/01 patient has multifocal pneumonia however personally reviewed and appears questionable. Patient is asymptomatic, non- hypoxic, with no difficulty breathing. - Complete course of therapy prior to admission. She was given a loading dose and a 7-day course of azithromycin while here, therapy and symptoms of #IBSrecent admission for viral gastroenteritis, patient stated symptoms improved. Continue home PPI and Zofran as needed for nausea Note: Patient has not done well on Bentyl in the past #Anxiety -Continue Klonopin as needed #HTN -Patient reports no medical management at home, continue diet control. #Hypothyroidism -Continue levothyroxine #Hypomagnesia - Discharged with daily magnesium, check as outpatient upon discharge Admission HPI Per Admitting Provider Patient is a 60-year-old female with past medical history of alcoholic liver cirrhosis, CVA in 2018, PE, IBS, HTN, RLS. Patient was recently admitted from 03/29 to 04/02 due to viral gastroenteritis also found to have multifocal pneumonia. Patient returned to the ED 04/05 after a fall at a hitting her back on a rock found to have a suspected minimally only worsened moderate L3 compression fracture resulting in intractable pain requiring admission. Patient seen at bedside. She was at a for her 's uncle in [place] at 1030 this morning when she fell and hit her back on a rock. She was also wearing heels at the time. She has had significant pain since and is still complaining of 9/10 pain after 1G IV Tylenol, oxycodone 10 mg p.o., and morphine 4 Mg IV in the ED. She denies any sensory deficits, bladder or bowel incontinence, abdominal pain, dysuria, hematuria, diarrhea, or constipation. She does endorse some chest pain and shortness of breath but stated she was recently diagnosed with pneumonia. She was prescribed 2 antibiotics however she did not take any because her PCP reportedly told her that she could have an allergic reaction to them with being allergic to penicillin and sulfa antibiotics. Extensively discussed this with patient at bedside that allergic reaction occurs in a very small amount of people with these "sister "medications. She reportedly had 1 dose of cefuroxime prior to discharge. Did not have any reaction. She is agreeable to trial these antibiotics especially while being monitored in the inpatient setting. She did not take any of her home medications today and is continuing to hold all of her blood pressure medications as her PCP stated her blood pressure is low after weight loss. Note that patient has a [facility] PCP however is being admitted to [facility] services due to insurance. Discharge Exam Constitutional Alert and oriented no apparent distress Neck No JVD Respiratory Clear to auscultation bilaterally Cardiovascular Regular rate and rhythm no murmurs rubs or gallops Gastrointestinal (Abdomen) Nontender, normal bowel sounds Musculoskeletal Normal movement of all extremities, no lower extremity edema Skin No rash, pallor or discoloration Neurologic No focal deficits, no numbness or tingling Discharge Plan Discharge Items Patient Disposition: Transfer Inpatient Rehab Fac Reason For Visit: INTRACTABLE BACK PAIN Discharge Diagnosis: Lumbar compression fracture Acute fracture L3, chronic fracture L1-L2 Osteopenia Lumbar radiculopathy DJD lumbar spine Condition on Discharge: Fair Activity: Per Instructions section Activity Comment: Further PT and OT evaluation Lifting: Wait until after follow-up appointment Bathing: No limitations Weightbearing: Full weightbearing Non-emergency contact: Primary Care Provider Call non-emergency contact if: your pain is not controlled, your pain is worsening and your temperature is above 101.5 Follow-up/Referrals: Abraham Ryan MD [Primary Care Provider] - Diet: Regular Addtl Attending Provider Instructions: Continue your insulin regimen and medications. No significant changes We have both oxycodone to be used sparingly on an as-needed basis for worsening pain Please follow-up with your primary doctor upon discharge from rehab for short and long-term medication management if needed FOR [facility]: Pain was well controlled with lidocaine patch, Tylenol and oxycodone 5mg q4h PRN severe pain She completed a 5 days course of azithromycin today 04/09, this does not need to continue Otherwise no medication changes Pending Studies at Discharge: No Stand-Alone Forms: [facility] Skilled Items Patient informed of condition?: Yes DNR: No Discharge Level of Care: Skilled Communicable Disease: No Discharge Prognosis: Improving Lines: None Urinary Catheter: No Medications and DC Order Prescriptions: New ketorolac 15 mg/mL Solution 10 mg IV Q6H PRNQty: 0 0RF oxycodone 5 mg Tablet 5 mg PO Q4H PRNQty: 0 0RF Continued (DME) Monoject Safety Syringes 3 mL 23 gauge x 1" syringe See Rx Instructions .Route Qty: 1 0RF Rx Instructions: As directed (DME) needle (disp) 23 gauge [Aqinject Standard Needle] 23 gauge x 1" needle See Rx Instructions .Route Qty: 100 0RF Rx Instructions: As directed (DME) BD Eclipse 25 gauge x 1" needle See Rx Instructions .Route Qty: 15 0RF Rx Instructions: As directed (DME) Aspirating Bandera clonazepam [Klonopin] 0.5 mg tablet 0.5 mg PO TID Rx Instructions: 1 tab in am 1 tab at noon & 1 tab at hs. sumatriptan succinate [Imitrex] 50 mg Tablet 100 mg PO DIRECTED PRN (Reason: Migraine Headache) omeprazole 40 mg capsule,delayed release(DR/EC) 40 mg PO BID tramadol 50 mg tablet 50 mg PO Q6H PRN (Reason: Pain) promethazine 25 mg tablet 25 mg PO Q6H PRN (Reason: Nausea) aspirin [Aspirin Childrens] 81 mg Tablet,Chewable 81 mg PO DAILY Hold Instructions: Resume on 04/30/25. Hold until seen by PCP for follow-up Rx Instructions: ON HOLD albuterol sulfate 90 mcg/actuation Hfa Aerosol Inhaler 2 puff INHALATION QID lisinopril [Zestril] 40 mg tablet 40 mg PO QAM Hold Instructions: Resume on 04/30/25. Hold until seen by PCP for follow-up Rx Instructions: ON HOLD has been holding sennosides-docusate sodium [Senokot-S] 8.6-50 mg Tablet 1 tab PO QPM Qty: 14 0RF Rx Instructions: Take 1 tablet by mouth every evening spironolactone 25 mg Tablet 50 mg PO QAM Qty: 60 0RF Hold Instructions: Resume on 04/30/25. Hold until seen by PCP for follow-up Rx Instructions: ON HOLD Take 2 tablets by mouth every morning lidocaine 5 % adhesive patch,medicated 1 patch topical DAILY PRN (Reason: Back Pain) Rx Instructions: leave on most painful area for up to 12 hrs fluoxetine 40 mg capsule 80 mg PO QAM cyclobenzaprine 10 mg tablet 10 mg PO BID PRN (Reason: Muscle Spasm) carvedilol 6.25 mg tablet 6.25 mg PO BID Hold Instructions: Resume on 04/30/25. Hold until seen by PCP for follow Rx Instructions: ON HOLD carbidopa-levodopa 25-100 mg tablet extended release 1 tab PO HS cholecalciferol (vitamin D3) [Vitamin D3] 25 mcg (1,000 unit) Tablet,Chewable 25 mcg PO DAILY Hold Instructions: Resume on 04/30/25. Hold until seen by PCP for follow-up Rx Instructions: ON HOLD atorvastatin 40 mg Tablet 40 mg PO DAILY Rx Instructions: ON HOLD lamotrigine [Lamictal] 25 mg Tablet 25 mg PO DAILY Rx Instructions: ON HOLD levothyroxine 50 mcg Tablet 50 mcg PO DAILYBB cyanocobalamin (vitamin B-12) 1,000 mcg/mL Solution 1,000 mcg IM DIRECTED Rx Instructions: ON HOLD ondansetron 4 mg Tablet,Disintegrating 4 mg PO Q8H PRN (Reason: NAUSEA/VOMITING) dicyclomine 10 mg Capsule 10 mg PO DIRECTED Rx Instructions: ON HOLD riboflavin (vitamin B2) 400 mg Tablet 400 mg PO DAILY magnesium oxide 400 mg magnesium Tablet 400 mg PO HS Discontinued azithromycin 250 mg tablet 250 mg PO DAILY 4 Days Qty: 4 0RF Rx Instructions: ORDERED 04/02/25, PER PT "HAVE NOT TAKEN THIS MED" Take 1 tablet by mouth daily magnesium hydroxide [Milk of Magnesia] 400 mg/5 mL Suspension 15 ml PO BID PRN (Reason: Constipation) ibuprofen 600 mg Tablet 600 mg PO TID PRN (Reason: Pain) Discharge Orders: Discharge Order (Routine); Ordered 04/09/25 Ordered By: Kulwinder Haider/Other Patient Handouts: ED Back Pain (Acute or Chronic) Admission Data Admit Date/Time: 04/07/25 09:18 Attending Provider: Kulwinder Owen Admit Provider: Bobby Coreas Primary Care Provider: Abraham Ryan Other Providers: Bobby Coreas; Tushar Hu.; Panda Davidson; Mercedez Lopez; Veronique Tracy; Gonzalez Dietrich.; Mark Jhaveri; Gallo Cruz; Gonzalez Lopez; [facility] Other Interventions: Discharge Summary Assessment (RN) Last Done: 04/09/25 15:08 Hospital Stay Data Consultations 04/04/25 23:45 ED Decision to Admit Stat 04/05/25 02:05 Consult Orthopedic Spine Surgery Routine Diagnostic Imagining Performed 04/05/25 00:15 CT lumbar spine wo con Stat Pending Results Patient Have Any Pending Studies at Discharge: No Discharge Instructions Given to Patient (Per Discharging Provider) Continue your insulin regimen and medications. No significant changes We have both oxycodone to be used sparingly on an as-needed basis for worsening pain Please follow-up with your primary doctor upon discharge from rehab for short and long-term medication management if needed FOR [facility]: Pain was well controlled with lidocaine patch, Tylenol and oxycodone 5mg q4h PRN severe pain She completed a 5 days course of azithromycin today 04/09, this does not need to continue Otherwise no medication changes Total Time Total Time Spent Total Time Spent (In Minutes): 44 Coding Level of Care Code 93744 INP/OBS DISCH >30 MIN Diagnoses Intractable back pain M54.9 Lumbar compression fracture S32.030A Encounter type: initial encounter Lumbar vertebra fracture level: L3 Multifocal pneumonia J18.8 Fall W19.XXXA Ambulatory dysfunction R26.2
== END 2025-04-09 17:27 | DRG 551 ==
LOC: ED 19:32 → 3N 19:32 → SUATTDRO 04-05 00:23 → 3N 04-05 01:30